=== PATIENT | female | born 1975 | race African-American/Black ===

== ENCOUNTER 2019-08-08 07:40 | Emergency (ER) | payer BC ==
--- OUTSIDE RECORDS SUMMARY | 2019-08-08 07:50 | XMS REPORT ---
:1975 [facility] Address [address] [place] [address] Dr. Blanc [address] [place] [id number] Care Team Providers Name Role Phone Unavailable Unavailable Unavailable Problems This patient has no known problems. Allergies, Adverse Reactions, Alerts This patient has no known allergies or adverse reactions. Medications This patient has no known medications.
[2019-08-08] MEDS ORDERED: MEPERIDINE HCL 25 MG/0.5 ML ONE (08:08)
[2019-08-08] MEDS ORDERED: dexAMETHasone 10 MG/ML VIAL ONE (08:08)
--- NOTE | 2019-08-08 09:12 | RAD REPORT ---
EXAM DESCRIPTION: CT - Pelvis Wo Cont - 08/08/2019 8:54 am CLINICAL HISTORY: fall, right pelvic and hip pain COMPARISON: No comparisons TECHNIQUE: All CT scans are performed using dose optimization technique as appropriate and may inclu de automated exposure control or mA/KV adjustment according to patient size. FINDINGS: Hardware is present in the proximal left femur. Degenerative cysts are seen along the late ral margin of the left hip femoral head. The right hip appears intact. There is no fracture, dislocation or AVN pattern observed. Both sacral ala are intact. No soft tissue mass or hematoma. IMPRESSION: No acute finding involving the right hip.
--- NOTE | 2019-08-08 09:17 | RAD REPORT ---
EXAM DESCRIPTION: CT - Spine Lumbar Wo Con - 08/08/2019 8:53 am CLINICAL HISTORY: Radiculopathy. fall, back pain COMPARISON: LUMBAR SPINE W O CONTRAST dated 08/17/2015 TECHNIQUE: Axial noncontrast CT imaging of the lumbar spine was performed with coronal and sagittal re-formatted images. All CT scans are performed using dose optimization technique as appropriate and may include automated exposure control or mA/KV adjustment according to patient size. FINDINGS: No acute lumbar spine fracture seen. No aggressive marrow pattern or malalignment. Paraspinal tissues are normal in thickness. No paraspinal abscess or hematoma seen. 4 cm right adnexal cyst noted. IMPRESSION: No acute lumbar spine abnormality discerned.
[2019-08-08] MEDS ORDERED: MORPHINE 4 MG/ML SYR ONE (09:41)
--- NOTE | 2019-08-08 09:42 | RAD REPORT ---
EXAM DESCRIPTION: RAD - Femur Right - 08/08/2019 9:30 am CLINICAL HISTORY: PAIN COMPARISON: No comparisons FINDINGS: No fracture, dislocation or AVN.
--- NOTE | 2019-08-08 10:41 | EDPHYS ---
Physician Documentation [facility] Name: Diana Vincent Age: 43 yrs Sex: Female : 1975 Arrival Date: 08/08/2019 Time: 07:45 Bed 16 Private MD: Ubaldo Rogers ED Physician Russ Tian HPI: 08/07 07:58 This 43 yrs old Black Female presents to ER via Unassigned with complaints of Leg Pain. rn 07:58 The patient presents with decreased range of motion, an injury, pain. The complaints rn affect the right hip. Onset: The symptoms/episode began/occurred just prior to arrival. Modifying factors: The symptoms are alleviated by remaining still, the symptoms are aggravated by movement, weight bearing. Severity of symptoms: At their worst the symptoms were moderate, in the emergency department the symptoms are unchanged. The patient has not experienced similar symptoms in the past. Reports fall this morning, fell off couch, landed on right hip, reports painful ROM and to touch, also right lower back pain. Reports has chronic back pain, just had injection Thursday, had a little pain and irritation but went to sleep last night pain free. Pain did not return until fell. Reports pain to right lower back and right hip, pain shoots down right leg. . Historical: - Allergies: 08:01 Latex, Natural Rubber; ss 08:01 PENICILLINS; ss - PMHx: 08:01 Seizures; ss - PSHx: 08:01 left hip surgery; ; ss - Immunization history:: Adult Immunizations up to date. - Social history:: Smoking status: Patient reports the use of cigarette tobacco products, 1 pack per week. - Family history:: not pertinent. - Hospitalizations: : No recent hospitalization is reported. ROS: 07:58 Constitutional: Negative for fever, chills, and weight loss, Eyes: Negative for injury, rn pain, redness, and discharge, Neck: Negative for injury, pain, and swelling, Cardiovascular: Negative for chest pain, palpitations, and edema, Respiratory: Negative for shortness of breath, cough, wheezing, and pleuritic chest pain, Abdomen/GI: Negative for abdominal pain, nausea, vomiting, diarrhea, and constipation, Back: + right lower back pain : Negative for injury, bleeding, discharge, and swelling, MS/Extremity: + right hip/leg pain Skin: Negative for injury, rash, and discoloration, Neuro: Negative for headache, weakness, numbness, tingling, and seizure. Exam: 07:58 Constitutional: This is a well developed, well nourished patient who is awake, alert, rn grimacing in pain when moved into bed Head/Face: Normocephalic, atraumatic. Eyes: Pupils equal round and reactive to light, extra-ocular motions intact. Lids and lashes normal. Conjunctiva and sclera are non-icteric and not injected. Cornea within normal limits. Periorbital areas with no swelling, redness, or edema. Cardiovascular: Regular rate and rhythm. No pulse deficits. Respiratory: No increased work of breathing, no retractions or nasal flaring. Abdomen/GI: soft, non-tender Back: No spinal tenderness. + right lower back tenderness, no skin changes. MS/ Extremity: Pulses equal, no cyanosis. + right hip tenderness with painful ROM. Neuro: Awake and alert, GCS 15, oriented to person, place, time, and situation. Motor strength 5/5 in all extremities. Sensory grossly intact. Vital Signs: 07:58 BP 144 / 108; Pulse 87; Resp 23; Temp 98.8(TE); Pulse Ox 99% on R/A; Weight 77.11 kg; ss Height 4 ft. 11 in. (149.86 cm); Pain 8/10; 09:30 BP 138 / 91; Pulse 82; Resp 18; Pulse Ox 99% on R/A; ph 10:36 BP 128 / 99; Pulse 79; Resp 18; Pulse Ox 99% on R/A; ph 11:15 Temp 97.9; ph 07:58 Body Mass Index 34.34 (77.11 kg, 149.86 cm) ss MDM: 07:47 Patient medically screened. rn 10:38 Differential diagnosis: dislocation, closed fracture, contusion. Data reviewed: vital rn signs, nurses notes, radiologic studies, CT scan, plain films, and as a result, I will discharge patient. Counseling: I had a detailed discussion with the patient and/or guardian regarding: the historical points, exam findings, and any diagnostic results supporting the discharge/admit diagnosis, radiology results, the need for outpatient follow up, to return to the emergency department if symptoms worsen or persist or if there are any questions or concerns that arise at home. Response to treatment: the patient's symptoms have mildly improved after treatment, and as a result, I will discharge patient. Special discussion: I discussed with the patient/guardian in detail that at this point there is no indication for admission to the hospital. It is understood, however, that if the symptoms persist or worsen the patient needs to return immediately for re-evaluation. ED course: Neg ct pelvis and lumbar spine, neg femur film. Will dc home with muscle relaxer and steroids for contusion/trauma/radiculopathy. Return precautions given and understood. . 10:43 ED course: PMP[place] checked, scores 370/160/220, no active prescriptions, will dc home rn with muscle relaxer and steorids.. 03 07:58 Order name: CT Lumbar Spine Wo Con; Complete Time: 09:44 rn 08/07 07:58 Order name: CT Pelvis wo Cont; Complete Time: 09:44 rn 08/07 07:58 Order name: XRAY Femur RIGHT; Complete Time: 10:05 rn 08/07 07:58 Order name: IV Start; Complete Time: 08:00 rn Administered Medications: 08:19 Drug: Demerol 25 mg Route: IVP; Site: left hand; ph 08:45 Follow up: Response: No adverse reaction; Pain is decreased ph 08:19 Drug: Decadron - Dexamethasone 10 mg Route: IVP; Site: left hand; ph 08:45 Follow up: Response: No adverse reaction ph 10:00 Drug: morphine 4 mg Route: IVP; Site: left hand; ph 10:15 Follow up: Response: No adverse reaction; Pain is decreased ph Disposition: 08/08/19 10:40 Discharged to Home. Impression: Radiculopathy, lumbosacral region, Contusion of lower back and pelvis, Contusion of right hip. - Condition is Stable. - Discharge Instructions: Contusion, Lumbosacral Radiculopathy. - Prescriptions for Cyclobenzaprine 10 mg Oral Tablet - take 1 tablet by ORAL route every 8 hours As needed; 20 tablet. Medrol (Eliud) 4 mg Oral Tablets, Dose Pack - take 1 tablet by ORAL route as directed - follow package instructions; 1 packet. - Medication Reconciliation Form, Thank You Letter, Antibiotic Education, Prescription Opioid Use, Work release form, Family Work Release form. - Follow up: Private Physician; When: As needed; Reason: Recheck today's complaints, Re-evaluation by your physician. - Problem is new. - Symptoms have improved. Signatures: Dispatcher [employer] EDMS Antonina Washington Roman, MD MD rn SmirKeli palacios RN RN ss Charleen Mixon RN RN ph Corrections: (The following items were deleted from the chart) 11:18 10:40 08/08/2019 10:40 Discharged to Home. Impression: Radiculopathy, lumbosacral ph region; Contusion of lower back and pelvis; Contusion of right hip. Condition is Stable. Forms are Medication Reconciliation Form, Thank You Letter, Antibiotic Education, Prescription Opioid Use. Follow up: Private Physician; When: As needed; Reason: Recheck today's complaints, Re-evaluation by your physician. Problem is new. Symptoms have improved. rn
--- NOTE | 2019-08-08 10:41 | ER ---
Nurse's Notes [facility] Name: Diana Vincent Age: 43 yrs Sex: Female : 1975 Arrival Date: 08/08/2019 Time: 07:45 Bed 16 Private MD: Ubaldo Rogers Diagnosis: Radiculopathy, lumbosacral region;Contusion of lower back and pelvis;Contusion of right hip Presentation: 08/07 07:58 Chief complaint: Patient states: pain to R hip that radiates down R leg that began this ss morning after falling from a standing position. Pt recently had injections to lower back (Thursday). Coronavirus screen: The patient has NOT traveled to a country currently being monitored by the CDC within the last 14 days. Proceed with normal triage procedures. Ebola Screen: Patient denies exposure to infectious person. Patient denies travel to an Ebola-affected area in the 21 days before illness onset. Initial Sepsis Screen: Does the patient meet any 2 criteria? No. Patient's initial sepsis screen is negative. Does the patient have a suspected source of infection? No. Patient's initial sepsis screen is negative. Risk Assessment: Do you want to hurt yourself or someone else? Patient reports no desire to harm self or others. 07:58 Method Of Arrival: Wheelchair 07:58 Acuity: ARGENIS 3 ss Historical: - Allergies: 08:01 Latex, Natural Rubber; ss 08:01 PENICILLINS; ss - PMHx: 08:01 Seizures; ss - PSHx: 08:01 left hip surgery; ; ss - Immunization history:: Adult Immunizations up to date. - Social history:: Smoking status: Patient reports the use of cigarette tobacco products, 1 pack per week. - Family history:: not pertinent. - Hospitalizations: : No recent hospitalization is reported. Screenin:33 Abuse screen: Denies threats or abuse. Denies injuries from another. Nutritional ph screening: No deficits noted. Tuberculosis screening: No symptoms or risk factors identified. Fall Risk None identified. Assessment: 08:30 General: Appears in no apparent distress. uncomfortable, well groomed, Behavior is ph calm, cooperative, appropriate for age. Pain: Complains of pain in right hip Pain radiates to right leg. Neuro: Level of Consciousness is awake, alert, obeys commands, Oriented to person, place, time, situation. Cardiovascular: Capillary refill < 3 seconds in bilateral fingers Patient's skin is warm and dry. Respiratory: Airway is patent Respiratory effort is even, unlabored, Respiratory pattern is regular, symmetrical. Derm: Skin is intact, is healthy with good turgor, Skin is pink, warm \T\ dry. Musculoskeletal: Circulation, motion, and sensation intact. Range of motion: intact in all extremities. 09:30 Reassessment: Patient appears in no apparent distress at this time. Patient and/or ph family updated on plan of care and expected duration. Pain level reassessed. Patient is alert, oriented x 3, equal unlabored respirations, skin warm/dry/pink. 10:36 Reassessment: Patient appears in no apparent distress at this time. Patient and/or ph family updated on plan of care and expected duration. Pain level reassessed. Patient is alert, oriented x 3, equal unlabored respirations, skin warm/dry/pink. Vital Signs: 07:58 BP 144 / 108; Pulse 87; Resp 23; Temp 98.8(TE); Pulse Ox 99% on R/A; Weight 77.11 kg; ss Height 4 ft. 11 in. (149.86 cm); Pain 8/10; 09:30 BP 138 / 91; Pulse 82; Resp 18; Pulse Ox 99% on R/A; ph 10:36 BP 128 / 99; Pulse 79; Resp 18; Pulse Ox 99% on R/A; ph 11:15 Temp 97.9; ph 07:58 Body Mass Index 34.34 (77.11 kg, 149.86 cm) ED Course: 07:45 Patient arrived in ED. mr 07:45 Ubaldo Rogers MD is Private Physician. mr 07:47 Russ Tian MD is Attending Physician. rn 07:49 Charleen Mixon RN is Primary Nurse. ph 08:00 Triage completed. ss 08:01 Arm band placed on right wrist. ss 08:15 Inserted saline lock: 20 gauge in left hand, using aseptic technique. dh3 08:54 CT Lumbar Spine Wo Con In Process Unspecified. EDMS 08:54 CT Pelvis wo Cont In Process Unspecified. EDMS 09:27 X-ray completed. Patient tolerated procedure well. Patient moved back from radiology. jb2 09:30 XRAY Femur RIGHT In Process Unspecified. EDMS 10:33 Patient has correct armband on for positive identification. Placed in gown. Bed in low ph position. Call light in reach. Side rails up X 1. Pulse ox on. NIBP on. Door closed. Noise minimized. Warm blanket given. Pillow given. 11:15 No provider procedures requiring assistance completed. IV discontinued, intact, ph bleeding controlled, No redness/swelling at site. Pressure dressing applied. Administered Medications: 08:19 Drug: Demerol 25 mg Route: IVP; Site: left hand; ph 08:45 Follow up: Response: No adverse reaction; Pain is decreased ph 08:19 Drug: Decadron - Dexamethasone 10 mg Route: IVP; Site: left hand; ph 08:45 Follow up: Response: No adverse reaction ph 10:00 Drug: morphine 4 mg Route: IVP; Site: left hand; ph 10:15 Follow up: Response: No adverse reaction; Pain is decreased ph Outcome: 10:40 Discharge ordered by . rn 11:18 Patient left the ED. ph 11:18 Discharged to home via wheelchair, with significant other. ph 11:18 Condition: improved 11:18 Discharge instructions given to patient, Instructed on discharge instructions, follow up and referral plans. medication usage, Demonstrated understanding of instructions, follow-up care, medications, Prescriptions given X 2. Signatures: Dispatcher [employer] EDMN Roselia Sesay Jesse jb2 Russ Tian MD MD rn Smirch, Shelby, RN RN Charleen Mixon RN RN Leola Rojas [facility]
[2019-08-08 11:31] VITALS: TEMP 98.8; O2SAT 99
[2019-08-08 11:34] VITALS: BP 128/99
== END 2019-08-08 11:18 | disposition home or self-care (01) ==
LOC: ER 07:40
DX: S70.01XA Contusion of right hip, initial encounter (principal); S30.0XXA Contusion of lower back and pelvis, initial encounter; M54.17 Radiculopathy, lumbosacral region; W08.XXXA Fall from other furniture, initial encounter; Y93.9 Activity, unspecified; Y92.018 Other place in single-family (private) house as the place of occurrence of the external cause; Z88.0 Allergy status to penicillin; Z91.040 Latex allergy status; F17.210 Nicotine dependence, cigarettes, uncomplicated
CPT/HCPCS: 72131; 72192; 73552; 96375; 96374; 99284; J1100; J2175

== ENCOUNTER 2020-02-12 22:15 | Emergency (ER) | payer BC, SELFPAY ==
--- OUTSIDE RECORDS SUMMARY | 2020-02-12 22:36 | XMS REPORT | Continuity of Care Document ---
:1975 Author Organization [facility] t Address [address] [place] [address] Care Team Providers Name Role Phone Unavailable Unavailable Unavailable Problems This patient has no known problems. Allergies, Adverse Reactions, Alerts This patient has no known allergies or adverse reactions. Medications This patient has no known medications. Procedures This patient has no known procedures. Results This patient has no known results.
[2020-02-12] MEDS ORDERED: CYCLOBENZAPRINE 10 MG TAB ONE (23:05)
[2020-02-12] MEDS ORDERED: HYDROCODONE/APAP 10/325 TAB ONE (23:05)
--- NOTE | 2020-02-13 00:53 | EDPHYS ---
Physician Documentation [facility] Name: Diana Vincent Age: 44 yrs Sex: Female : 1975 Arrival Date: 02/12/2020 Time: 22:17 Bed 17 Private MD: ED Physician Russ Tian HPI: 02/11 23:07 This 44 yrs old Black Female presents to ER via Ambulatory with complaints of Back Pain.kb 23:07 The patient presents with pain that is acute, that is chronic, and a burn. The symptoms kb are located in the low back area. Onset: The symptoms/episode began/occurred 3 day(s) ago. The pain does not radiate. Associated signs and symptoms: The patient has no apparent associated signs or symptoms. The problem was sustained from a chronic condition, during a fall. Modifying factors: The patient symptoms are alleviated by nothing, the patient symptoms are aggravated by any movement. Severity of symptoms: At their worst the symptoms were moderate, in the emergency department the symptoms are unchanged. The patient has experienced similar episodes in the past, chronically. The patient has not recently seen a physician. Pt reports she has chronic back pain secondary to bulging discs. States she slipped and fell in the shower on Thursday exacerbating the pain. She got new pads for her e-stem machine and when she used them they burned her back. . GOODS LAYER: 22:52 LMP 12/2019 Historical: - Allergies: 22:51 Latex, Natural Rubber; 22:51 PENICILLINS; - Home Meds: 22:51 dilantin only when she doesn't feel right [Active]; - PMHx: 22:51 Seizures; Asthma; - PSHx: 22:51 ; Hernia repair; - Immunization history:: Adult Immunizations up to date. - Social history:: Smoking status: Patient/guardian denies using. ROS: 23:06 Constitutional: Negative for fever, chills, and weight loss, Cardiovascular: Negative kb for chest pain, palpitations, and edema, Respiratory: Negative for shortness of breath, cough, wheezing, and pleuritic chest pain, Abdomen/GI: Negative for abdominal pain, nausea, vomiting, diarrhea, and constipation, : Negative for injury, bleeding, discharge, and swelling, MS/Extremity: Negative for injury and deformity, Neuro: Negative for headache, weakness, numbness, tingling, and seizure. 23:06 Back: Positive for pain at rest, pain with movement, of the low back area. 23:06 Skin: Positive for burn, of the low back area. Exam: 23:06 Constitutional: This is a well developed, well nourished patient who is awake, alert, kb and in no acute distress. Head/Face: Normocephalic, atraumatic. Chest/axilla: Normal chest wall appearance and motion. Nontender with no deformity. No lesions are appreciated. Cardiovascular: Regular rate and rhythm with a normal S1 and S2. No gallops, murmurs, or rubs. Normal PMI, no JVD. No pulse deficits. Respiratory: Lungs have equal breath sounds bilaterally, clear to auscultation and percussion. No rales, rhonchi or wheezes noted. No increased work of breathing, no retractions or nasal flaring. Abdomen/GI: Soft, non-tender, with normal bowel sounds. No distension or tympany. No guarding or rebound. No evidence of tenderness throughout. MS/ Extremity: Pulses equal, no cyanosis. Neurovascular intact. Full, normal range of motion. Neuro: Awake and alert, GCS 15, oriented to person, place, time, and situation. Cranial nerves II-XII grossly intact. Motor strength 5/5 in all extremities. Sensory grossly intact. Cerebellar exam normal. Normal gait. 23:06 Back: pain, that is moderate, of the low back area, ROM is normal, normal spinal alignment noted. 23:06 Skin: injury, burn(s), 4 areas of second degree israel to low back from e-stem pads. Vital Signs: 22:47 BP 146 / 93; Pulse 92; Resp 18; Temp 98.2; Pulse Ox 98% ; Weight 77.11 kg; Height 4 ft. wh 11 in. (149.86 cm); Pain 10/10; 02/12 01:00 BP 131 / 101; Pulse 89; Resp 18; Pulse Ox 99% on R/A; 02/11 22:47 Body Mass Index 34.34 (77.11 kg, 149.86 cm) MDM: 02/11 22:40 Patient medically screened. kb 23:05 Data reviewed: vital signs, nurses notes. Data interpreted: Pulse oximetry: on room air kb is 98 %. Interpretation: normal. 02/12 00:43 Counseling: I had a detailed discussion with the patient and/or guardian regarding: the kb historical points, exam findings, and any diagnostic results supporting the discharge/admit diagnosis, radiology results, the need for outpatient follow up, a family practitioner, to return to the emergency department if symptoms worsen or persist or if there are any questions or concerns that arise at home. 02/11 22:44 Order name: CT Lumbar Spine Wo Con kb Administered Medications: 02/11 22:56 Drug: Tropic 10 mg-325 mg 1 tabs Route: PO; ls4 23:30 Follow up: Response: No adverse reaction; Marked relief of symptoms rust 02/12 01:30 Follow up: Response: No adverse reaction; Pain is decreased; RASS: Alert and Calm (0) 02/11 22:56 Drug: Flexeril 10 mg Route: PO; ls4 23:30 Follow up: Response: No adverse reaction; Marked relief of symptoms rust 02/12 01:30 Follow up: Response: No adverse reaction 00:52 Drug: Benadryl 25 mg Route: PO; 01:30 Follow up: Response: No adverse reaction 00:52 Drug: Famotidine 20 mg Route: PO; 01:29 Follow up: Response: No adverse reaction 01:15 Drug: predniSONE 40 mg Route: PO; 01:29 Follow up: Response: No adverse reaction Disposition: 02:20 Co-signature as Attending Physician, Russ Tian MD. rn Disposition: 02/13/20 00:53 Discharged to Home. Impression: Burn of second degree of lower back, Low back pain. - Condition is Stable. - Discharge Instructions: Back Pain, Adult, [id number], Second-Degree Burn. - Prescriptions for Cyclobenzaprine 10 mg Oral Tablet - take 1 tablet by ORAL route every 8 hours As needed; 21 tablet. Pepcid 20 mg Oral Tablet - take 1 tablet by ORAL route every 12 hours for 5 days; 10 tablet. Medrol (Eliud) 4 mg Oral Tablets, Dose Pack - take 1 tablet by ORAL route as directed - follow package instructions; 1 packet. - Medication Reconciliation Form, Thank You Letter, Antibiotic Education, Prescription Opioid Use form. - Follow up: Emergency Department; When: As needed; Reason: Worsening of condition. Follow up: Private Physician; When: 2 - 3 days; Reason: Recheck today's complaints, Continuance of care, Re-evaluation by your physician. Signatures: Dispatcher [employer] Teressa Anton, CONSTRUCTION EXECUTIVE-C CONSTRUCTION EXECUTIVE-CkRuss Matias MD MD rn Habalo, Iris Guaman RN RN ls4 Corrections: (The following items were deleted from the chart) 02/11 23:26 23:07 Pt reports she has chronic back pain secondary to . gualberto burciaga 02/12 01:35 00:53 02/13/2020 00:53 Discharged to Home. Impression: Burn of second degree of lower wh back; Low back pain. Condition is Stable. Discharge Instructions: Back Pain, Adult, Idmx-[id number], Second-Degree Burn. Prescriptions for Tylenol-Codeine #3 300-30 mg Oral Tablet - take 2 tablets by ORAL route every 6 hours As needed; 16 tablet, Cyclobenzaprine 10 mg Oral Tablet - take 1 tablet by ORAL route every 8 hours As needed; 21 tablet. and Forms are Medication Reconciliation Form, Thank You Letter, Antibiotic Education, Prescription Opioid Use. Follow up: Emergency Department; When: As needed; Reason: Worsening of condition. Follow up: Private Physician; When: 2 - 3 days; Reason: Recheck today's complaints, Continuance of care, Re-evaluation by your physician. kb
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
[2020-02-13] MEDS ORDERED: DIPHENHYDRAMINE 25 MG TAB/CAP ONE (01:00)
[2020-02-13] MEDS ORDERED: FAMOTIDINE 20 MG TAB ONE (01:01)
[2020-02-13] MEDS ORDERED: predniSONE 20 MG TAB ONE (01:25)
[2020-02-13 02:07] VITALS: TEMP 98.2
[2020-02-13 02:08] VITALS: BP 131/101; O2SAT 99
--- NOTE | 2020-02-13 10:59 | RAD REPORT ---
EXAM DESCRIPTION: CTSpine Lumbar Wo Con02/13/2020 4:19 am CLINICAL HISTORY: LOWER BACK PAIN TECHNIQUE: Contiguous axial CT images obtained through the lumbar spine without IV contrast. Coronal and sagittal reformatted images also provided. This exam was performed according to our departmental dose-optimization program, which includes autom ated exposure control, adjustment of the mA and/or kV according to patient size and/or use of iterati ve reconstruction technique. COMPARISON: None available for comparison FINDINGS: Vertebra: Lumbar dextroscoliosis centered at its No acute or remote fracture deformity. No subluxation. Disc spaces: Degenerative changes predominantly at L4-L5 manifested by mild to moderate disc degenera tion with vacuum disc phenomenon on the right, small anterior and right lateral disc osteophytes, 5 m m broad-based bulge and mild to moderate facet arthropathy, right greater than left. Mild to moderate foraminal narrowing on the right at this level. Soft tissues: Unremarkable IMPRESSION: Degenerative changes predominantly at L4-L5. Electronically signed by: Jada Milton MD 02/13/2020 12:41 AM CDT Due to temporary technical issues with the PACS/Fluency reporting system, reports are being signed by the in house radiologist without review as a courtesy to ensure prompt reporting. The interpreting r adiologist is fully responsible for the content of the report.
== END 2020-02-13 01:35 | disposition home or self-care (01) ==
LOC: ER 22:15
DX: T21.24XA Burn of second degree of lower back, initial encounter (principal); X19.XXXA Contact with other heat and hot substances, initial encounter; Z88.0 Allergy status to penicillin; Z91.040 Latex allergy status; Z91.048 Other nonmedicinal substance allergy status
CPT/HCPCS: 72131; 99284; J7512

== ENCOUNTER 2020-03-16 09:08 | Emergency (ER) | payer SELFPAY ==
--- OUTSIDE RECORDS SUMMARY | 2020-03-16 09:10 | XMS REPORT | Continuity of Care Document ---
:1975 Author Organization [facility] t Address [address] [place] [address] Care Team Providers Name Role Phone Diego Attending Clinician Nazario FAITH Attending Clinician Josephine Garcia Attending Clinician Doctor Unassigned, Name Attending Clinician Unavailable Nazario FAITH Admitting Clinician Problems This patient has no known problems. Allergies, Adverse Reactions, Alerts This patient has no known allergies or adverse reactions. Medications This patient has no known medications. Procedures This patient has no known procedures. Encounters Start End Encounter Admission Attending Care Care Encounter Source Date/Time Date/Time Type Type Clinicians Facility Department ID 2020-02-21 2020-02-21 Transition Oscar Cortez [id number] 00:00:00 00:00:00 of Care Mahogany Stapleton [id number] [place] [id number] 2020-02-15 2020-02-19 Hospital Anika Lange [id number] 23:20:00 14:53:00 Encounter Dbfrancisco jvaier Fengy [id number] [facility] [id number] 2020-02-15 2020-02-15 Emergency Tim Russell [facility] [id number] 18:13:00 21:26:00 Josephine Lamb [id number] [place] [id number] [place] [id number] 2020-02-15 2020-02-15 Orders Doctor GABRIEL [id number] 00:00:00 00:00:00 Only Unassigned, TAN [id number] [place] [facility] [id number] Results This patient has no known results.
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
--- OUTSIDE RECORDS SUMMARY | 2020-03-16 09:10 | XMS REPORT | Summary of Care ---
:1975 Author Organization [facility] - Health Address [address] [place] [address] Care Team Providers Name Role Phone ChidieusebioNehemiah Primary Care Provider Encounter Details Date Type Department Care Team Description 02/15/2020 Orders Only [facility] Doctor Unassigned, [address] [facility] [place] [address] [address] [place] [address] Allergies Active Allergy Reactions Severity Noted Date [...] nodular goiter 08/26/2009 Overview: ICD10 Diagnosis Term [employer] documented as of this encounter (statuses as of 02/15/2020) Social History Tobacco Use Types Packs/Day Years Used Date Never Smoker Alcohol Use Drinks/Week oz/Week Comments No Sex Assigned at Date Recorded Not on file documented as of this encounter Last Filed Vital Signs Not on filedocumented in this encounter Plan of Treatment Health Maintenance Due Date Last Done Comments [...] Name Priority Date/Time Associated Diagnosis Comme nts CONSENT/REFUSAL FOR Routine 02/15/2020 6:05 PM CDT DIAGNOSIS AND TREATMENT documented in this encounter Results Not on filedocumented in this encounter Insurance Payer Benefit Plan Subscriber ID Effective Dates Phone Address Type / Group [employer] [place] [id number] 2018-Leslee [phone] [address] PPO/POS [facility] [id number] [place] [address] documented as of this encounter
--- OUTSIDE RECORDS SUMMARY | 2020-03-16 09:12 | XMS REPORT | Summary of Care ---
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 02/19/2020 8:09 AM CDT 300 mg Given 02/18/2020 8:18 PM CDT 300 mg HYDROcodone-acetaminophen (NORCO 5) 5-325 Given 2019 8:09 AM CDT 1 tablet mg tablet 1 tablet 1 tablet, Oral, Q6HPRN, Starting Thu02/15/20 at 2340, Until Discontinued, Routine, Pain (scale 4-6) Given 02/18/2020 4:25 PM CDT 1 tablet Given 02/18/2020 8:57 AM CDT 1 tablet levETIRAcetam (KEPPRA) in NACL (ISO-OS) Given 02/19/2020 8:09 A M CDT 1,000 mg 1,000 mg/100 mL RTU 1,000 mg, IV Infusion, Q12H, First dose (after last modification) on Thu02/17/20 at 2230, Until Discontinued, 100 mL Given 02/18/2020 8:18 PM CDT 1,000 mg Given 02/18/2020 8:49 AM CDT 1,000 mg LORazepam (ATIVAN) injection 2 mg Given 02/16/2020 5:15 PM CDT 2 mg 2 mg, Slow IV Push, PRN, Starting Marcia 02/16/20 at 0208, Until Discontinued, Routine, Seizures morpHINE injection 4 mg Given 02/18/2020 8:49 AM CDT 4 mg 4 mg, Slow IV Push, Q4HPRN, Starting Thu02/15/20 at 2340, Until Discontinued, Routine, Pain (scale 7-10) Given 02/17/2020 5:22 PM CDT 4 mg Given 02/16/2020 9:44 AM CDT 4 mg nystatin / bacitracin-polymyxin b oint 1 :1 POLY-MYCO (COMPOUNDED) Topical (Apply To Affected Areas), QDAIL YPRN, Starting Marcia 9/17/20 at 0740, Until Discontinued, Routine, Burn Care Medication Order MAR Action Action Date Dose Rate Site D5W 0.45% NaCl (1/2NS) 1 L + New Bag 02/18/2020 8:49 PM CDT 100 mL/hr KCL 20 mEq IV Infusion, at 100 mL/hr, CONTINUOUS, Starting Marcia 02/16/20 at 0230, Until 02/18/20 at 2125, Routine New Bag 02/17/2020 11:36 PM CDT 100 mL/hr New Bag 02/16/2020 8:02 PM CDT 100 mL/hr FENTanyl PF (SUBLIMAZE (PF)) injection 25 Given 02/15/2020 11:00 PM CDT 25 mcg mcg 25 mcg, Slow IV Push, ONCE, 1 dose, [facility] 02/16/20 at 0330, Routine fluticasone propion-salmeteroL (ADVAIR) Given 02/17/2020 8:34 A M CDT 1 Puff 250-50 mcg/dose inhalation disk 1 Puff 1 Puff, Inhalation, QA-0730, First dose on Marcia 02/16/20 at 0730, Until Discontinued, Routine, Use approved by (Faculty and pager): ADC PROVIDER gadoteridol (PROHANCE-15 mL) injection Given 02/18/2020 11:25 AM CDT 15 mL Left Arm 15.42 mL 15.42 mL (0.2 mL/kg 77.1 kg), Intravenous, ONCE, 1 dose, 02/18/20 at 1145, Routine levETIRAcetam (KEPPRA) 2,000 mg in NaCl Given 02/16/2020 6:41 P M CDT 2,000 mg 0.9% (NS) 100 mL IV infusion 2,000 mg, IV Infusion, ONCE, 1 dose, Marcia 02/16/20 at 1830, 100 mL levETIRAcetam (KEPPRA) 750 mg in NaCl 0.9% Given 02/17/2020 8:35 AM CDT 750 mg (NS) 100 mL IV infusion 750 mg, IV Infusion, Q12H, First dose (after last modification) on Marcia 02/16/20 at 2000, Until Discontinued, 100 mL Given 02/16/2020 9:09 PM CDT 750 mg levETIRAcetam (KEPPRA) in NACL (ISO-OS) 500 Given 01/30 1:15 AM CDT 500 mg mg/100 mL RTU 500 mg, IV Infusion, ONCE, 1 dose, [facility] 02/16/20 at 0115, 100 mL magnesium sulfate in water 4 gram/50 mL (8 %) New Bag 10:00 PM CDT 4 g IV Piggyback 4 g 4 g, IV Piggyback, ONCE, 1 dose, [facility] 02/16/20 at 2100, Routine montelukast (SINGULAIR) tablet 10 mg Given 02/18/2020 12:00 PM CDT 10 mg 10 mg, Oral, DAILY, First dose on Marcia 02/16/20 at 0900, Until Discontinued, Routine Given 02/17/2020 8:35 AM CDT 10 mg Given 02/16/2020 9:37 AM CDT 10 mg phenytoin Extended (DILANTIN KAPSEAL) Given 02/16/2020 2:39 PM CDT 100 mg capsule 100 mg 100 mg, Oral, TID, First dose on Marcia 02/16/20 at 0000, Until Discontinued, Routine Given 02/16/2020 9:37 AM CDT 100 mg Given 02/16/2020 1:15 AM CDT 100 mg documented in this encounter
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
--- NOTE | 2020-03-16 09:55 | RAD REPORT ---
EXAM DESCRIPTION: CTSpine Lumbar Wo Con03/16/2020 9:41 am CLINICAL HISTORY: Back injury status post fall COMPARISON: None TECHNIQUE: Computed axial tomography lumbar spine was obtained with coronal and sagittal reconstruct ion. All CT scans are performed using dose optimization technique as appropriate and may include automated exposure control or mA/KV adjustment according to patient size. FINDINGS: No fracture is seen. No dislocation Prominent disc bulge L4-5 No high-grade stenosis seen IMPRESSION: Negative for a lumbar fracture.
[2020-03-16] MEDS ORDERED: HYDROCODONE/APAP 7.5/325 MG TAB ONE (09:58)
--- NOTE | 2020-03-16 10:36 | RAD REPORT ---
EXAM DESCRIPTION: RAD - Ankle Right 3 View - 03/16/2020 10:03 am CLINICAL HISTORY: Right ankle pain status post fall FINDINGS: 2 millimeter curvilinear density lies adjacent to the medial malleolus. This may represent an acute sliver of avulsion fracture or be chronic. Soft tissue swelling No dislocation
--- NOTE | 2020-03-16 10:47 | RAD REPORT ---
EXAM DESCRIPTION: RADSacrum And Rdcdbf3403/16/2020 10:02 am CLINICAL HISTORY: Back pain status post fall FINDINGS: No fracture is seen
[2020-03-16] MEDS ORDERED: CYCLOBENZAPRINE 10 MG TAB ONE (11:00)
[2020-03-16] MEDS ORDERED: KETOROLAC 30 MG/ML INJ ONE (11:00)
--- NOTE | 2020-03-16 11:05 | ER ---
Nurse's Notes [facility] Name: Diana Vincent Age: 44 yrs Sex: Female : 1975 Arrival Date: 03/16/2020 Time: 09:10 Bed 13 Private MD: Diagnosis: Fracture of medial malleolus;Fall (on) (from) other stairs and steps;Low back pain Presentation: 03/16 09:24 Chief complaint: Patient states: Fell down 4 steps at home at 0700 this morning. C/o ss pain to lower back, L flank area and R ankle. Coronavirus screen: Client denies travel out of the [place] in the last 14 days. Ebola Screen: Patient denies exposure to infectious person. Patient denies travel to an Ebola-affected area in the 21 days before illness onset. Initial Sepsis Screen: Does the patient meet any 2 criteria? RR > 20 per min. HR > 90 bpm. Does the patient have a suspected source of infection? No. Patient's initial sepsis screen is negative. Risk Assessment: Do you want to hurt yourself or someone else? Patient reports no desire to harm self or others. Onset of symptoms was March 16, 2020. 09:24 Method Of Arrival: Ambulatory ss 09:24 Acuity: ARGENIS 3 ss MBA INTERN: 10:10 LMP N/A - iw Historical: - Allergies: 09:28 Latex, Natural Rubber; ss 09:28 PENICILLINS; ss - PMHx: 09:28 Asthma; Seizures; ss - PSHx: 09:28 ; Hernia repair; ss - Immunization history:: Adult Immunizations up to date. - Social history:: Smoking status: Patient denies any tobacco usage or history of. Screenin:39 Abuse screen: Denies threats or abuse. Denies injuries from another. Nutritional iw screening: No deficits noted. Tuberculosis screening: No symptoms or risk factors identified. Fall Risk Fall in past 12 months (25 points). Assessment: 10:10 General: Appears uncomfortable, Behavior is cooperative. Pain: Complains of pain in iw left low back and anterior aspect of right ankle and low back area. Neuro: Level of Consciousness is awake, alert, obeys commands, Oriented to person, place, time, situation, Moves all extremities. Full function. Cardiovascular: Patient's skin is warm and dry. Respiratory: Respiratory effort is even, unlabored, Respiratory pattern is regular, symmetrical. Derm: Skin is intact, is healthy with good turgor. Musculoskeletal: Range of motion: intact in all extremities. 10:50 Reassessment: pt states she is still having a lot of low back pain, ANNMARIE Gannon iw notified, pt medicated per jul. 11:40 Reassessment: Patient appears in no apparent distress at this time. splint in place, pt iw sates she is feeling better after morphine. Vital Signs: 09:24 BP 128 / 97; Pulse 94; Resp 23; Temp 97.2(TE); Pulse Ox 100% on R/A; Weight 78.47 kg; ss Height 4 ft. 11 in. (149.86 cm); Pain 9/10; 10:45 BP 126 / 87; Pulse 89; Resp 16; Pulse Ox 98% on R/A; Pain 9/10; iw 09:24 Body Mass Index 34.94 (78.47 kg, 149.86 cm) ss ED Course: 09:10 Patient arrived in ED. as 09:13 Teressa Mathews, CHUCHO is PHCP. kb 09:13 Mark Hernandez MD is Attending Physician. kb 09:27 Triage completed. ss 09:28 Arm band placed on right wrist. ss 09:41 Montserrat Gallardo, RN is Primary Nurse. iw 09:41 CT Lumbar Spine Wo Con In Process Unspecified. EDMS 10:00 Ankle Right 3 View XRAY In Process Unspecified. EDMS 10:01 Sacrum And Coccyx XRAY In Process Unspecified. EDMS 10:10 Patient has correct armband on for positive identification. iw 10:39 No provider procedures requiring assistance completed. Patient did not have IV access iw during this emergency room visit. 11:25 Orthoglass splint: Posterior short lleg splint applied on right leg. capillary refill dh3 <3 seconds, viewed by Teressa Mathews. Administered Medications: 10:10 Drug: [place] (7.5 mg-325 mg) 1 tabs Route: PO; iw 11:10 Follow up: Response: No adverse reaction iw 10:49 Drug: Flexeril 10 mg Route: PO; iw 10:50 Drug: TORadol 30 mg Route: IM; Site: left deltoid; iw 11:50 Follow up: Response: No adverse reaction iw 11:30 Drug: morphine 4 mg Route: IM; Site: right deltoid; iw 11:50 Follow up: Response: No adverse reaction iw 11:30 Drug: Zofran (Ondansetron) 4 mg Route: PO; iw 11:50 Follow up: Response: No adverse reaction iw Outcome: 11:04 Discharge ordered by . gualberto 11:55 Discharged to home with crutches, with family. iw 11:55 Condition: good 11:55 Discharge instructions given to patient, Instructed on discharge instructions, follow up and referral plans. crutch walking, Demonstrated understanding of instructions, follow-up care, medications, crutch walking, splint care. 11:56 Patient left the ED. iw Signatures: Dispatcher [employer] EDTeressa Tran, GENERAL CAR YARD SUPERVISOR-C BEAR-Sandra Cannon Irene RN Keli Wilson RN RN Leola Rojas [facility]
--- NOTE | 2020-03-16 11:06 | EDPHYS ---
Physician Documentation [facility] Name: Diana Vincent Age: 44 yrs Sex: Female : 1975 Arrival Date: 03/16/2020 Time: 09:10 Bed 13 Private MD: ED Physician Mark Hernandez HPI: 03/16 09:38 This 44 yrs old Black Female presents to ER via Ambulatory with complaints of Fall kb Injury, Ankle Swelling, Back Pain. 09:38 Details of fall: The patient fell from a height, down approximately 4 stairs. Onset: kb The symptoms/episode began/occurred this morning. Associated injuries: The patient sustained injury to the low back, contusion, pain, pain with movement, anterior aspect of right ankle, painful injury, swelling. Severity of symptoms: At their worst the symptoms were moderate, in the emergency department the symptoms are unchanged. The patient has not experienced similar symptoms in the past. The patient has not recently seen a physician. Pt reports she fell down 4 steps this morning. Denies hitting head/LOC. Reports low back pain and ankle pain. HOUSEKEEPING LEAD: 10:10 LMP N/A - iw Historical: - Allergies: 09:28 Latex, Natural Rubber; ss 09:28 PENICILLINS; ss - PMHx: 09:28 Asthma; Seizures; ss - PSHx: 09:28 ; Hernia repair; ss - Immunization history:: Adult Immunizations up to date. - Social history:: Smoking status: Patient denies any tobacco usage or history of. ROS: 09:36 Constitutional: Negative for fever, chills, and weight loss, Cardiovascular: Negative kb for chest pain, palpitations, and edema, Respiratory: Negative for shortness of breath, cough, wheezing, and pleuritic chest pain, Abdomen/GI: Negative for abdominal pain, nausea, vomiting, diarrhea, and constipation, Skin: Negative for injury, rash, and discoloration, Neuro: Negative for headache, weakness, numbness, tingling, and seizure. 09:36 Back: Positive for pain at rest, pain with movement, of the low back area. 09:36 MS/extremity: Positive for injury or acute deformity, pain, swelling, tenderness, of the anterior aspect of right ankle. Exam: 09:37 Constitutional: This is a well developed, well nourished patient who is awake, alert, kb and in no acute distress. Head/Face: Normocephalic, atraumatic. Chest/axilla: Normal chest wall appearance and motion. Nontender with no deformity. No lesions are appreciated. Cardiovascular: Regular rate and rhythm with a normal S1 and S2. No gallops, murmurs, or rubs. Normal PMI, no JVD. No pulse deficits. Respiratory: Lungs have equal breath sounds bilaterally, clear to auscultation and percussion. No rales, rhonchi or wheezes noted. No increased work of breathing, no retractions or nasal flaring. Abdomen/GI: Soft, non-tender, with normal bowel sounds. No distension or tympany. No guarding or rebound. No evidence of tenderness throughout. Neuro: Awake and alert, GCS 15, oriented to person, place, time, and situation. Cranial nerves II-XII grossly intact. Motor strength 5/5 in all extremities. Sensory grossly intact. Cerebellar exam normal. Normal gait. 09:37 Back: pain, that is moderate, of the low back area, ROM is painful, normal spinal alignment noted, vertebral tenderness, is appreciated at sacrum and coccyx. 09:37 Musculoskeletal/extremity: Extremities: grossly normal except: noted in the anterior aspect of right ankle: pain, swelling, tenderness, ROM: intact in all extremities, Circulation is intact in all extremities. Sensation intact. 09:37 Skin: injury, contusion(s), that are superficial, of the left low back. Vital Signs: 09:24 BP 128 / 97; Pulse 94; Resp 23; Temp 97.2(TE); Pulse Ox 100% on R/A; Weight 78.47 kg; ss Height 4 ft. 11 in. (149.86 cm); Pain 9/10; 10:45 BP 126 / 87; Pulse 89; Resp 16; Pulse Ox 98% on R/A; Pain 9/10; iw 09:24 Body Mass Index 34.94 (78.47 kg, 149.86 cm) ss MDM: 09:14 Patient medically screened. kb 09:35 Data reviewed: vital signs, nurses notes. Data interpreted: Pulse oximetry: on room air kb is 100 %. Interpretation: normal. 11:02 Counseling: I had a detailed discussion with the patient and/or guardian regarding: the kb historical points, exam findings, and any diagnostic results supporting the discharge/admit diagnosis, radiology results, the need for outpatient follow up, a orthopedic surgeon, to return to the emergency department if symptoms worsen or persist or if there are any questions or concerns that arise at home. 03/16 09:24 Order name: CT Lumbar Spine Wo Con; Complete Time: 09:57 kb 03/16 09:24 Order name: Ankle Right 3 View XRAY; Complete Time: 10:41 kb 03/16 09:24 Order name: Sacrum And Coccyx XRAY; Complete Time: 11:01 kb 03/16 11:02 Order name: Short Leg Splint; Complete Time: 11:27 kb 03/16 11:02 Order name: Crutches; Complete Time: 11:27 kb Administered Medications: 10:10 Drug: [place]ard (7.5 mg-325 mg) 1 tabs Route: PO; iw 11:10 Follow up: Response: No adverse reaction iw 10:49 Drug: Flexeril 10 mg Route: PO; iw 10:50 Drug: TORadol 30 mg Route: IM; Site: left deltoid; iw 11:50 Follow up: Response: No adverse reaction iw 11:30 Drug: morphine 4 mg Route: IM; Site: right deltoid; iw 11:50 Follow up: Response: No adverse reaction iw 11:30 Drug: Zofran (Ondansetron) 4 mg Route: PO; iw 11:50 Follow up: Response: No adverse reaction iw Disposition: 03/16/20 11:04 Discharged to Home. Impression: Fracture of medial malleolus, Fall (on) (from) other stairs and steps, Low back pain. - Condition is Stable. - Discharge Instructions: Back Injury Prevention, Lazn-nr-Szmz, Back Pain, Adult, Pnaw-xf-Sutt, Ankle Fracture, Ljqb-uo-Qept. - Prescriptions for Cyclobenzaprine 10 mg Oral Tablet - take 1 tablet by ORAL route every 8 hours As needed; 21 tablet. Diclofenac Sodium 75 mg Oral Tablet, Delayed Release (E.C.) - take 1 tablet by ORAL route 2 times per day As needed; 30 tablet. - Medication Reconciliation Form, Thank You Letter, Antibiotic Education, Prescription Opioid Use form. - Follow up: Emergency Department; When: As needed; Reason: Worsening of condition. Follow up: Private Physician; When: 2 - 3 days; Reason: Recheck today's complaints, Continuance of care, Re-evaluation by your physician. Addendum: 03/17/2020 13:16 Co-signature as Attending Physician, Mark Hernandez MD I agree with the assessment and k dr plan of care. Signatures: Dispatcher [employer] EDHI ReidTeressa, MULTIMEDIA COORDINATOR-C MULTIMEDIA COORDINATOR-Ckb Mark Hernandez MD MD [facility] Montserrat Gallardo RN RN iw Keli Menjivar RN RN ss Corrections: (The following items were deleted from the chart) 03/16 09:39 09:37 Back: pain, that is moderate, of the low back area, ROM is painful, normal spinal kb alignment noted, vertebral tenderness, is not appreciated, kb 11:56 11:04 03/16/2020 11:04 Discharged to Home. Impression: Fracture of medial malleolus; iw Fall (on) (from) other stairs and steps; Low back pain. Condition is Stable. Discharge Instructions: Back Injury Prevention, Oujc-wu-Rzpu, Back Pain, Adult, Dkku-vk-Ixta, Ankle Fracture, Wmil-kl-Qxgj. Prescriptions for Cyclobenzaprine 10 mg Oral Tablet - take 1 tablet by ORAL route every 8 hours As needed; 21 tablet, Diclofenac Sodium 75 mg Oral Tablet, Delayed Release (E.C.) - take 1 tablet by ORAL route 2 times per day As needed; 30 tablet. and Forms are Medication Reconciliation Form, Thank You Letter, Antibiotic Education, Prescription Opioid Use. Follow up: Emergency Department; When: As needed; Reason: Worsening of condition. Follow up: Private Physician; When: 2 - 3 days; Reason: Recheck today's complaints, Continuance of care, Re-evaluation by your physician. kb
[2020-03-16] MEDS ORDERED: ONDANSETRON 4 MG (ODT) TAB ONE (11:40)
[2020-03-16] MEDS ORDERED: MORPHINE 4 MG/ML SYR ONE (11:40)
[2020-03-16 12:38] VITALS: TEMP 97.2
[2020-03-16 12:40] VITALS: BP 126/87; O2SAT 98
== END 2020-03-16 11:56 | disposition home or self-care (01) ==
LOC: ER 09:08
PROC: 2W3QX1Z Immobilization of Right Lower Leg using Splint (ICD-10-PCS; principal; 2020-03-16)
DX: S82.51XA Displaced fracture of medial malleolus of right tibia, initial encounter for closed fracture (principal); W10.9XXA Fall (on) (from) unspecified stairs and steps, initial encounter; Y93.9 Activity, unspecified; Y92.009 Unspecified place in unspecified non-institutional (private) residence as the place of occurrence of the external cause; Z88.0 Allergy status to penicillin; Z91.040 Latex allergy status; Z91.048 Other nonmedicinal substance allergy status
CPT/HCPCS: 72131; 72220; 96372; 99283

== ENCOUNTER 2020-12-02 21:26 | Emergency (ER) | payer BC, SELFPAY ==
--- OUTSIDE RECORDS SUMMARY | 2020-12-02 21:44 | XMS REPORT | Continuity of Care Document ---
:1975 Author Organization [facility] t Address [address] [place] [address] Care Team Providers Name Role Phone Diego [...] 2020-02-21 2020-02-21 Transition Oscar Cortez [id number] 00:00:00 00:00:00 of Care Mahogany Stapleton [id number] [place] [id number] 2020-02-15 2020-02-19 Hospital Anika Lange [id number] 23:20:00 14:53:00 Encounter Db [place] [id number] [facility] [id number] 2020-02-15 2020-02-15 Emergency Tim Russell [facility] [id number] 18:13:00 21:26:00 Josephine Lamb [id number] [place] [id number] [place] [id number] 2020-02-15 2020-02-15 Orders Doctor GABRIEL [id number] 00:00:00 00:00:00 Only Unassigned, TAN [id number] [place] [facility] [id number] Results This patient has no known results.
[2020-12-02] MEDS ORDERED: ONDANSETRON 4 MG/2 ML VIAL ONE (22:29)
[2020-12-02] MEDS ORDERED: MORPHINE 4 MG/ML SYR ONE (22:29)
[2020-12-02 22:45] LABS: Absolute Lymphocytes (CBC) 1.8 K/uL (0.7-4.9); Basophils % 0.3 % (0-1.3); Hematocrit 42.7 % (36.0-45.0); Lymphocytes % 12.9 % (15.3-44.8); MPV 8.1 fL (7.6-11.3); RBC Red Blood Cell Count 4.65 M/uL (3.86-4.86)
[2020-12-02 22:50] LABS: Urine Blood Trace-lysed (Negative); Urine Glucose Negative (Negative); Urine Protein Negative (Negative); Urine Specific Gravity >=1.030 (1.005-1.030)
[2020-12-02 23:00] LABS: BUN Blood Urea Nitrogen 15 mg/dL (7-18); Bicarbonate 27 mmol/L (21-32); Glucose Level 117 mg/dL (74-106); Sodium Level 140 mmol/L (136-145)
[2020-12-02 23:22] LABS: Urine Bacteria >50 /HPF (<20); Urine RBC <5 /HPF (NONE SEEN)
--- NOTE | 2020-12-02 23:54 | ER ---
Nurse's Notes [facility] Name: Diana Vincent Age: 45 yrs Sex: Female : 1975 Arrival Date: 12/02/2020 Time: 21:31 Bed 6 Private MD: Diagnosis: Cellulitis of groin Presentation: 12/02 21:38 Chief complaint: Patient states: I was sick for about a week since last week, so my ca1 doctor prescribed Z-Pac. He told me if I get yeast infections to get OTC meds for yeast infections. I was itching down there so I applied some feminine anti-itch cream. Today, I woke up this morning with swelling down my vaginal area and throughout the day it's been bigger and bigger. IT also hurts to pee and when I pee it's just little drops. Coronavirus screen: Client denies travel out of the [place] in the last 14 days. At this time, the client does not indicate any symptoms associated with coronavirus-19. Ebola Screen: Patient negative for fever greater than or equal to 101.5 degrees Fahrenheit, and additional compatible Ebola Virus Disease symptoms Patient denies exposure to infectious person. Patient denies travel to an Ebola-affected area in the 21 days before illness onset. No symptoms or risks identified at this time. Initial Sepsis Screen: Does the patient meet any 2 criteria? No. Patient's initial sepsis screen is negative. Does the patient have a suspected source of infection? No. Patient's initial sepsis screen is negative. Risk Assessment: Do you want to hurt yourself or someone else? Patient reports no desire to harm self or others. Onset of symptoms was December 02, 2020. 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 - Social history:: Smoking status: Patient reports the use of cigarette tobacco products, denies chronic smoking, but will smoke occasionally. Screenin/05 00:45 Abuse screen: Denies threats or abuse. Denies injuries from another. Nutritional lp1 screening: No deficits noted. Tuberculosis screening: No symptoms or risk factors identified. Fall Risk None identified. Assessment: 12/02 22:15 General: Appears uncomfortable, Behavior is appropriate for age. Pain: Complains of lp1 pain in groin Pain currently is 10 out of 10 on a pain scale. Quality of pain is described as burning. Neuro: No deficits noted. Cardiovascular: No deficits noted. Respiratory: No deficits noted. GI: No signs and/or symptoms were reported involving the gastrointestinal system. : No signs and/or symptoms were reported regarding the genitourinary system. EENT: No signs and/or symptoms were reported regarding the EENT system. Derm: Rash noted that is red, raised, on gluteal cleft. 23:45 Reassessment: Patient reports pain relief at this time; no further needs. lp1 12/03 00:15 Reassessment: Patient requesting to have medication for pain on discharge to help with lp1 comfort; Provider notified. Vital Signs: 12/02 21:38 BP 126 / 73; Pulse 100; Resp 18 S; Temp 97.8(TE); Pulse Ox 98% on R/A; Weight 81.65 kg ca1 (R); Height 4 ft. 11 in. (149.86 cm) (R); Pain 7/10; 12/03 00:10 BP 115 / 72; lp1 12/02 21:38 Body Mass Index 36.36 (81.65 kg, 149.86 cm) ca1 ED Course: 12/02 21:31 Patient arrived in ED. ds1 21:42 Triage completed. ca1 21:42 Arm band placed on right wrist. ca1 21:49 Blayne Kelly NP is PHCP. pm1 21:49 Virgilio Lucio MD is Attending Physician. pm1 22:31 Heather Cervantes RN is Primary Nurse. lp1 22:31 Inserted saline lock: 20 gauge in right antecubital area, using aseptic technique. lp1 Blood collected. 22:45 Patient has correct armband on for positive identification. lp1 23:53 Raiza Mack MD is Referral Physician. pm1 07 00:46 No provider procedures requiring assistance completed. IV discontinued, No lp1 redness/swelling at site. Pressure dressing applied. Administered Medications: 12/02 22:31 Drug: morphine 4 mg Route: IVP; Site: right antecubital; lp1 23:56 Follow up: Response: Pain is decreased lp1 22:31 Drug: Zofran (Ondansetron) 4 mg Route: IVP; Site: right antecubital; lp1 23:56 Follow up: Response: No adverse reaction lp1 12/03 00:10 Drug: Clindamycin 900 mg Route: IVPB; Infused Over: 30 mins; Site: right antecubital; lp1 00:35 Follow up: IV Status: Completed infusion; IV Intake: 50ml lp1 00:10 Drug: DiFLUcan (fluconazole) 150 mg Route: PO; lp1 00:46 Follow up: Response: No adverse reaction lp1 00:35 Drug: [place] (HYDROcodone-acetaminophen) 10 mg-325 mg 1 tabs Route: PO; lp1 00:45 Follow up: Response: Medication administered at discharge. lp1 Intake: 00:35 IV: 50ml; Total: 50ml. lp1 Outcome: 12/02 23:53 Discharge ordered by MD. pm1 12/03 00:45 Discharged to home via wheelchair, with family. lp1 Condition: good Discharge instructions given to patient, Instructed on discharge instructions, follow up and referral plans. medication usage, Demonstrated understanding of instructions, follow-up care, medications, Prescriptions given X 2. 00:46 Patient left the ED. lp1 Addendum: 12/06/2020 16:28 Addendum: Culture Results: Positive urine culture. No further action required. Bacteria s v sensitive to prescribed antibiotic. Signatures: Ashley Olivares RN RN sv [place], Demi ds1 Heather Cervantes RN RN lp1 Blayne Kelly, PRICING ASSOCIATE PRICING ASSOCIATE pm1 Becky Freeman RN RN ca1 Corrections: (The following items were deleted from the chart) 12/03 00:57 00:57 Patient left the ED. lp1 lp1
--- NOTE | 2020-12-02 23:54 | EDPHYS ---
Physician Documentation [facility] Name: Diana Vincent Age: 45 yrs Sex: Female : 1975 Arrival Date: 12/02/2020 Time: 21:31 Bed 6 Private MD: ED Physician Virgilio Lucio HPI: 12/02 22:06 This 45 yrs old Black Female presents to ER via Wheelchair with complaints of Vaginal pm1 Pain, Thigh Swelling. 22:06 The patient presents with Rash and swelling to groin area. Onset: The symptoms/episode pm1 began/occurred yesterday. Modifying factors: The symptoms are alleviated by nothing, the symptoms are aggravated by urinating, touching area. Associated signs and symptoms: Pertinent positives: Frequency and burning with urination, Pertinent negatives: fever, abdominal pain, flank pain, pelvic pain. Severity of symptoms: in the emergency department the symptoms are actually worse. last yeast infection 13 years ago. The patient has been recently seen by a physician: the patient's primary care provider, with different complaint(s), and apparently was diagnosed with URI and prescribed abx therapy. Patient with URI symptoms 1 week ago and was dx with URI by PCP and prescribed z-malissa. Patient's URI resolved. She started getting a possible yeast infection to the perineal area with onset of itching to the area. Took some over the counter generic miconazole? last night and then woke up today with increased rash and swelling to the groin area. Patient has also had burning with urination and frequency. 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 - Social history:: Smoking status: Patient reports the use of cigarette tobacco products, denies chronic smoking, but will smoke occasionally. ROS: 22:06 Positive for urinary frequency, burning with urination, vaginal itching, Negative pm1 for pelvic pain, flank pain. 22:06 Constitutional: Negative for fever, chills, and weight loss, Cardiovascular: Negative for chest pain, palpitations, and edema, Respiratory: Negative for shortness of breath, cough, wheezing, and pleuritic chest pain, Abdomen/GI: Negative for abdominal pain, nausea, vomiting, diarrhea, and constipation, Back: Negative for injury and pain. 22:06 Skin: Positive for rash, swelling, of the groin. 22:06 All other systems are negative. Exam: 22:06 Constitutional: This is a well developed, well nourished patient who is awake, alert, pm1 and in no acute distress. Head/Face: Normocephalic, atraumatic. 22:06 MS/ Extremity: Pulses equal, no cyanosis. Neurovascular intact. Full, normal range of motion. 22:06 Eyes: Exam is negative for acute changes, Periorbital structures: appear normal, no acute changes, Extraocular movements: no acute changes, Conjunctiva: no acute changes, no injection, Sclera: no acute changes, icterus, is not appreciated. 22:06 ENT: Mouth: no acute changes, Lips: normal, Oral mucosa: normal, pink and intact, moist. 22:06 Cardiovascular: Rate: normal, Rhythm: regular, Pulses: no pulse deficits are appreciated. 22:06 Respiratory: Exam negative for acute changes, respiratory distress, shortness of breath. 22:06 Abdomen/GI: Inspection: abdomen appears normal, Palpation: abdomen is soft and non-tender, in all quadrants. 22:06 : Pelvic Exam: External exam: , discharge, is not appreciated, Heather NEFF present for examination with and Dr. Lucio. 22:06 : Pelvic Exam: External exam: as noted on skin examination. 22:06 Skin: Appearance: normal except for affected area, cellulitis, well demarcated, on the groin, versus, consistent with candidiasis , on the groin. 22:06 Neuro: Exam negative for acute changes, Orientation: is normal, Mentation: is normal, Motor: is normal, moves all fours, Sensation: is normal, no obvious gross deficits. Vital Signs: 21:38 BP 126 / 73; Pulse 100; Resp 18 S; Temp 97.8(TE); Pulse Ox 98% on R/A; Weight 81.65 kg ca1 (R); Height 4 ft. 11 in. (149.86 cm) (R); Pain 7/10; 12/03 00:10 BP 115 / 72; lp1 12/02 21:38 Body Mass Index 36.36 (81.65 kg, 149.86 cm) ca1 MDM: 12/02 21:49 Patient medically screened. pm1 23:36 Data reviewed: I have discussed the patient's presentation/case with the attending pm1 Emergency Department Physician; and as a result, I will impression is cellulitis. Order Clindamycin 900 mg IV and discharge home with clindamycin. Discuss follow up with Dr. Mack in 2 days and return precautions to the ER if symptoms worsen. 23:40 Counseling: I had a detailed discussion with the patient and/or guardian regarding: the pm1 historical points, exam findings, and any diagnostic results supporting the discharge/admit diagnosis, lab results, the need for outpatient follow up, for definitive care, an OB/Gyne specialist, to return to the emergency department if symptoms worsen or persist or if there are any questions or concerns that arise at home. 12/03 00:08 ED course: [place]MP[place] reviewed and patient with norco and tramadol 30 day prescriptions pm1 filled on 11/29/2020. 12/02 22:02 Order name: CBC with Diff; Complete Time: 23:28 pm1 12/02 22:02 Order name: BMP; Complete Time: 23:15 pm1 12/02 22:02 Order name: Sed Rate; Complete Time: 23:28 pm1 12/02 22:02 Order name: CRP; Complete Time: 23:15 pm1 12/02 22:12 Order name: Urine Microscopic Only pm1 12/02 22:13 Order name: Urine Microscopic Only; Complete Time: 23:28 EDRI 12/02 22:02 Order name: IV Saline Lock; Complete Time: 22:31 pm1 12/02 22:50 Order name: Urine Dipstick-Ancillary; Complete Time: 22:55 EDMS 12/02 23:23 Order name: Urine Culture EDRI 12/02 22:12 Order name: Urine Dipstick-Ancillary (obtain specimen); Complete Time: 23:17 pm1 Administered Medications: 12/02 22:31 Drug: morphine 4 mg Route: IVP; Site: right antecubital; lp1 23:56 Follow up: Response: Pain is decreased lp1 22:31 Drug: Zofran (Ondansetron) 4 mg Route: IVP; Site: right antecubital; lp1 23:56 Follow up: Response: No adverse reaction lp1 12/03 00:10 Drug: Clindamycin 900 mg Route: IVPB; Infused Over: 30 mins; Site: right antecubital; lp1 00:35 Follow up: IV Status: Completed infusion; IV Intake: 50ml lp1 00:10 Drug: DiFLUcan (fluconazole) 150 mg Route: PO; lp1 00:46 Follow up: Response: No adverse reaction lp1 00:35 Drug: [place] (HYDROcodone-acetaminophen) 10 mg-325 mg 1 tabs Route: PO; lp1 00:45 Follow up: Response: Medication administered at discharge. lp1 Disposition: 02:00 Co-signature as Attending Physician, Virgilio Lucio MD. [email or web address] Disposition Summary: 12/02/20 23:53 Discharge Ordered Location: Home pm1 Problem: new pm1 Symptoms: have improved pm1 Condition: Stable pm1 Diagnosis - Cellulitis of groin pm1 Followup: pm1 - With: Emergency Department - When: As needed - Reason: Worsening of condition Followup: pm1 - With: Raiza Mack MD - When: 2 - 3 days - Reason: Recheck today's complaints, Continuance of care, Re-evaluation by your physician Discharge Instructions: - Discharge Summary Sheet pm1 - Cellulitis, Adult pm1 Forms: - Medication Reconciliation Form pm1 - Thank You Letter pm1 - Antibiotic Education pm1 - Prescription Opioid Use pm1 Prescriptions: - Clindamycin HCl 300 mg Oral Capsule - take 1 capsule by ORAL route every 6 hours for 10 days; 40 capsule; Refills: 0, pm1 Product Selection Permitted - Bactrim DS 800-160 mg Oral Tablet - take 1 tablet by ORAL route every 12 hours for 10 days; 20 tablet; Refills: 0, pm1 Product Selection Permitted Signatures: Dispatcher [employer] Virgilio Amador MD MD pkl Heather Cervantes RN RN lp1 Blayne Kelly NP OPENSTACK DEVELOPER pm1 Becky Freeman RN RN ca1
[2020-12-03] MEDS ORDERED: CLINDAMYCIN 900MG/D5W 900 MG/50 ML IVPB IV ONE (00:23)
[2020-12-03] MEDS ORDERED: FLUCONAZOLE 100 MG TAB ONE (00:23)
[2020-12-03] MEDS ORDERED: HYDROCODONE/APAP 10/325 TAB ONE (00:56)
[2020-12-03 01:11] VITALS: TEMP 97.8; O2SAT 98
[2020-12-03 01:13] VITALS: BP 115/72
== END 2020-12-03 00:57 | disposition home or self-care (01) ==
LOC: ER 21:26
DX: L03.314 Cellulitis of groin (principal); F17.210 Nicotine dependence, cigarettes, uncomplicated; Z88.0 Allergy status to penicillin; Z91.040 Latex allergy status; Z91.048 Other nonmedicinal substance allergy status
CPT/HCPCS: 96365; 87088; 85025; 87086; 80048; 36415; 85652; 87077; 87186; 86140; 96375; 99284; J2405; 81003; 81015

== ENCOUNTER 2021-01-15 19:49 | Inpatient (IN) | payer BC ==
--- OUTSIDE RECORDS SUMMARY | 2021-01-15 19:50 | XMS REPORT | Continuity of Care Document ---
:1975 Author Organization [facility] t Address [address] [place] [address] Care Team Providers Name Role Phone Deigo APONTE Attending Clinician Amado FAITH Attending Clinician Charley FAITH Attending Clinician Luis CHO Attending Clinician Doctor Unassigned, Name Attending Clinician Unavailable Nazario FAITH Attending Clinician Josephine Garcia Attending Clinician Luis CHO Admitting Clinician Nazario FAITH Admitting Clinician Problems This patient has no known problems. Allergies, Adverse Reactions, Alerts This patient has no known allergies or adverse reactions. Medications This patient has no known medications. Procedures This patient has no known procedures. Encounters Start End Encounter Admission Attending Care Care Encounter Source Date/Time Date/Time Type Type Clinicians Facility Department ID 2020-12-11 2020-12-11 Transition Oscar Cortez [id number] 00:00:00 00:00:00 of Care Mahogany Stapleton [id number] [place] [id number] 2020-12-04 2020-12-08 [facility] Dinesh Fischer [facility] 1.2.840.1 [id number] 12:23:00 13:59:00 Encounter MaydagrzegorzamparoJose 350.1.13.10 [place] [id number] [place] [id number] 2020-12-04 2020-12-04 Orders Doctor GABRIEL [id number] 00:00:00 00:00:00 Only Unassigned, TAN [id number] [place] [address]686 [id number] 2020-02-21 2020-02-21 Transition CortezOscar [id number] 00:00:00 00:00:00 of Care Mahogany Arevaloy [id number]2.686 [id number] 2020-02-15 2020-02-19 [facility] Anika Lange [id number] 23:20:00 14:53:00 Encounter Db Tan [id number] [place] [id number] 2020-02-15 2020-02-15 Emergency Tim Russell [facility] 1.2.840.114 [id number] 18:13:00 21:26:00 Josephine Adonis [id number] [place] [id number] [place] [id number] 2020-02-15 2020-02-15 Orders Doctor GABRIEL [id number] 00:00:00 00:00:00 Only Unassigned, TAN [id number] [place] [address] [id number] Results This patient has no known results.
[2021-01-15 20:20] LABS: Absolute Lymphocytes (CBC) 2.9 K/uL (0.7-4.9); Basophils % 0.4 % (0-1.3); Hematocrit 39.4 % (36.0-45.0); Lymphocytes % 12.3 % (15.3-44.8); MPV 7.9 fL (7.6-11.3)
[2021-01-15] MEDS ORDERED: NA CHLORIDE 0.9% 1,000 ML ONE (20:23)
[2021-01-15] MEDS ORDERED: ONDANSETRON 4 MG/2 ML VIAL ONE (20:23)
[2021-01-15] MEDS ORDERED: MORPHINE 4 MG/ML SYR ONE (20:23)
[2021-01-15] MEDS ORDERED: HYDROMORPHONE HCL 1 MG/ML INJ ONE (20:29)
--- NOTE | 2021-01-15 20:38 | RAD REPORT ---
EXAM DESCRIPTION: CTAbdomen Pelvis W Contrast - 01/15/2021 8:18 pm CLINICAL HISTORY: Abdominal pain. ABD PAIN COMPARISON: Pelvis Wo Cont dated 08/08/2019 TECHNIQUE: Biphasic CT imaging of the abdomen and pelvis was performed with 100 ml non-ionic IV cont rast. All CT scans are performed using dose optimization technique as appropriate and may include automated exposure control or mA/KV adjustment according to patient size. FINDINGS: The lung bases are clear. Low-density lesion left hepatic lobe measuring 7 millimeters is likely benign. Hepatic steatosis. Oth er low-density liver lesions noted which are likely benign. The gallbladder is unremarkable. The adre nal glands and spleen are unremarkable. The pancreas unremarkable. No stones or hydronephrosis. No re troperitoneal lymphadenopathy. There are enhancing structures within the adnexa bilateraly, though pa rticularly on the right. These structures appear tubular in shape. No free fluid is seen. No bowel ob struction identified. The appendix is fluid-filled and prominent but no periappendiceal stranding. Ve ntral abdominal wall laxity No suspicious bony findings. Screws are present in the left greater trochanter. IMPRESSION: 1. Tubular adnexal structures could reflect hydrosalpinx. Early pelvic inflammatory dise ase (PID) is within the differential. Pelvic ultrasound could better evaluate. 2. Fluid-filled appendix, prominent in size but no periappendiceal inflammatory changes. Reportedly, the patient has low lower right-sided abdominal pain. Appendicitis considered unlikely etiology. Cesar mmend clinical correlation.
[2021-01-15 20:44] LABS: ALT/SGPT 19 U/L (12-78); AST/SGOT 9 U/L (15-37); Albumin 3.6 g/dL (3.4-5.0); Alkaline Phosphatase 76 U/L (45-117); BUN Blood Urea Nitrogen 6 mg/dL (7-18); Bicarbonate 20 mmol/L (21-32); Bilirubin Direct 0.2 mg/dL (0-0.2); Bilirubin Total 0.6 mg/dL (0.2-1.0); Glucose Level 86 mg/dL (74-106); Lipase 72 U/L (73-393); Potassium 3.5 mmol/L (3.5-5.1); Protein, Total 7.8 g/dL (6.4-8.2); Sodium Level 139 mmol/L (136-145)
[2021-01-15 20:45] LABS: Blood Morphology Comment NOT SEEN (NOT SEEN); Platelet Estimate ADEQ
[2021-01-15] MEDS ORDERED: ACETAMINOPHEN 500 MG TAB ONE (21:04)
[2021-01-15] MEDS ORDERED: LORazepam 2 MG/ML VIAL ONE ×2 (21:24→21:27)
[2021-01-15] MEDS ORDERED: LEVETIRACETAM 500 MG/5 ML VIAL IV ONE (21:29)
--- NOTE | 2021-01-16 01:22 | ER ---
Nurse's Notes [facility] Name: Diana Vincent Age: 45 yrs Sex: Female : 1975 Arrival Date: 01/15/2021 Time: 19:52 Bed 19 Private MD: Diagnosis: Female pelvic inflammatory disease, unspecified;Elevated white blood cell count;Epileptic seizures related to external causes Presentation: 01/15 21:37 Method Of Arrival: EMS: [facility] ld1 21:37 Acuity: ARGENIS 3 ld1 21:37 Chief complaint: EMS states: Pt reports LLQ ABD pain, N/V/fever X 2 days. ld1 21:37 Coronavirus screen: At this time, the client does not indicate any symptoms associated ld1 with coronavirus-19. Ebola Screen: No symptoms or risks identified at this time. Initial Sepsis Screen: Does the patient meet any 2 criteria? No. Patient's initial sepsis screen is negative. Does the patient have a suspected source of infection? No. Patient's initial sepsis screen is negative. 21:37 Method Of Arrival: EMS: [facility] ld1 01/17 17:54 Risk Assessment: Do you want to hurt yourself or someone else? Patient reports no bp desire to harm self or others. Onset of symptoms is unknown. Triage Assessment: 01/15 21:20 General: Appears in no apparent distress. comfortable, Behavior is calm, cooperative, ld1 appropriate for age. Pain: Denies pain. EENT: No signs and/or symptoms were reported regarding the EENT system. Neuro: Level of Consciousness is awake, alert, obeys commands, Oriented to person, place, time, situation, Appropriate for age Seizure activity reported prior to arrival. Seizure lasted approximately 15 minutes. 21:20 Cardiovascular: Denies chest pain, Capillary refill < 3 seconds Patient's skin is warm ld1 and dry. Rhythm is sinus rhythm. Respiratory: Airway is patent Respiratory effort is even, unlabored, Respiratory pattern is regular, symmetrical. GI: Abdomen is round non-distended. : No signs and/or symptoms were reported regarding the genitourinary system. Derm: No signs and/or symptoms reported regarding the dermatologic system. Musculoskeletal: No signs and/or symptoms reported regarding the musculoskeletal system. 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 - Social history:: Smoking status: Patient denies any tobacco usage or history of. Screenin:44 Abuse screen: Denies threats or abuse. Denies injuries from another. Nutritional ld1 screening: No deficits noted. Tuberculosis screening: No symptoms or risk factors identified. Fall Risk None identified. Assessment: 20:16 Reassessment: pt to CT scan via EMS stretcher accompanied by EMS personnel. bb 21:44 Reassessment: See triage assessment. ld1 23:53 Reassessment: Patient appears in no apparent distress at this time. No changes from ld1 previously documented assessment. Vital Signs: 20:53 BP 129 / 79; Pulse 89; Resp 20; Temp 97.8(O); Pulse Ox 99% on R/A; Weight 81.65 kg; ld1 Height 4 ft. 11 in. (149.86 cm); Pain 0/10; 22:00 BP 120 / 78; Pulse 83; Resp 14; Pulse Ox 98% on R/A; ld1 23:00 BP 112 / 64; Pulse 76; Resp 15; Pulse Ox 99% on R/A; ld1 23:57 BP 109 / 54; Pulse 79; Resp 12; Pulse Ox 100% on R/A; ld1 20:53 Body Mass Index 36.36 (81.65 kg, 149.86 cm) ld1 ED Course: 19:52 Patient arrived in ED. kb 19:53 Teressa Mathews FNP-C [facility] kb 19:53 Yahir Waite MD is Attending Physician. kb 20:18 CT Abd/Pelvis - IV Contrast Only In Process Unspecified. EDMS 21:20 Arm band placed on right wrist. ld1 21:36 Nadine Mazariegos, TAWANDA is Primary Nurse. ld1 21:40 Triage completed. ld1 21:44 Patient has correct armband on for positive identification. Placed in gown. Bed in low ld1 position. Call light in reach. Side rails up X2. quality assurance monitor final on. Pulse ox on. NIBP on. Door closed. Noise minimized. Warm blanket given. 21:44 No provider procedures requiring assistance completed. Maintain EMS IV. Dressing ld1 intact. Good blood return noted. Site clean \T\ dry. Gauge \T\ site: 20G LAC. 21:45 Basic Metabolic Panel Sent. ld1 22:36 US Transvaginal Study (Probe) In Process Unspecified. EDMS 01/16 01:21 Gianfranco Avila DO is Hospitalizing Provider. kb 01:52 Hospitalizing Provider role handed off by Gianfranco Avila DO la1 01:52 Chava Tian MD is Hospitalizing Provider. la1 01/17 07:08 Primary Nurse role handed off by Nadine Mazariegos, TAWANDA bp 07:08 Tonny Foster, TAWANDA is Primary Nurse. bp Administered Medications: 01/15 20:00 Drug: morphine 4 mg Route: IVP; Site: left antecubital; bb 01/16 01:34 Follow up: Response: No adverse reaction [facility] 01/15 20:00 Drug: NS 0.9% 1000 ml Route: IV; Rate: 1000 ml; Site: left antecubital; bb 20:01 Drug: Zofran (Ondansetron) 4 mg Route: IVP; Site: left antecubital; bb 01/16 01:33 Follow up: Response: No adverse reaction 2 01/15 20:10 Drug: Dilaudid (HYDROmorphone) 1 mg Route: IVP; Site: left antecubital; bb 01/16 01:33 Follow up: Response: No adverse reaction [facility] 01/15 20:35 CANCELLED (Other Intervention Used): Dilaudid (HYDROmorphone) 1 mg IVP once; RASS on bb ADMIN: Combtv4, Very Agttd3, Agttd2, Rstlss1, AlertClm0, Drwsy-1, Lt Sdtn-2, Mod Sdtn-3, Dp Sdtn-4, UnArsble-5 20:42 Drug: Tylenol 1000 mg Route: PO; bb 01/16 01:34 Follow up: Response: No adverse reaction 2 01/15 21:00 Drug: Ativan (LORazepam) 1 mg Route: IVP; Site: right antecubital; jb4 21:46 Follow up: Response: No adverse reaction ld1 21:09 Drug: Keppra (levETIRAcetam) 1000 mg Route: IV; Rate: per protocol; Site: right ld1 antecubital; 21:46 Follow up: Response: No adverse reaction; IV Status: Completed infusion ld1 21:09 Drug: Ativan (LORazepam) 1 mg Route: IVP; Site: right antecubital; ld1 21:46 Follow up: Response: No adverse reaction ld1 01/16 01:42 Not Given (Duplicate Order): Doxycycline 100 mg IV at calculated rate once kb 02:09 Drug: Rocephin (cefTRIAXone) 1 grams Route: IV; Rate: calculated rate; Site: right bs2 antecubital; 02:09 Drug: Doxycycline 200 mg Route: PO; bs2 Outcome: 01:22 Decision to Hospitalize by Provider. kb 01/17 19:53 Patient left the ED. ms4 Signatures: Dispatcher [employer] EDMS Teressa Mathews, BEAR-C SUPERVISOR MULTIFOCAL LENS-Michelle Sweeney RN RN bb Pradeep Caraballo FNP-Kameron SIFUENTES-Artie Flynn RN RN jb4 Tonny Foster RN RN bp Carolina Nielsen mw2 Nadine Mazariegos RN RN ld1 Magui Michele RN RN bs2 Tammy Banda RN RN ms4 Corrections: (The following items were deleted from the chart) 01/15 20:34 20:10 Dilaudid (HYDROmorphone) 1 mg IVP in left antecubital [facility] 21:44 20:53 BP 129 / 79; Pulse 89bpm; Resp 20bpm; Pulse Ox 99% RA; Temp 97.8F Oral; mw2 ld1 23:05 21:37 Chief complaint: EMS states: toned out for seizure activity. Upon arrival EMS ld1 reported two 15 second seizures. ld1 23:05 21:37 Coronavirus screen: At this time, the client does not indicate any symptoms ld1 associated with coronavirus-19. ld1 23:05 21:37 Ebola Screen: No symptoms or risks identified at this time. ld1 ld1 23:05 21:37 Initial Sepsis Screen: Does the patient meet any 2 criteria? No. Patient's ld1 initial sepsis screen is negative. Does the patient have a suspected source of infection? No. Patient's initial sepsis screen is negative. ld1 21:37 Risk Assessment: Do you want to hurt yourself or someone else? Patient reports no ld1 desire to harm self or others. ld1 :37 Onset of symptoms was January 15, 2021 [facility] ld
--- NOTE | 2021-01-16 01:22 | EDPHYS ---
Physician Documentation [facility] Name: Diana Vincent Age: 45 yrs Sex: Female : 1975 Arrival Date: 01/15/2021 Time: 19:52 Bed 19 Private MD: ED Physician Yahir Waite HPI: 01/15 23:01 This 45 yrs old Black Female presents to ER via EMS with complaints of abdominal pain. kb 23:01 The patient presents with abdominal pain right lower quadrant. Onset: The kb symptoms/episode began/occurred yesterday. The symptoms do not radiate. Associated signs and symptoms: Pertinent positives: nausea and vomiting, fever, Pertinent negatives: diarrhea. The symptoms are described as constant. Modifying factors: The symptoms are alleviated by nothing, the symptoms are aggravated by nothing. Severity of pain: At its worst the pain was moderate severe in the emergency department the pain is unchanged. The patient has not experienced similar symptoms in the past. The patient has not recently seen a physician. Pt reports RLQ pain that started yesterday with fever, nausea and vomiting. 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 - Social history:: Smoking status: Patient denies any tobacco usage or history of. ROS: 22:57 Abdomen/GI: Positive for abdominal pain, nausea and vomiting, Negative for diarrhea. kb 22:57 All other systems are negative. 23:02 Respiratory: Negative for shortness of breath, cough, wheezing, and pleuritic chest kb pain. 23:02 Constitutional: Positive for fever. Exam: 23:00 Constitutional: This is a well developed, well nourished patient who is awake, alert, kb and in no acute distress. Head/Face: Normocephalic, atraumatic. ENT: Moist Mucous membranes Cardiovascular: Regular rate and rhythm with a normal S1 and S2. No gallops, murmurs, or rubs. No pulse deficits. Respiratory: Respirations even and unlabored. No increased work of breathing, no retractions or nasal flaring. Skin: Warm, dry with normal turgor. Normal color. MS/ Extremity: Pulses equal, no cyanosis. Neurovascular intact. Full, normal range of motion. Neuro: Awake and alert, GCS 15, oriented to person, place, time, and situation. Moves all extremities. Normal gait. Psych: Awake, alert, with orientation to person, place and time. Behavior, mood, and affect are within normal limits. 23:00 Abdomen/GI: Inspection: abdomen appears normal, Bowel sounds: normal, in all quadrants, Palpation: soft, in all quadrants, moderate abdominal tenderness, in the right lower quadrant. Vital Signs: 20:53 BP 129 / 79; Pulse 89; Resp 20; Temp 97.8(O); Pulse Ox 99% on R/A; Weight 81.65 kg; ld1 Height 4 ft. 11 in. (149.86 cm); Pain 0/10; 22:00 BP 120 / 78; Pulse 83; Resp 14; Pulse Ox 98% on R/A; ld1 23:00 BP 112 / 64; Pulse 76; Resp 15; Pulse Ox 99% on R/A; ld1 23:57 BP 109 / 54; Pulse 79; Resp 12; Pulse Ox 100% on R/A; ld1 20:53 Body Mass Index 36.36 (81.65 kg, 149.86 cm) ld1 MDM: 19:53 Patient medically screened. kb 23:00 Data reviewed: vital signs, nurses notes. Data interpreted: Pulse oximetry: on room air kb is 99 %. Interpretation: normal. 01/16 01:20 Counseling: I had a detailed discussion with the patient and/or guardian regarding: the kb historical points, exam findings, and any diagnostic results supporting the discharge/admit diagnosis, lab results, radiology results, the need for further work-up and treatment in the hospital. Physician consultation: Norman Cronin MD was contacted at 01:20, regarding consult, patient's condition, and will see patient in inpatient room. 01:20 Physician consultation: Pradeep RANKIN was contacted at 01:20, regarding admission, kb to the medical/surgical unit. patient's condition, and will see patient in ED. 01:21 ED course: Pt had 2 seizures while waiting on EMS stretcher for room. Pt has history of kb seizures and takes keppra and dilantin. 01/15 19:53 Order name: Basic Metabolic Panel 01/15 19:53 Order name: CBC with Diff; Complete Time: 20:51 kb 01/15 19:53 Order name: Hepatic Function; Complete Time: 20:51 kb 01/15 19:53 Order name: Lipase; Complete Time: 20:51 kb 01/15 19:53 Order name: Basic Metabolic Panel; Complete Time: 20:51 EDMS 01/15 20:44 Order name: Manual Differential; Complete Time: 20:51 EDMS 01/15 20:50 Order name: Sed Rate; Complete Time: 23:47 [facility] 01/15 21:01 Order name: Dilantin; Complete Time: 23:33 [facility] 01/16 00:18 Order name: CORONAVIRUS (COVID-19) : Document "Date of Symptom Onset" if Symptomatic. 01/16 03:40 Order name: SARS-COV-2 RT PCR; Complete Time: 07:18 EDMS 01/16 05:43 Order name: CBC with Automated Diff; Complete Time: 07:18 EDOH 01/16 06:04 Order name: Comprehensive Metabolic Panel; Complete Time: 07:18 EDMS 01/16 06:04 Order name: T4 Free; Complete Time: 07:18 EDMS 01/16 06:04 Order name: Thyroid Stimulating Hormone; Complete Time: 07:18 EDMS 01/15 19:53 Order name: CT Abd/Pelvis - IV Contrast Only; Complete Time: 20:51 01/15 20:50 Order name: US Transvaginal Study (Probe); Complete Time: 15:01 [facility] 01/16 07:08 Order name: Blood Culture; Complete Time: 07:38 EDMS 01/16 07:32 Order name: CREATININE WHOLE BLOOD; Complete Time: 15:01 EDMS 01/16 15:42 Order name: Urine Dipstick-Ancillary; Complete Time: 16:09 EDMS 01/16 15:50 Order name: Urine Microscopic Only tw2 01/16 15:50 Order name: Urine Culture tw2 01/16 16:48 Order name: Urine Microscopic Only; Complete Time: 16:50 EDMS 01/16 18:25 Order name: Urine --Ancillary (enter results) bd 01/16 20:14 Order name: Urine --Ancillary; Complete Time: 20:20 EDMS 01/17 04:12 Order name: CBC with Automated Diff; Complete Time: 07:38 EDMS 01/17 04:37 Order name: Comprehensive Metabolic Panel; Complete Time: 07:38 EDMS 01/17 04:37 Order name: Phenytoin (Dilantin) Level; Complete Time: 07:38 EDMS 01/15 19:53 Order name: IV Saline Lock; Complete Time: 19:57 kb 01/15 19:53 Order name: Labs collected and sent; Complete Time: 19:57 kb 01/16 00:18 Order name: Pelvic Exam Setup; Complete Time: 01:33 kb Administered Medications: 01/15 20:00 Drug: morphine 4 mg Route: IVP; Site: left antecubital; 01/16 01:34 Follow up: Response: No adverse reaction [facility] 01/15 20:00 Drug: NS 0.9% 1000 ml Route: IV; Rate: 1000 ml; Site: left antecubital; 20:01 Drug: Zofran (Ondansetron) 4 mg Route: IVP; Site: left antecubital; 01/16 01:33 Follow up: Response: No adverse reaction [facility] 01/15 20:10 Drug: Dilaudid (HYDROmorphone) 1 mg Route: IVP; Site: left antecubital; 01/16 01:33 Follow up: Response: No adverse reaction [facility] 01/15 20:35 CANCELLED (Other Intervention Used): Dilaudid (HYDROmorphone) 1 mg IVP once; RASS on ADMIN: Combtv4, Very Agttd3, Agttd2, Rstlss1, AlertClm0, Drwsy-1, Lt Sdtn-2, Mod Sdtn-3, Dp Sdtn-4, UnArsble-5 20:42 Drug: Tylenol 1000 mg Route: PO; 01/16 01:34 Follow up: Response: No adverse reaction [facility] 01/15 21:00 Drug: Ativan (LORazepam) 1 mg Route: IVP; Site: right antecubital; jb4 21:46 Follow up: Response: No adverse reaction ld1 21:09 Drug: Keppra (levETIRAcetam) 1000 mg Route: IV; Rate: per protocol; Site: right ld1 antecubital; 21:46 Follow up: Response: No adverse reaction; IV Status: Completed infusion ld1 21:09 Drug: Ativan (LORazepam) 1 mg Route: IVP; Site: right antecubital; ld1 21:46 Follow up: Response: No adverse reaction ld1 01/16 01:42 Not Given (Duplicate Order): Doxycycline 100 mg IV at calculated rate once kb 02:09 Drug: Rocephin (cefTRIAXone) 1 grams Route: IV; Rate: calculated rate; Site: right bs2 antecubital; 02:09 Drug: Doxycycline 200 mg Route: PO; bs2 Disposition: 01/18 07:29 Co-signature as Attending Physician, Yahir Waite MD I agree with the assessment and jules plan of care. Disposition Summary: 01/16/21 01:22 Hospitalization Ordered Hospitalization Status: Observation kb Condition: Stable kb Problem: new kb Symptoms: are unchanged kb Bed/Room Type: Standard kb Provider: Chava Tian(01/16/21 01:52) la1 Location: Telemetry/MedSurg (Inpatient)(01/17/21 17:17) ut Room Assignment: [facility](01/17/21 17:17) mt Diagnosis - Female pelvic inflammatory disease, unspecified kb - Elevated white blood cell count kb - Epileptic seizures related to external causes kb Forms: - Medication Reconciliation Form kb - SBAR form kb Signatures: Dispatcher [employer] Teressa Anton, CONCRETE BUILDING ASSEMBLER-C CONCRETE BUILDING ASSEMBLER-Reina Cadena RN RN mw Anderson, Corey, MD MD cha Mickail, Joel, PA PA jmm Ballard, Brenda RN RN Pradeep Nunez CONCRETE BUILDING ASSEMBLER-C CONCRETE BUILDING ASSEMBLER-Cla1 Artie Newman RN Nayeli Moreno ut Nadine Mazariegos RN RN ld1 Magui Michele RN RN bs2 Corrections: (The following items were deleted from the chart) 01/15 20:35 20:05 Dilaudid (HYDROmorphone) 1 mg IVP once; RASS on ADMIN: Combtv4, Very Agttd3, bb Agttd2, Rstlss1, AlertClm0, Drwsy-1, Lt Sdtn-2, Mod Sdtn-3, Dp Sdtn-4, UnArsble-5 ordered. bb 20:35 20:16 Dilaudid (HYDROmorphone) 1 mg IVP once; RASS on ADMIN: Combtv4, Very Agttd3, bb Agttd2, Rstlss1, AlertClm0, Drwsy-1, Lt Sdtn-2, Mod Sdtn-3, Dp Sdtn-4, UnArsble-5 given. bb 20:35 20:34 Dilaudid (HYDROmorphone) 1 mg IVP once; RASS on ADMIN: Combtv4, Very Agttd3, bb Agttd2, Rstlss1, AlertClm0, Drwsy-1, Lt Sdtn-2, Mod Sdtn-3, Dp Sdtn-4, UnArsble-5 ordered. bb 21:42 20:52 Transvaginal Study (Probe)+[id number].[id number] ordered. EDMS EDMS 23:04 22:57 Constitutional: Negative for fever, chills, and weight loss, kb kb 23:04 22:57 Abdomen/GI: Positive for abdominal pain, Negative for nausea, vomiting, and kb diarrhea, kb 01/16 01:52 01:22 Prezas, Gianfranco kb la1 05:19 01:22 Telemetry/MedSurg (observation) kb mw 05:19 01:22 kb mw 01/17 17:17 08 05:[address] [facility] ER HOLD mw mt 01/17 17:17 01/16 05:19 ERHOLD- mw mt
[2021-01-16] MEDS ORDERED: DOXYCYCLINE 100 MG CAP PO ONE ×3 (01:34→08:06)
[2021-01-16] MEDS ORDERED: CEFTRIAXONE/SWI 1gm 0 GM/0 ML SYR ONE (02:07)
--- NOTE | 2021-01-16 02:12 | P.HP ---
Certification for Inpatient Patient admitted to: Observation With expected LOS: <2 Midnights Patient will require the following post-hospital care: None Practitioner: I am a practitioner with admitting privileges, knowledge of patient current condition, hospital course, and medical plan of care. Services: Services provided to patient in accordance with Admission requirements found in Title 42 Section 412.3 of the Code of Federal Regulations <[email or web address] - Last Filed: 01/16/21 02:06> Patient History Date of Service: 01/16/21 Primary Care Provider: Dr. Antonio, Dr. perez Reason for admission: Abdominal pain, leukocytosis, seizures History of Present Illness: 45-year-old -[place] female with history of seizure disorder presents emergency department for abdominal pain, fevers. Patient reports increasing abdominal pain and fevers over the course of the last 24 to 48 hours, pain is in the right lower quadrant. Patient was evaluated in the emergency room and labs were significant for white blood cell count 23.5 BUN 6 CO2 20 chloride [address] abdomen pelvis with contrast demonstrated tubular adnexal structures possibly reflecting hydrosalpinx early PID is within the differential, fluid-filled appendix prominent in size but no periappendiceal inflammatory changes. Transvaginal ultrasound was obtained which demonstrated trace fluid within the endometrial stripe tubular structure within the right adnexa and smaller tubular structure within the left adnexa perhaps corre sponding to a hydrosalpinx, neither ovary visualized. Case was discussed with gynecology by ED provider who recommends IV antibiotics, IV fluids. On exam patient with significant amount of tenderness in the right lower quadrant, will also discuss case with general surgery, patient remain n.p.o. at this time on IV fluids. - Past Medical/Surgical History -: Seizure disorders -: Left hip fracture -: Hernia repair -: Psychosocial/ Personal History: Lives at home with children - Family History Mother -: Diabetes - Social History Place of Residence: Home <Pradeep Caraballo - Last Filed: 01/16/21 02:06> Date of Service: 01/16/21 <Chava Tian - Last Filed: 01/16/21 12:28> Allergies Latex, Natural Rubber Allergy (Unverified 08/17/15 13:13) Unknown Penicillins Allergy (Unverified 08/17/15 13:13) Unknown Review of Systems 10-point ROS is otherwise unremarkable General: Fever, Chills, Weakness, Malaise Gastrointestinal: Nausea, Abdominal Pain <Pradeep Caraballo - Last Filed: 01/16/21 02:06> Physical Examination - Physical Exam General: Alert, In no apparent distress, Oriented x3 HEENT: Atraumatic, PERRLA, Other (Mucous membranes dry), EOMI, Sclerae nonicteric Neck: Supple, 2+ carotid pulse no bruit, No LAD, Without JVD or thyroid abnormality Respiratory: Clear to auscultation bilaterally, Normal air movement Cardiovascular: Regular rate/rhythm, Normal S1 S2 Gastrointestinal: Normal bowel sounds, No rebound, No guarding, Tenderness (Moderate right lower quadrant tenderness) Musculoskeletal: No tenderness Integumentary: No rashes Neurological: Normal speech, Normal strength at 5/5 x4 extr, Normal tone, Normal affect - Studies Laboratory Data (last 24 hrs) 01/15/21 20:00: WBC 23.50 H*, Hgb 13.3, Hct 39.4, Plt Count 263 01/15/21 20:00: Sodium 139, Potassium 3.5, BUN 6 L, Creatinine 0.62, Glucose 86, Total Bilirubin 0.6, AST 9 L, ALT 19, Alkaline Phosphatase 76, Lipase 72 L <Pradeep Caraballo - Last Filed: 01/16/21 02:06> - Studies Laboratory Data (last 24 hrs) 01/16/21 05:07: Sodium 140, Potassium 3.9, BUN 8, Creatinine 0.58, Glucose 93, Total Bilirubin 0.3, AST 9 L, ALT 15, Alkaline Phosphatase 68 01/16/21 05:07: WBC 20.10 H* D, Hgb 11.9 L, Hct 35.9 L, Plt Count 248 01/15/21 20:00: WBC 23.50 H*, Hgb 13.3, Hct 39.4, Plt Count 263 01/15/21 20:00: Sodium 139, Potassium 3.5, BUN 6 L, Creatinine 0.62, Glucose 86, Total Bilirubin 0.6, AST 9 L, ALT 19, Alkaline Phosphatase 76, Lipase 72 L Microbiology Data (last 24 hrs): 01/16/21 05:07 Blood - Blood Anaerobic Blood Culture - Final 01/16/21 05:07 Blood - Blood Anaerobic Blood Culture - Final <Chava Tian - Last Filed: 01/16/21 12:28> Assessment and Plan - Plan Assessment: Abdominal tenderness, leukocytosis secondary to PID versus acute appendicitis Seizures with history of seizure disorder Plan: Abdominal tenderness, leukocytosis secondary to PID versus acute appendicitis: Case was discussed with DAMAGE ADJUSTER by ED provider, will continue with IV antibiotics. Patient with significant right lower quadrant abdominal tenderness on exam, pain seems more lateral at this time. We will also discussed case with general surgery, will cover with Rocephin/Flagyl/doxycycline at this time. N.p.o., IV fluids, as needed pain medications/antiemetics. Appreciate further input from consultants. Seizures with history of seizure disorder: Dilantin level low, will continue Dilantin, Keppra. Seizure precautions. Patient's neurologist consulted for additional assistance in management. Patient had 2 seizures in the emergency department which resolved after receiving Ativan, patient was loaded with Keppra in the emergency department as well. DVT PPX: SCDs Code status: Full Discharge Plan: Home Plan to discharge in: 24 Hours - Advance Directives Does patient have a Living Will: No Does patient have a Durable POA for Healthcare: No - Code Status/Comfort Care Code Status Assessed: Yes (Full code) Critical Care: No Time Spent Managing Pts Care (In Minutes): 55 <Pradeep Caraballo - Last Filed: 01/16/21 02:06> - Plan Patient seen and examined this morning on rounds. Reported some improvement of pain with medication No further seizure-like activity Continues with moderate right lower quadrant tenderness General surgery and gynecology consulted PID versus appendicitis Continue antibiotics N.p.o. except meds <Chava Tian - Last Filed: 01/16/21 12:28>
[2021-01-16] MEDS ORDERED: NA CHLORIDE 0.9% 2,000 ML ONE (02:22)
[2021-01-16] MEDS: NA CHLORIDE 0.9% 1,000 ML IV SCH ×3 (02:35→22:35)
[2021-01-16] MEDS ORDERED: ONDANSETRON 4 MG/2 ML VIAL IV PRN (02:35)
[2021-01-16 05:37] LABS: Absolute Lymphocytes (CBC) 2.4 K/uL (0.7-4.9); Basophils % 0.4 % (0-1.3); Hematocrit 35.9 % (36.0-45.0); MPV 7.9 fL (7.6-11.3); RBC Red Blood Cell Count 3.84 M/uL (3.86-4.86)
[2021-01-16 06:03] LABS: ALT/SGPT 15 U/L (12-78); AST/SGOT 9 U/L (15-37); Albumin 2.9 g/dL (3.4-5.0); Alkaline Phosphatase 68 U/L (45-117); BUN Blood Urea Nitrogen 8 mg/dL (7-18); Bicarbonate 21 mmol/L (21-32); Bilirubin Total 0.3 mg/dL (0.2-1.0); Glucose Level 93 mg/dL (74-106); Potassium 3.9 mmol/L (3.5-5.1); Protein, Total 6.6 g/dL (6.4-8.2); Sodium Level 140 mmol/L (136-145)
[2021-01-16] MEDS: CEFTRIAXONE/SWI 1gm 1 GM/10 ML SYR IV SCH (07:52)
[2021-01-16] MEDS ORDERED: METRONIDAZOLE 500mg IVPB 500 MG/100 ML BAG IV ONE ×2 (08:06→19:53)
[2021-01-16] MEDS ORDERED: CEFTRIAXONE/SWI 1gm 1 GM/10 ML SYR ONE (08:06)
[2021-01-16] MEDS ORDERED: levETIRAcetam 500 MG TAB ONE ×2 (08:06→19:52)
[2021-01-16] MEDS: METRONIDAZOLE 500mg IVPB 500 MG/100 ML BAG IV SCH ×2 (08:10→17:00)
[2021-01-16] MEDS: levETIRAcetam 500 MG TAB PO SCH ×2 (08:10→20:03)
[2021-01-16] MEDS: MORPHINE 2 MG/ML SYR IV PRN ×3 (08:23→20:01)
[2021-01-16] MEDS ORDERED: MORPHINE 2 MG/ML SYR ONE ×3 (08:46→19:52)
[2021-01-16] MEDS ORDERED: CEFTRIAXONE 1 GM/NS 50 ML 1 GM/50 ML BAG IV SCH (09:00)
[2021-01-16] MEDS: DOXYCYCLINE 100 MG in NA CHLORIDE 0.9% 100 ML IVPB SCH ×2 (09:00→21:00)
--- NOTE | 2021-01-16 10:58 | RAD REPORT ---
EXAM DESCRIPTION: US - Transvaginal Study Probe - 01/15/2021 11:32 pm CLINICAL HISTORY: 45 years, Female, ABD PAIN COMPARISON: None . TECHNIQUE: Utilizing a curved array transducer, real-time ultrasound evaluation of the female pelvis was performed. Color Doppler imaging was used to assess vascular flow. A transvaginal probe was used to further delineate adnexal structures. FINDINGS: The uterus measures 12.2 x 4.6 x 7.3 cm. The endometrial stripe measure 6 mm. There is f luid within the fundus of the stripe measuring 3.1 mm, no focal masses were identified within the vicki meagan. Neither ovary was visualized transvaginally. There is a tubular structure within the right adnexa per haps corresponding to a fallopian tube measuring 3.2 x 6.7 x 3.3 cm. Smaller tubular structure is not ed within the left adnexa No evidence for free fluid posterior cul-de-sac. IMPRESSION: VERY MINIMAL TRACE OF FLUID WITHIN THE ENDOMETRIAL STRIPE. TUBULAR STRUCTURE WITHIN THE RIGHT ADNEXA AND SMALLER TUBULAR STRUCTURE WITHIN THE LEFT ADNEXA PERHAP S CORRESPONDING TO A HYDROSALPINX. NEITHER OVARY WAS VISUALIZED. Electronically signed by: Sunny Sheriff MD 01/15/2021 11:06 PM CDT Due to temporary technical issues with the PACS/Fluency reporting system, reports are being signed by the in house radiologist without review as a courtesy to ensure prompt reporting. The interpreting r adiologist is fully responsible for the content of the report.
[2021-01-16] MEDS ORDERED: NA CHLORIDE 0.9% 1,000 ML ONE (11:40)
[2021-01-16] MEDS: ACETAMINOPHEN 500 MG TAB PO PRN (14:51)
[2021-01-16] MEDS ORDERED: ACETAMINOPHEN 500 MG TAB ONE (15:10)
[2021-01-16 15:41] LABS: Urine Blood Trace-intact (Negative); Urine Glucose Negative (Negative); Urine Protein Negative (Negative); Urine pH 5.5 (5.0-7.0)
[2021-01-16 16:47] LABS: Urine RBC <5 /HPF (NONE SEEN)
[2021-01-16 16:48] LABS: Urine Bacteria <20 /HPF (<20)
--- NOTE | 2021-01-16 18:29 | P.CNS ---
Date of Consult: 01/16/21 PC: I was asked to see this 45-year-old female in regards to her abdominal pain HPC: Patient apparently has had a 3 to 4-day history of abdominal pain. Describes it as being in the lower portion of her abdomen. Says is on the right side. However she cannot lie flat as it feels like it goes all the way across her whole abdomen. Has not had any vaginal discharge. Pain intensified over the last 24 hours, that she came to the ER for evaluation and treatment. PSHx: 3 previous C-sections, previous hip fracture, previous hernia repair PMHx: Seizure disorders Social Hx: Allergic to latex and penicillin Sys R: No cough, wheeze or shortness of breath. No chest pain or palpitations. Denies any previous vaginal discharge. O/E: Awake alert vital signs are stable, only discomfort when she tries to move around HEENT: Within normal limits Chest: Chest movement equal bilaterally Abd: Abdomen shows tenderness in the subumbilical area. Also some discomfort in the right lower quadrant, as well as suprapubic area. Ermine: Intact Data: 20,000 white count, CT scan suggest possible hydrosalpinx as well as the ultrasound. Appendiceal pathology was reported as low probability. Impression: PID Plan: I do not believe this patient appendicitis. The findings including white count were consistent with PID. She has been placed on antibiotics we will reassess her again in the a.m...
[2021-01-16] MEDS ORDERED: PHENYTOIN ER 100 MG CAP PO ONE (19:51)
[2021-01-16] MEDS: PHENYTOIN ER 100 MG CAP PO SCH (20:02)
[2021-01-16] MEDS ORDERED: DOXYCYCLINE HYCLATE 100MG INJ ONE (21:13)
[2021-01-16] MEDS ORDERED: NA CHLORIDE 0.9% 100 ML ONE (21:45)
[2021-01-17] MEDS: METRONIDAZOLE 500mg IVPB 500 MG/100 ML BAG IV SCH ×3 (01:00→17:00)
[2021-01-17] MEDS: ACETAMINOPHEN 500 MG TAB PO PRN (01:51)
[2021-01-17] MEDS: MORPHINE 2 MG/ML SYR IV PRN ×3 (01:51→14:00)
[2021-01-17] MEDS ORDERED: ACETAMINOPHEN 500 MG TAB ONE (02:07)
[2021-01-17] MEDS ORDERED: MORPHINE 2 MG/ML SYR ONE ×4 (02:08→14:46)
[2021-01-17 04:09] LABS: Absolute Lymphocytes (CBC) 1.5 K/uL (0.7-4.9); Basophils % 0.4 % (0-1.3); Hematocrit 35.7 % (36.0-45.0); Lymphocytes % 10.7 % (15.3-44.8); RBC Red Blood Cell Count 3.85 M/uL (3.86-4.86)
[2021-01-17 04:31] LABS: ALT/SGPT 18 U/L (12-78); AST/SGOT 15 U/L (15-37); Alkaline Phosphatase 78 U/L (45-117); BUN Blood Urea Nitrogen 7 mg/dL (7-18); Bicarbonate 23 mmol/L (21-32); Bilirubin Total 0.3 mg/dL (0.2-1.0); Glucose Level 112 mg/dL (74-106); Phenytoin (Dilantin) Level 3.2 ug/mL (10.0-20.0); Potassium 4.1 mmol/L (3.5-5.1); Protein, Total 6.7 g/dL (6.4-8.2); Sodium Level 140 mmol/L (136-145)
[2021-01-17] MEDS: NA CHLORIDE 0.9% 1,000 ML IV SCH ×3 (08:35→20:21)
[2021-01-17] MEDS: levETIRAcetam 500 MG TAB PO SCH ×2 (09:00→20:21)
[2021-01-17] MEDS: DOXYCYCLINE 100 MG in NA CHLORIDE 0.9% 100 ML IVPB SCH ×2 (09:00→22:33)
[2021-01-17] MEDS: CEFTRIAXONE/SWI 1gm 1 GM/10 ML SYR IV SCH (09:00)
[2021-01-17] MEDS ORDERED: levETIRAcetam 500 MG TAB ONE (09:16)
[2021-01-17] MEDS ORDERED: CEFTRIAXONE/SWI 1gm 1 GM/10 ML SYR ONE (09:17)
[2021-01-17] MEDS ORDERED: NA CHLORIDE 0.9% 1,000 ML ONE ×2 (09:17→17:51)
[2021-01-17] MEDS ORDERED: METRONIDAZOLE 500mg IVPB 500 MG/100 ML BAG IV ONE ×2 (09:17→17:51)
--- NOTE | 2021-01-17 10:40 | PN ---
Ms. Vincent has been kept n.p.o. She says she is slightly hungry. She still has pain in her right side. She has ambulated around her cubicle, she says to try to keep the circulation going. She is seen by Dr. Narayanan, who does not think she has appendicitis. Apparently, Dr. Tian thinks the same thing. Her white count is improving from 20,000 yesterday to 14,000 today. Why she is still here in the emergency room instead of in a room in the hospital patient and ER personnel does not seem to know why either. I think that if surgical intervention becomes necessary that Dr. Mack is an experienced laparoscopist should be consulted and other than giving her IV antibiotics and stay the course, but I do not think she needs to be kept in the emergency room for much longer. She needs to either be moved into the hospital itself or taken to Surgery if that is deemed necessary. LUCRETIA/GALLO Voice ID: [id number] Report ID: [id number]
--- NOTE | 2021-01-17 16:11 | P.PN ---
Subjective Date of Service: 01/17/21 Primary Care Provider: Dr. Antonio, Dr. perez Chief Complaint: Abdominal pain, leukocytosis, seizures Subjective: Other (Patient reports some mild improvement in her pain. It occurs intermittently but severe when it does. Pain most severe in the right lower quadrant/right groin. No appetite. Leukocytosis improved) Review of Systems 10-point ROS is otherwise unremarkable Physical Examination - Vital Signs Temperature: 97.9 F Blood Pressure: 117/68 Pulse: 65 Respirations: 20 Pulse Ox (%): 98 - Studies Microbiology Data (last 24 hrs): 01/16/21 05:07 Blood - Blood Anaerobic Blood Culture - Final 01/16/21 05:07 Blood - Blood Anaerobic Blood Culture - Final Assessment & Plan Physician Review Additional Text: Physical Exam General: Alert and oriented, visibly uncomfortable HEENT: Normal conjunctiva, sclera anicteric Respiratory: Clear to auscultation bilaterally, Normal air movement Cardiovascular: Regular rate/rhythm, Normal S1 S2 Gastrointestinal: Soft, moderate tenderness to palpation in suprapubic/RUQ Musculoskeletal: No joint tenderness Integumentary: No rashes Problem list Abdominal tenderness, leukocytosis secondary to PID versus acute appendicitis Seizures with history of seizure disorder -Imaging reviewed, discussed with general surgery and 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 Cronin, recommends consulting Dr. Mack, patient continues with pain, some improvement in her leukocytosis. May need surgical procedure -Change morphine to Dilaudid -Continue home seizure medication -Blood cultures with no growth Dispo: anticipate dc home in ~2-3 days Time Spent Managing Pts Care (In Minutes): 40
[2021-01-17] MEDS: HYDROMORPHONE HCL 1 MG/ML INJ IV PRN ×2 (17:00→20:23)
[2021-01-17] MEDS ORDERED: HYDROMORPHONE HCL 1 MG/ML INJ ONE (17:51)
[2021-01-17 18:19] VITALS: BMI 36.3
[2021-01-17] MEDS: PHENYTOIN ER 100 MG CAP PO SCH (20:21)
[2021-01-18] MEDS: HYDROMORPHONE HCL 1 MG/ML INJ IV PRN ×5 (00:40→21:03)
[2021-01-18] MEDS: METRONIDAZOLE 500mg IVPB 500 MG/100 ML BAG IV SCH ×3 (00:40→16:57)
[2021-01-18 05:51] LABS: Absolute Lymphocytes (CBC) 1.9 K/uL (0.7-4.9); Basophils % 0.7 % (0-1.3); Hematocrit 35.7 % (36.0-45.0); Lymphocytes % 17.4 % (15.3-44.8); MPV 7.7 fL (7.6-11.3); RBC Red Blood Cell Count 3.86 M/uL (3.86-4.86)
[2021-01-18 06:16] LABS: Potassium 3.6 mmol/L (3.5-5.1); Sodium Level 140 mmol/L (136-145)
[2021-01-18 06:27] LABS: BUN Blood Urea Nitrogen 5 mg/dL (7-18); Bicarbonate 22 mmol/L (21-32); Glucose Level 82 mg/dL (74-106); Magnesium 1.9 mg/dL (1.8-2.4); Phenytoin (Dilantin) Level 5.7 ug/mL (10.0-20.0)
[2021-01-18] MEDS: NA CHLORIDE 0.9% 1,000 ML IV SCH ×2 (06:30→17:36)
[2021-01-18] MEDS: levETIRAcetam 500 MG TAB PO SCH ×2 (08:47→21:04)
[2021-01-18] MEDS: CEFTRIAXONE/SWI 1gm 1 GM/10 ML SYR IV SCH (08:48)
[2021-01-18] MEDS ORDERED: HYDROCODONE/APAP 5/325 MG TAB PO ONE (08:56)
[2021-01-18] MEDS ORDERED: FLUCONAZOLE 100 MG TAB PO ONE (08:58)
[2021-01-18] MEDS ORDERED: POTASSIUM CL SA 10 MEQ TAB PO ONE (09:00)
[2021-01-18] MEDS: DOXYCYCLINE 100 MG in NA CHLORIDE 0.9% 100 ML IVPB SCH ×2 (09:28→21:04)
--- NOTE | 2021-01-18 15:17 | P.PN ---
Subjective Date of Service: 01/18/21 Primary Care Provider: Dr. Antonio, Dr. perez Chief Complaint: Abdominal pain, leukocytosis, seizures Subjective: Improving (pain improved by about 10-20%. No nausea/vomiting, no appetite, pain worsened with movement. Has occasional/random sharp suprapubic pains worse on right. Leukocytosis resolved) Review of Systems 10-point ROS is otherwise unremarkable Physical Examination - Vital Signs Temperature: 97.2 F Blood Pressure: 107/61 Pulse: 72 Respirations: 18 Pulse Ox (%): 97 Assessment & Plan Physician Review Additional Text: Physical Exam General: Alert and oriented, mild distress HEENT: Normal conjunctiva, sclera anicteric Respiratory: Clear to auscultation bilaterally, Normal air movement Cardiovascular: Regular rate/rhythm, Normal S1 S2 Gastrointestinal: Soft, moderate-severe tenderness to palpation in suprapubic region and RUQ Musculoskeletal: No joint tenderness Integumentary: No rashes Problem list Abdominal tenderness, leukocytosis secondary to PID/hydrosalpinx Breakthrough seizure with history of seizure disorder -Imaging reviewed, discussed with general surgery and 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 Cronin, recommended consulting Dr. Mack, patient continues with pain, some improvement in her leukocytosis. May need surgical procedure -Dr. Mack consulted, to see patient -Pain slightly better managed with the change to Dilaudid -Continue home seizure medication -Blood cultures with no growth Dispo: anticipate dc home in ~2-3 days Time Spent Managing Pts Care (In Minutes): 35
[2021-01-18] MEDS: PHENYTOIN ER 100 MG CAP PO SCH (21:03)
[2021-01-19] MEDS: NA CHLORIDE 0.9% 1,000 ML IV SCH ×4 (00:35→20:35)
[2021-01-19] MEDS: METRONIDAZOLE 500mg IVPB 500 MG/100 ML BAG IV SCH ×3 (01:11→18:04)
[2021-01-19] MEDS: HYDROMORPHONE HCL 1 MG/ML INJ IV PRN ×4 (02:43→21:17)
[2021-01-19 05:34] LABS: Absolute Lymphocytes (CBC) 1.9 K/uL (0.7-4.9); Basophils % 0.7 % (0-1.3); Hematocrit 34.1 % (36.0-45.0); Lymphocytes % 18.3 % (15.3-44.8); MPV 7.4 fL (7.6-11.3)
[2021-01-19 05:42] LABS: BUN Blood Urea Nitrogen 3 mg/dL (7-18); Bicarbonate 22 mmol/L (21-32); Glucose Level 92 mg/dL (74-106); Magnesium 1.9 mg/dL (1.8-2.4); Potassium 4.1 mmol/L (3.5-5.1); Sodium Level 140 mmol/L (136-145)
--- NOTE | 2021-01-19 06:16 | P.PN ---
Subjective Date of Service: 01/19/21 Primary Care Provider: Dr. Antonio, Dr. perez Chief Complaint: Abdominal pain, leukocytosis, seizures Subjective: No new changes (Reports she feels slightly better, pain still remains very severe when it occurs, but seems to be occurring with less frequency No nausea/vomiting. [place] like when she drank "a decent amount of water" she had lower abdomene / suprapubic pain + flatus) Review of Systems 10-point ROS is otherwise unremarkable Physical Examination - Vital Signs Temperature: 97.7 F Blood Pressure: 132/72 Pulse: 63 Respirations: 20 Pulse Ox (%): 97 Assessment & Plan Physician Review Additional Text: Physical Exam General: Alert and oriented, appears uncomfortable HEENT: Normal conjunctiva, sclera anicteric Respiratory: Clear to auscultation bilaterally, Normal air movement Cardiovascular: Regular rate/rhythm, Normal S1 S2 Gastrointestinal: Soft, moderate-severe tenderness to palpation in suprapubic region and RUQ Musculoskeletal: No joint tenderness Integumentary: No rashes Problem list Abdominal tenderness, leukocytosis secondary to PID/hydrosalpinx Breakthrough seizure with history of seizure disorder -Imaging reviewed, discussed with general surgery and [employer]ATION PILOT -Suspect this is more PID/gynecologic, very low suspicion for true appendicitis -N.p.o., okay with ice chips/sips of water with medications, IVF -Continue empiric antibiotics -Leukocytosis resolved, pain minimally improved -Discussed with Dr. Cronin, recommended consulting Dr. Mack, patient continues with pain, some improvement in her leukocytosis. May need surgical procedure -Dr. Mack consulted, recommended continue current treatment -Given patient's ongoing pain, will attempt to obtain repeat transvaginal ultrasound -Patient unable to tolerate ultrasound, will obtain CT -Continue Dilaudid -Continue home seizure medication -Blood cultures with no growth Dispo: anticipate dc home in ~2 days Time Spent Managing Pts Care (In Minutes): 35
[2021-01-19] MEDS ORDERED: HYDROMORPHONE HCL 1 MG/ML INJ IV PRN (09:21)
[2021-01-19] MEDS: levETIRAcetam 500 MG TAB PO SCH ×2 (10:52→21:13)
[2021-01-19] MEDS: DOXYCYCLINE 100 MG in NA CHLORIDE 0.9% 100 ML IVPB SCH ×2 (10:52→21:13)
[2021-01-19] MEDS: CEFTRIAXONE/SWI 1gm 1 GM/10 ML SYR IV SCH (10:52)
--- NOTE | 2021-01-19 16:47 | RAD REPORT ---
EXAM DESCRIPTION: US - Pelvis Complete - 01/19/2021 4:09 pm CLINICAL HISTORY: Pelvic pain COMPARISON: January 15, 2021 ultrasound FINDINGS: The uterus measures 12 x 6 x 6 centimeters. Endometrial stripe is normal thickness. A fibr oid is not visualized. Fluid-filled tubular structure right adnexa likely a dilated fallopian tube. Right ovary not clearly seen secondary to the findings Left ovary normal in size and echotexture. Limited evaluation of the left at adnexa secondary to over lying bowel gas. 1.7 centimeter left ovarian follicle. No significant free fluid IMPRESSION: Right hydrosalpinx. On the January 15, 2021 exam there also appear to be left hydrosalpinx. A tubo-ovarian abscess is not visualized These findings may be secondary to pelvic inflammatory disease and should be correlated clinically
[2021-01-19] MEDS: KETOROLAC 30 MG/ML INJ IV SCH (18:00)
[2021-01-19] MEDS: HYDROCODONE/APAP 7.5/325 MG TAB PO PRN (18:11)
[2021-01-19] MEDS: PHENYTOIN ER 100 MG CAP PO SCH (21:13)
[2021-01-20] MEDS: METRONIDAZOLE 500mg IVPB 500 MG/100 ML BAG IV SCH ×2 (00:59→10:55)
[2021-01-20] MEDS: KETOROLAC 30 MG/ML INJ IV SCH ×2 (01:01→10:00)
[2021-01-20] MEDS: NA CHLORIDE 0.9% 1,000 ML IV SCH ×4 (01:04→16:35)
[2021-01-20 05:49] LABS: Absolute Lymphocytes (CBC) 2.1 K/uL (0.7-4.9); Basophils % 0.6 % (0-1.3); Hematocrit 35.3 % (36.0-45.0); Lymphocytes % 20.8 % (15.3-44.8); MPV 7.5 fL (7.6-11.3)
[2021-01-20 05:58] LABS: BUN Blood Urea Nitrogen 3 mg/dL (7-18); Bicarbonate 25 mmol/L (21-32); Glucose Level 87 mg/dL (74-106); Magnesium 1.8 mg/dL (1.8-2.4); Potassium 3.8 mmol/L (3.5-5.1); Sodium Level 143 mmol/L (136-145)
[2021-01-20] MEDS: HYDROCODONE/APAP 7.5/325 MG TAB PO PRN (06:17)
[2021-01-20] MEDS ORDERED: MAGNESIUM SULFATE 1 gm IVPB 1 GM/100 ML BAG IV ONE (09:00)
[2021-01-20] MEDS ORDERED: POTASSIUM CL SA 10 MEQ TAB PO ONE (09:00)
[2021-01-20] MEDS: HYDROMORPHONE HCL 1 MG/ML INJ IV PRN ×2 (10:55→21:41)
[2021-01-20] MEDS: DOXYCYCLINE 100 MG in NA CHLORIDE 0.9% 100 ML IVPB SCH (10:55)
[2021-01-20] MEDS: levETIRAcetam 500 MG TAB PO SCH ×2 (10:57→21:41)
[2021-01-20] MEDS: CEFTRIAXONE/SWI 1gm 1 GM/10 ML SYR IV SCH (10:57)
[2021-01-20 12:42] VITALS: O2SAT 98
--- NOTE | 2021-01-20 14:53 | P.PN ---
Subjective Date of Service: 01/20/21 Primary Care Provider: Dr. Antonio, Dr. perez Chief Complaint: Abdominal pain, leukocytosis, seizures Subjective: Improving (Repeat ultrasound yesterday showed no change, no abscess. Pain improving with Toradol and [place]. Tolerating diet, will minimal appetite, positive flatus. Reports some increase in vaginal discharge) Review of Systems 10-point ROS is otherwise unremarkable Physical Examination - Vital Signs Temperature: 97.3 F Blood Pressure: 110/66 Pulse: 66 Respirations: 16 Pulse Ox (%): 98 Assessment & Plan Physician Review Additional Text: Physical Exam General: Alert and oriented, NAD HEENT: Normal conjunctiva, sclera anicteric Respiratory: Clear to auscultation bilaterally, Normal air movement Cardiovascular: Regular rate/rhythm, Normal S1 S2 Gastrointestinal: Soft, moderate tenderness to palpation in suprapubic region and RUQ Musculoskeletal: No joint tenderness Integumentary: No rashes Problem list Abdominal tenderness, leukocytosis secondary to PID/hydrosalpinx Breakthrough seizure with history of seizure disorder -Suspect this is more PID/gynecologic, very low suspicion for true appendicitis -Continue empiric antibiotics -Leukocytosis resolved, pain improved with Toradol and [place] -Discussed with Dr. Cronin, recommended consulting Dr. Mack for possible surgical procedure. However patient has slowly been improving, no current surgical indication -Dr. Mack consulted, recommended continue current treatment -Received Toradol, continue p.o. ibuprofen, [place]. Dilaudid for backup/breakthrough pain -Tolerating p.o., but taking minimal intake, continue IVF, ADAT , [facility] -Continue home seizure medication -Blood cultures with no growth -Received 1 dose of Diflucan on 01/18, repeat dose q72hr Dispo: anticipate dc home in ~1-2 days Time Spent Managing Pts Care (In Minutes): 40
[2021-01-20] MEDS: IBUPROFEN 600 MG TAB PO SCH ×2 (17:57→23:14)
[2021-01-20] MEDS: PHENYTOIN ER 100 MG CAP PO SCH (21:39)
[2021-01-20] MEDS: metroNIDAZOLE 500 MG TABLET PO SCH (21:41)
[2021-01-21] MEDS: NA CHLORIDE 0.9% 1,000 ML IV SCH (03:08)
[2021-01-21] MEDS: HYDROMORPHONE HCL 1 MG/ML INJ IV PRN (03:09)
[2021-01-21 06:09] LABS: Absolute Lymphocytes (CBC) 2.9 K/uL (0.7-4.9); Basophils % 0.9 % (0-1.3); Hematocrit 34.7 % (36.0-45.0); MPV 7.8 fL (7.6-11.3); RBC Red Blood Cell Count 3.74 M/uL (3.86-4.86)
[2021-01-21 06:26] LABS: BUN Blood Urea Nitrogen 4 mg/dL (7-18); Bicarbonate 25 mmol/L (21-32); Glucose Level 88 mg/dL (74-106); Magnesium 1.9 mg/dL (1.8-2.4); Potassium 4.1 mmol/L (3.5-5.1); Sodium Level 143 mmol/L (136-145)
[2021-01-21] MEDS: IBUPROFEN 600 MG TAB PO SCH ×2 (07:00→12:03)
[2021-01-21] MEDS ORDERED: levoFLOXacin 750 MG TAB PO SCH (09:00)
[2021-01-21] MEDS: levETIRAcetam 500 MG TAB PO SCH (10:37)
[2021-01-21] MEDS: metroNIDAZOLE 500 MG TABLET PO SCH (10:37)
--- NOTE | 2021-01-21 12:01 | CON ---
The patient states that she is not hungry. The pain is still there. This is intense. [place] [id number] . She has been afebrile this entire time. C linically, she does not seem to be improving. On paper, she looks much better. I have suggested Dr. Mack be consulted. If Dr. Mack cannot see the patient, it is possible suggestion that she b e transferred out to a facility that has a highly skilled laparoscopic surgeon. They can intervene i f it is deemed necessary and at some point reasonably soon, I think it will be necessary as the patie nt cannot be kept n.p.o. forever. I have also told her to ambulate around the room to try to make singh re she does not get a thrombotic situation. Toradol IV sometimes works better than narcotics. I nadia l try 30 mg IV q.12 hours and see if it gets any better as far as her pain relief since we probably a re dealing with an inflammatory situation here. Her ESR was 44, which would be expected in this situ ation. Other than the Toradol administration, I have no further suggestions. If she requires surger y, I think you are going to need an experienced laparoscopist, and Dr. Mack is the only one I thi nk on staff that would fit that description. LUCRETIA/GALLO Voice ID: [id number] Report ID: [id number]
[2021-01-21 13:24] VITALS: BP 127/89; TEMP 97.2
--- NOTE | 2021-01-21 13:25 | P.DS ---
Admission Date: 01/16/21 Discharge Date: 01/21/21 Primary Care Provider: Dr. Antonio, Dr. perez Disposition: ROUTINE DISCHARGE Discharge Condition: GOOD Reason for Admission: Abdominal pain, leukocytosis, seizures Consultations: WAIST FITTER Dr. Cronin and Dr. Mack General surgery Dr. Narayanan Procedures: CT abdomen/pelvis (01/15): FINDINGS: The lung bases are clear. Low-density lesion left hepatic lobe measuring 7 millimeters is likely benign. Hepatic steatosis. Other low-density liver lesions noted which are likely benign. The gallbladder is unremarkable. The adrenal glands and spleen are unremarkable. The pancreas unremarkable. No stones or hydronephrosis. No retroperitoneal lymphadenopathy. There are enhancing structures within the adnexa bilateraly, though particularly on the right. These structures appear tubular in shape. No free fluid is seen. No bowel obstruction identified. The appendix is fluid-filled and prominent but no periappendiceal stranding. Ventral abdominal wall laxity No suspicious bony findings. Screws are present in the left greater trochanter. IMPRESSION: 1. Tubular adnexal structures could reflect hydrosalpinx. Early pelvic inflammatory disease (PID) is within the differential. Pelvic ultrasound could better evaluate. 2. Fluid-filled appendix, prominent in size but no periappendiceal inflammatory changes. Reportedly, the patient has low lower right-sided abdominal pain. Appendicitis considered unlikely etiology. Recommend clinical correlation. Transvaginal ultrasound (01/15): FINDINGS: The uterus measures 12.2 x 4.6 x 7.3 cm. The endometrial stripe measure 6 mm. There is fluid within the fundus of the stripe measuring 3.1 mm, no focal masses were identified within the uterus. Neither ovary was visualized transvaginally. There is a tubular structure within the right adnexa perhaps corresponding to a fallopian tube measuring 3.2 x 6.7 x 3.3 cm. Smaller tubular structure is noted within the left adnexa No evidence for free fluid posterior cul-de-sac. IMPRESSION: VERY MINIMAL TRACE OF FLUID WITHIN THE ENDOMETRIAL STRIPE. TUBULAR STRUCTURE WITHIN THE RIGHT ADNEXA AND SMALLER TUBULAR STRUCTURE WITHIN THE LEFT ADNEXA PERHAPS CORRESPONDING TO A HYDROSALPINX. NEITHER OVARY WAS VISUALIZED. Pelvis ultrasound (01/19): FINDINGS: The uterus measures 12 x 6 x 6 centimeters. Endometrial stripe is normal thickness. A fibroid is not visualized. Fluid-filled tubular structure right adnexa likely a dilated fallopian tube. Right ovary not clearly seen secondary to the findings Left ovary normal in size and echotexture. Limited evaluation of the left at adnexa secondary to overlying bowel gas. 1.7 centimeter left ovarian follicle. No significant free fluid IMPRESSION: Right hydrosalpinx. On the January 15, 2021 exam there also appear to be left hydrosalpinx. A tubo-ovarian abscess is not visualized These findings may be secondary to pelvic inflammatory disease and should be correlated clinically Problem list Abdominal tenderness, leukocytosis secondary to PID/hydrosalpinx Breakthrough seizure with history of seizure disorder Brief History of Present Illness: 45-year-old -[place] female with history of seizure disorder presents emergency department for abdominal pain, fevers. Patient reports increasing abdominal pain and fevers over the course of the last 24 to 48 hours, pain is in the right lower quadrant. Patient was evaluated in the emergency room and labs were significant for white blood cell count 23.5 BUN 6 CO2 20 chloride [address] abdomen pelvis with contrast demonstrated tubular adnexal structures possibly reflecting hydrosalpinx early PID is within the differential, fluid-filled appendix prominent in size but no periappendiceal inflammatory changes. Transvaginal ultrasound was obtained which demonstrated trace fluid within the endometrial stripe tubular structure within the right adnexa and smaller tubular structure within the left adnexa perhaps corresponding to a hydrosalpinx, neither ovary visualized. Case was discussed with gynecology by ED provider who recommends IV antibiotics, IV fluids. On exam patient with significant amount of tenderness in the right lower quadrant, will also discuss case with general surgery, patient remain n.p.o. at this time on IV fluids. Hospital Course: General surgery and WAIST FITTER were consulted. After review of imaging and examining the patient, it was felt the patient most likely did not have appendicitis and this was all due to PID. Patient was empirically treated with IV antibiotics and IV fluids. She had gradual improvement of her pain, resol ution of her leukocytosis, and remained afebrile. During her hospitalization she noted some vaginal discharge, she received 2 doses of Diflucan [address] Mack was consulted by recommendation of Dr. Cronni to evaluate for potential need for surgery. Patient had improvement and it was recommended continue medical management and no surgery. Patient was ambulating, tolerating p.o. diet, and pain was managed by PO medication. Patient is discharged to complete a total of 2 weeks of antibiotics. Per WAIST FITTER recommendation, discharged with Levaquin and Flagyl. Vital Signs/Physical Exam: Temp Pulse Resp BP Pulse Ox 97.2 F 71 18 127/89 97 01/21/21 12:00 01/21/21 12:00 01/21/21 12:00 01/21/21 12:00 01/21/21 12:00 General: Alert, In no apparent distress, Oriented x3 HEENT: Sclerae nonicteric Respiratory: Clear to auscultation bilaterally, Normal air movement Cardiovascular: No edema, Regular rate/rhythm Gastrointestinal: Soft and benign, Non-distended, Tenderness (RLQ, suprapubic) Musculoskeletal: No erythema, No tenderness Integumentary: No rashes, No significant lesion Neurological: Normal speech, Normal affect Laboratory Data at Discharge: WBC 8.40 K/uL (4.3-10.9) D 01/21/21 05:25 Hgb 11.9 g/dL (12.0-15.0) L 01/21/21 05:25 Hct 34.7 % (36.0-45.0) L 01/21/21 05:25 Plt Count 335 K/uL (152-406) 01/21/21 05:25 Sodium 143 mmol/L (136-145) 01/21/21 05:25 Potassium 4.1 mmol/L (3.5-5.1) 01/21/21 05:25 BUN 4 mg/dL (7-18) L 01/21/21 05:25 Creatinine 0.44 mg/dL (0.55-1.3) L 01/21/21 05:25 Glucose 88 mg/dL (74-106) 01/21/21 05:25 Magnesium 1.9 mg/dL (1.8-2.4) 01/21/21 05:25 Total Bilirubin 0.3 mg/dL (0.2-1.0) 01/17/21 03:41 AST 15 U/L (15-37) 01/17/21 03:41 ALT 18 U/L (12-78) 01/17/21 03:41 Alkaline Phosphatase 78 U/L (45-117) 01/17/21 03:41 Lipase 72 U/L (73-393) L 01/15/21 20:00 Home Medications: Hydrocodone 5/APAP 325 [[place] 5/325] 1 tab PO Q8H PRN 4 Days #12 tab 01/21/21 Ibuprofen [Motrin] 600 mg PO Q8H 7 Days #21 tab 01/21/21 PHENYTOIN ER Cap [Dilantin ER Cap*] 300 mg PO BEDTIME cap 01/21/21 levETIRAcetam [Keppra*] 500 mg PO BID tab 01/21/21 levoFLOXacin [Levaquin*] 750 mg PO DAILY 10 Days #10 tab 01/21/21 metroNIDAZOLE [Flagyl*] 500 mg PO Q8H 10 Days #30 tablet 01/21/21 New Medications: metroNIDAZOLE [Flagyl*] 500 mg PO Q8H 10 Days #30 tablet levoFLOXacin [Levaquin*] 750 mg PO DAILY 10 Days #10 tab Ibuprofen [Motrin] 600 mg PO Q8H 7 Days #21 tab Hydrocodone 5/APAP 325 [[place] 5/325] 1 tab PO Q8H PRN 4 Days #12 tab PRN Reason: Pain Diet: Regular Activity: Ad dania Followup: Gene Cronin MD [ACTIVE - CAN ADMIT] - Unknown,U [Primary Care Provider] - Time spent managing pt's care (in minutes): 40
[2021-01-22] MEDS ORDERED: FLUCONAZOLE 100 MG TAB PO ONE (09:00)
== END 2021-01-21 15:00 | disposition home or self-care (01) | DRG 759 ==
LOC: ER 19:49 → ERHOLD 01-16 01:52 → OBSVTOIN 01-16 12:25 → 2ND 01-17 19:43
PROVIDERS: ADMIT Hospitalist; ATTEND Hospitalist
DX: N73.9 Female pelvic inflammatory disease, unspecified (principal); N70.11 Chronic salpingitis; G40.909 Epilepsy, unspecified, not intractable, without status epilepticus; Z88.0 Allergy status to penicillin; Z91.040 Latex allergy status; Z20.822 Contact with and (suspected) exposure to COVID-19
CPT/HCPCS: 36415; 74177; 76830; 76856; 80048; 80053; 80076; 80185; 81003; 81015; 81025; 82565; 83690; 83735; 84145; 84439; 84443; 85025; 85652; 87040; 87086; 87088; 99284; G0378; J0696; J1170; J1953; J2270; J2405; J3475; J7030; Q9967; U0003

== ENCOUNTER 2023-01-06 15:44 | Emergency (ER) | payer BC ==
--- OUTSIDE RECORDS SUMMARY | 2023-01-06 15:51 | XMS REPORT | Continuity of Care Document ---
:1975 Author Organization [facility] t Address [address] [place] [address] Care Team Providers Name Role Phone Ubaldo Rogers Jr. Primary Care Physician Melba Fallon MD Attending Clinician Mahogany Cortez LVN Attending Clinician ROHINI ROWAN Attending Clinician Unavailable Mckenzie Fischer MD Attending Clinician Rohini Rowan MD Attending Clinician Jose Whitehead MD Attending Clinician Kleber Macedo DO Attending Clinician Doctor Unassigned, [place] Attending Clinician Unavailable Db Lange MD Attending Clinician Tim Garcia Attending Clinician ROHINI ROWAN Admitting Clinician Unavailable Rohini Rowan MD Admitting Clinician Kleber Macedo DO Admitting Clinician Db Lange MD Admitting Clinician Payers Payer Name Policy Type Policy Number Effective Date Expiration Date S ource Problems Condition Condition Condition Status Onset Resolution Last Treating Co mments Source Name Details Category Date Date Treatment Clinician Date PID (acute PID (acute Disease Active U nivers pelvic pelvic 1-05 ity of inflammat[place] inflammato [place] ry ry Medical disease) disease) Branch Right Right Disease Active Univers lower lower 1-02 ity of quadrant quadrant 00:00: [place] abdominal abdominal 00 Medi gala pain pain Branch Seizure Seizure Disease Active Univers 7-08 ity of 00:00: Medical Branch Morbid Morbid Disease Active Univers obesity obesity 7-07 it[place] of with body with body [place] mass index mass index 00 Me dical of of Branch 40.0-49.9 40.0-49.9 Morbid Morbid Disease Active Univers obesity obesity 7-07 ity of with body with body 00:[place] mass index mass index 00 Me dical of of Branch 40.0-49.9 40.0-49.9 Pelvic Pelvic Disease Active Univers cellulitis cellulitis 7-06 it y of in female in [place] 00:[place] 00 [place] Low back Low back Disease Active Unive rs pain pain 9-18 ity of 00:00: Medical Branch Obesity Obesity Disease Active Univers (BMI (BMI 9-17 ity of 30-39.9) 30-39.9) 00:00: Medical Branch Burn Burn Disease Active Univers 9-16 ity of 00:00: Medical Branch 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 ICD10 Diagnosis Term Relay Man Utility Allergies, Adverse Reactions, Alerts Allergy Allergy Status Severity Reaction(s) Onset Inactive Treating Comm ents Source Name Type Date Date Clinician AVOCADO DRUG Active High Anaphylaxis Univ ers INGREDI - ity of 00:00: Medical Branch FLAVORIN DRUG Active High Anaphylaxis Uni vers G AGENT INGREDI 06-02 ity of 00:00: [place] [facility] Avocado Propensi Active Anaphylaxis Un terry ty to 06-02 ity of adverse 00:00: [place] reaction 00 Medical s Branch Latex Drug Active Dermatis, Univers Intolera Contact 2-19 ity of nce 00:00: Medical Branch Penicill Propensi Active Shortness of Univers ins ty to Breath 2-19 ity of adverse 00:00: [place] reaction 00 Medical s Branch LATEX DRUG Active High CONTACT DERM Univ ers INGREDI 2-19 ity of 00:00: [place] [facility] PENICILL Drug Active Hives Univers INS Class 2-19 ity of 00:00: [place] 00 Medical Branch Social History Social Habit Start Date Stop Date Quantity Comments Source Exposure to Not sure [facility] SARS-CoV-2 [facility] [place] [facility] (event) [place] Alcohol intake 2021-06-02 2021-06-02 Current drinker Unive rsity of 00:00:00 00:00:00 of alcohol [facility] [place] [facility] (finding) [place] Tobacco use and 2020-12-04 2020-12-04 Never used Universit y of exposure 00:00:00 00:00:00 [facility] Sex Ass[birth year] Universit y of 00:00:00 00:00:00 [facility] Smoking Status Start Date Stop Date Source Former smoker 2020-12-04 00:00:00 2020-12-04 00:00:00 Universi ty of [facility] Never smoker [facility] Medications Ordered Filled Start Stop Current Ordering Indication Dosage Frequency Signature Comments Components Source Medication Medication Date Date Medication? Clinician (SIG) Name Name doxycycline Yes [id number] 100mg Take 1 Univers hyclate 100 1-06 capsule by it y of mg capsule 00:00: mouth [place] 00 every 12 Medical (twelve) Branch hours. doxycycline Yes [id number] 100mg Take 1 Univers hyclate 100 1-06 capsule by it y of mg capsule 00:00: mouth [place] 00 every 12 Medical (twelve) Branch hours. doxycycline Yes [id number] 100mg Take 1 Univers hyclate 100 1-06 capsule by it y of mg capsule 00:00: mouth [place] 00 every 12 Medical (twelve) Branch hours. diclofenac 2021- No 150mg 150 mg, Un terry (VOLTAREN) 06-05-05 Oral, ity of EC tablet 23:15: 22:26 ONCE, 1 [place] 150 mg 00 :00 dose, On Medical Thu06/05/21 Branch at 1715, Routine
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 member approving Restricted medication : KLEBER MACEDO proMETHazin Yes 25mg 25 mg, IV U nivers e 1-05 Piggyback, ity of (PHENERGAN) 18:32: Q4HPRN, [place] 25 mg in 14 Starting Medical NaCl 0.9% on Thu Branch (NS) 50 mL 06/05/21 at IV 1232, piggyback Until Discontinu ed, Routine, Nausea and Vomiting (N/V) ondansetron Yes 4mg 4 mg, Slow Univers (ZOFRAN 105 IV Push, ity of (PF)) 00:36: Q6HPRN, [place] injection 4 42 Starting Medi gala mg on Thu Branch 06/04/21 at 1836, Until Discontinu ed, Routine, Nausea and Vomiting (N/V) morpHINE No 4mg 4 mg, Slow Un terry injection 4 105 01-05 IV Push, ity of mg 00:36: 18:58 Q4HPRN, [place] 14 :49 Starting Medical on Thu Branch 06/04/21 at 1836, Until Thu06/05/21 at 1258, Routine, Pain (scale 7-10), 2nd line ibuprofen Yes [id number] 800mg Take 1 Univers 800 mg 1-05 tablet by ity of tablet 00:00: mouth [place] 00 every 8 Medical (eight) Branch hours as needed (Pain). metroNIDAZO 0 Yes [id number] 500mg Take 1 Univers LE 500 mg 1-05 tablet by ity o f tablet 00:00: mouth 2 [place] 00 (two) Medical times Branch daily. ibuprofen 2021-0 Yes [id number] 800mg Take 1 Univers 800 mg 1-05 tablet by ity of tablet 00:00: mouth [place] 00 every 8 Medical (eight) Branch hours as needed (Pain). metroNIDAZO 2021-0 Yes [id number] 500mg Take 1 Univers LE 500 mg 1-05 tablet by ity o f tablet 00:00: mouth 2 [place] 00 (two) Medical times Branch daily. ibuprofen 2022-0 Yes [id number] 800mg Take 1 Univers 800 mg 1-05 tablet by ity of tablet 00:00: mouth [place] 00 every 8 Medical (eight) Branch hours as needed (Pain). metroNIDAZO Yes [id number] 500mg Take 1 Univers LE 500 mg 1-05 tablet by ity o f tablet 00:00: mouth 2 [place] 00 (two) Medical times Branch daily. fluconazole 2021- No [id number] 150mg Take 1 Univers 150 mg 1-05 01-06 tablet by ity of tablet 00:00: 05:59 mouth once [place] 00 :00 now for 1 Medical dose. Branch fluticasone Yes 1{puff} 1 Puff, Univers propion-robina 1-04 Inhalation it y of meteroL 23:30: , DAILY, [place] (ADVAIR) 00 First dose Medic al 250-50 on [facility] mcg/dose 06/04/21 at inhalation 1730, disk 1 Puff Until Discontinu ed, Routine
Use approved by (Faculty and pager): ADC PROVIDER albuterol Yes 2{puff} 2 Puff, Un terry (VENTOLIN) 1-04 Inhalation ity of inhaler 2 23:30: , DAILY, [place] Puff 00 First dose Medical on [facility] 06/04/21 at 1730, Until Discontinu ed, Routine HYDROcodone Yes 1{tbl} 1 tablet, Univers -acetaminop 1-04 Oral, ity of hen (NORCO) 18:10: Q6HPRN, [place] 10-325 mg 31 Starting Medica l tablet 1 on [facility] tablet 06/04/21 at 1210, Until Discontinu ed, Routine, Pain (scale 7-10) doxycycline Yes 100mg 100 mg, Un terry hyclate 1-04 Oral, Q12H ity of (Vibramycin 18:00: ABX, [facility] ) capsule 00 dose on Medical 100 mg [facility] 06/04/21 Branch at 1200, Until Discontinu ed, REINALDO
Re ason for Anti-Infec tive: Documented Infection< br>Documen wally Infection Site: Pelvic
Duration of Therapy: Other (see Comments) phenytoin 2022-0 Yes 100mg 100 mg, Univ ers Extended 104 Oral, ity of (DILANTIN 15:45: DAILY, [place] KAPSEAL) 00 First dose Medic al capsule 100 on Thu mg 06/04/21 at 0945, Until Discontinu ed, Routine polyethylen 2021-0 Yes 17g 17 g, [facility] rs e glycol 1-04 Oral, ity of 3350 powder 15:45: DAILY, [place] 17 g 00 First dose Medical on Thu06/04/21 at 0945, Until Discontinu ed, Routine magnesium 2021-0 Yes 30mL 30 mL, Univer s hydroxide 04 Oral, ity of (MILK OF 15:45: DAILY, [place] MAGNESIA) 00 First dose Medi gala 400 mg/5 mL (after suspension last 30 mL modificati on) on Thu06/04/21 at 0945, Until Discontinu ed, Routine bisacodyL 0 Yes 10mg 10 mg, Univer s (DULCOLAX) 04 Rectal, ity of suppository 15:45: DAILY, [place] 10 mg 00 First dose Medical (after Branch last modificati on) on Thu06/04/21 at 0945, Until Discontinu ed, Routine acetaminoph 2021-0 Yes 650mg 650 mg, Un terry en 04 Oral, Q6H ity of (TYLENOL) 15:45: ABX, First [place] tablet 650 00 dose Medical mg (after Branch last modificati on) on Thu06/04/21 at 0945, Until Discontinu ed, Routine D5W-LR IV 2021-0 Yes 1000mL at 150 Univ ers infusion 1-04 mL/hr, IV ity of 1,000 mL 15:45: Infusion, [place] 00 CONTINUOUS Medical , Starting Branch on Thu06/04/21 at 0945, Until Discontinu ed, Routine metroNIDAZO 2021-0 Yes 500mg 500 mg, Un terry LE (FLAGYL) 1-04 Oral, BID, it y of tablet 500 02:00: First dose [place] mg 00 on [facility] Medical 06/03/21 at Branch 2000, Until Discontinu ed, Routine
Reason for Anti-Infec tive: Documented Infection< br>Documen wally Infection Site: Other
O ther site: BV
Dura tion of Therapy: 14 days docusate Yes 100mg 100 mg, Unive rs (COLACE) 04 Oral, ity of capsule 100 01:00: DAILY, [place] mg 00 First dose Medical on Thu Branch 06/03/21 at 1900, Until Discontinu ed, Routine D5W-LR IV No 1000mL at 125 Uni vers infusion 06-04 mL/hr, IV ity o f 1,000 mL 01:00: 15:33 Infusion, [place] 00 :24 CONTINUOUS Medical , Starting Branch on Thu06/03/21 at 1900, Until Thu06/04/21 at 0933, Routine magnesium No 30mL 30 mL, Unive rs hydroxide 06-04 Oral, ity of (MILK OF 00:59: 15:33 QDAILYPRN, [place] MAGNESIA) 11 :24 Starting Medica l 400 mg/5 mL on Thu Branch suspension 06/03/21 at 30 mL 1859, Until Thu06/04/21 at 0933, Routine, Constipati on ibuprofen Yes 600mg 600 mg, Univ ers (IBU) 03 Oral, Q6H ity of tablet 600 22:30: ABX, First [place] mg 00 dose on Medical Thu06/03/21 Branch at 1630, Until Discontinu ed, Routine FENTanyl PF 50ug 50 mcg, Un terry (SUBLIMAZE 06-03 Slow IV ity o f (PF)) 22:16: 15:33 Push, [place] injection 17 :23 Q2HPRN, Medical 50 mcg Starting Branch on Thu06/03/21 at 1616, Until Thu06/04/21 at 0933, Routine, Pain (scale 7-10), breakthrou gh, not controlled on [place] HYDROcodone No 1{tbl} 1 tablet, Univers -acetaminop 06-03 Oral, ity of hen (NORCO 22:16: 18:11 Q6HPRN, [place] 5) 5-325 mg 10 :06 Starting Medi gala tablet 1 on Mon Branch tablet 06/03/21 at 1616, Until Thu06/04/21 at 1211, Routine, Pain (scale 7-10) HYDROcodone 2021- No 1{tbl} 1 tablet, Univers -acetaminop 06-03 Oral, ity of hen (NORCO 14:12: 22:17 Q6HPRN, [place] 5) 5-325 mg 44 :25 Starting Medi gala tablet 1 on Thu Branch tablet 06/03/21 at 0812, Until Thu06/03/21 at 1617, Routine, Pain (scale 4-6) cefOXitin 2021- No 2g 2 g, IV Univ ers in 06-02 Piggyback, ity of dextrose, 23:45: 16:12 Q6H ABX, [place] iso-osm 00 :21 First dose Medica l (MEFOXIN) 2 (after Branch gram/50 mL last DUPLEX BAG reorder) 2 g on Thu06/02/21 at 1745, Until Discontinu ed, Administer over 30 Minutes, 50 mL
Reas on for Anti-Infec tive: Documented Infection< br>Docu mented Infection Site: Pelvic
Duration of Therapy: Other (see Comments) D5W-LR IV 2021- No 1000mL at 50 [facility] ers infusion 06-02 mL/hr, IV ity o f 1,000 mL 20:15: 00:59 Infusion, [place] 00 :22 CONTINUOUS Medical , Starting Branch on Thu06/02/21 at 1415, Until Thu06/03/21 at 1859, Routine ketorolac 2021- No 30mg 30 mg, Unive rs (TORADOL) 06-02 Slow IV ity of injection 19:30: 13:31 Push, Q6H [place] 30 mg 00 :00 ABX, 4 Medical doses, Branch First dose on Thu06/02/21 at 1330, Last dose on Thu06/03/21 at 0730, Routine
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 member approving Restricted medication : ROHINI ROWAN FENTanyl PF 2021- No 50ug 50 mcg, Un terry (SUBLIMAZE 06-02 Slow IV ity o f (PF)) 19:00: 22:17 Push, [place] injection 15 :25 Q2HPRN, Medical 50 mcg Starting Branch on [place] 06/02/21 at 1300, Until 06/03/21 at 1617, Routine, Pain (scale 7-10) acetaminoph 2021- No 650mg 650 mg, U nivers en 06-02 Oral, ity of (TYLENOL) 18:34: 15:33 Q6HPRN, [place] tablet 650 58 :24 Starting Medic al mg on [facility] 06/02/21 at 1234, Until Tu06/04/21 at 0933, Routine, Pain (scale 1-3), Pain (scale 4-6), Temp > 38.5 C proMETHazin Yes 25mg 25 mg, IV U nivers e 06-02 Piggyback, ity of (PHENERGAN) 18:34: Q4HPRN, [place] 25 mg in 35 Starting Medical NaCl 0.9% on [facility] (NS) 50 mL 06/02/21 at IV 1234, piggyback Until Discontinu ed, Routine, Nausea and Vomiting (N/V) doxycycline 2021- No 100mg 100 mg, IV Univers (VIBRAMYCIN 06-02 Piggyback, i ty of ) 100 mg in 18:00: 15:33 Q12H ABX, [place] NaCl 0.9% 00 :23 First dose Medi gala (NS) 100 mL on [facility] MINI-BAG 06/02/21 at 1200, Until Discontinu ed, Administer over 60 Minutes, 100 mL
Reas on for Anti-Infec tive: Documented Infection< br>Documen wally Infection Site: Respirator y
Durat ion of Therapy: Other (see Comments) FENTanyl PF 2021- No 25ug 25 mcg, Un terry (SUBLIMAZE 06-02 Slow IV ity o f (PF)) 18:00: 17:20 Push, [place] injection 00 :00 ONCE, 1 Medical 25 mcg dose, On Branch [place] 06/02/21 at 1200, STAT cefOXitin 2021- No 2g 2 g, IV Univ ers in 06-02 Piggyback, ity of dextrose, 18:00: 17:51 ONCE, 1 [place] iso-osm 00 :00 dose, On Medical (MEFOXIN) 2 06/02/21 Br anch gram/50 mL at 1200, DUPLEX BAG Administer 2 g over 30 Minutes, 50 mL
Reas on for Anti-Infec tive: Documented Infection< br>Documen wally Infection Site: Pelvic
Duration of Therapy: Other (see Comments) PROVENTIL 2021- No prn Univers HFA INHALE 06-02 ity of 16:29: 00:00 [place] 11 :00 [facility] Branch DULoxetine 2021- No 30mg Take 30 mg Univers 30 mg 06-02 by mouth ity of capsule 16:28: 00:00 daily. [place] 49 :[address] [facility] DILANTIN 2021- No three Univers EXTENDED 06-02 times ity of 100 MG ORAL 16:28: 00:00 daily [place] CAP 43 :00 [facility] Branch iopamidol 2021- No [id number] 100mL 100 mL, Univers (ISOVUE 06-02 Intravenou ity o f 370-500 mL) 16:00: 16:01 s, ONCE, 1 [place] injection 00 :00 dose, On Medica l 100 mL [place] 06/02/21 Branch at 1015, Routine ondansetron 2021- No 4mg 4 mg, Slow Univers (ZOFRAN 06-02 IV Push, ity of (PF)) 15:15: 14:08 ONCE, 1 [place] injection 4 00 :00 dose, On Medi gala mg [place] 06/02/21 Branch at 0915, REINALDO FENTanyl PF 2021- No 100ug 100 mcg, Univers (SUBLIMAZE 06-02 Slow IV ity o f (PF)) 15:15: 14:08 Push, [place] injection 00 :00 ONCE, 1 Medical 100 mcg dose, On Branch 06/02/21 at 0915, STAT PROVENTIL Yes prn Univers HFA INHALE 7-10 ity of 19:00: [place] [address] [facility] DILANTIN Yes three Univers EXTENDED 7-10 times ity of 100 MG ORAL 19:00: daily [place] CAP [address] [facility] DULoxetine Yes 30mg Take 30 mg U nivers 30 mg 7-10 by mouth ity of capsule 19:00: daily. [address] Branch PROVENTIL Yes prn Univers HFA INHALE 7-10 ity of 19:00: [address] Branch DILANTIN Yes three Univers EXTENDED 7-10 times ity of 100 MG ORAL 19:00: daily [address] Branch DULoxetine Yes 30mg Take 30 mg U nivers 30 mg 7-10 by mouth ity of capsule 19:00: daily. [address] Branch traMADoL 50 2020- No 50mg Take 50 mg Univers mg tablet 7-10 07-10 by mouth ity o f 17:19: 00:00 every 8 [place] 18 :00 (eight) Medical hours as Branch needed. fluticasone Yes [id number] 2{puff} Inhale 2 Univers propion-robina 7-10 Puffs 2 ity o f meteroL 00:00: (two) [place] (ADVAIR 00 times Medical HFA) 45-21 daily. Branch mcg/actuati on inhaler nystatin Yes [id number] Apply to U nivers 100,000 7-10 area(s) 2 ity of unit/gram 00:00: (two) [place] cream 00 times Medical daily. Branch fluticasone Yes [id number] 2{puff} Inhale 2 Univers propion-robina 7-10 Puffs 2 ity o f meteroL 00:00: (two) [place] (ADVAIR 00 times Medical HFA) 45-21 daily. Branch mcg/actuati on inhaler nystatin Yes [id number] Apply to U nivers 100,000 7-10 area(s) 2 ity of unit/gram 00:00: (two) [place] cream 00 times Medical daily. Branch fluticasone 2021- No [id number] 2{puff} Inhale 2 Univers propion-robina 7-10 01-02 Puffs 2 ity of meteroL 00:00: 00:00 (two) [place] (ADVAIR 00 :00 times Medical HFA) 45-21 daily. Branch mcg/actuati on inhaler nystatin 2021- No [id number] Apply to Univers 100,000 7-10 01-02 area(s) 2 ity of unit/gram 00:00: 00:00 (two) [place] cream 00 :00 times Medical daily. Branch levETIRAcet 2020- No [id number] 1000mg Take 1 Univers am (KEPPRA) 7-10 08-10 tablet by it y of 1,000 mg 00:00: 04:59 mouth 2 [place] tablet 00 :00 (two) Medical times [place] daily for 30 days. levETIRAcet 2020- No [id number] 1000mg Take 1 Univers am (KEPPRA) 7-10 08-10 tablet by it y of 1,000 mg 00:00: 04:59 mouth 2 [place] tablet 00 :00 (two) Medical times [place] daily for 30 days. levETIRAcet 2020- No [id number] 1000mg Take 1 Univers am (KEPPRA) 7-10 07-10 tablet by it y of 1,000 mg 00:00: 00:00 mouth 2 [place] tablet 00 :00 (two) Medical [facility] daily for 30 days. fluticasone 2020- No [id number] 2{puff} Inhale 2 Univers propion-robina 7 07-10 Puffs 2 ity of meteroL 00:00: 00:00 (two) [place] (ADVAIR 00 :00 times Medical HFA) 45-21 daily. Branch mcg/actuati on inhaler nystatin 2020- No [id number] Apply to Univers 100,000 7-10 07-10 area(s) 2 ity of unit/gram 00:00: 00:00 (two) [place] cream 00 :00 times Medical daily. Branch nystatin Yes Topical, Unive rs (MYCOSTATIN 12-07 BID, First it y of ) cream 19:45: dose on [place] Thu12/07/20 Medical at 1445, Branch Until Discontinu ed, Routine polyethylen Yes 17g 17 g, Unive rs e glycol 12-07 Oral, ity of 3350 powder 14:00: DAILY, [place] 17 g 00 First dose Medical on Thu [place] 12/07/20 at 0900, Until Discontinu ed, Routine levETIRAcet 2021-0 Yes 1000mg 1,000 mg, Univers am (KEPPRA) 12-07 IV ity of in NACL 13:00: Infusion, [place] (ISO-OS) 00 Q12H, Medical 1,000 First dose Branch mg/100 mL (after RTU last reorder) on Thu12/07/20 at 0800, Until Discontinu ed, 100 mL fosphenytoi 2020-0 2021- No 10mg{ph 885 mg PE Univers n (CEREBYX) 12-07-09 enytoin (10 mg it y of 885 mg PE 07:00: 07:30 'equiva PE/kg Erji as in NaCl 00 :00 lent}/k ?88.5 kg), Med ical 0.9% (NS) g IV Branch piggyback Piggyback, ONCE, 1 dose, Thu12/07/20 at 0200, 100 mL phenytoin 2020-0 Yes 100mg 100 mg, IV U nivers (DILANTIN) 12-07 Piggyback, ity of injection 03:00: Q8H, First [place] 100 mg 00 dose on Medical [place] 12/06/20 Branch at 2200, Until Discontinu ed, Routine docusate 2020-0 Yes 200mg 200 mg, Unive rs (COLACE) 12-07 Oral, BID, ity o f capsule 200 01:00: First dose [place] mg 00 (after Medical last Branch modificati on) on Thu12/06/20 at 2000, Until Discontinu ed, Routine LORazepam 2020-0 2020- No 1mg 1 mg, Slow U nivers (ATIVAN) 12-0608 IV Push, ity of injection 1 22:15: 21:11 ONCE, 1 [place] mg 00 :00 dose, [facility] Medical 12/06/20 at Branch 1715, Routine levETIRAcet 2020-0 2020- No 1000mg 1,000 mg, Univers am (KEPPRA) 12-06-08 IV ity of in NACL 22:15: 22:22 Infusion, [place] (ISO-OS) 00 :00 ONCE, 1 Medical 1,000 dose, [place] Branch mg/100 mL 12/06/20 at RTU 1715, 100 mL LORazepam 2020-0 2020- No 1mg 1 mg, Slow U nivers (ATIVAN) 12-06 IV Push, ity of injection 1 22:15: 21:07 ONCE, 1 [place] mg 00 :00 dose, [facility] 12/06/20 at Branch 1715, Routine HYDROcodone Yes 1{tbl} 1 tablet, Univers -acetaminop 12-06 Oral, ity of hen (NORCO 21:40: Q6HPRN, [place] 5) 5-325 mg 02 Starting Medi gala tablet 1 [place] 12/06/20 Branc h tablet at 1640, Until Discontinu ed, Routine, Pain (scale 4-6) diphenhydrA Yes 25mg 25 mg, Univ ers MINE 12-06 Oral, ity of (BENADRYL) 21:34: Q6HPRN, [place] tablet 25 58 Starting Medica l mg [facility] 12/06/20 Branch at 1634, Until Discontinu ed, Routine, Itching, Mild Rash hydrOXYzine 2020- No 10mg 10 mg, Uni vers (ATARAX) 12-06 Oral, Q6H, ity of tablet 10 17:00: 21:35 First dose [place] mg 00 :35 on [facility] 12/06/20 at Branch 1200, Until Discontinu ed, Routine morpHINE 2020- No 4mg 4 mg, Slow Un terry injection 4 12-05 IV Push, ity of mg 23:45: 22:42 ONCE, 1 [place] 00 :00 dose, [facility] 12/05/20 at Branch 1845, Routine HYDROcodone 2020- No 1{tbl} 1 tablet, Univers -acetaminop 12-05 Oral, ity of hen (NORCO) 22:40: 21:40 Q6HPRN, [place] 10-325 mg 12 :49 Starting Medica l tablet 1 [facility] 12/05/20 Branc h tablet at 1740, Until [facility] 12/06/20 at 1640, Routine, Pain (scale 7-10) docusate 2020-2020- No 200mg 200 mg, Univ ers (COLACE) 12-05 Oral, ity of capsule 200 22:15: 15:27 DAILY, [place] mg 00 :50 First dose Medical on Thu [place] 12/05/20 at 1715, Until Discontinu ed, Routine fluconazole 2020- No at 100 Uni vers (DIFLUCAN) 12-05 07-09 mL/hr, IV ity of Piggyback 17:30: 18:45 Piggyback, [place] 00 :00 Q24H ABX, Medical 3 doses, Branch First dose on Thu12/05/20 at 1230, Last dose on Thu12/07/20 at 1230, REINALDO hydrocortis 2020- No Topical Un terry one 12-05 (Apply To ity of 1%-nystatin 16:28: 19:22 Affected [place] -zinc oxide 10 :59 Areas), Medic al ointment PRN, [place] (COMPOUNDED Starting ) Thu12/05/20 at 1128, Until Thu12/07/20 at 1422, Routine, Dermatitis /Rash DULoxetine Yes 30mg 30 mg, Unive rs (CYMBALTA) 12-05 Oral, ity of capsule 30 14:00: DAILY, [place] mg 00 First dose Medical on Thu [place] 12/05/20 at 0900, Until Discontinu ed, Routine enoxaparin Yes 30mg 30 mg, Unive rs (LOVENOX) 12-05 Subcutaneo ity of injection 14:00: us, DAILY, [place] 30 mg 00 First dose Medical on Thu [place] 12/05/20 at 0900, Until Discontinu ed, Routine fluticasone Yes 1{puff} 1 Puff, Univers propion-robina 12-05 Inhalation it y of meteroL 13:00: , Q12H, [place] (ADVAIR) 00 First dose Medic al 250-50 on Thu mcg/dose 12/05/20 at inhalation 0800, disk 1 Puff Until Discontinu ed, Routine
Use approved by (Faculty and pager): ADC PROVIDER gabapentin Yes 300mg 300 mg, Uni vers (NEURONTIN) 12-05 Oral, TID, it y of capsule 300 13:00: First dose [place] mg 00 on Thu Medical 12/05/20 at Branch 0800, Until Discontinu ed, Routine ipratropium Yes 3mL 3 mL, Unive rs -albuteroL 12-05 Inhalation ity of (DUONEB) 08:38: , Q6HPRN, [place] 0.5 mg-3 37 Starting Medical mg(2.5 mg Thu12/05/20 Bran ch base)/3 mL at 0338, nebulizer Until solution 3 Discontinu mL ed, Routine, Wheezing, Shortness of Breath phenytoin No 100mg 100 mg, Uni vers Extended 12-05 Oral, TID, ity of (DILANTIN 04:00: 01:17 First dose [place] KAPSEAL) 00 :13 on [facility] Medical capsule 100 12/04/20 at [facility] mg 2300, Until Discontinu ed, Routine terbinafine 2020- No Topical, U nivers HCL 12-05 BID, First ity of (LAMISIL) 1 01:45: 21:49 dose on [place] % cream 00 :32 [facility] 12/04/20 Medica l at 2045, Branch Until Discontinu ed, Routine FENTanyl PF 2020- No 150ug 150 mcg, Univers (SUBLIMAZE 12-04 Slow IV ity o f (PF)) 23:00: 22:13 Push, [place] injection 00 :00 ONCE, 1 Medical 150 mcg dose, [facility] 12/04/20 at 1800, Routine fluconazole 2020- No 150mg 150 mg, U nivers (DIFLUCAN) 12-04 Oral, ity of tablet 150 22:45: 23:20 ONCE, 1 [place] mg 00 :00 dose, [facility] 12/[facility]/20 at Branch 1745, REINALDO
Re ason for Anti-Infec tive: Empiric Therapy for Suspected Infection< br>Empiric Therapy Site: Skin / Soft tissue
Duration of therapy: 72 hours morpHINE No 4mg 4 mg, Slow Un terry injection 4 12-04 IV Push, ity of mg 22:20: 22:19 Q6HPRN, [place] 56 :56 Starting Medical [facility] 12/04/20 Branch at 1720, Until Thu12/05/20 at 1719, Routine, Pain (scale 7-10) HYDROcodone 2020- No 1{tbl} 1 tablet, Univers -acetaminop 12-04 Oral, ity of hen (NORCO 22:20: 18:22 Q6HPRN, [place] 5) 5-325 mg 52 :30 Starting Medi gala tablet 1 Thu12/04/20 Branc h tablet at 1720, Until [place] 12/06/20 at 1322, Routine, Pain (scale 4-6) acetaminoph Yes 650mg 650 mg, Un terry en 12-04 Oral, ity of (TYLENOL) 22:20: Q6HPRN, [place] tablet 650 50 Starting Medic al mg Thu12/04/20 Branch at 1720, Until Discontinu ed, Routine, Pain (scale 1-3) nystatin 2020- No Topical, Univ ers (NYSTOP) 12-04 BID, First ity of powder 21:45: 21:49 dose on [place] 00 :32 Thu12/04/20 Medical at 1645, Branch Until Discontinu ed, Routine metroNIDAZO 2020- No 500mg 500 mg, IV Univers LE in NaCl 12-04 Infusion, ity of (iso-os) 20:45: 21:43 Q8H ABX, [place] (FLAGYL 00 :02 First dose Medica l I.V.) RTU on [place] IV infusion 12/04/20 at 500 mg 1545, Until Discontinu ed, 100 mL
Reas on for Anti-Infec tive: Empiric Therapy for Suspected Infection< br>Empiric Therapy Site: Skin / Soft tissue
Duration of therapy: 72 hours levoFLOXaci 2020- No 750mg 750 mg, IV Univers n in D5W 12-04 Piggyback, ity of (LEVAQUIN) 20:45: 23:05 ONCE, 1 Reji as 750 mg/150 00 :00 dose, Thu Medi gala mL 12/04/20 at [place] Piggyback 1545, 150 750 mg mL
Reas on for Anti-Infec tive: Empiric Therapy for Suspected Infection< br>Empiric Therapy Site: Skin / Soft tissue
Duration of therapy: 72 hours NaCl 0.9% 2020- No 1000mL at 999 Uni vers (NS) bolus 12-04 mL/hr, ity of infusion 20:30: 21:00 1,000 mL, Reji as 1,000 mL 00 :00 IV Medical Infusion, Branch ONCE, 1 dose, 12/04/20 at 1530, STAT ondansetron 2020- No 4mg 4 mg, Slow Univers (ZOFRAN 12-04 IV Push, ity of (PF)) 20:30: 19:56 ONCE, 1 [place] injection 4 00 :00 dose, Tue Med ical mg 12/04/20 at Branch 1530, REINALDO FENTanyl PF 2020- No 100ug 100 mcg, Univers (SUBLIMAZE 12-04 Slow IV ity o f (PF)) 20:30: 19:56 Push, [place] injection 00 :00 ONCE, 1 Medical 100 mcg dose, Tue Branch 12/04/20 at 1530, Routine iopamidol 2020- No [id number] 120mL 120 mL, Univers (ISOVUE 12-04 Intravenou ity o f 370-500 mL) 20:10: 20:10 s, ONCE, 1 [place] injection 00 :00 dose, Tue Medic al 120 mL 12/04/20 at Branch 1530, Routine PROVENTIL 0 Yes prn Univers HFA INHALE 9-20 ity of 19:56: [address] DILANTIN 0 Yes three Univers EXTENDED 9-20 times ity of 100 MG ORAL 19:56: daily [address] PROVENTIL 2019-0 Yes prn Univers HFA INHALE 9-20 ity of 19:56: [address] DILANTIN 2019-0 Yes three Univers EXTENDED 9-20 times ity of 100 MG ORAL 19:56: daily [address] PROVENTIL 2019-0 Yes prn Univers HFA INHALE 9-20 ity of 19:56: [address] DILANTIN 2019-0 Yes three Univers EXTENDED 9-20 times ity of 100 MG ORAL 19:56: daily [address] docusate 0 Yes 100mg 100 mg, Unive rs (COLACE) 9-20 Oral, ity of capsule 100 14:00: DAILY, [place] mg 00 First dose Medical on [place] 02/19/20 at 0900, Until Discontinu ed, Routine D5W 0.45% 2020-0 Yes IV Univers NaCl 9-20 Infusion, ity of (1/2NS) 1 L 02:30: at 42 [place] + KCL 20 00 mL/hr, Medical mEq CONTINUOUS Branch , Starting 02/18/20 at 2130, Until Discontinu ed, Routine gabapentin 2020-0 Yes [id number] 300mg Take 1 Univers 300 mg 9-20 capsule by ity of capsule 00:00: mouth 3 [place] 00 (three) Medical times Branch daily. levETIRAcet 2020-0 Yes [id number] 1000mg Take 1 Univers am (KEPPRA) 9-20 tablet by ity of 1,000 mg 00:00: mouth 2 [place] tablet 00 (two) Medical times Branch daily. gabapentin 2020-0 Yes [id number] 300mg Take 1 Univers 300 mg 9-20 capsule by ity of capsule 00:00: mouth 3 [place] 00 (three) Medical times Branch daily. levETIRAcet 2020-0 Yes [id number] 1000mg Take 1 Univers am (KEPPRA) 9-20 tablet by ity of 1,000 mg 00:00: mouth 2 [place] tablet 00 (two) Medical times Branch daily. gabapentin 2020-0 Yes [id number] 300mg Take 1 Univers 300 mg 9-20 capsule by ity of capsule 00:00: mouth 3 [place] 00 (three) Medical times Branch daily. gabapentin 2020-0 Yes [id number] 300mg Take 1 Univers 300 mg 9-20 capsule by ity of capsule 00:00: mouth 3 [place] 00 (three) Medical times Branch daily. gabapentin 2020-0 Yes [id number] 300mg Take 1 Univers 300 mg 9-20 capsule by ity of capsule 00:00: mouth 3 [place] 00 (three) Medical times Branch daily. levETIRAcet 2020-0 Yes [id number] 1000mg Take 1 Univers am (KEPPRA) 9-20 tablet by ity of 1,000 mg 00:00: mouth 2 [place] tablet 00 (two) Medical times Branch daily. gabapentin 2020-0 2021- No [id number] 300mg Take 1 Univers 300 mg 9-20 - capsule by ity of capsule 00:00: 00:00 mouth 3 [place] 00 :00 (three) Medical times Branch daily. levETIRAcet 2019-2020- No [id number] 1000mg Take 1 Univers am (KEPPRA) 02-18 07-10 tablet by it y of 1,000 mg 00:00: 00:00 mouth 2 [place] tablet 00 :00 (two) Medical times Branch daily. HYDROcodone 2019-0 2020- No [id number] 1{tbl} Take 1 U nivers -acetaminop 02-18 tablet by it y of hen 5-325 00:00: 04:59 mouth [place] mg tablet 00 :00 every 6 Medical (six) Branch hours as needed for Pain (scale 4-6) for up to 7 days. Indication s: acute pain HYDROcodone 2019-0 2019- No [id number] 1{tbl} Take 1 U nivers -acetaminop 02-18 tablet by it y of hen 5-325 00:00: 04:59 mouth [place] mg tablet 00 :00 every 6 Medical (six) Branch hours as needed for Pain (scale 4-6) for up to 7 days. Indication s: acute pain gabapentin 2019-0 Yes 300mg 300 mg, Uni vers (NEURONTIN) 02-17 Oral, TID, it y of capsule 300 17:00: First dose [place] mg 00 on Sat Medical 02/18/20 at Branch 1200, Until Discontinu ed, Routine gadoteridol 2019-2019- No .2mL/kg 15.42 mL Univers (PROHANCE-1 02-17 (0.2 mL/kg i ty of 5 mL) 16:45: 16:25 ?77.1 kg), [place] injection 00 :00 Intravenou Medi gala 15.42 mL s, ONCE, 1 Branc h dose, 02/18/20 at 1145, Routine levETIRAcet 2019- Yes 1000mg 1,000 mg, Univers am (KEPPRA) 02-17 IV ity of in NACL 03:30: Infusion, [place] (ISO-OS) 00 Q12H, Medical 1,000 First dose Branch mg/100 mL (after RTU last modificati on) on 02/17/20 at 2230, Until Discontinu ed, 100 mL magnesium 2019- 2020- No 4g 4 g, IV Univ ers sulfate in 02-16 Piggyback, it y of water 4 01:46: 03:00 ONCE, 1 [place] gram/50 mL 00 :00 dose, [facility] Medi gala (8 %) IV 02/16/20 at [facility] Piggyback 4 2100, g Routine levETIRAcet 2019-2019- No 750mg 750 mg, IV Univers am (KEPPRA) 02-16 Infusion, it y of 750 mg in 01:00: 03:10 Q12H, [place] NaCl 0.9% 00 :01 First dose Medi gala (NS) 100 mL (after Branch IV infusion last modificati on) on [facility] 02/16/20 at 2000, Until Discontinu ed, 100 mL levETIRAcet 2019-0 2019- No 2000mg 2,000 mg, Univers am (KEPPRA) 02-15 IV ity of 2,000 mg in 23:17: 23:56 Infusion, [place] NaCl 0.9% 00 :00 ONCE, 1 Medical (NS) 100 mL dose, [facility] IV infusion 02/16/20 at 1830, 100 mL montelukast 0 2019- No 10mg 10 mg, Uni vers (SINGULAIR) 02-15 Oral, ity of tablet 10 14:00: 00:30 DAILY, [place] mg 00 :55 First dose Medical on [facility] Branch 02/16/20 at 0900, Until Discontinu ed, Routine nystatin / 0 Yes Topical Univ ers bacitracin- 02-15 (Apply To ity of polymyxin b 12:40: [place]ffected [place] oint 1:1 20 Areas), Medical POLY-MYCO QDAILYPRN, [facility] (COMPOUNDED Starting ) [facility] 02/16/20 at 0740, Until Discontinu ed, Routine, [facility] fluticasone 2019-0 2020- No 1{puff} 1 Puff, [facility] propion-robina 02-15 Inhalation i ty of meteroL 12:30: 00:30 , [place] (ADVAIR) 00 :55 QAM-0730, Medica l 250-50 First dose Branch mcg/dose on [facility] inhalation 02/16/20 at disk 1 Puff 0730, Until Discontinu ed, Routine
Use approved by (Faculty and pager): ADC PROVIDER FENTanyl PF 2019-0 2019- No 25ug 25 mcg, Un terry (SUBLIMAZE 02-15 Slow IV ity o f (PF)) 08:30: 04:00 Push, [place] injection 00 :00 ONCE, 1 Medical 25 mcg dose, [place] Branch 02/16/20 at 0330, Routine D5W 0.45% 2019-0 2020- No IV Univers NaCl 02-15 Infusion, ity of (1/2NS) 1 L 07:30: 02:25 at 100 Reji as + KCL 20 00 :51 mL/hr, Medical mEq CONTINUOUS Branch , Starting [place] 02/16/20 at 0230, Until 02/18/20 at 2125, Routine diphenhydrA 2019-0 Yes 50mg 50 mg, Univ ers MINE 02-15 Oral, PRN, ity of (BENADRYL) 07:16: Starting Reji as capsule 50 56 [place] Medical mg 02/16/20 at Branch 0216, Until Discontinu ed, Routine, 30 mins before Ancef LORazepam 2019-0 Yes 2mg 2 mg, Slow Un terry (ATIVAN) 02-15 IV Push, ity of injection 2 07:08: PRN, [place] mg 53 Starting Medical [place] Branch 02/16/20 at 0208, Until Discontinu ed, Routine, Seizures levETIRAcet 2019-0 2020- No 500mg 500 mg, IV Univers am (KEPPRA) 02-15 Infusion, it y of in NACL 06:07: 06:30 ONCE, 1 [place] (ISO-OS) 00 :00 dose, [place] Medica l 500 mg/100 02/16/20 at [facility] mL RTU 0115, 100 mL acetaminoph 2019-0 Yes 650mg 650 mg, Un terry en 02-15 Oral, Q6H, ity of (TYLENOL) 05:00: First dose [place] tablet 650 00 on [place] Medical mg 02/16/20 at Branch 0000, Until Discontinu ed, Routine phenytoin 2019-0 2020- No 100mg 100 mg, Uni vers Extended 02-15 Oral, TID, ity of (DILANTIN 05:00: 01:47 First dose [place] KAPSEAL) 00 :06 on [place] Medical capsule 100 02/16/20 at Br anch mg 0000, Until Discontinu ed, Routine morpHINE 2020-0 Yes 4mg 4 mg, Slow Uni vers injection 4 02-15 IV Push, ity of mg 04:40: Q4HPRN, [place] 47 Starting Medical [facility] Branch 02/15/20 at 2340, Until Discontinu ed, Routine, Pain (scale 7-10) HYDROcodone 2020-0 Yes 1{tbl} 1 tablet, Univers -acetaminop 02-15 Oral, ity of hen (NORCO 04:40: Q6HPRN, [place] 5) 5-325 mg 28 Starting [facility] gala tablet 1 Thu [place] tablet 02/15/20 at 2340, Until Discontinu ed, Routine, Pain (scale 4-6) morpHINE 2020-0 2020- No 4mg 4 mg, Slow Un terry injection 4 02-15 IV Push, ity of mg 03:15: 02:08 ONCE, 1 [place] 00 :00 dose, [facility] 02/15/20 at Branch 2215, STAT morpHINE 2020-0 2020- No 4mg 4 mg, Slow Un terry injection 4 02-15 IV Push, ity of mg 02:30: 01:18 ONCE, 1 [place] 00 :00 dose, [facility] 02/15/20 at Branch 2130, STAT NaCl 0.9% 2020-0 2020- No 1000mL at 999 Uni vers (NS) bolus 02-15 mL/hr, ity of infusion 01:00: 01:20 1,000 mL, Reji as 1,000 mL 00 :00 IV Medical Infusion, [place] ONCE, 1 dose, [facility] 02/15/20 at 2000, STAT vancomycin 2020-0 2020- No 1000mg 1,000 mg, Univers (VANCOCIN) 02-15 IV ity of 1,000 mg in 00:45: 00:38 Piggyback, [place] NaCl 0.9% 00 :00 ONCE, 1 Medical (NS) 250 mL dose, [facility] VIAL-MATE 02/15/20 at IV 1945, 250 piggyback mL
Reas on for Anti-Infec tive: Empiric Therapy for Suspected Infection< br>Empiric Therapy Site: Skin / Soft tissue
Duration of therapy: 72 hours tetanus-dip 2020-0 2020- No .5mL 0.5 mL, Un terry htheria 02-15 Intramuscu ity o f toxoids 00:45: 23:34 lar, ONCE, Reji as (TENIVAC) 00 :00 1 dose, Medical 5-2 [facility] unit/0.5 mL 02/15/20 at injection 1945, 0.5 mL Routine ondansetron 2020- No 4mg 4 mg, Slow Univers (ZOFRAN 02-15 IV Push, ity of (PF)) 00:30: 23:29 ONCE, 1 [place] injection 4 00 :00 dose, Wed Med ical mg 02/15/20 at Branch 1930, REINALDO FENTanyl PF 2020- No 100ug 100 mcg, Univers (SUBLIMAZE 02-15 Slow IV ity o f (PF)) 00:30: 23:28 Push, [place] injection 00 :00 ONCE, 1 Medical 100 mcg dose, [facility] Branch 02/15/20 at 1930, STAT Levothyroxi Yes 100ug Take 100 U nivers ne 6-17 mcg by ity of (TIROSINT) 00:00: mouth [place] 100 mcg Cap 00 daily. [facility] [place] [facility] Levothyroxi Yes 100ug Take 100 U nivers ne 6-17 mcg by ity of (TIROSINT) 00:00: mouth [place] 100 mcg Cap 00 daily. [facility] [place] [facility] Levothyroxi 2020- No 100ug Take 100 Univers ne 6-17 09-16 mcg by ity of (TIROSINT) 00:00: 00:00 mouth [place] 100 mcg Cap 00 :00 daily. [facility] [place] [facility] DILANTIN Yes three Univers EXTENDED 3-19 times ity of 100 MG ORAL 18:44: daily [place] CAP [address] [facility] DILANTIN Yes three Univers EXTENDED 3-19 times ity of 100 MG ORAL 18:44: daily [place] CAP [address] [place] [address] PROVENTIL Yes prn Univers HFA INHALE 3-19 ity of 18:44: [address] PROVENTIL Yes prn Univers HFA INHALE 3-19 ity of 18:44: [address] METOPROLOL Yes [id number] 1 by mouth Univers TARTRATE 50 3-19 two times ity of MG ORAL TAB 00:00: a day [place] 00 Medical Branch METOPROLOL 2009-0 Yes [id number] 1 by mouth Univers TARTRATE 50 -19 two times ity of MG ORAL TAB 00:00: a day [place] [facility] [place] METOPROLOL 2009-0 2020- No [id number] 1 by mouth Univers TARTRATE 50 3-19 02-14 two times it y of MG ORAL TAB 00:00: 00:00 a day Leonard glover 00 :00 Medical Branch Immunizations Ordered Filled Immunization Date Status Comments [facility] e Immunization Name Name SARS-COV-2 COVID-19 2020-10-20 Completed Unive rsity of PFIZER VACCINE 00:00:00 [facility] SARS-COV-2 COVID-19 2020-10-20 Completed Unive rsity of PFIZER VACCINE 00:00:00 [facility] SARS-COV-2 COVID-19 2020-10-20 Completed Unive rsity of PFIZER VACCINE 00:00:00 [facility] SARS-COV-2 COVID-19 2020-10-20 Completed Unive rsity of PFIZER VACCINE 00:00:00 [facility] SARS-COV-2 COVID-19 2020-10-20 Completed Unive rsity of PFIZER VACCINE 00:00:00 [facility] SARS-COV-2 COVID-19 2020-10-20 Completed Unive rsity of PFIZER VACCINE 00:00:00 [facility] SARS-COV-2 COVID-19 2020-09-22 Completed Unive rsity of PFIZER VACCINE 00:00:00 [facility] SARS-COV-2 COVID-19 2020-09-22 Completed Unive rsity of PFIZER VACCINE 00:00:00 [facility] SARS-COV-2 COVID-19 2020-09-22 Completed Unive rsity of PFIZER VACCINE 00:00:00 [facility] SARS-COV-2 COVID-19 2020-09-22 Completed Unive rsity of PFIZER VACCINE 00:00:00 [facility] SARS-COV-2 COVID-19 2020-09-22 Completed Unive rsity of PFIZER VACCINE 00:00:00 [facility] SARS-COV-2 COVID-19 2020-09-22 Completed Unive rsity of PFIZER VACCINE 00:00:00 [facility] Td 2020-02-15 Completed University of 00:00:00 [place] [facility] Td 2020-02-15 Completed University of 00:00:00 [place] [facility] Td 2020-02-15 Completed University of 00:00:00 [place] [facility] Td 2020-02-15 Completed University of 00:00:00 [place] [facility] Td 2020-02-15 Completed University of 00:00:00 [place] [facility] Td 2020-02-15 Completed University of 00:00:00 [place] [facility] Td 2020-02-15 Completed University of 00:00:00 [place] [facility] Td 2020-02-15 Completed University of 00:00:00 [place] [facility] Td 2020-02-15 Completed University of 00:00:00 [facility] Vital Signs Vital Name Observation Time Observation Value Comments Source Systolic blood 2021-06-05 22:08:00 116 mm[Hg] Univer sity of pressure [facility] Diastolic blood 2021-06-05 22:08:00 68 mm[Hg] Unive rsity of pressure [facility] Heart rate 2021-06-05 22:08:00 71 /min [facility] Body temperature 2021-06-05 22:08:00 36.56 [facility] rate 2021-06-05 22:08:00 16 /min [facility] Oxygen saturation in 2021-06-05 22:08:00 96 /min [facility] Arterial blood by [facility] Pulse oximetry [place] Body height 2021-06-02 22:30:00 149.9 cm [facility] Body weight 2021-06-02 22:30:00 74.844 kg [facility] BMI 2021-06-02 22:30:00 33.33 kg/m2 [facility] Systolic blood 2020-12-08 16:05:00 108 mm[Hg] Univer sity of pressure [facility] Diastolic blood 2020-12-08 16:05:00 64 mm[Hg] Unive rsity of pressure [facility] Heart rate 2020-12-08 16:05:00 70 /min [facility] Body temperature 2020-12-08 16:05:00 36.17 [facility] Respiratory rate 2020-12-08 16:05:00 18 /min Univ ersity of [place] [facility] Oxygen saturation in 2020-12-08 16:05:00 94 /min University of Arterial blood by [place] [employer] gala Pulse oximetry Branch Body weight 2020-12-07 09:35:00 83.462 kg Universi ty of [place] [facility] BMI 2020-12-07 09:35:00 37.16 kg/m2 [facility] [place] [facility] Systolic blood 2020-12-08 16:05:00 108 mm[Hg] Univer sity of pressure [place] [facility] Diastolic blood 2020-12-08 16:05:00 64 mm[Hg] Unive rsity of pressure [place] [facility] Heart rate 2020-12-08 16:05:00 70 /min [facility] [place] [facility] Body temperature 2020-12-08 16:05:00 36.17 Judith Univ ersity [facility] [place] [facility] Respiratory rate 2020-12-08 16:05:00 18 /min Univ ersity of [place] [facility] Oxygen saturation in 2020-12-08 16:05:00 94 /min University of Arterial blood by [facility] Pulse oximetry Branch Body weight 2020-12-07 09:35:00 83.462 kg [facility]i [facility] [place] [facility] BMI 2020-12-07 09:35:00 37.16 kg/m2 [facility] [place] [facility] Systolic blood 2020-02-19 16:38:00 140 mm[Hg] Univer sity of pressure [place] [facility] Diastolic blood 2020-02-19 16:38:00 71 mm[Hg] Unive rsity of pressure [place] [facility] Heart rate 2020-02-19 16:38:00 85 /min [facility]i [facility] [place] [facility] Body temperature 2020-02-19 16:38:00 36.67 Judith Univ ersity [facility] [place] [facility] Respiratory rate 2020-02-19 16:38:00 18 /min Univ ersity of [place] [facility] Oxygen saturation in 2020-02-19 16:38:00 100 /min University of Arterial blood by [facility] Pulse oximetry Branch Body height 2020-02-16 08:30:00 149.9 cm Universi [facility] [place] [facility] Body weight 2020-02-16 08:30:00 77.1 kg [facility] [place] [facility] BMI 2020-02-16 08:30:00 34.33 kg/m2 [facility] [place] [facility] Systolic blood 2020-02-19 16:38:00 140 mm[Hg] Univer sity of pressure [place] [facility] Diastolic blood 2020-02-19 16:38:00 71 mm[Hg] Unive rsity of pressure [place] [facility] Heart rate 2020-02-19 16:38:00 85 /min [facility]i ty [facility] [place] [facility] Body temperature 2020-02-19 16:38:00 36.67 Judith Univ ersity [facility] [place] [facility] Respiratory rate 2020-02-19 16:38:00 18 /min Univ ersity of [place] [facility] Oxygen saturation in 2020-02-19 16:38:00 100 /min University of Arterial blood by [facility] gala Pulse oximetry Branch Body height 2020-02-16 08:30:00 149.9 cm [facility]i [facility] [place] [facility] Body weight 2020-02-16 08:30:00 77.1 kg [facility] [place] [facility] BMI 2020-02-16 08:30:00 34.33 kg/m2 [facility] [place] [facility] Systolic blood 2020-02-16 02:00:00 124 mm[Hg] Univer sity of pressure [place] [facility] Diastolic blood 2020-02-16 02:00:00 86 mm[Hg] Unive rsity of pressure [place] [facility] Heart rate 2020-02-16 02:00:00 78 /min [facility]i [facility] [place] [facility] Respiratory rate 2020-02-16 02:00:00 16 /min Univ ersity of [place] [facility] Oxygen saturation in 2020-02-16 02:00:00 99 /min University of Arterial blood by [facility] Pulse oximetry Branch Body temperature 2020-02-15 23:42:44 36.78 Judith Univ ers[facility] [place] [facility] Body height 2020-02-15 23:17:00 149.9 cm [facility] [place] [facility] Body weight 2020-02-15 23:17:00 77.111 kg [facility] [place] [facility] BMI 2020-02-15 23:17:00 34.34 kg/m2 [facility] [place] [facility] Systolic blood 2020-02-16 02:00:00 124 mm[Hg] Univer sity of pressure [place] [facility] Diastolic blood 2020-02-16 02:00:00 86 mm[Hg] Unive rsity of pressure [place] [facility] Heart rate 2020-02-16 02:00:00 78 /min [facility] Respiratory rate 2020-02-16 02:00:00 16 /min [facility] Oxygen saturation in 2020-02-16 02:00:00 99 /min [facility] Arterial blood by [facility] Pulse oximetry [place] Body temperature 2020-02-15 23:42:44 36.78 Judith [facility] Body height 2020-02-15 23:17:00 149.9 cm [facility] Body weight 2020-02-15 23:17:00 77.111 kg [facility] BMI 2020-02-15 23:17:00 34.34 kg/m2 [facility] Procedures Procedure Date / Time Performing Source Performed Clinician COVID-19 (ID NOW RAPID 2021-06-04 Rohini Rowan [facility] TESTING) 23:29:[address] [facility] US PELVIS COMPLETE WITH 2021-06-03 Mckenzie Fischer [facility] TRANSVAGINAL 16:43:[address] [facility] CBC WITH DIFF 2021-06-03 Naveed [facility] [place] 11:27:00 [facility] ADC CLC OR LCC ONLY - WET 2021-06-02 Rohini Rowan [facility] PREP 19:17:00 [facility] BLOOD CULTURE SCREEN 2021-06-02 Mckenzie Fischer [facility] 17:16:00 [facility] BLOOD CULTURE SCREEN 2021-06-02 Mckenzie Fischer [facility] 17:01:00 [facility] BLOOD CULTURE WORKUP 2021-06-02 Mckenzie Fischer [facility] 17:01:00 [facility] GRAM POSITIVE BLOOD PATHOGENS 2021-06-02 [facility] 17:01:[address] [facility] [address] ABDOMEN PELVIS W CONTRAST 2021-06-02 Mckenzie Fischer [facility] 16:10:20 [facility] URINE CULTURE 2021-06-02 Mckenzie Fischer [facility] xas 14:56:[address] [facility] COMP. METABOLIC PANEL ([id number]) 2021-06-02 [facility] 14:07:[facility] CBC WITH DIFF 2021-06-02 Mckenzie Fischer [facility] xas 14:07:00 [facility] PROTHROMBIN TIME / INR 2021-06-02 [facility] Branch ACTIVATED PARTIAL THRMPLAS 2021-06-02 [facility] 14:07[facility] Branch URINALYSIS 2021-06-02 Amado [facility] [place] 14:07:00 Medical Branch COVID-19 (ID NOW RAPID [facility] 14:07:00 [facility] LACTIC ACID WHOLE BLOOD 2021-06-02 Amado [facility] 14:06:00 [facility] POCT TEST 2021-06-02 [facility] 14:05:00 Medical Branch NOTICE OF PRIVACY PRACTICES 2021-06-02 Doctor Unassigned, [facility] 13:45:03 [facility] [place] CONSENT/REFUSAL FOR DIAGNOSIS 2021-06-02 Doctor Unassigned, [facility] AND TREATMENT 13:43:14 [facility] [place] CBC WITH DIFF 2020-12-08 Kleber Macedo [facility] xa 09:54:00 Medical [place] ACUTE CARE ARTERIAL BLOOD GAS 2020-12-07 [facility] 09:40:00 Medical Branch COMP. METABOLIC PANEL ([id number]) 2020-12-07 [facility] 07:01:00 Medical Branch CBC WITH DIFF 2020-12-07 Mercedez [place] [facility] xas 07:01:[address] HEAD WO CONTRAST 2020-12-07 Judith noemi Randle o [facility] 02:33:06 Medical Branch PHOSPHORUS 2020-12-07 Judith [facility] xas 01:43:00 Medical Branch MAGNESIUM 2020-12-07 Judith, [facility] xas 01:43:00 Medical Branch COMP. METABOLIC PANEL ([id number]) 2020-12-07 [facility] 01:43:00 Medical Branch PHENYTOIN 2020-12-07 Judith [facility] [place]as 01:43:00 Medical Branch PHENYTOIN FREE 2020-12-07 Judith [facility] [place]as 01:43:00 Medical Branch KEPPRA (LEVETIRACETAM) 2020-12-07 [facility] 01:43:00 Medical Branch AC PANEL 20 + LACTIC ACID 2020-12-07 [facility] 01:38:00 Medical Branch XR CHEST 1 VW 2020-12-07 Kleber Macedo [facility] xa 00:20:16 Medical Branch POCT GLUCOSE (AUTOMATED) 2020-12-06 Jose Whiethead [facility] 21:04:00 Medical Branch CBC WITH DIFF 2020-12-06 Mercedez [place] [facility] xa 11:16:00 Medical Branch BASIC METABOLIC PANEL (NA, K, 2020-12-05 [facility] CL, CO2, GLUCOSE, BUN, 09:34:00 Medical ran CREATININE, CA) CBC WITH DIFF 2020-12-05 Charley [facility] xa 09:34:00 [facility] Branch COVID-19 (ID NOW RAPID 2020-12-04 Mckenzie Fischer [facility] TESTING) 21:10:00 [facility] Branch LAB ONLY COVID INTERPRETATION 2020-12-04 Mck[facility] 21:10:[address] [facility] [address] ABDOMEN PELVIS W CONTRAST 2020-12-04 Mckenzie Fischer [place] [facility] 20:15:[address] [facility] POCT TEST 2020-12-04 Mckenzie Fischer [facility] 19:51:00 [facility] BLOOD CULTURE SCREEN 2020-12-04 Amado [facility] 19:49:00 [facility] HEPATIC FUNCTION PANEL 2020-12-04 Mckenzie Fischer [facility] ([id number]) (ALB,T.PRO,BILI 19:49:00 [facility] T,BU/BC,ALT,AST,ALK PHOS) BASIC METABOLIC PANEL (NA, K, 2020-12-04 Mck[facility] CL, CO2, GLUCOSE, BUN, 19:49:00 Medical B ran CREATININE, CA) CBC WITH DIFF 2020-12-04 Amado [facility] 19:49:00 Medical Branch GLYCOSYLATED HEMOGLOBIN (A1C) 2020-12-04 [facility] 19:49:00 Medical Branch URINALYSIS 2020-12-04 Amado [facility] xa 19:49:00 [facility] LACTIC ACID WHOLE BLOOD 2020-12-04 Amado [facility] 19:49:00 [facility] BLOOD CULTURE SCREEN 2020-12-04 Amado [facility] 19:35:00 [facility] CONSENT/REFUSAL FOR DIAGNOSIS 2020-12-04 Doctor Unassigned, [facility] AND TREATMENT 17:10:47 [facility] MR LUMBAR SPINE WO CONTRAST 2020-02-18 Komal Okay [facility] 16:38:16 Medical Branch MR BRAIN W WO CONTRAST 2020-02-[address] [facility] 16:38:16 Medical [place] KEPPRA (LEVETIRACETAM) 2020-02-[address] [facility] 03:13:00 [facility] TROPONIN I 2020-02-18 [facility] xas 03:04:00 Medical Branch COMP. METABOLIC PANEL ([id number]) 2020-02-18 [facility] 03:04:00 Medical Branch CBC WITH DIFF 2020-02-18 [facility] xa 03:04:[address] [facility] CT HEAD WO CONTRAST 2020-02-17 [facility] 02:30:10 [facility] ELECTROENCEPHALOGRAM 2020-02-17 [facility] 00:00:00 [facility] PHENYTOIN FREE 2020-02-16 Moon [facility] [place] 23:28:00 [facility] CREATINE KINASE 2020-02-16 [facility] o f [place] 10:40:00 [facility] MAGNESIUM 2020-02-16 [facility] o [place] 10:40:00 [facility] BASIC METABOLIC PANEL (NA, K, 2020-02-16 [facility] CL, CO2, GLUCOSE, BUN, 10:40:00 [facility] ranch CREATININE, CA) CBC WITH DIFF 2020-02-16 [facility] 10:40:00 [facility] COVID-19 (ID NOW RAPID 2020-02-16 Tim Russell [facility] TESTING) 00:00:00 Medical Branch CREATINE KINASE 2020-02-15 Tim Russell [facility] xa 23:30:00 Medical Branch COMP. METABOLIC PANEL ([id number]) 2020-02-15 [facility] 23:30:00 Medical Branch CBC WITH DIFF 2020-02-15 Tim Russell [facility] xa 23:30:00 Medical Branch LACTIC ACID WHOLE BLOOD 2020-02-15 Tim Russell [facility] 23:30:00 Medical Branch NOTICE OF PRIVACY PRACTICES 2020-02-15 Doctor Unassigned, [facility] 23:06:05 [facility] CONSENT/REFUSAL FOR DIAGNOSIS 2020-02-15 Doctor Unassigned, [facility] AND TREATMENT 23:05:40 [facility] Encounters Start End Encounter Admission Attending Care Care Encounter Source Date/Time Date/Time Type Type Clinicians Facility Department ID 2021-07-21 2021-07-21 [facility] 1.2.840.114 [id number] Univers 00:00:00 00:00:00 Melba JACOME 350.1.13.10 [place] [id number] [facility] 134 [facility] 2021-06-06 2021-06-06 Transition OSCAR Cortez 1.2.840.114 [id number] Univers 00:00:00 00:00:00 of Care Mahoganyjessica CASTILLO 350.1.13.10 [place] [id number] [place] [address] Branch 2021-06-02 2021-06-05 Inpatient X ROHINI ROWAN [facility] YOUSIF [id number] Univers 07:53:00 18:21:00 ity of [facility] 2021-06-02 2021-06-05 [facility] Mckenzie Fischer [facility] 1.2.840.1 14 [id number] Univers 07:53:00 18:21:00 Encounter Rohini Rowan 350.1.13.10 ity of [place] 4.2.7.2.686 [facility] [id number] [facility] 081 Branch 2020-12-11 2020-12-11 Transition Oscar Cortez 1.2.840.114 [id number] 00:00:00 00:00:00 of Care Mahogany Castillo 350.1.13.10 [place] 4.2.7.2.686 [id number] 2020-12-11 2020-12-11 Transition Oscar Cortez 1.2.840.114 [id number] Univers 00:00:00 00:00:00 of Care Mahogany Castillo 350.1.13.10 ity of [place] 4.2.7.2.686 [facility] [id number] [facility] 403 Branch 2020-12-04 2020-12-08 [facility] Mckenzie Fischer [facility] 1.2.840.1 14 [id number] 12:23:00 13:59:00 Encounter Jose Whitehead 350.1.13.10 [place] 4.2.7.2.686 [place] [id number] 2020-12-04 2020-12-08 [facility] 1.2.840.1 14 [id number] Univers 12:23:00 13:59:00 Encounter Jose Whitehead 350.1.13.10 ity of [place] 4.2.7.2.686 [facility] [id number] [facility] 081 Branch 2020-12-04 2020-12-04 Emergency X [facility] ERT [id number] Univers 12:11:00 12:11:00 ity of [facility] 2020-12-04 2020-12-04 Orders Doctor RIOS 1.2.840.114 [id number] 00:00:00 00:00:00 Only UnassignedTAN 350.1.13.10 [place] [facility] 4.2.7.2.686 [id number] 009 2020-12-04 2020-12-04 Orders Doctor RIOS 1.2.840.114 [id number] Univers 00:00:00 00:00:00 Only UnassignedTAN 350.1.13.10 ity of [place] [facility] 4.2.7.2.686 Reji as [id number] [facility] 009 Branch 2020-02-21 2020-02-21 Transition Oscar Cortez 1.2.840.114 [id number] 00:00:00 00:00:00 of Care Mahogany Arevaloy 350.1.13.10 [place] 4.2.7.2.686 [id number] [facility] 2020-02-21 2020-02-21 Transition Oscar Cortez 1.2.840.114 [id number] Univers 00:00:00 00:00:00 of Care Mahoganyjessica Arevaloy 350.1.13.10 [place] of [place] [id number] [facility] 403 Branch 2020-02-15 2020-02-19 [facility] Anika Lange 1.2.840.114 [id number] 23:20:00 14:53:00 Encounter Db [place] 350.1.13.10 Hospital 4.2.7.2.686 [id number] [facility] 2020-02-15 2020-02-19 [facility] Anika Lange 1.2.840.114 [id number] Univers 23:20:00 14:53:00 Encounter Db [place] 350.1.13.10 ity of [facility] 4.2.7.2.686 Reji as [id number] [place] [id number] Branch 2020-02-15 2020-02-15 Emergency Drew, K [facility] 1.2.840.114 [id number] 18:13:00 21:26:00 Josephine Jacome 350.1.13.10 [place] 4.2.7.2.686 [place] [id number] [employer] 2020-02-15 2020-02-15 Emergency Drew, K [facility] 1.2.840.114 [id number] Univers 18:13:00 21:26:00 Josephine Jacome 350.1.13.10 i ty of [place] [phone] [place] [address] Branch 2020-02-15 2020-02-15 Emergency X [facility] ERT [id number] Univers 18:07:00 18:07:00 ity [facility] 2020-02-15 2020-02-15 Orders Doctor GABRIEL Garza.2.840.114 [id number] 00:00:00 00:00:00 Only Unassigned, TAN 350.1.13.10 [place] [facility] 4.2.7.2.686 [id number] 009 2020-02-15 2020-02-15 Orders Doctor GABRIEL Garza.2.840.114 [id number] [facility] 00:00:00 00:00:00 Only Unassigned, TAN 350.1.13.10 ity of [place] [facility] 4.2.7.2.686 Reji as [id number] [address] Results Test Description Test Time Test Comments Results Result Comments Source GRAM POSITIVE BLOOD PATHOGENS DNA PROBE-AEROBIC 2021-06-05 2 0:35:34 Test Item Value Reference Range Interpretation Comme nts Gram Positive Blood Pathogens DNA No organisms included in the Bloo d DNA Probe-Aerobic (test code = 77078-4) Probe test panel were detected. Further identification workup to be performed by culture testing methods. BRE (test code = BRE) See blood culture result for additional information. Testing included eleven identification and three resistancemarker targets. [facility] WITH [id number] 12:24:57 Test Item Value Reference Range Interpretation Comments WBC (test code = See_Comment [Automated 6710-2) message] The sy stem which generated this result transmitted reference range : 4.30 - 11.10 10*3/?L. The reference range was not used to interpret this result as normal/abnormal . RBC (test code = See_Comment [Automated 044-8) message] The sy stem which generated this result transmitted reference range : 3.93 - 5.25 10*6/?L. The reference range was not used to interpret this result as normal/abnormal . HGB (test code = 12.5 g/dL 11.6-15.0 718-7) HCT (test code = 38.8 % 35.7-45.2 4544-3) MCV (test code = 95.6 fL 80.6-95.5 H 787-2) MCH (test code = 30.8 pg 25.9-32.8 785-6) MCHC (test code = 32.2 g/dL 31.6-35.1 786-4) RDW-SD (test code = 46.5 fL 39.0-49.9 67834-8) RDW-CV (test code = 13.1 % 12.0-15.5 788-0) PLT (test code = See_Comment [Automated 777-3) message] The sy stem which generated this result transmitted reference range : 166 - 358 10*3/ ?L. The reference r maximiliano was not used to interpret this result as normal/abnormal . MPV (test code = 9.9 fL 9.5-12.9 74951-6) NRBC/100 WBC (test See_Comment [Automat ed code = 8978995566) message] The system which generated this result transmitted reference range : 0.0 - 10.0 /100 WBCs. The refer ence range was not u sed to interpret th is result as normal/abnormal . NRBC x10^3 (test code <0.01 See_Comment [Auto mated = 7587397738) message] The s ystem which generated this result transmitted reference range : 10*3/?L. The reference range was not used to interpret this result as normal/abnormal . GRAN MAT (NEUT) % 59.8 % (test code = 770-8) IMM GRAN % (test code 0.70 % = 5012984296) LYMPH % (test code = 22.3 % 736-9) MONO % (test code = 10.7 % 5905-5) EOS % (test code = 6.0 % 713-8) BASO % (test code = 0.5 % 706-2) GRAN MAT x10^3(ANC) 6.18 10*3/uL 1.88-7.09 (test code = 7262898951) IMM GRAN x10^3 (test 0.07 10*3/uL 0.00-0.06 H code = 3063028887) LYMPH x10^3 (test code 2.31 10*3/uL 1.32-3.29 = 731-0) MONO x10^3 (test code 1.11 10*3/uL 0.33-0.92 H = 742-7) EOS x10^3 (test code = 0.62 10*3/uL 0.03-0.39 H 711-2) BASO x10^3 (test code 0.05 10*3/uL 0.01-0.07 = 704-7) Lab Interpretation Abnormal (test code = 11348-0) [facility]. METABOLIC PANEL ([id number])2021-06-02 14:33:18 Test Item Value Reference Range Interpretation Comments NA (test code = 137 mmol/L 135-145 9059738329) K (test code = 3.7 mmol/L 3.5-5.0 9857176582) CL (test code = 105 mmol/L 98-108 5553114616) CO2 TOTAL (test code 24 mmol/L 23-31 = 2530218713) AGAP (test code = 2-16 2083877600) BUN (test code = 9 mg/dL 7-23 1490128477) GLUCOSE (test code = 104 mg/dL 70-110 5494846541) CREATININE (test code 0.63 mg/dL 0.50-1.04 = 0034692103) TOTAL BILI (test code 0.6 mg/dL 0.1-1.1 = 8248308568) CALCIUM (test code = 9.0 mg/dL 8.6-10.6 7712936592) T PROTEIN (test code 7.3 g/dL 6.3-8.2 = 2362814539) ALBUMIN (test code = 4.0 g/dL 3.5-5.0 4493389390) ALK PHOS (test code = 81 U/L 34-122 7397663388) ALTv (test code = 14 U/L 5-35 1742-6) AST(SGOT) (test code 21 U/L 13-40 = 6754024963) eGFR (test code = mL/min/1.73m2 6944085239) BRE (test code = BRE) Association of Glomerular Filtration Rate (GFR) and Staging of Kidney Disease* + + +- +| GFR (mL/min/1.73 m2) ?| With Kidney Damage ?| ?Without Kidney Damage+ ------+ ----+ ------+| ?>90 ?| ?Stage one ?| ? Normal ?+ -+ + -+| ?60-89 ?| ?Stage two ?| ? Decreased GFR ? + + +- +| ?30-59 ?| ?Stage three ?| ? Stage three ? + + +- +| ?15-29 ?| ?Stage four ? | ? Stage four ?+ -+ + -+| ?<15 (or dialysis) ? ?| ?Stage five ? | ? Stage five ?+ -+ + -+ *Each stage assumes the associated GFR level has been in effect for at least three months. ?Stages 1 to 5, with or without kidney disease, indicate chronic kidney disease. Notes: Determination of stages one and two (with eGFR >59mL/min/1.73 m2) requires estimation of kidney damage for at least three months as defined by structural or functional abnormalities of the kidney, manifested by either:Pathological abnormalities or Markers of kidney damage (including abnormalities in the composition of the blood or urine or abnormalities in imaging tests). [facility] [id number] 14:30:17 Test Item Value Reference Range Interpretation Comments APTT Patient (test See_Comment [Automat ed code = 3173-2) message] The system which generated this result transmitted reference range : 23 - 38 Seconds . The reference range was not used to interpr et this result as normal/abnormal . BRE (test code = BRE) The [facility] patient population mean normal value for aPTT is 30 seconds. Lab Interpretation Normal (test code = 06057-8) [facility] / [id number] 14:28:17 Test Item Value Reference Range Interpretation Comments PROTIME PATIENT (test See_Comment [Auto mated message] code = 5964-2) The system wh ich generated this result transmitted ref erence range: 12.0 - 1 4.7 Seconds. The re ference range was not u sed to interpret this result as normal/abnor mal. INR (test code = 6301-6) Nor mal INR <1.1; Warfarin Therap eutic range 2.0 to 3. 0 or 2.5 to 3.5, dep ending upon the indica tions. Lab Interpretation (test Normal code = 91162-3) [facility] WITH [id number] 14:20:21 Test Item Value Reference Range Interpretation Comments WBC (test code = See_Comment H [Automated 6690-2) message] The sy stem which generated this result transmitted reference range : 4.30 - 11.10 10*3/?L. The reference range was not used to interpret this result as normal/abnormal . RBC (test code = See_Comment [Automated 789-8) message] The sy stem which generated this result transmitted reference range : 3.93 - 5.25 10*6/?L. The reference range was not used to interpret this result as normal/abnormal . HGB (test code = 14.6 g/dL 11.6-15.0 718-7) HCT (test code = 44.3 % 35.7-45.2 4544-3) MCV (test code = 94.1 fL 80.6-95.5 787-2) MCH (test code = 31.0 pg 25.9-32.8 785-6) MCHC (test code = 33.0 g/dL 31.6-35.1 786-4) RDW-SD (test code = 44.9 fL 39.0-49.9 14339-2) RDW-CV (test code = 13.0 % 12.0-15.5 788-0) PLT (test code = See_Comment [Automated 777-3) message] The sy stem which generated this result transmitted reference range : 166 - 358 10*3/ ?L. The reference r maximiliano was not used to interpret this result as normal/abnormal . MPV (test code = 9.5 fL 9.5-12.9 90437-5) NRBC/100 WBC (test See_Comment [Automat ed code = 3306371276) message] The system which generated this result transmitted reference range : 0.0 - 10.0 /100 WBCs. The refer ence range was not u sed to interpret th is result as normal/abnormal . NRBC x10^3 (test code <0.01 See_Comment [Auto mated = 0201352297) message] The s ystem which generated this result transmitted reference range : 10*3/?L. The reference range was not used to interpret this result as normal/abnormal . GRAN MAT (NEUT) % 69.4 % (test code = 770-8) IMM GRAN % (test code 0.70 % = 0218177093) LYMPH % (test code = 16.9 % 736-9) MONO % (test code = 8.6 % 5905-5) EOS % (test code = 3.9 % 713-8) BASO % (test code = 0.5 % 706-2) GRAN MAT x10^3(ANC) 9.74 10*3/uL 1.88-7.09 H (test code = 8956951405) IMM GRAN x10^3 (test 0.10 10*3/uL 0.00-0.06 H code = 9844129213) LYMPH x10^3 (test code 2.37 10*3/uL 1.32-3.29 = 731-0) MONO x10^3 (test code 1.20 10*3/uL 0.33-0.92 H = 742-7) EOS x10^3 (test code = 0.54 10*3/uL 0.03-0.39 H 711-2) BASO x10^3 (test code 0.07 10*3/uL 0.01-0.07 = 704-7) Lab Interpretation Abnormal (test code = 27404-9) [id number] 14:05:00 Test Item Value Reference Range Interpretation Comments POCT PREG (test code = 1605) negative On board controls acceptable with present C Line (test code = 3574) POCT PREG LOT # (test code = 3575) [id number] POCT PREG TEST DATE (test 07/29/2022 code = 3576) Lab Interpretation (test code = Normal 43937-4) [facility] [id number] 11:14:56 Test Item Value Reference Range Interpretation Comments WBC (test code = See_Comment [Automated 7090-2) message] The sy stem which generated this result transmitted reference range : 4.30 - 11.10 10*3/?L. The reference range was not used to interpret this result as normal/abnormal . RBC (test code = See_Comment [Automated 749-8) message] The sy stem which generated this result transmitted reference range : 3.93 - 5.25 10*6/?L. The reference range was not used to interpret this result as normal/abnormal . HGB (test code = 12.8 g/dL 11.6-15.0 718-7) HCT (test code = 41.0 % 35.7-45.2 4544-3) MCV (test code = 96.2 fL 80.6-95.5 H 787-2) MCH (test code = 30.0 pg 25.9-32.8 785-6) MCHC (test code = 31.2 g/dL 31.6-35.1 L 786-4) RDW-SD (test code = 47.7 fL 39.0-49.9 92168-0) RDW-CV (test code = 13.5 % 12.0-15.5 788-0) PLT (test code = See_Comment [Automated 777-3) message] The sy stem which generated this result transmitted reference range : 166 - 358 10*3/ ?L. The reference r maximiliano was not used to interpret this result as normal/abnormal . MPV (test code = 9.8 fL 9.5-12.9 95437-0) NRBC/100 WBC (test See_Comment [Automat ed code = 3628358283) message] The system which generated this result transmitted reference range : 0.0 - 10.0 /100 WBCs. The refer ence range was not u sed to interpret th is result as normal/abnormal . NRBC x10^3 (test code <0.01 See_Comment [Auto mated = 1029467052) message] The s ystem which generated this result transmitted reference range : 10*3/?L. The reference range was not used to interpret this result as normal/abnormal . GRAN MAT (NEUT) % 49.8 % (test code = 770-8) IMM GRAN % (test code 1.50 % = 3786300485) LYMPH % (test code = 31.9 % 736-9) MONO % (test code = 7.4 % 5905-5) EOS % (test code = 9.0 % 713-8) BASO % (test code = 0.4 % 706-2) GRAN MAT x10^3(ANC) 5.52 10*3/uL 1.88-7.09 (test code = 1976852412) IMM GRAN x10^3 (test 0.17 10*3/uL 0.00-0.06 H code = 9829888051) LYMPH x10^3 (test code 3.54 10*3/uL 1.32-3.29 H = 731-0) MONO x10^3 (test code 0.82 10*3/uL 0.33-0.92 = 742-7) EOS x10^3 (test code = 1.00 10*3/uL 0.03-0.39 H 711-2) BASO x10^3 (test code 0.04 10*3/uL 0.01-0.07 = 704-7) Lab Interpretation Abnormal (test code = 75667-9) [facility] Arterial Blood Gas.2020-12-07 09:48:11 Test Item Value Reference Range Interpretation Comments PH (test code = 2) 7.35-7.45 PCO2 (test code = See_Comment H [Automate d message] 3632535268) The system Flare Code generated this result transmitted ref erence range: 35 - 45 mmHg. The reference r maximiliano was not used to interpret this result as normal/abnor mal. PO2 (test code = See_Comment H [Automated message] 2752259109) The system Flare Code generated this result transmitted ref erence range: 80 - 100 mmHg. The reference r maximiliano was not used to interpret this result as normal/abnor mal. HCO3 (test code = See_Comment H [Automate d message] 6682321769) The system Flare Code generated this result transmitted ref erence range: 22 - 26 mEq/L. The reference r maximiliano was not used to interpret this result as normal/abnor mal. BE (test code = See_Comment [Automated message] 7991284289) The system Flare Code generated this result transmitted ref erence range: -3.0 - 3 .0 mEq/L. The refe rence range was not u sed to interpret this result as normal/abnor mal. Lab Interpretation (test Abnormal code = 24755-0) [facility]. METABOLIC PANEL ([id number])2020-12-07 08:13:32 Test Item Value Reference Range Interpretation Comments NA (test code = 136 mmol/L 135-145 7288720306) K (test code = 4.5 mmol/L 3.5-5.0 3293526625) CL (test code = 106 mmol/L 98-108 0862111577) CO2 TOTAL (test code 27 mmol/L 23-31 = 0687893849) AGAP (test code = 2-16 8694422028) BUN (test code = 8 mg/dL 7-23 1910250975) GLUCOSE (test code = 81 mg/dL 70-110 4245377272) CREATININE (test code 0.57 mg/dL 0.50-1.04 = 9855162573) TOTAL BILI (test code 0.4 mg/dL 0.1-1.1 = 1736543554) CALCIUM (test code = 9.4 mg/dL 8.6-10.6 0852553329) T PROTEIN (test code 6.4 g/dL 6.3-8.2 = 7274459297) ALBUMIN (test code = 3.7 g/dL 3.5-5.0 6216781180) ALK PHOS (test code = 66 U/L 34-122 0889237627) ALTv (test code = 19 U/L 5-35 1742-6) AST(SGOT) (test code 26 U/L 13-40 = 4475656854) eGFR (test code = mL/min/1.73m2 8059150178) BRE (test code = BRE) Association of Glomerular Filtration Rate (GFR) and Staging of Kidney Disease* + + +- +| GFR (mL/min/1.73 m2) ?| With Kidney Damage ?| ?Without Kidney Damage+ ------+ ----+ ------+| ?>90 ?| ?Stage one ?| ? Normal ?+ -+ + -+| ?60-89 ?| ?Stage two ?| ? Decreased GFR ? + + +- +| ?30-59 ?| ?Stage three ?| ? Stage three ? + + +- +| ?15-29 ?| ?Stage four ? | ? Stage four ?+ -+ + -+| ?<15 (or dialysis) ? ?| ?Stage five ? | ? Stage five ?+ -+ + -+ *Each stage assumes the associated GFR level has been in effect for at least three months. ?Stages 1 to 5, with or without kidney disease, indicate chronic kidney disease. Notes: Determination of stages one and two (with eGFR >59mL/min/1.73 m2) requires estimation of kidney damage for at least three months as defined by structural or functional abnormalities of the kidney, manifested by either:Pathological abnormalities or Markers of kidney damage (including abnormalities in the composition of the blood or urine or abnormalities in imaging tests). [facility] WITH [id number] 07:35:30 Test Item Value Reference Range Interpretation Comments WBC (test code = See_Comment [Automated 2390-2) message] The sy stem which generated this result transmitted reference range : 4.30 - 11.10 10*3/?L. The reference range was not used to interpret this result as normal/abnormal . RBC (test code = See_Comment [Automated 339-8) message] The sy stem which generated this result transmitted reference range : 3.93 - 5.25 10*6/?L. The reference range was not used to interpret this result as normal/abnormal . HGB (test code = 12.7 g/dL 11.6-15.0 718-7) HCT (test code = 39.9 % 35.7-45.2 4544-3) MCV (test code = 95.9 fL 80.6-95.5 H 787-2) MCH (test code = 30.5 pg 25.9-32.8 785-6) MCHC (test code = 31.8 g/dL 31.6-35.1 786-4) RDW-SD (test code = 48.6 fL 39.0-49.9 84573-5) RDW-CV (test code = 13.6 % 12.0-15.5 788-0) PLT (test code = See_Comment [Automated 777-3) message] The sy stem which generated this result transmitted reference range : 166 - 358 10*3/ ?L. The reference r maximiliano was not used to interpret this result as normal/abnormal . MPV (test code = 9.6 fL 9.5-12.9 46958-6) NRBC/100 WBC (test See_Comment [Automat ed code = 1891020021) message] The system which generated this result transmitted reference range : 0.0 - 10.0 /100 WBCs. The refer ence range was not u sed to interpret th is result as normal/abnormal . NRBC x10^3 (test code <0.01 See_Comment [Auto mated = 6453391140) message] The s ystem which generated this result transmitted reference range : 10*3/?L. The reference range was not used to interpret this result as normal/abnormal . GRAN MAT (NEUT) % 55.9 % (test code = 770-8) IMM GRAN % (test code 1.50 % = 8280727358) LYMPH % (test code = 27.1 % 736-9) MONO % (test code = 7.0 % 5905-5) EOS % (test code = 8.1 % 713-8) BASO % (test code = 0.4 % 706-2) GRAN MAT x10^3(ANC) 6.09 10*3/uL 1.88-7.09 (test code = 8524616295) IMM GRAN x10^3 (test 0.16 10*3/uL 0.00-0.06 H code = 7592017905) LYMPH x10^3 (test code 2.95 10*3/uL 1.32-3.29 = 731-0) MONO x10^3 (test code 0.76 10*3/uL 0.33-0.92 = 742-7) EOS x10^3 (test code = 0.88 10*3/uL 0.03-0.39 H 711-2) BASO x10^3 (test code 0.04 10*3/uL 0.01-0.07 = 704-7) Lab Interpretation Abnormal (test code = 78192-0) [id number]41 Test Item Value Reference Range Interpretation Comments PHENY FREE (test code 0.5 ug/mL 1.0-2.0 L = [id number]) BRE (test code = BRE) Toxic Range: ? Greater than 2.5 ug/mL Test developed and characteristics determined by [facility] [facility] Laboratory Services. Lab Interpretation Abnormal (test code = 30563-5) [facility] (LEVETIRACETAM)2020-12-07 05:49:38 Test Item Value Reference Range Interpretation Comments KEPPRA (test code = 17 ug/mL 12-46 2507680067) BRE (test code = BRE) Therapeutic range: 12-46 ?g/mL ? ?Toxic: Not well established.Test developed and characteristics determined by [facility] Laboratory Services. Lab Interpretation Normal (test code = 65720-4) [facility]PH[facility]IN2021-[facility]-09 04:18:37 Test Item Value Reference Range Interpretation Comments PHENYTOIN (test code = 5.3 ug/mL 10.0-20.0 L 6189491837) BRE (test code = BRE) Toxic Range: ? 0-3 Months ? Greater than 14 ug/mL ? ? 3 Months - 150 Years ? ? Greater than 20 ug/mL Lab Interpretation (test Abnormal code = 41386-8) [facility]MAGN[facility]IUM2021-[facility]-09 03:13:49 Test Item Value Reference Range Interpretation Comments MAGNESIUM (test code = 8957369279) 1.9 mg/dL 1.7-2.4 Lab Interpretation (test code = Normal 96085-0) [facility] CenterCOMP. METABOLIC PANEL (48264)2020-12-07 03:13:34 Test Item Value Reference Range Interpretation Comments NA (test code = 134 mmol/L 135-145 L 8871798031) K (test code = 4.8 mmol/L 3.5-5.0 2133444856) CL (test code = 105 mmol/L 98-108 4546258348) CO2 TOTAL (test code = 26 mmol/L 23-31 7483793774) AGAP (test code = 2-16 5079862588) BUN (test code = 9 mg/dL 7-23 2808717209) GLUCOSE (test code = 87 mg/dL 70-110 7304392411) CREATININE (test code = 0.66 mg/dL 0.50-1.04 3409590806) TOTAL BILI (test code = 0.3 mg/dL 0.1-1.6 6988637967) CALCIUM (test code = 9.7 mg/dL 8.6-10.6 4825515906) T PROTEIN (test code = 6.6 g/dL 6.3-8.2 2088980346) ALBUMIN (test code = 3.9 g/dL 3.5-5.0 2083330914) ALK PHOS (test code = 73 U/L 34-122 3797924128) ALTv (test code = 19 U/L 5-35 1742-6) AST(SGOT) (test code = 27 U/L 13-40 9025731029) eGFR (test code = mL/min/1.73m2 3450010109) BRE (test code = BRE) Association of Glomerular Filtration Rate (GFR) and Staging of Kidney Disease* + --+ --+ ------+| GFR (mL/min/1.73 m2) ?| With Kidney Damage ?| ?Without Kidney Damage+ --------+ --------+ +| ?>90 ?| ?Stage one ?| ? Normal ?+ ---+ ---+ -------+| ?60-89 ?| ?Stage two ?| ? Decreased GFR ? + --+ --+ ------+| ?30-59 ?| ?Stage three ?| ? Stage three ? + --+ --+ ------+| ?15-29 ?| ?Stage four ? | ? Stage four ?+ ---+ ---+ -------+| ?<15 (or dialysis) ? ?| ?Stage five ? | ? Stage five ?+ ---+ ---+ -------+ *Each stage assumes the associated GFR level has been in effect for at least three months. ?Stages 1 to 5, with or without kidney disease, indicate chronic kidney disease. Notes: Determination of stages one and two (with eGFR >59mL/min/1.73 m2) requires estimation of kidney damage for at least three months as defined by structural or functional abnormalities of the kidney, manifested by either:Pathological abnormalities or Markers of kidney damage (including abnormalities in the composition of the blood or urine or abnormalities in imaging tests). Lab Interpretation Abnormal (test code = 35515-2) [facility]PHOSPHORUS2021-[facility]-09 03:13:34 Test Item Value Reference Range Interpretation Comments PHOSPHORUS (test code = 6432274983) 4.8 mg/dL 2.5-5.0 Lab Interpretation (test code = Normal 81765-0) [facility] CenterCT HEAD WO [id number] 02:42:36 Impression: 1. ?No CT evidence for acute intracranial abnormality.2. ?Stable nonspecific intraparenchymal calcification within the lefttemporal lobe. RL: 2831 Study: CT head without contrast. Ordering Physician: MJ WONG Date: 12/06/2020 8:15 PM History:Seizure, nontraumatic (Age >= 41y) Technique: Contiguous axial images were obtained from the skull base to thevertex at 5 mm intervals without contrast. CT scan was performed accordingto ALARA (As Low as Reasonably Achievable). Comparison: Comparison is made to a prior study dated 02/16/2020 Findings: Evaluation of the intracranial contents demonstrates no definiteCT evidence foracute ischemic insult, hemorrhage, hydrocephalus or masseffect. Nonspecific intraparenchymal calcification within the left temporallobe is again identified which is stable from the prior study. The sulciand ventricles are within normal limits of size for the patient's age. The paranasal sinuses and mastoid air cells are well developed and wellaerated. ?The calvarium and skull base are intact. [facility], Radiant Results Inft User - 12/06/2020 9:43 PM CDT Study: CT head without contrast.Ordering Physician: DANNY SAVAGEIDate: 12/06/2020 8:15 PMHistor y:Seizure, nontraumatic (Age >= 40y) Technique: Contiguous axial images were obtained from the skull base to thevertex at 5 mm intervals without contrast. CT scan was performed accordingto ALARA (AsLow as Reasonably Achievable).Comparison: Comparison is made to a prior study dated 02/16/2020Findings: Evaluation of the intracranial contents demonstrates no definiteCT evidence for acute ischemic insult, hemorrhage, hydrocephalus or masseffect. Nonspecific intraparenchymal calcification within the left temporallobe is again identified which is stable from the prior study. The sulciand ventricles are within normal limits of size for the patient's age.The paranasal sinuses and mastoid air cells are well developed and wellaerated. The calvarium and skull base are intact.IMPRESSIONImpression:1. No CTevidence for acute intracranial abnormality.2. Stable nonspecific intraparenchymal calcification within the lefttemporal lobe.RL: 2831 [facility] CenterAC PANEL 20 + LACTIC [id number] 01:42:21 Test Item Value Reference Range Interpretation Comments PH (test code = 2) 7.35-7.45 L PCO2 (test code = See_Comment H [Automate d 9014406806) message] The sy stem which generated this result transmitted reference range : 35 - 45 mmHg. The reference range was not used to interpret this result as normal/abnormal . PO2 (test code = See_Comment H [Automated 8319429316) message] The sy stem which generated this result transmitted reference range : 80 - 100 mmHg. The reference range was not used to interpret this result as normal/abnormal . HCO3 (test code = See_Comment [Automate d 7472378965) message] The sy stem which generated this result transmitted reference range : 22 - 26 mEq/L. The reference range was not used to interpret this result as normal/abnormal . BE (test code = See_Comment [Automated 9026663712) message] The sy stem which generated this result transmitted reference range : -3.0 - 3.0 mEq/ L. The reference r maximiliano was not used to interpret this result as normal/abnormal . THB (test code = 13.8 g/dL 12.0-16.0 2565789277) %O2HB (test code = 97.8 % 94.0-99.0 8383323442) %COHB ART (test code = 0.3 % 0.0-1.5 6013027156) %METHB ART (test code = 0.5 % 0.4-1.5 0063195670) VOL%O2 ART (test code = 19.2 % 15.0-23.0 6079114954) NA (test code = 136 mmol/L 135-145 1561121089) K+ (test code = 4.4 mmol/L 3.5-5.0 8767416527) AC CA IONZ (test code = 4.90 mg/dL 4.50-5.30 5793119114) GLUCOSE (test code = 90 mg/dL 70-110 5313217729) LACTIC ACID (test code 0.70 mmol/L 0.50-2.20 = 2291837416) Lab Interpretation Abnormal (test code = 65484-7) [facility] CenterXR CHEST 1 [id number] 00:34:08Impression: 1. ?No acute cardiopulmonary process is identified. RL: 2831 Study: Single view chest. Ordering Physician: SOSA MACEDO Date: 12/06/2020 7:00 PM History:Shortness of breath. COMPARISON: None. Findings: Single frontal view chestdemonstrates a normal heart size. Thelungs are clear without infiltrate, pleural effusion or pneumothorax. ?Noacute osseous abnormality is identified. [facility], Radiant Results Inft User - 12/06/2020 7:35 PM CDT Study: Single view chest.Ordering Physician: KLEBER MACEDODate: 12/06/2020 7:00 PMHistory:Shortness of breath.COMPARISON: None.Findings: Single frontal view chest demonstrates a normal heart size. Thelungs are clear without infiltrate, pleural effusion or pneumothorax. Noacute osseous abnormality is identified.IMPRESSIONImpression:1. No acute cardiopulmonary process is identified.RL: 2831 [facility]2020-12-06 21:08:59 Test Item Value Reference Range Interpretation Comments POCT GLU (test code = 117 mg/dL 70-110 H Notifi ed Provider [id number]) Lab Interpretation (test Abnormal code = 30742-9) [facility] WITH [id number] 15:07:49 Test Item Value Reference Range Interpretation Comments WBC (test code = See_Comment [Automated 6690-2) message] The sy stem which generated this result transmitted reference range : 4.30 - 11.10 10*3/?L. The reference range was not used to interpret this result as normal/abnormal . RBC (test code = See_Comment [Automated 789-8) message] The sy stem which generated this result transmitted reference range : 3.93 - 5.25 10*6/?L. The reference range was not used to interpret this result as normal/abnormal . HGB (test code = 13.0 g/dL 11.6-15.0 718-7) HCT (test code = 40.6 % 35.7-45.2 4544-3) MCV (test code = 95.1 fL 80.6-95.5 787-2) MCH (test code = 30.4 pg 25.9-32.8 785-6) MCHC (test code = 32.0 g/dL 31.6-35.1 786-4) RDW-SD (test code = 47.5 fL 39.0-49.9 63718-6) RDW-CV (test code = 13.6 % 12.0-15.5 788-0) PLT (test code = See_Comment [Automated 777-3) message] The sy stem which generated this result transmitted reference range : 166 - 358 10*3/ ?L. The reference r maximiliano was not used to interpret this result as normal/abnormal . MPV (test code = 9.6 fL 9.5-12.9 77462-7) NRBC/100 WBC (test See_Comment [Automat ed code = 5009933531) message] The system which generated this result transmitted reference range : 0.0 - 10.0 /100 WBCs. The refer ence range was not u sed to interpret th is result as normal/abnormal . NRBC x10^3 (test code <0.01 See_Comment [Auto mated = 3682017381) message] The s ystem which generated this result transmitted reference range : 10*3/?L. The reference range was not used to interpret this result as normal/abnormal . GRAN MAT (NEUT) % 47.8 % (test code = 770-8) IMM GRAN % (test code 2.10 % = 6364691820) LYMPH % (test code = 32.4 % 736-9) MONO % (test code = 7.6 % 5905-5) EOS % (test code = 9.7 % 713-8) BASO % (test code = 0.4 % 706-2) GRAN MAT x10^3(ANC) 4.89 10*3/uL 1.88-7.09 (test code = 0960015573) IMM GRAN x10^3 (test 0.22 10*3/uL 0.00-0.06 H code = 7247022299) LYMPH x10^3 (test code 3.32 10*3/uL 1.32-3.29 H = 731-0) MONO x10^3 (test code 0.78 10*3/uL 0.33-0.92 = 742-7) EOS x10^3 (test code = 0.99 10*3/uL 0.03-0.39 H 711-2) BASO x10^3 (test code 0.04 10*3/uL 0.01-0.07 = 704-7) BANDS (test code = Increased A 2204779149) LG GRAN LYMPHS (test Rare Rare code = 0449781460) REACT LYMPHS (test Rare code = 3354277662) Lab Interpretation Abnormal (test code = 53539-1) [facility] ONLY COVID [id number] 15:26:05COVID DMT InterpretationInterpretation/Recommendations:Molecular NAAT Tests for Active Infection with the SARS-CoV-2 Virus:The patient has currently tested negative for the SARS-CoV-2 virus that causesCOVID-19 illness. This most likely indicates that the patient does not have an active infection withthe SARS-CoV-2 virus. However, infection is not completely ruled out as the false negative rate for molecular NAAT testing using a nasopharyngeal sample can be up to 30%, mostly dependent on the timingof sample collection in relation to illness onset and any deficiencies in sampling techniques. If the patient has symptoms concerning for COVID-19 illness, a repeat NAAT test (PCR, Rapid ID Now, etc.) should be performed, at which time the SARS-CoV-2 virus - if present - may have reached a detectable viral load (usually peaking by the end of the first week of symptoms). Tests for IgM and/or IgG Antibodies to the SARS-CoV-2 Virus:If the patient develops COVID-19 illness in the future, testing for IgMand IgG antibodies approximately 3 weeks after illness onset will likely indicate if the patient hasproduced antibodies to the SARS-CoV-2 virus. However, some patients may take longer to develop detectable antibodies, while some patients who were infected with SARS-CoV-2 may never develop antibodies.While antibodies to SARS-CoV-2 may provide some degree of immunity, at this time the strength and duration of the antibody response is unknown. Interpretation Result Comments:These interpretation comments are based upon all COVID-19 testing the patient has had at [facility], including molecular NAAT testing (more commonly known as PCRtesting and Rapid ID Now testing) and antibody testing. It does not take into account any testing that a patient has had outside of the [facility] medical record. [facility] LABORATORY SERVICESCOVID SuowrvgXZIE-WxP-6 Rapid ID NOW (no units) ? ? Date ? Value ? 12/04/2020 ?Not Detected ? ? ? 02/15/2020 ? Not Detected ? [facility]AT[facility] SERVICESUn[facility] Metabolic Panel (NA, K, CL, CO2, GLUCOSE, BUN, CREATININE, CA) 2020-12-05 10:16:08 Test Item Value Reference Range Interpretation Comments NA (test code = 135 mmol/L 135-145 6615236091) K (test code = 3.8 mmol/L 3.5-5.0 6066620610) CL (test code = 106 mmol/L 98-108 0783536366) CO2 TOTAL (test code = 23 mmol/L 23-31 1245793168) AGAP (test code = 2-16 1342355071) BUN (test code = 7 mg/dL 7-23 5306892758) GLUCOSE (test code = 131 mg/dL 70-110 H 2726989759) CREATININE (test code = 0.66 mg/dL 0.50-1.04 2482381887) CALCIUM (test code = 8.5 mg/dL 8.6-10.6 L 5775923701) eGFR (test code = mL/min/1.73m2 3242902191) BRE (test code = BER) Association of Glomerular Filtration Rate (GFR) and Staging of Kidney Disease* + --+ --+ ------+| GFR (mL/min/1.73 m2) ?| With Kidney Damage ?| ?Without Kidney Damage+ --------+ --------+ +| ?>90 ?| ?Stage one ?| ? Normal ?+ ---+ ---+ -------+| ?60-89 ?| ?Stage two ?| ? Decreased GFR ? + --+ --+ ------+| ?30-59 ?| ?Stage three ?| ? Stage three ? + --+ --+ ------+| ?15-29 ?| ?Stage four ? | ? Stage four ?+ ---+ ---+ -------+| ?<15 (or dialysis) ? ?| ?Stage five ? | ? Stage five ?+ ---+ ---+ -------+ *Each stage assumes the associated GFR level has been in effect for at least three months. ?Stages 1 to 5, with or without kidney disease, indicate chronic kidney disease. Notes: Determination of stages one and two (with eGFR >59mL/min/1.73 m2) requires estimation of kidney damage for at least three months as defined by structural or functional abnormalities of the kidney, manifested by either:Pathological abnormalities or Markers of kidney damage (including abnormalities in the composition of the blood or urine or abnormalities in imaging tests). Lab Interpretation Abnormal (test code = 73912-7) [facility] with [id number] 09:47:43 Test Item Value Reference Range Interpretation Comments WBC (test code = See_Comment H [Automated 4974-2) message] The sy stem which generated this result transmitted reference range : 4.30 - 11.10 10*3/?L. The reference range was not used to interpret this result as normal/abnormal . RBC (test code = See_Comment [Automated 719-8) message] The sy stem which generated this result transmitted reference range : 3.93 - 5.25 10*6/?L. The reference range was not used to interpret this result as normal/abnormal . HGB (test code = 13.1 g/dL 11.6-15.0 718-7) HCT (test code = 40.3 % 35.7-45.2 4544-3) MCV (test code = 94.8 fL 80.6-95.5 787-2) MCH (test code = 30.8 pg 25.9-32.8 785-6) MCHC (test code = 32.5 g/dL 31.6-35.1 786-4) RDW-SD (test code = 47.2 fL 39.0-49.9 96219-4) RDW-CV (test code = 13.6 % 12.0-15.5 788-0) PLT (test code = See_Comment [Automated 777-3) message] The sy stem which generated this result transmitted reference range : 166 - 358 10*3/ ?L. The reference r maximiliano was not used to interpret this result as normal/abnormal . MPV (test code = 9.4 fL 9.5-12.9 L 35145-1) NRBC/100 WBC (test See_Comment [Automat ed code = 4734997143) message] The system which generated this result transmitted reference range : 0.0 - 10.0 /100 WBCs. The refer ence range was not u sed to interpret th is result as normal/abnormal . NRBC x10^3 (test code <0.01 See_Comment [Auto mated = 8050297038) message] The s ystem which generated this result transmitted reference range : 10*3/?L. The reference range was not used to interpret this result as normal/abnormal . GRAN MAT (NEUT) % 57.5 % (test code = 770-8) IMM GRAN % (test code 2.00 % = 1294777705) LYMPH % (test code = 25.9 % 736-9) MONO % (test code = 7.2 % 5905-5) EOS % (test code = 7.2 % 713-8) BASO % (test code = 0.2 % 706-2) GRAN MAT x10^3(ANC) 7.29 10*3/uL 1.88-7.09 H (test code = 7382237297) IMM GRAN x10^3 (test 0.25 10*3/uL 0.00-0.06 H code = 5207715031) LYMPH x10^3 (test code 3.29 10*3/uL 1.32-3.29 = 731-0) MONO x10^3 (test code 0.91 10*3/uL 0.33-0.92 = 742-7) EOS x10^3 (test code = 0.92 10*3/uL 0.03-0.39 H 711-2) BASO x10^3 (test code 0.03 10*3/uL 0.01-0.07 = 704-7) Lab Interpretation Abnormal (test code = 93624-8) [facility] CenterGLYCOSYLATED HEMOGLOBIN (A1C)2020-12-05 00:18:48 Test Item Value Reference Range Interpretation Comments HGB A1C (test code = 5.5 % 4.0-5.7 4548-4) BRE (test code = BRE) Reference RangesNormal: <5.7%Prediabetes: 5.7 - 6.4%Diabetes: > 6.5% Lab Interpretation (test Normal code = 83341-9) [facility] CenterCOVID-19 (ID NOW RAPID TESTING)2020-12-04 21:49:20 Test Item Value Reference Range Interpretation Comments SARS-CoV-2 Rapid ID NOW Not Detected Not Detected (test code = 27771-3) BRE (test code = BRE) ID NOW COVID-19 Assay is an isothermal nucleic acid amplification test intended for the qualitative detection of nucleic acid from SARS-CoV-2 viral RNA in nasopharyngeal ([employer]ER) specimens. It is used under Emergency Use Authorization (EUA) by FDA. The limit of detection (LOD) of the assay is 125 Genome Equivalents/mL. A positive result is indicative of the presence of SARS-CoV-2 RNA. ?Clinical correlation with patient history and other diagnostic [...] for repeat patient testing if clinically indicated. Lab Interpretation Normal (test code = 23051-4) [facility] CenterCT ABDOMEN PELVIS W [id number] 20:53:50 Mild subcutaneous edema in the the mons pubis. No evidence of soft tissueemphysema or a drainable fluid collection. Correlate with exam. Several mildly enlarged bilateral iliac chain, pelvic sidewall,andinguinal lymph nodes, likely reactive. Sigmoid diverticulosis. Significant subchondral cystic changes in the left femoral head may berelated to arthropathic changes or an osteochondral lesion. RL 5045 End of report Ordering physician:TOM CLINICAL HISTORY: Abdominal abscess/infection suspected concern forfournier's gangrene in pelvic area TECHNIQUE: Contrast enhanced CT images were obtained through the abdomenand pelvis with IV contrast. ?Coronal and sagittal reformats were alsoobtained. ALARA (As Low As Reasonably Achievable) ?principles was usedduring this examination. COMPARISON: ?None FINDINGS: The lung bases are clear bilaterally. ? Small cyst in the anterior left hepatic lobe. Additional ill-defined tinyhypodensity in the inferior right hepatic lobe is small to characterize.Spleen, pancreas, gallbladder, adrenal glands,and kidneys areunremarkable. The small bowel and colon are without bowel wall thickening or dilatation.Sigmoid diverticulosis. Unremarkable appendix. No free fluid or air is demonstrated in the abdomenor pelvis. The urinary bladder is unremarkable. The uterus is unremarkable. Tampon inplace. There ismild subcutaneous edema in the the mons pubis. No evidenceof soft tissue emphysema. No drainable fluid collection. There are severalmildly enlarged bilateral iliac chain, pelvic sidewall, and inguinal lymphnodes. The aortoiliac vessels are normal caliber. No acute osseous abnormality. Mild dextrocurvature of the lumbar spine.Postsurgical changes of the proximal left femur. Significant subchondralcystic changes in the left femoral head may be related to arthropathicchanges or an osteochondral lesion.[facility], Radiant Results Inft User - 12/04/2020 3:54 PM CDT Ordering physician:MCKENZIE FISCHER CLINICAL HISTORY: Abdominal abscess/infection suspected concern forfournier's gangrene in pelvic area TECHNIQUE: Contrast enhanced CT images were obtained through the abdomenand pelvis with IV contrast. Coronal and sagittal reformats were alsoobtained.ALARA (As Low As Reasonably Achievable) principles was usedduring this examination.COMPARISON: NoneFINDINGS:The lung bases are clear bilaterally. Small cyst in the anterior left hepatic lobe. Additional ill- defined tinyhypodensity in the inferior right hepatic lobe is small to characterize.Spleen, pancreas, gallbladder, adrenal glands, and kidneys areunremarkable.The small bowel and colon are withoutbowel wall thickening or dilatation.Sigmoid diverticulosis. Unremarkable appendix.No free fluid or air is demonstrated in the abdomen or pelvis. The urinary bladder is unremarkable. The uterus is unremarkable. Tampon inplace. There is mild subcutaneous edema in the the mons pubis. No evidenceof soft tissue emphysema. No drainable fluid collection. There are severalmildly enlarged bilateral iliac chain, pelvic sidewall, and inguinal lymphnodes.The aortoiliac vessels are normal caliber.No acute osseous abnormality. Mild dextrocurvature of the lumbar spine.Postsurgical changes of the proximal left femur. Significant subchondralcystic changes in the left femoral head may be related to arthropathicchanges or an osteochondral lesion.IMPRESSIONMild subcutaneous edema in the the mons pubis. No evidence of soft tissueemphysema or a drainable fluid collection. Correlate with exam.Several mildly enlarged bilateral iliac chain, pelvic sidewall, andinguinal lymph nodes, likely reactive.Sigmoid diverticulosis.Significant subchondral cystic changes in the left femoral head may berelated to arthropathic changes or an osteochondral lesion.RL 5045End of report Electronically signed by Bridger Lawson MD at 13:53 PMCitizens Medical CenterUrinalysis2021-07-06 20:39:43 Test Item Value Reference Range Interpretation Comments APPEARANCE (test code = Clear Clear 4866241589) COLOR (test code = Yellow Yellow 3519791989) PH (test code = 4.8-8.0 5706908268) SP GRAVITY (test code = 1.003-1.030 7417138951) GLU U QUAL (test code = Normal Normal 4942122443) BLOOD (test code = Negative Negative 4679610778) KETONES (test code = Negative Negative 3150993134) PROTEIN (test code = Negative Negative 2887-8) UROBILIN (test code = 4.0 mg/dL Normal A 3166344793) BILIRUBIN (test code = Negative Negative 2481593290) NITRITE (test code = Negative Negative 3064987542) LEUK KANDICE (test code = Negative Negative 9038388704) RBC/HPF (test code = See_Comment [Autom ated message] 0457050249) The system Imm[employer] generated this result transmit wally reference range : 0 - 3 HPF. The refe rence range was not u sed to interpret th is result as normal/abnormal . WBC/HPF (test code = See_Comment [Autom ated message] 0597967724) The system [employer] generated this result transmit wally reference range : 0 - 5 HPF. The refe rence range was not u sed to interpret th is result as normal/abnormal . BACTERIA (test code = Negative Negative 2568470389) MUCOUS (test code = Slight Negative LPF A 1623168761) SQ EPITH (test code = HPF 8886521918) Lab Interpretation (test Abnormal code = 17806-3) [facility] CenterHepatic Function Panel (ALB, T.PRO, BILI T, BU/BC, ALT, AST, ALK PHOS)2020-12-04 20:26:41 Test Item Value Reference Range Interpretation Comments TOTAL BILI (test code = 6304234918) 0.4 mg/dL 0.1-1.1 BILI UNCON (test code = 2334006095) 0.2 mg/dL 0.1-1.1 BILI CONJ (test code = 6027890405) 0.0 mg/dL 0.0-0.3 T PROTEIN (test code = 5229377687) 7.5 g/dL 6.3-8.2 ALBUMIN (test code = 4284151122) 4.3 g/dL 3.5-5.0 ALK PHOS (test code = 7222241912) 94 U/L 34-122 ALTv (test code = 1742-6) 20 U/L 5-35 AST(SGOT) (test code = 7126425171) 21 U/L 13-40 Lab Interpretation (test code = Normal 05131-4) [facility] CenterBasic Metabolic Panel (NA, K, CL, CO2, GLUCOSE, BUN, CREATININE, [place])2020-12-04 20:26:21 Test Item Value Reference Range Interpretation Comments NA (test code = 136 mmol/L 135-145 6930757960) K (test code = 3.8 mmol/L 3.5-5.0 4126933261) CL (test code = 104 mmol/L 98-108 1664968182) CO2 TOTAL (test code 23 mmol/L 23-31 = 0222587458) AGAP (test code = 2-16 0288256773) BUN (test code = 9 mg/dL 7-23 1672876598) GLUCOSE (test code = 91 mg/dL 70-110 9841246247) CREATININE (test code 0.71 mg/dL 0.50-1.04 = 9232566383) CALCIUM (test code = 9.3 mg/dL 8.6-10.6 4940183599) eGFR (test code = mL/min/1.73m2 7743354202) BRE (test code = BRE) Association of Glomerular Filtration Rate (GFR) and Staging of Kidney Disease* + + +- +| GFR (mL/min/1.73 m2) ?| With Kidney Damage ?| ?Without Kidney Damage+ ------+ ----+ ------+| ?>90 ?| ?Stage one ?| ? Normal ?+ -+ + -+| ?60-89 ?| ?Stage two ?| ? Decreased GFR ? + + +- +| ?30-59 ?| ?Stage three ?| ? Stage three ? + + +- +| ?15-29 ?| ?Stage four ? | ? Stage four ?+ -+ + -+| ?<15 (or dialysis) ? ?| ?Stage five ? | ? Stage five ?+ -+ + -+ *Each stage assumes the associated GFR level has been in effect for at least three months. ?Stages 1 to 5, with or without kidney disease, indicate chronic kidney disease. Notes: Determination of stages one and two (with eGFR >59mL/min/1.73 m2) requires estimation of kidney damage for at least three months as defined by structural or functional abnormalities of the kidney, manifested by either:Pathological abnormalities or Markers of kidney damage (including abnormalities in the composition of the blood or urine or abnormalities in imaging tests). [facility] with [id number] 20:22:41 Test Item Value Reference Range Interpretation Comments WBC (test code = See_Comment H [Automated 6690-2) message] The sy stem which generated this result transmitted reference range : 4.30 - 11.10 10*3/?L. The reference range was not used to interpret this result as normal/abnormal . RBC (test code = See_Comment [Automated 789-8) message] The sy stem which generated this result transmitted reference range : 3.93 - 5.25 10*6/?L. The reference range was not used to interpret this result as normal/abnormal . HGB (test code = 14.9 g/dL 11.6-15.0 718-7) HCT (test code = 46.2 % 35.7-45.2 H 4544-3) MCV (test code = 93.5 fL 80.6-95.5 787-2) MCH (test code = 30.2 pg 25.9-32.8 785-6) MCHC (test code = 32.3 g/dL 31.6-35.1 786-4) RDW-SD (test code = 45.5 fL 39.0-49.9 42801-7) RDW-CV (test code = 13.4 % 12.0-15.5 788-0) PLT (test code = See_Comment [Automated 777-3) message] The sy stem which generated this result transmitted reference range : 166 - 358 10*3/ ?L. The reference r maximiliano was not used to interpret this result as normal/abnormal . MPV (test code = 9.5 fL 9.5-12.9 09189-3) NRBC/100 WBC (test See_Comment [Automat ed code = 9238366369) message] The system which generated this result transmitted reference range : 0.0 - 10.0 /100 WBCs. The refer ence range was not u sed to interpret th is result as normal/abnormal . NRBC x10^3 (test code <0.01 See_Comment [Auto mated = 6573349767) message] The s ystem which generated this result transmitted reference range : 10*3/?L. The reference range was not used to interpret this result as normal/abnormal . GRAN MAT (NEUT) % 70.7 % (test code = 770-8) IMM GRAN % (test code 1.30 % = 4811572965) LYMPH % (test code = 15.6 % 736-9) MONO % (test code = 5.9 % 5905-5) EOS % (test code = 6.3 % 713-8) BASO % (test code = 0.2 % 706-2) GRAN MAT x10^3(ANC) 9.53 10*3/uL 1.88-7.09 H (test code = 6954304046) IMM GRAN x10^3 (test 0.17 10*3/uL 0.00-0.06 H code = 6241814602) LYMPH x10^3 (test code 2.10 10*3/uL 1.32-3.29 = 731-0) MONO x10^3 (test code 0.79 10*3/uL 0.33-0.92 = 742-7) EOS x10^3 (test code = 0.85 10*3/uL 0.03-0.39 H 711-2) BASO x10^3 (test code 0.03 10*3/uL 0.01-0.07 = 704-7) Lab Interpretation Abnormal (test code = 14593-4) [facility] Whole [id number] 20:01:06 Test Item Value Reference Range Interpretation Comments LACTIC ACID (test code = 1.42 mmol/L 0.50-2.20 0505332309) Lab Interpretation (test code = Normal 96111-5) [facility] CenterPOCT [id number] 19:51:00 Test Item Value Reference Range Interpretation Comments POCT PREG (test code = 1605) negative On board controls acceptable with yes C Line (test code = 3574) POCT PREG LOT # (test code = 3575) [id number] POCT PREG TEST DATE (test 05/31/2022 code = 3576) Lab Interpretation (test code = Normal 73153-0) [facility] CenterMR [facility]IN W WO [id number] 18:45:40 No acute intracranial abnormality Gradient blooming in the left temporal lobe corresponding to the coarsecalcification noted on the accompanying CT. No surrounding edema.MR BRAIN W WO CONTRAST HISTORY: Female 44 years Seizure, new, abn neuro exam, nontraumatic COMPARISON: CT head dated 02/16/2020 TECHNIQUE: Multiplanar multi weighted imaging of the brain was obtainedbefore and following the administration of 15 mL IV ProHance FINDINGS: The ventricles and cerebral sulci are normal in caliber and configuration.No hydrocephalus, midline shift or pathological extra axial fluidcollection is present. Thebasal cisterns are unremarkable. No restricted diffusion is present to suggest acute-subacute ischemia. No focus of abnormal parenchymal signal intensity is present. No focus ofabnormal parenchymal enhancement is present. A focus of gradient bloomingin the left lateral temporal lobe corresponds to a coarse calcificationnoted on the prior CT. No additional focus of abnormal parenchymal gradientblooming is present. No abnormal fluid signal is present in the mastoid air cells. Mild tomoderate pansinus inflammatory changes. The T2 flow voids for the majorintracranial vessels are unremarkable. [facility], Radiant Results Inft User - 02/18/2020 1:46 PM CDTMR BRAIN W WO CONTRASTHISTORY: Female 44 years Seizure, new, abn neuro exam, nontraumatic COMPARISON: CT head dated 02/16/2020TECHNIQUE: Multiplanar multi weighted imaging of the brain was obtainedbefore and following the administration of 15 mL IV ProHanceFINDINGS:The ventricles and cerebral sulci are normal in caliber and configuration.No hydrocephalus, midline shift or pathological extra axial fluidcollection is present. The basal cisterns are unremarkable.No restricted diffusion is present to suggest acute-subacute ischemia.No focus of abnormal parenchymal signal intensity is present. No focus ofabnormal parenchymal enhancement is present. A focus of gradient bloomingin the left lateral temporal lobe corresponds to a coarse calcificationnoted on the prior CT. No additional focus of abnormal parenchymal gradientblooming is present.No abnormal fluidsignal is present in the mastoid air cells. Mild tomoderate pansinus inflammatory changes. The T2 flow voids for the majorintracranial vessels are unremarkable.IMPRESSIONNo acute intracranial abnormalityGradient blooming in the left temporal lobe corresponding to the coarsecalcification noted on the accompanying CT. No surrounding edema. [facility] LUMBAR SPINE WO [id number] 18:26:15 Mild spondylosis at L4-L5 results in moderate right neural foraminalnarrowing Otherwise, no significant degenerative changes, spinal canal stenosis orneural foraminal narrowing is present at any levelNo acute osseous abnormality Diffuse inflammatory changes in the superficial soft tissues of thevisualized backMR LUMBAR SPINE WO CONTRAST HISTORY: Female 44 years Back pain, > 6wks conservative tx,persistent sx COMPARISON: Lumbar radiograph dated 07/18/2018 TECHNIQUE: Multiplanar multi weighted imaging of the lumbar spine wasobtained without IV contrast FINDINGS: Mild extra curvature. The vertebral bodies are normal in height and innormal alignment. The conus terminates at the level of T12-L1. The caudaequina nerve roots are unremarkable. The background marrow signal is unremarkable. Disc desiccation at L4-L5 isassociated with mild intervertebral disc space height loss. The remainingintervertebral discs remain well-hydrated. L1-L2: No significant spinal canal stenosis or neural foraminal narrowing L2-L3: No significant spinal canal stenosis or neural foraminal narrowing L3-L4: No significantspinal canal stenosis or neural foraminal narrowing L4-L5: A posterior disc bulge results in mild spinal canal stenosis, mildleft and moderate right neural foraminal narrowing L5-S1: No significant spinal canal stenosis or neural foraminal narrowing Diffuse edema is noted in the superficial subcutaneous soft tissues [facility], Radiant Results Inft User - 02/18/2020 1:27 PM CDTMR LUMBAR SPINE WO CONTRASTHISTORY: Female 44 years Back pain, > 6wks conservative tx, persistent sx COMPARISON: Lumbar radiograph dated 07/18/2018TECHNIQUE: Multiplanar multi weighted imaging of the lumbar spine wasobtained without IV contrastFINDINGS:Mild extra curvature. The vertebral bodies are normal in height and innormal alignment. The conus terminates at the level of T12-L1. The caudaequina nerve roots are unremarkable.The background marrow signal is unremarkable. Disc desiccation at L4-L5 isassociated with mild intervertebral disc space height loss. The remainingintervertebral discs remain well-hydrated.L1-L2: No significant spinal canal stenosis or neural foraminal narrowingL2-L3: No significant spinal canal stenosis or neural foraminal narrowingL3-L4: No significant spinal canal stenosis or neural foraminal narrow ingL4-L5: A posterior disc bulge results in mild spinal canal stenosis, mildleft and moderate right neural foraminal narrowingL5-S1: No significant spinal canal stenosis or neural foraminal narrowingDiffuse edema is noted in the superficial subcutaneous soft tissuesIMPRESSIONMild spondylosis at L4-L5 results in moderate right neural foraminalnarrowingOtherwise, no significant degenerative changes, spinal canal stenosis orneural foraminal narrowing is present at any levelNo acute osseous abnormalityDiffuse inflammatory changes in the superficial soft tissues of thevisualized backUnMemorial Hermann Pearland HospitalKEPPRA (LEVETIRACETAM)2020-02-18 04:48:00 Test Item Value Reference Range Interpretation Comments KEPPRA (test code = 11 ug/mL 12-46 L 3210926435) BRE (test code = BRE) Therapeutic range: 12-46 ?g/mL ? ?Toxic: Not well established.Test developed and characteristics determined by [facility] Laboratory Services. Lab Interpretation Abnormal (test code = 39895-0) [facility]. METABOLIC PANEL (59626)2020-02-18 04:46:00 Test Item Value Reference Range Interpretation Comments NA (test code = 143 mmol/L 135-145 9245684311) K (test code = 3.9 mmol/L 3.5-5 3828718183) CL (test code = 109 mmol/L 98-108 H 8994847008) CO2 TOTAL (test code = 24 mmol/L 23-31 4270709649) AGAP (test code = 2-16 4278875307) BUN (test code = 5 mg/dL 7-23 L 8844240103) GLUCOSE (test code = 98 mg/dL 70-110 7612126155) CREATININE (test code = 0.66 mg/dL 0.5-1.04 3137588818) TOTAL BILI (test code = 0.2 mg/dL 0.1-1.2 5216342173) CALCIUM (test code = 8.0 mg/dL 8.6-10.6 L 9505643922) T PROTEIN (test code = 5.7 g/dL 6.3-8.2 L 5720450162) ALBUMIN (test code = 3.2 g/dL 3.5-5 L 6882087716) ALK PHOS (test code = 58 U/L 34-122 6751808544) ALTv (test code = 14 U/L 5-35 1742-6) AST(SGOT) (test code = 37 U/L 13-40 4074855916) eGFR Calculation mL/min/1.73m2 (Non-) (test code = 0177078512) eGFR Calculation mL/min/1.73m2 () (test code = 9301221211) BRE (test code = BRE) Association of Glomerular Filtration Rate (GFR) and Staging of Kidney Disease* + --+ --+ ------+| GFR (mL/min/1.73 m2) ?| With Kidney Damage ?| ?Without Kidney Damage+ --------+ --------+ +| ?>90 ?| ?Stage one ?| ? Normal ?+ ---+ ---+ -------+| ?60-89 ?| ?Stage two ?| ? Decreased GFR ? + --+ --+ ------+| ?30-59 ?| ?Stage three ?| ? Stage three ? + --+ --+ ------+| ?15-29 ?| ?Stage four ? | ? Stage four ?+ ---+ ---+ -------+| ?<15 (or dialysis) ? ?| ?Stage five ? | ? Stage five ?+ ---+ ---+ -------+ *Each stage assumes the associated GFR level has been in effect for at least three months. ?Stages 1 to 5, with or without kidney disease, indicate chronic kidney disease. Notes: Determination of stages one and two (with eGFR >59mL/min/1.73 m2) requires estimation of kidney damage for at least three months as defined by structural or functional abnormalities of the kidney, manifested by either:Pathological abnormalities or Markers of kidney damage (including abnormalities in the composition of the blood or urine or abnormalities in imaging tests). Lab Interpretation Abnormal (test code = 94934-1) [facility] CenterHALEY [id number] 04:02:00 Test Item Value Reference Range Interpretation Comments TROPONIN I (test 0.003 ng/mL See_Comment [Automated code = 8196006704) message] The system which generated this result transmitted reference range : <=0.034. The reference range was not used to interpret this result as normal/abnormal . BRE (test code = Equal or Less than BRE) 0.034 ng/ml---Normal ?Note: Cardiac troponin begins to rise 3-4 hours after the onset of ischemia. Repeat in 4-6 hours if the sample was drawn within 3-4 hours of the onset of the symptom and found normal. Between 0.035 and 0.120 ng/mL--- Borderline. Questionable myocardial injury or necrosis ? ?Note: Serial measurement may be necessary to confirm or exclude the diagnosis of myocardial injury or necrosis; Clinical correlation (symptoms, EKGs, imaging studies, and others) required; Repeat in 4-6 hours if clinically indicated. ? Equal or Higher than 0.121 ng/mL---Abnormal. Myocardial Injury or Necrosis Likely ? Biotin has been reported to cause a negative bias, interpret results relative to patient's use of biotin. ? Lab Interpretation Normal (test code = 44409-6) [facility] WITH [id number] 03:22:00 Test Item Value Reference Range Interpretation Comments WBC (test code = See_Comment [Automated 4599-2) message] The sy stem which generated this result transmitted reference range : 4.30 - 11.10 10*3/?L. The reference range was not used to interpret this result as normal/abnormal . RBC (test code = See_Comment [Automated 253-8) message] The sy stem which generated this result transmitted reference range : 3.93 - 5.25 10*6/?L. The reference range was not used to interpret this result as normal/abnormal . HGB (test code = 13.6 g/dL 11.6-15 718-7) HCT (test code = 41.7 % 35.7-45.2 4544-3) MCV (test code = 97.4 fL 80.6-95.5 H 787-2) MCH (test code = 31.8 pg 25.9-32.8 785-6) MCHC (test code = 32.6 g/dL 31.6-35.1 786-4) RDW-SD (test code = 47.2 fL 39-49.9 73127-9) RDW-CV (test code = 13.2 % 12-15.5 788-0) PLT (test code = See_Comment [Automated 777-3) message] The sy stem which generated this result transmitted reference range : 166 - 358 10*3/ ?L. The reference r maximiliano was not used to interpret this result as normal/abnormal . MPV (test code = 9.8 fL 9.5-12.9 15743-0) NRBC/100 WBC (test See_Comment [Automat ed code = 0172258107) message] The system which generated this result transmitted reference range : 0.0 - 10.0 /100 WBCs. The refer ence range was not u sed to interpret th is result as normal/abnormal . NRBC x10^3 (test code <0.01 See_Comment [Auto mated = 1722838430) message] The s ystem which generated this result transmitted reference range : 10*3/?L. The reference range was not used to interpret this result as normal/abnormal . GRAN MAT (NEUT) % 52.0 % (test code = 770-8) IMM GRAN % (test code 0.50 % = 1438100842) LYMPH % (test code = 32.3 % 736-9) MONO % (test code = 8.4 % 5905-5) EOS % (test code = 6.5 % 713-8) BASO % (test code = 0.3 % 706-2) GRAN MAT x10^3(ANC) 4.91 10*3/uL 1.88-7.09 (test code = 8161443758) IMM GRAN x10^3 (test 0.05 10*3/uL 0-0.06 code = 8457536922) LYMPH x10^3 (test code 3.06 10*3/uL 1.32-3.29 = 731-0) MONO x10^3 (test code 0.80 10*3/uL 0.33-0.92 = 742-7) EOS x10^3 (test code = 0.62 10*3/uL 0.03-0.39 H 711-2) BASO x10^3 (test code 0.03 10*3/uL 0.01-0.07 = 704-7) Lab Interpretation Abnormal (test code = 52875-0) [facility] [id number] 04:07:57 No acute intracranial hemorrhage or mass effect. CT HEAD WO CONTRAST HISTORY: seizure COMPARISON: None available. ? TECHNIQUE: Routine unenhanced brain CT. ? FINDINGS: No acute intracranial hemorrhage, extracerebral fluid collection, ormidline shift. No acute transcortical infarction. Ventricles are normal. Cerebral volume is age appropriate. 8 mm left temporal calcification possibly in a sulcus with no adjacentedema is non specific. Diagnostic considerations include cavernoma, sequelaof chronic infection, and calcified embolus.Cerebellar tonsillar ectopia. No depressed calvarial fracture. Visualized orbits are unremarkable. Mild paranasal sinus mucosal thickening. [facility], Radiant Results Inft User- 02/16/2020 11:09 PM CDTCT HEAD WO CONTRASTHISTORY: seizure COMPARISON: None available. TECHNIQUE: Routine unenhanced brain CT. FINDINGS:No acute intracranial hemorrhage, extracerebral fluid collection, ormidline shift. No acute transcortical infarction. Ventricles are normal. Cerebral volume is age appropriate. 8 mm left temporal calcification possibly in a sulcus with no adjacentedema is non specific. Diagnostic considerations include cavernoma, sequelaof chronic infection, and calcified embolus.Cerebellar tonsillar ectopia. No depressed calvarial fracture. Visualized orbits are unremarkable. Mild paranasal sinus mucosal thickening.IMPRESSIONNo acute intracranial hemorrhage or mass effect.[facility] CenterPHENYTOIN [id number] 02:54:00 Test Item Value Reference Range Interpretation Comments PHENY FREE (test code <0.5 1-2 L = 1941685261) BRE (test code = BRE) Toxic Range: ? Greater than 2.5 ug/mL Test developed and characteristics determined by [facility] Laboratory Services. Lab Interpretation Abnormal (test code = 44013-6) [facility] CenterCREATINE [id number] 01:38:00 Test Item Value Reference Range Interpretation Comments CK (test code = 9757798961) 259 U/L 33-194 H Lab Interpretation (test code = Abnormal 08100-0) [facility] CenterMAGNESIUM2020-09-18 00:55:00 Test Item Value Reference Range Interpretation Comments MAGNESIUM (test code = 5477961811) 1.7 mg/dL 1.7-2.4 Lab Interpretation (test code = Normal 48837-6) [facility] CenterElectroencephalogram (EEG) - Duration of test: 20-60 [id number] 00:00:00Date and Time of Procedure: 02/17/2020, 9:14:15- 9:36:48 REPORT TECHNICAL SUMMARY: The EEG was recorded digitally. Electrodes were applied using the International 10/20 System of electrode placement. Eye movements and rhythm strip ECG were monitored on separate channels of the ongoing EEG recording. The occipital dominant rhythm consists of moderate amplitude 9-10 Hz activity. More anteriorly, similaras well as faster frequencies are present, including low amplitude 18-22 Hz activities in the anterior leads. Drowsiness and sleep does not reveal any abnormalities. Photic stimulation does not elicit any abnormalities. IMPRESSION: This EEG is normal in wakefulness and drowsiness and sleep. An EMU (epilepsy monitoring unit) referral or long-term (24-96 hours) EEG might be beneficial in this case if clinically indicated, as they have significantly greater sensitivity than a 20-60 minute EEG, which has low sensitivity for detecting epileptiform abnormalities especially when sleep is not seen. The absence of epileptiform abnormalities in a 20-60 minute EEG does not necessarily rule out a diagnosis ofepilepsy or the potential for epileptic seizures to occur. Bogdan Beltran MD I personally reviewed and discussed EEG on 02/17/[address] Purcell's note. ?I actively participated in the decision-making process. ?Please see the resident's note for additional details. Lian Canada MDDate of interpretation: 02/17/2020 [facility]BASI METABOLIC PANEL (NA, K, CL, CO2, GLUCOSE, BUN, CREATININE, CA)2020-02-16 11:27:00 Test Item Value Reference Range Interpretation Comments NA (test code = 136 mmol/L 135-145 9186441051) K (test code = 3.9 mmol/L 3.5-5 7891534206) CL (test code = 107 mmol/L 98-108 0869938988) CO2 TOTAL (test code = 21 mmol/L 23-31 L 3130965040) AGAP (test code = 2-16 8510568704) BUN (test code = 9 mg/dL 7-23 0286671773) GLUCOSE (test code = 115 mg/dL 70-110 H 1816923747) CREATININE (test code = 0.74 mg/dL 0.5-1.04 0941800764) CALCIUM (test code = 8.0 mg/dL 8.6-10.6 L 8027115161) eGFR Calculation mL/min/1.73m2 (Non-) (test code = 1566748861) eGFR Calculation mL/min/1.73m2 () (test code = 9468504624) BRE (test code = BRE) Association of Glomerular Filtration Rate (GFR) and Staging of Kidney Disease* + --+ --+ ------+| GFR (mL/min/1.73 m2) ?| With Kidney Damage ?| ?Without Kidney Damage+ --------+ --------+ +| ?>90 ?| ?Stage one ?| ? Normal ?+ ---+ ---+ -------+| ?60-89 ?| ?Stage two ?| ? Decreased GFR ? + --+ --+ ------+| ?30-59 ?| ?Stage three ?| ? Stage three ? + --+ --+ ------+| ?15-29 ?| ?Stage four ? | ? Stage four ?+ ---+ ---+ -------+| ?<15 (or dialysis) ? ?| ?Stage five ? | ? Stage five ?+ ---+ ---+ -------+ *Each stage assumes the associated GFR level has been in effect for at least three months. ?Stages 1 to 5, with or without kidney disease, indicate chronic kidney disease. Notes: Determination of stages one and two (with eGFR >59mL/min/1.73 m2) requires estimation of kidney damage for at least three months as defined by structural or functional abnormalities of the kidney, manifested by either:Pathological abnormalities or Markers of kidney damage (including abnormalities in the composition of the blood or urine or abnormalities in imaging tests). Lab Interpretation Abnormal (test code = 39778-3) [facility] WITH [id number] 10:57:00 Test Item Value Reference Range Interpretation Comments WBC (test code = See_Comment H [Automated 6690-2) message] The system which generated this result transmit wlaly reference range : 4.30 - 11.10 10*3/?L. The reference range was not used to interpret this result as normal/abnormal . RBC (test code = See_Comment [Automated 789-8) message] The system which generated this result transmit wally reference range : 3.93 - 5.25 10*6/?L. The reference range was not used to interpret this result as normal/abnormal . HGB (test code = 15.2 g/dL 11.6-15 H 718-7) HCT (test code = 46.7 % 35.7-45.2 H 4544-3) MCV (test code = 96.3 fL 80.6-95.5 H 787-2) MCH (test code = 31.3 pg 25.9-32.8 785-6) MCHC (test code = 32.5 g/dL 31.6-35.1 786-4) RDW-SD (test code = 46.5 fL 39-49.9 29845-8) RDW-CV (test code = 13.1 % 12-15.5 788-0) PLT (test code = See_Comment [Automated 777-3) message] The system which generated this result transmit wally reference range : 166 - 358 10*3/ ?L. The reference range was not u sed to interpret th is result as normal/abnormal . MPV (test code = 9.4 fL 9.5-12.9 L 26215-4) NRBC/100 WBC (test See_Comment [Automat ed code = 2413487332) message] The system which generated this result transmit wally reference range : 0.0 - 10.0 /100 WBCs. The reference range was not used to interpret this result as normal/abnormal . NRBC x10^3 (test code <0.01 See_Comment [Auto mated = 5487152580) message] The system which generated this result transmit wally reference range : 10*3/?L. The reference range was not used to interpret this result as normal/abnormal . GRAN MAT (NEUT) % 76.8 % (test code = 770-8) IMM GRAN % (test code 0.60 % = 7313383741) LYMPH % (test code = 9.7 % 736-9) MONO % (test code = 7.7 % 5905-5) EOS % (test code = 5.1 % 713-8) BASO % (test code = 0.1 % 706-2) GRAN MAT x10^3(ANC) 11.03 10*3/uL 1.88-7.09 H (test code = 1095693556) IMM GRAN x10^3 (test 0.09 10*3/uL 0-0.06 H code = 9037704675) LYMPH x10^3 (test code 1.39 10*3/uL 1.32-3.29 = 731-0) MONO x10^3 (test code 1.10 10*3/uL 0.33-0.92 H = 742-7) EOS x10^3 (test code = 0.73 10*3/uL 0.03-0.39 H 711-2) BASO x10^3 (test code <0.03 0.01-0.07 = 704-7) Lab Interpretation Abnormal (test code = 40323-7) [facility] CenterCOVID[facility] ([facility] NOW RAPID TESTING)2020-02-16 00:28:00 Test Item Value Reference Range Interpretation Comments SARS-CoV-2 Rapid ID NOW Not Detected Not Detected (test code = 58330-0) BRE (test code = BRE) ID NOW COVID-19 Assay is an isothermal nucleic acid amplification test intended for the qualitative detection of nucleic acid from SARS-CoV-2 viral RNA in nasopharyngeal (PRESCHOOL DISABILITY TEACHER) specimens. It is used under Emergency Use Authorization (EUA) by FDA. The limit of detection (LOD) of the assay is 125 Genome Equivalents/mL. A positive result is indicative of the presence of SARS-CoV-2 RNA. ?Clinical correlation with patient history and other diagnostic [...] for repeat patient testing if clinically indicated. Lab Interpretation Normal (test code = 00705-0) [facility] (03805)2020-02-15 23:51:00 Test Item Value Reference Range Interpretation Comments NA (test code = 136 mmol/L 135-145 6922534835) K (test code = 4.0 mmol/L 3.5-5 8618760178) CL (test code = 104 mmol/L 98-108 8105735434) CO2 TOTAL (test code = 20 mmol/L 23-31 L 4686124734) AGAP (test code = 2-16 5656892488) BUN (test code = 9 mg/dL 7-23 1199702983) GLUCOSE (test code = 90 mg/dL 70-110 3435050536) CREATININE (test code = 0.57 mg/dL 0.5-1.04 4766000924) TOTAL BILI (test code = 0.7 mg/dL 0.1-1.0 7769666290) CALCIUM (test code = 8.5 mg/dL 8.6-10.6 L 8279710688) T PROTEIN (test code = 6.8 g/dL 6.3-8.2 7850364736) ALBUMIN (test code = 4.0 g/dL 3.5-5 5835070567) ALK PHOS (test code = 63 U/L 34-122 7268241155) ALTv (test code = 15 U/L 5-35 1742-6) AST(SGOT) (test code = 30 U/L 13-40 8839692452) eGFR Calculation mL/min/1.73m2 (Non-) (test code = 8194202124) eGFR Calculation mL/min/1.73m2 () (test code = 7469838305) BRE (test code = BRE) Association of Glomerular Filtration Rate (GFR) and Staging of Kidney Disease* + --+ --+ ------+| GFR (mL/min/1.73 m2) ?| With Kidney Damage ?| ?Without Kidney Damage+ --------+ --------+ +| ?>90 ?| ?Stage one ?| ? Normal ?+ ---+ ---+ -------+| ?60-89 ?| ?Stage two ?| ? Decreased GFR ? + --+ --+ ------+| ?30-59 ?| ?Stage three ?| ? Stage three ? + --+ --+ ------+| ?15-29 ?| ?Stage four ? | ? Stage four ?+ ---+ ---+ -------+| ?<15 (or dialysis) ? ?| ?Stage five ? | ? Stage five ?+ ---+ ---+ -------+ *Each stage assumes the associated GFR level has been in effect for at least three months. ?Stages 1 to 5, with or without kidney disease, indicate chronic kidney disease. Notes: Determination of stages one and two (with eGFR >59mL/min/1.73 m2) requires estimation of kidney damage for at least three months as defined by structural or functional abnormalities of the kidney, manifested by either:Pathological abnormalities or Markers of kidney damage (including abnormalities in the composition of the blood or urine or abnormalities in imaging tests). Lab Interpretation Abnormal (test code = 46004-8) [facility] [id number] 23:51:00 Test Item Value Reference Range Interpretation Comments CK (test code = 7596081909) 222 U/L 33-194 H Lab Interpretation (test code = Abnormal 38672-8) [facility] WITH [id number] 23:38:00 Test Item Value Reference Range Interpretation Comments WBC (test code = See_Comment H [Automated 8999-2) message] The sy stem which generated this result transmitted reference range : 4.30 - 11.10 10*3/?L. The reference range was not used to interpret this result as normal/abnormal . RBC (test code = See_Comment [Automated 100-8) message] The sy stem which generated this result transmitted reference range : 3.93 - 5.25 10*6/?L. The reference range was not used to interpret this result as normal/abnormal . HGB (test code = 15.5 g/dL 11.6-15 H 718-7) HCT (test code = 47.2 % 35.7-45.2 H 4544-3) MCV (test code = 95.0 fL 80.6-95.5 787-2) MCH (test code = 31.2 pg 25.9-32.8 785-6) MCHC (test code = 32.8 g/dL 31.6-35.1 786-4) RDW-SD (test code = 45.1 fL 39-49.9 25410-5) RDW-CV (test code = 13.0 % 12-15.5 788-0) PLT (test code = See_Comment [Automated 777-3) message] The sy stem which generated this result transmitted reference range : 166 - 358 10*3/ ?L. The reference r maximiliano was not used to interpret this result as normal/abnormal . MPV (test code = 9.6 fL 9.5-12.9 36792-3) NRBC/100 WBC (test See_Comment [Automat ed code = 8945851976) message] The system which generated this result transmitted reference range : 0.0 - 10.0 /100 WBCs. The refer ence range was not u sed to interpret th is result as normal/abnormal . NRBC x10^3 (test code <0.01 See_Comment [Auto mated = 5925007648) message] The s ystem which generated this result transmitted reference range : 10*3/?L. The reference range was not used to interpret this result as normal/abnormal . GRAN MAT (NEUT) % 65.2 % (test code = 770-8) IMM GRAN % (test code 0.80 % = 5171105389) LYMPH % (test code = 18.4 % 736-9) MONO % (test code = 8.7 % 5905-5) EOS % (test code = 6.6 % 713-8) BASO % (test code = 0.3 % 706-2) GRAN MAT x10^3(ANC) 9.11 10*3/uL 1.88-7.09 H (test code = 6449366508) IMM GRAN x10^3 (test 0.11 10*3/uL 0-0.06 H code = 8237900699) LYMPH x10^3 (test code 2.58 10*3/uL 1.32-3.29 = 731-0) MONO x10^3 (test code 1.22 10*3/uL 0.33-0.92 H = 742-7) EOS x10^3 (test code = 0.93 10*3/uL 0.03-0.39 H 711-2) BASO x10^3 (test code 0.04 10*3/uL 0.01-0.07 = 704-7) Lab Interpretation Abnormal (test code = 40068-6) [facility] [id number] 23:35:00 Test Item Value Reference Range Interpretation Comments LACTIC ACID (test code = 1.97 mmol/L 6780627987) [facility]"
[2023-01-06] MEDS ORDERED: HYDROMORPHONE HCL 1 MG/ML INJ ONE (16:53)
[2023-01-06] MEDS ORDERED: DIAZEPAM 5 MG TABLET ONE (16:54)
--- NOTE | 2023-01-06 17:23 | RAD REPORT ---
EXAM DESCRIPTION: CT - Pelvis Wo Cont - 01/06/2023 4:50 pm CLINICAL HISTORY: fall COMPARISON: Pelvis Wo Cont dated 08/08/2019 TECHNIQUE: Thin cut axial CT imaging of the pelvis was performed without IV contrast. Multiplanar re formats were generated and reviewed. All CT scans are performed using dose optimization technique as appropriate and may include automated exposure control or mA/KV adjustment according to patient size. FINDINGS: No acute fractures or other suspicious osseous lesions. Deformities along the left femoral intertrochanteric region and left superior pubic ramus suggestive of healed fractures again noted. Left femoral neck screws in place, and unchanged alignment. . The visualized pelvic structures are unremarkable, apart from small cysts/ follicles involving both o varies. Subchondral cystic changes along the lateral aspect of the left femoral head are stable in ap pearance. IMPRESSION: No acute osseus abnormality. Stable findings as above.
--- NOTE | 2023-01-06 18:01 | ER ---
Nurse's Notes [facility] Name: Diana Vincent Age: 47 yrs Sex: Female : 1975 Arrival Date: 01/06/2023 Time: 15:44 Bed DX4 Private MD: Diagnosis: Fall on same level from slipping, tripping and stumbling with subsequent striking against object;Pain in left hip;Muscle spasm Presentation: 01/06 16:24 Chief complaint: Patient states: Fall, tripped over her dog, landing on her left side. nj1 CO left hip and low back pain. Has rods/screes on left hip from prior surgery. Coronavirus screen: Vaccine status: Patient reports receiving the 2nd dose of the covid vaccine. Ebola Screen: Patient denies travel to an Ebola-affected area in the 21 days before illness onset. Initial Sepsis Screen: Does the patient meet any 2 criteria? No. Patient's initial sepsis screen is negative. Does the patient have a suspected source of infection? No. Patient's initial sepsis screen is negative. Risk Assessment: Do you want to hurt yourself or someone else? Patient reports no desire to harm self or others. Onset of symptoms was January 06, 2023 at 15:00. 16:24 Method Of Arrival: Ambulatory [facility] 16:24 Acuity: ARGENIS 3 nj1 Triage Assessment: 19:01 General: Appears in no apparent distress. comfortable, Behavior is calm, cooperative. cm10 Historical: - Allergies: 16:27 PENICILLINS; nj1 16:27 Latex, Natural Rubber; nj1 - PMHx: 16:27 Asthma; Seizures; nj1 - PSHx: 16:27 section; section; section; Umbilical hernia repair; Left hip;nj1 - Immunization history:: Client reports receiving the 2nd dose of the Covid vaccine. - Social history:: Smoking status: Patient denies any tobacco usage or history of. Screenin:00 [facility] ED Fall Risk Assessment (Adult) History of falling in the last 3 months, cm10 including since admission No falls in past 3 months (0 pts) Confusion or Disorientation No (0 pts) Intoxicated or Sedated No (0 pts) Impaired Gait Yes (1 pt) Mobility Assist Device Used Yes (1 pt) Altered Elimination No (0 pt) Score/Fall Risk Level 0 - 2 = Low Risk Oriented to surroundings, Maintained a safe environment. Abuse screen: Denies threats or abuse. Denies injuries from another. Nutritional screening: No deficits noted. Tuberculosis screening: No symptoms or risk factors identified. Assessment: 19:00 Pain: Complains of pain in pelvis and left hip and left iliac crest. Neuro: No deficits cm10 noted. Cardiovascular: No deficits noted. Respiratory: No deficits noted. GI: No deficits noted. Vital Signs: 16:24 BP 119 / 83; Pulse 62; Resp 18; Temp 98.4(TE); Pulse Ox 100% ; Weight 70.31 kg; Height nj 4 ft. 10 in. ; Pain 8/10; 16:24 Body Mass Index 32.40 (70.31 kg, 147.32 cm) [facility] 16:24 Pain Scale: Adult [facility] ED Course: 15:50 Patient arrived in ED. im 16:27 Triage completed. nj1 16:27 Arm band placed on right wrist. [facility] 16:30 Karin [facility]NP[facility]C [facility] sn[facility] 16:30 Russ Tian MD is Attending Physician. snw 16:51 CT Pelvis wo Cont In Process Unspecified. EDMS 19:01 Patient has correct armband on for positive identification. Provided Education on: N/A. cm10 19:01 No provider procedures requiring assistance completed. Patient did not have IV access cm10 during this emergency room visit. Administered Medications: 16:45 Drug: HYDROmorphone IM 1 mg Route: IM; Site: left vastus lateralis; nj1 18:17 Follow up: Response: No adverse reaction; Pain is decreased cm10 16:45 Drug: Diazepam PO 10 mg Route: PO; nj1 18:17 Follow up: Response: No adverse reaction; Pain is decreased cm10 Medication: 19:01 VIS not applicable for this client. cm10 Outcome: 18:00 Discharge ordered by . snw 19:01 Discharged to home via wheelchair, with family. cm10 19:01 Condition: good 19:01 Discharge instructions given to patient, Instructed on discharge instructions, follow up and referral plans. Demonstrated understanding of instructions, follow-up care, medications. 19:02 Patient left the ED. cm10 Signatures: Dispatcher [employer] EDTN Karin Brown FNP-C MAIL HANDLERS SUPERVISOR-Csnw Aileen Rick RN RN nj1 Virginia Sloan Clarissa RN RN cm10 Corrections: (The following items were deleted from the chart) 16:28 16:24 Pulse 62bpm; Resp 18bpm; Pulse Ox 100%; Temp 98.4F Temporal; 70.31 kg; Height 4 nj1 ft. 10 in.; BMI: 32.3; Pain 8/10, Adult; nj1
--- NOTE | 2023-01-06 18:01 | EDPHYS ---
Physician Documentation [facility] Name: Diana Vincent Age: 47 yrs Sex: Female : 1975 Arrival Date: 01/06/2023 Time: 15:44 Bed DX4 Private MD: ED Physician Russ Tian HPI: 01/06 16:38 This 47 yrs old Black Female presents to ER via Ambulatory with complaints of Hip Pain, snw Hip Injury. 16:38 The patient or guardian reports decreased range of motion, an injury, pain. tripped snw over dog and landed on left hip. The complaints affect the left hip and left iliac crest. Onset: The symptoms/episode began/occurred suddenly, just prior to arrival. The patient has not experienced similar symptoms in the past. The patient has not recently seen a physician. Historical: - Allergies: 16:27 PENICILLINS; nj1 16:27 Latex, Natural Rubber; nj1 - PMHx: 16:27 Asthma; Seizures; nj1 - PSHx: 16:27 section; section; section; Umbilical hernia repair; Left hip;nj1 - Immunization history:: Client reports receiving the 2nd dose of the Covid vaccine. - Social history:: Smoking status: Patient denies any tobacco usage or history of. ROS: 16:37 Constitutional: Negative for fever, chills, and weight loss, Eyes: Negative for injury, snw pain, redness, and discharge, ENT: Negative for injury, pain, and discharge, Neck: Negative for injury, pain, and swelling, Cardiovascular: Negative for chest pain, palpitations, and edema, Respiratory: Negative for shortness of breath, cough, wheezing, and pleuritic chest pain, Abdomen/GI: Negative for abdominal pain, nausea, vomiting, diarrhea, and constipation, Back: Negative for injury and pain, : Negative for injury, bleeding, discharge, and swelling, Skin: Negative for injury, rash, and discoloration, Neuro: Negative for headache, weakness, numbness, tingling, and seizure, Psych: Negative for depression, anxiety, suicide ideation, homicidal ideation, and hallucinations. 16:37 MS/extremity: Positive for injury or acute deformity, contusion, decreased range of motion, pain, of the left hip and left iliac crest. Exam: 16:37 Head/Face: Normocephalic, atraumatic. Eyes: Pupils equal round and reactive to light, snw extra-ocular motions intact. Lids and lashes normal. Conjunctiva and sclera are non-icteric and not injected. Cornea within normal limits. Periorbital areas with no swelling, redness, or edema. ENT: Nares patent. No nasal discharge, no septal abnormalities noted. Tympanic membranes are normal and external auditory canals are clear. Oropharynx with no redness, swelling, or masses, exudates, or evidence of obstruction, uvula midline. Mucous membranes moist. Neck: Trachea midline, no thyromegaly or masses palpated, and no cervical lymphadenopathy. Supple, full range of motion without nuchal rigidity, or vertebral point tenderness. No Meningismus. Chest/axilla: Normal chest wall appearance and motion. Nontender with no deformity. No lesions are appreciated. Cardiovascular: Regular rate and rhythm with a normal S1 and S2. No gallops, murmurs, or rubs. Normal PMI, no JVD. No pulse deficits. Respiratory: Lungs have equal breath sounds bilaterally, clear to auscultation and percussion. No rales, rhonchi or wheezes noted. No increased work of breathing, no retractions or nasal flaring. Abdomen/GI: Soft, non-tender, with normal bowel sounds. No distension or tympany. No guarding or rebound. No evidence of tenderness throughout. Back: No spinal tenderness. No costovertebral tenderness. Full range of motion. Skin: Warm, dry with normal turgor. Normal color with no rashes, no lesions, and no evidence of cellulitis. Neuro: Awake and alert, GCS 15, oriented to person, place, time, and situation. Cranial nerves II-XII grossly intact. Motor strength 5/5 in all extremities. Sensory grossly intact. Cerebellar exam normal. Normal gait. Psych: Awake, alert, with orientation to person, place and time. Behavior, mood, and affect are within normal limits. 16:37 Constitutional: The patient appears alert, awake, uncomfortable. 16:37 Musculoskeletal/extremity: Extremities: grossly normal except: noted in the left iliac crest and left hip: decreased ROM, tenderness, ROM: limited active range of motion due to pain, limited passive range of motion due to pain, Circulation is intact in all extremities. Sensation intact. Weight bearing: is unable to bear weight. Vital Signs: 16:24 BP 119 / 83; Pulse 62; Resp 18; Temp 98.4(TE); Pulse Ox 100% ; Weight 70.31 kg; Height nj1 4 ft. 10 in. ; Pain 8/10; 16:24 Body Mass Index 32.40 (70.31 kg, 147.32 cm) nj1 16:24 Pain Scale: Adult nj1 MDM: 16:36 Patient medically screened. snw 16:40 Differential diagnosis: hip fracture, bursitis, arthritis, strain. Data reviewed: vital snw signs, nurses notes. I considered the following discharge prescriptions or medication management in the emergency department Medications were administered in the Emergency Department. See MAR. Counseling: I had a detailed discussion with the patient and/or guardian regarding: the historical points, exam findings, and any diagnostic results supporting the discharge/admit diagnosis, the presence of at least one elevated blood pressure reading (>120/80) during this emergency department visit, radiology results, the need for outpatient follow up, to return to the emergency department if symptoms worsen or persist or if there are any questions or concerns that arise at home. Special discussion: I have referred the patient to see his PCP for further evaluation of high blood pressure. Based on the history and exam findings, there is no indication for further emergent testing or inpatient evaluation. I discussed with the patient/guardian the need to see the orthopedic surgeon for further evaluation of the symptoms. I discussed with the patient/guardian the need to see the primary care provider for further evaluation of the symptoms. 01/06 16:33 Order name: CT Pelvis wo Cont; Complete Time: 17:58 snw Administered Medications: 16:45 Drug: HYDROmorphone IM 1 mg Route: IM; Site: left vastus lateralis; nj1 18:17 Follow up: Response: No adverse reaction; Pain is decreased cm10 16:45 Drug: Diazepam PO 10 mg Route: PO; nj1 18:17 Follow up: Response: No adverse reaction; Pain is decreased cm10 Disposition Summary: 01/06/23 18:00 Discharge Ordered Location: Home snw Condition: Stable snw Diagnosis - Fall on same level from slipping, tripping and stumbling with subsequent striking snw against object - Pain in left hip snw - Muscle spasm snw Followup: snw - With: Emergency Department - When: As needed - Reason: Worsening of condition Followup: snw - With: Private Physician - When: 2 - 3 days - Reason: Recheck today's complaints, Re-evaluation by your physician Discharge Instructions: - Discharge Summary Sheet snw - Joint Pain snw - Fall Prevention in the Home, Adult snw - Musculoskeletal Pain snw - Hip Pain snw - How to Use Cold Therapy snw - Heat Therapy snw Forms: - Medication Reconciliation Form snw - Thank You Letter snw - Antibiotic Education snw - Prescription Opioid Use snw - Patient Portal Instructions snw Prescriptions: - Diclofenac Sodium 75 mg Oral Tablet Sustained Release - take 1 tablet by ORAL route 2 times per day; 30 tablet; Refills: 0, Product snw Selection Permitted - orphenadrine citrate 100 mg Oral Tablet Sustained Release - take 1 tablet by ORAL route 2 times per day As needed; 20 tablet; Refills: 0, snw Product Selection Permitted Signatures: Dispatcher [employer] Karin Gupta FNP-C LINE LEAD-Csnw Aileen Rick RN RN nj1 Janae Tenorio RN cm10
[2023-01-06 19:37] VITALS: BP 119/83; TEMP 98.4; O2SAT 100
== END 2023-01-06 19:02 | disposition home or self-care (01) ==
LOC: ER 15:44
DX: M62.838 Other muscle spasm (principal); W01.198A Fall on same level from slipping, tripping and stumbling with subsequent striking against other object, initial encounter; Z88.0 Allergy status to penicillin; Z91.040 Latex allergy status; Z91.048 Other nonmedicinal substance allergy status
CPT/HCPCS: 72192; J1170

== ENCOUNTER 2024-06-26 15:46 | Emergency (ER) | payer BC ==
--- OUTSIDE RECORDS SUMMARY | 2024-06-26 15:51 | XMS REPORT | Continuity of Care Document ---
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 Until Discontinu ed, Routine, Pain (scale 4-6) [facility] morpHINE injection 4 mg 02-15 03:15: 00 02-15 02:08 :00 No 4mg 4 mg, Slow IV Push, ONCE, 1 dose, Thu02/15/20 at 2215, STAT [facility] morpHINE injection 4 mg 02-15 02:30: 00 02-15 01:18 :00 No 4mg 4 mg, Slow IV Push, ONCE, 1 dose, Thu02/15/20 at 2130, STAT [facility] NaCl 0.9% (NS) bolus infusion 1,000 mL 02-15 01:00: 00 02-15 01:20 :00 No 1000mL at 999 mL/hr, 1,000 mL, IV Infusion, ONCE, 1 dose, Thu02/15/20 at 2000, STAT [facility] vancomycin (VANCOCIN) 1,000 mg in NaCl 0.9% (NS) 250 mL VIAL-MATE IV piggyback 02-15 00:45: 00 02-15 00:38 :00 No 1000mg 1,000 mg, IV Piggyback, ONCE, 1 dose, Thu02/15/20 at 1945, 250 mL
Reas on for Anti-Infec tive: Empiric Therapy for Suspected Infection< br>Empiric Therapy Site: Skin / Soft tissue
Duration of therapy: 72 hours [facility] tetanus-dip htheria toxoids (TENIVAC) 5-2 Lf unit/0.5 mL injection 0.5 mL 02-15 00:45: 00 02-14 23:34 :00 No .5mL 0.5 mL, Intramuscu lar, ONCE, 1 dose, Thu02/15/20 at 1945, Routine [facility] ondansetron (ZOFRAN (PF)) injection 4 mg 02-15 00:30: 00 02-14 23:29 :00 No 4mg 4 mg, Slow IV Push, ONCE, 1 dose, Thu02/15/20 at 1930, REINALDO [facility] FENTanyl PF (SUBLIMAZE (PF)) injection 100 mcg 02-15 00:30: 00 02-14 23:28 :00 No 100ug 100 mcg, Slow IV Push, ONCE, 1 dose, Thu02/15/20 at 1930, STAT [facility] Levothyroxi ne (TIROSINT) 100 mcg Cap 11-15 00:00: 00 02-14 00:00 :00 No 100ug Take 100 mcg by mouth daily. [facility] DILANTIN EXTENDED 100 MG ORAL CAP 08-17 18:44: 55 Yes three times daily [facility] PROVENTIL HFA INHALE 08-17 18:44: 54 Yes prn [facility] METOPROLOL TARTRATE 50 MG ORAL TAB 08-17 00:00: 00 02-14 00:00 :00 No [id number] 1 by mouth two times a day [facility] Vital Signs Vital Name Observation Time Observation Value Comments S ource Systolic blood pressure 2021-06-05 22:08:00 116 mm[Hg] [facility] Diastolic blood pressure 2021-06-05 22:08:00 68 mm[Hg] [facility] Heart rate 2021-06-05 22:08:00 71 /[facility] Body temperature 2021-06-05 22:08:00 36.56 [facility] Respiratory rate 2021-06-05 22:08:00 16 /min [facility] Oxygen saturation in Arterial blood by Pulse oximetry 2021-06-05 22:08:00 96 /min [facility] Body height 2021-06-02 22:30:00 149.9 cm [facility] Body weight 2021-06-02 22:30:00 74.844 kg [facility] BMI 2021-06-02 22:30:00 33.33 kg/m2 [facility] Systolic blood pressure 2020-12-08 16:05:00 108 mm[Hg] [facility] Diastolic blood pressure 2020-12-08 16:05:00 64 mm[Hg] [facility] Heart rate 2020-12-08 16:05:00 70 /min [facility] Body temperature 2020-12-08 16:05:00 36.17 [facility] Respiratory rate 2020-12-08 16:05:00 18 /min [facility] Oxygen saturation in Arterial blood by Pulse oximetry 2020-12-08 16:05:00 94 /min [facility] Body weight 2020-12-07 09:35:00 83.462 kg [facility] BMI 2020-12-07 09:35:00 37.16 kg/m2 [facility] Systolic blood pressure 2020-12-08 16:05:00 108 mm[Hg] [facility] Diastolic blood pressure 2020-12-08 16:05:00 64 mm[Hg] [facility] Heart rate 2020-12-08 16:05:00 70 /min [facility] Body temperature 2020-12-08 16:05:00 36.17 [facility] Respiratory rate 2020-12-08 16:05:00 18 /min [facility] Oxygen saturation in Arterial blood by Pulse oximetry 2020-12-08 16:05:00 94 /min [facility] Body weight 2020-12-07 09:35:00 83.462 kg [facility] BMI 2020-12-07 09:35:00 37.16 kg/m2 [facility] Systolic blood pressure 2020-02-19 16:38:00 140 mm[Hg] [facility] Diastolic blood pressure 2020-02-19 16:38:00 71 mm[Hg] [facility] Heart rate 2020-02-19 16:38:00 85 /min [facility] Body temperature 2020-02-19 16:38:00 36.67 [facility] Respiratory rate 2020-02-19 16:38:00 18 /min [facility] Oxygen saturation in Arterial blood by Pulse oximetry 2020-02-19 16:38:00 100 /min [facility] Body height 2020-02-16 08:30:00 149.9 cm [facility] Body weight 2020-02-16 08:30:00 77.1 kg [facility] BMI 2020-02-16 08:30:00 34.33 kg/m2 [facility] Systolic blood pressure 2020-02-19 16:38:00 140 mm[Hg] [facility] Diastolic blood pressure 2020-02-19 16:38:00 71 mm[Hg] [facility] Heart rate 2020-02-19 16:38:00 85 /min [facility] Body temperature 2020-02-19 16:38:00 36.67 [facility] Respiratory rate 2020-02-19 16:38:00 18 /min [facility] Oxygen saturation in Arterial blood by Pulse oximetry 2020-02-19 16:38:00 100 /min [facility] Body height 2020-02-16 08:30:00 149.9 cm [facility] Body weight 2020-02-16 08:30:00 77.1 kg [facility] BMI 2020-02-16 08:30:00 34.33 kg/m2 [facility] Systolic blood pressure 2020-02-16 02:00:00 124 mm[Hg] [facility] Diastolic blood pressure 2020-02-16 02:00:00 86 mm[Hg] [facility] Heart rate 2020-02-16 02:00:00 78 /min [facility] Respiratory rate 2020-02-16 02:00:00 16 /min [facility] Oxygen saturation in Arterial blood by Pulse oximetry 2020-02-16 02:00:00 99 /min [facility] Body temperature 2020-02-15 23:42:44 36.78 [facility] Body height 2020-02-15 23:17:00 149.9 cm [facility] Body weight 2020-02-15 23:17:00 77.111 kg [facility] BMI 2020-02-15 23:17:00 34.34 kg/m2 [facility] Systolic blood pressure 2020-02-16 02:00:00 124 mm[Hg] [facility] Diastolic blood pressure 2020-02-16 02:00:00 86 mm[Hg] [facility] Heart rate 2020-02-16 02:00:00 78 /min [facility] Respiratory rate 2020-02-16 02:00:00 16 /min [facility] Oxygen saturation in Arterial blood by Pulse oximetry 2020-02-16 02:00:00 99 /min [facility] Body temperature 2020-02-15 23:42:44 36.78 [facility] Body height 2020-02-15 23:17:00 149.9 cm [facility] Body weight 2020-02-15 23:17:00 77.111 kg [facility] BMI 2020-02-15 23:17:00 34.34 kg/m2 [facility] Procedures Procedure Date / Time Performed Performing Clinician Source COVID-19 (ID NOW RAPID TESTING) 2021-06-04 23:29:00 Rohini Rowan [facility] US PELVIS COMPLETE WITH TRANSVAGINAL 2021-06-03 16:43:05 Mckenzie Fischer [facility] CBC WITH DIFF 2021-06-03 11:27:00 Rohini Rowan [facility] ADC CLC OR LCC ONLY - WET PREP 2021-06-02 19:17:00 Rohini Rowan [facility] BLOOD CULTURE SCREEN 2021-06-02 [facility]02 [facility] 2021-06-02 17:01[facility]OGEN S DNA PROBE-AEROBIC 2021-06-02 17:01[facility]EL[facility] W CONTRAST 2021-06-02 16:10:20 [facility] 2021-06-02 14:56[facility]00 [facility] COMP. METABOLIC PANEL (22297) 2021-06-02 14:07:00 Mckenzie Fischer [facility] CBC WITH DIFF 2021-06-02 14:07[facility]00 [facility]R 2021-06-02 14:07[facility]00 [facility] PART[facility] THRMPLAS MEENA 2021-06-02 14:07:00 [facility] 2021-06-02 14:07:00 Mckenzie Fischer [facility] COVID-19 (ID NOW RAPID TESTING) 2021-06-02 14:07:00 [facility] LACT[facility] WHOLE BLOOD 2021-06-02 14:06:00 [facility] 2021-06-02 14:05:00 Mckenzie Fischer [facility] NOTICE OF PRIVACY PRACTICES 2021-06-02 13:45:03 Doctor Unassigned, [facility] CONSENT/REFUSAL FOR DIAGNOSI S AND TREATMENT 2021-06-02 13:43:14 Doctor Unassigned, [facility] CBC WITH DIFF 2020-12-08 09:54:00 Kleber Macedo [facility] ACUTE CARE ARTERIAL BLOOD GAS 2020-12-07 09:40:00 Judith [facility] COMP. METABOLIC PANEL ([id number]) 2020-12-07 07:01:00 Mercedez Richmond [facility] CBC WITH DIFF 2020-12-07 07:01:00 Mercedez Rihcmond [facility] CT HEAD WO CONTRAST 2020-12-07 02:33:06 Judith [facility] PHOSPHORUS 2020-12-07 01:43:00 Judith [facility] MAGNESIUM 2020-12-07 01:43:00 Judith [facility] COMP. METABOLIC PANEL ([id number]) 2020-12-07 01:43:00 Judith [facility] PHENYTOIN 2020-12-07 01:43:00 Judith [facility] PHENYTOIN FREE 2020-12-07 01:43:00 Judith [facility] KEPPRA (LEVETIRACETAM) 2020-12-07 01:43:00 Judith [facility] AC PANEL 20 + LACTIC ACID 2020-12-07 01:38:00 Judith [facility] XR CHEST 1 VW 2020-12-07 00:20:16 Kleber Macedo [facility] POCT GLUCOSE (AUTOMATED) 2020-12-06 21:04:00 Jose Whitehead [facility] CBC WITH DIFF 2020-12-06 11:16:00 Mercedez Richmond [facility] BASIC METABOLIC PANEL (NA, K , CL, CO2, GLUCOSE, BUN, CREATININE, CA) 2020-12-05 09:34:00 Jose Whitehead [facility] CBC WITH DIFF 2020-12-05 09:34:00 Jose Whitehead [facility] COVID-19 (ID NOW RAPID TESTING) 2020-12-04 21:10:00 Mckenzie Fischer [facility] LAB ONLY COVID INTERPRETATION 2020-12-04 21:10:00 Mckenzie Fischer [facility] CT ABDOMEN PELVIS W CONTRAST 2020-12-04 20:15:23 Mckenzie Fischer [facility] POCT TEST 2020-12-04 19:51:00 [facility] 2020-12-04 19:49:00 [facility] HEPATIC FUNCTION PANEL ([id number]) (ALB,T.PRO,BILI T,BU/BC,ALT,AST,ALK PHOS) 2020-12-04 19:49:00 [facility] BASIC METABOLIC PANEL (NA, K , CL, CO2, GLUCOSE, BUN, CREATININE, CA) 2020-12-04 19:49:00 [facility] WITH DIFF 2020-12-04 19:49:00 Amado [facility] GLYCOSYLATED HEMOGLOBIN (A1C) 2020-12-04 19:49:00 Jose Whitehead [facility] URINALYSIS 2020-12-04 19:49:00 Amado [facility] LACTIC ACID WHOLE BLOOD 2020-12-04 19:49:00 [facility] 2020-12-04 19:35:00 [facility]/REFUSAL FOR DIAGNOSI S AND TREATMENT 2020-12-04 17:10:47 Doctor Unassigned, [facility] MR LUMBAR SPINE WO CONTRAST 2020-02-18 16:38:16 Steve Sauceda [facility] MR BRAIN W WO CONTRAST 2020-02-18 16:38:16 Frank [facility] KEPPRA (LEVETIRACETAM) 2020-02-18 03:13:00 Frank [facility] TROPONIN I 2020-02-18 03:04:00 Frank [facility] COMP. METABOLIC PANEL ([id number]) 2020-02-18 03:04:00 Frank Bill [facility] CBC WITH DIFF 2020-02-18 03:04:00 Frank [facility] CT HEAD WO CONTRAST 2020-02-17 02:30:10 Noam Hanson [facility] ELECTROENCEPHALOGRAM 2020-02-17 00:00:00 Noam Hanson [facility] PHENYTOIN FREE 2020-02-16 23:28:00 Moon Renner [facility] CREATINE KINASE 2020-02-16 10:40:00 Noam Hanson [facility] MAGNESIUM 2020-02-16 10:40:00 Noam Hanson [facility] BASIC METABOLIC PANEL (NA, K , CL, CO2, GLUCOSE, BUN, CREATININE, CA) 2020-02-16 10:40:00 Naya Santos [facility] CBC WITH DIFF 2020-02-16 10:40:00 Saundra Gaston [facility] COVID-19 (ID NOW RAPID TESTING) 2020-02-16 00:00:00 Tim Russell [facility] CREATINE KINASE 2020-02-15 23:30:00 Tim Russell [facility] COMP. METABOLIC PANEL (16947) 2020-02-15 23:30:00 Tim Russell [facility] CBC WITH DIFF 2020-02-15 23:30:00 Tim Russell [facility] LACTIC ACID WHOLE BLOOD 2020-02-15 23:30:00 Tim Russell [facility] NOTICE OF PRIVACY PRACTICES 2020-02-15 23:06:05 Doctor Unassigned, [facility] CONSENT/REFUSAL FOR DIAGNOSI S AND TREATMENT 2020-02-15 23:05:40 Doctor Unassigned, [facility] Encounters Start Date/Time End Date/Time Encounter Type Admission Type Attending [facility] Care Department Encounter ID Source 2021-07-21 00:00:00 2021-07-21 00:00:00 [facility] 1.2.840.114 350.1.13.10 4.2.7.2.686 [id number] [facility] 2021-06-06 00:00:00 2021-06-06 00:00:00 Transition of Care Mahogany Cortez [id number] 350.1.13.10 4.2.7.2.686 [id number] [facility] 2021-06-02 07:53:00 2021-06-05 18:21:00 Inpatient X ANUM ROHINI [facility] YOUSIF [id number] [facility] 2021-06-02 07:53:00 2021-06-05 18:21:00 Hospital Encounter Mckenzie Fischer Vien Cam [facility] 1.2.840.114 350.1.13.10 4.2.7.2.686 [id number] [facility] 2020-12-11 00:00:00 2020-12-11 00:00:00 Transition of Care Mahogany Cortez [id number] 350.1.13.10 4.2.7.2.686 [id number] 2020-12-11 00:00:00 2020-12-11 00:00:00 Transition of Care Mahogany Cortez [id number] 350.1.13.10 4.2.7.2.686 [id number] [facility] 2020-12-04 12:23:00 2020-12-08 13:59:00 Hospital Encounter Mckenzie Fischer Yaman Morris, [facility] 1.2.840.114 350.1.13.10 4.2.7.2.686 [id number] 2020-12-04 12:23:00 2020-12-08 13:59:00 Hospital Encounter Mckenzie Fischer Yaman Morris, [facility] 1.2.840.114 350.1.13.10 4.2.7.2.686 [id number] [facility] 2020-12-04 12:11:00 2020-12-04 12:11:00 Emergency X [facility] ERT [id number] [facility] 2020-12-04 00:00:00 2020-12-04 00:00:00 Orders Only Doctor Unassigned, [facility] 1.2.840.114 350.1.13.10 4.2.7.2.686 [id number] 2020-12-04 00:00:00 2020-12-04 00:00:00 Orders Only Doctor Unassigned, [facility] 1.2.840.114 350.1.13.10 4.2.7.2.686 [id number] [facility] 2020-02-21 00:00:00 2020-02-21 00:00:00 Transition of Care Mahogany Cortezgordo Leviza 1.2.840.114 350.1.13.10 4.2.7.2.686 [id number] 2020-02-21 00:00:00 2020-02-21 00:00:00 Transition of Care Michaelle Cortezette Oscar Arevalogordo Jeronimo 1.2.840.114 350.1.13.10 4.2.7.2.686 [id number] [facility] 2020-02-15 23:20:00 2020-02-19 14:53:00 Hospital Encounter Db Lange [facility] 1.2.840.114 350.1.13.10 4.2.7.2.686 [id number] 2020-02-15 23:20:00 2020-02-19 14:53:00 Hospital Encounter Db Lange [facility] 1.2.840.114 350.1.13.10 4.2.7.2.686 [id number] [facility] 2020-02-15 18:13:00 2020-02-15 21:26:00 [facility] 1.2.840.114 350.1.13.10 4.2.7.2.686 [id number] 2020-02-15 18:13:00 2020-02-15 21:26:00 Emergency Tim Russell [facility] 1.2.840.114 350.1.13.10 4.2.7.2.686 [id number] [facility] 2020-02-15 18:07:00 2020-02-15 18:07:00 Emergency X [facility] ERT [id number] [facility] 2020-02-15 00:00:00 2020-02-15 00:00:00 Orders Only Doctor Unassigned, [facility] 1.2.840.114 350.1.13.10 4.2.7.2.686 [id number] 2020-02-15 00:00:00 2020-02-15 00:00:00 Orders Only Doctor Unassigned, [facility] 1.2.840.114 350.1.13.10 4.2.7.2.686 [id number] [facility] Results Test Description Test Time Test Comments Results Result Co mments Source [facility] WITH [id number] 12:24:57* Test Item Value Reference Range Interpretation Comme nts WBC (test code = 6690-2) See_Comment [Automated messa ge] The system which generated this result transmitted reference range: 4.30 - 11.10 10*3/?L. The reference range was not used to interpret this result as normal/abnormal. RBC (test code = 789-8) See_Comment [Automated messa ge] The system which generated this result transmitted reference range: 3.93 - 5.25 10*6/?L. The reference range was not used to interpret this result as normal/abnormal. HGB (test code = 718-7) 12.5 g/dL 11.6-15.0 HCT (test code = 4544-3) 38.8 % 35.7-45.2 MCV (test code = 787-2) 95.6 fL 80.6-95.5 H MCH (test code = 785-6) 30.8 pg 25.9-32.8 MCHC (test code = 786-4) 32.2 g/dL 31.6-35.1 RDW-SD (test code = 60941-3) 46.5 fL 39.0-49.9 RDW-CV (test code = 788-0) 13.1 % 12.0-15.5 PLT (test code = 777-3) See_Comment [Automated [employer] ge] The system which generated this result transmitted reference range: 166 - 358 10*3/?L. The reference range was not used to interpret this result as normal/abnormal. MPV (test code = 28929-8) 9.9 fL 9.5-12.9 NRBC/100 WBC (test code = 8815162593) See_Comment [Automated [employer] ssage] The system which generated this result transmitted reference range: 0.0 - 10.0 /100 WBCs. The reference range was not used to interpret this result as normal/abnormal. NRBC x10^3 (test code = 8019086854) <0.01 See_Comment [Automated [employer] ge] The system which generated this result transmitted reference range: 10*3/?L. The reference range was not used to interpret this result as normal/abnormal. GRAN MAT (NEUT) % (test code = 770-8) 59.8 % IMM GRAN % (test code = 0437233893) 0.70 % LYMPH % (test code = 736-9) 22.3 % MONO % (test code = 5905-5) 10.7 % EOS % (test code = 713-8) 6.0 % BASO % (test code = 706-2) 0.5 % GRAN MAT x10^3(ANC) (test code = 9381395050) 6.18 10*3/uL 1.88-7.09 IMM GRAN x10^3 (test code = 0907378361) 0.07 10*3/uL 0.00-0.06 H LYMPH x10^3 (test code = 731-0) 2.31 10*3/uL 1.32-3.29 MONO x10^3 (test code = 742-7) 1.11 10*3/uL 0.33-0.92 H EOS x10^3 (test code = 711-2) 0.62 10*3/uL 0.03-0.39 H BASO x10^3 (test code = 704-7) 0.05 10*3/uL 0.01-0.07 Lab Interpretation (test code = 82633-3) [facility] ([id number])2021-[facility]-02 14:33:18* Test Item Value Reference Range Interpretation Comme nts NA (test code = 3654530793) 137 mmol/L 135-145 K (test code = 4539969944) 3.7 mmol/L 3.5-5.0 CL (test code = 3598655653) 105 mmol/L 98-108 CO2 TOTAL (test code = 1388189876) 24 mmol/L 23-31 AGAP (test code = 7190352170) 2-16 BUN (test code = 5366684147) 9 mg/dL 7-23 GLUCOSE (test code = 3307301441) 104 mg/dL 70-110 CREATININE (test code = 7184541939) 0.63 mg/dL 0.50-1.04 TOTAL BILI (test code = 5424871921) 0.6 mg/dL 0.1-1.1 CALCIUM (test code = 3879755318) 9.0 mg/dL 8.6-10.6 T PROTEIN (test code = 9531624544) 7.3 g/dL 6.3-8.2 ALBUMIN (test code = 2750298016) 4.0 g/dL 3.5-5.0 ALK PHOS (test code = 8364757869) 81 U/L 34-122 ALTv (test code = 1742-6) 14 U/L 5-35 AST(SGOT) (test code = 4201826128) 21 U/L 13-40 eGFR (test code = 3196970635) mL/min/1.73m2 BRE (test code = BRE) Association of [...] or urine or abnormalities in imaging tests). [facility] THRMPLAS [id number] 14:30:17* Test Item Value Reference Range Interpretation Comme [facility] APTT Patient (test code = 3173-2) See_Comment [Automated message] The system which generated this result transmitted reference range: 23 - 38 Seconds. The reference range was not used to interpret this result as normal/abnormal. BRE (test code = BRE) The [facility] patient population mean normal value for aPTT is 30 seconds. Lab Interpretation (test code = 28500-4) Normal [facility] CenterPROTHROMBIN TIME / [id number] 14:28:17* Test Item Value Reference Range Interpretation Comme [facility] PROTIME PATIENT (test code = 5964-2) See_Comment [Automated messa ge] The system which generated this result transmitted reference range: 12.0 - 14.7 Seconds. The reference range was not used to interpret this result as normal/abnormal. INR (test code = 6301-6) Normal INR <1.1; Warfarin Therapeutic range 2.0 to 3.0 or 2.5 to 3.5, depending upon the indications. Lab Interpretation (test code = 25672-6) Normal [facility] WITH [id number] 14:20:21* Test Item Value Reference Range Interpretation Comme nts WBC (test code = 6690-2) See_Comment H [Automated messa ge] The system which generated this result transmitted reference range: 4.30 - 11.10 10*3/?L. The reference range was not used to interpret this result as normal/abnormal. RBC (test code = 789-8) See_Comment [Automated messa ge] The system which generated this result transmitted reference range: 3.93 - 5.25 10*6/?L. The reference range was not used to interpret this result as normal/abnormal. HGB (test code = 718-7) 14.6 g/dL 11.6-15.0 HCT (test code = 4544-3) 44.3 % 35.7-45.2 MCV (test code = 787-2) 94.1 fL 80.6-95.5 MCH (test code = 785-6) 31.0 pg 25.9-32.8 MCHC (test code = 786-4) 33.0 g/dL 31.6-35.1 RDW-SD (test code = 51210-6) 44.9 fL 39.0-49.9 RDW-CV (test code = 788-0) 13.0 % 12.0-15.5 PLT (test code = 777-3) See_Comment [Automated messa ge] The system which generated this result transmitted reference range: 166 - 358 10*3/?L. The reference range was not used to interpret this result as normal/abnormal. MPV (test code = 21167-2) 9.5 fL 9.5-12.9 NRBC/100 WBC (test code = 9272691297) See_Comment [Automated me ssage] The system which generated this result transmitted reference range: 0.0 - 10.0 /100 WBCs. The reference range was not used to interpret this result as normal/abnormal. NRBC x10^3 (test code = 3857578735) <0.01 See_Comment [Automated messa ge] The system which generated this result transmitted reference range: 10*3/?L. The reference range was not used to interpret this result as normal/abnormal. GRAN MAT (NEUT) % (test code = 770-8) 69.4 % IMM GRAN % (test code = 1487241834) 0.70 % LYMPH % (test code = 736-9) 16.9 % MONO % (test code = 5905-5) 8.6 % EOS % (test code = 713-8) 3.9 % BASO % (test code = 706-2) 0.5 % GRAN MAT x10^3(ANC) (test code = 0507349471) 9.74 10*3/uL 1.88-7.09 H IMM GRAN x10^3 (test code = 4952115343) 0.10 10*3/uL 0.00-0.06 H LYMPH x10^3 (test code = 731-0) 2.37 10*3/uL 1.32-3.29 MONO x10^3 (test code = 742-7) 1.20 10*3/uL 0.33-0.92 H EOS x10^3 (test code = 711-2) 0.54 10*3/uL 0.03-0.39 H BASO x10^3 (test code = 704-7) 0.07 10*3/uL 0.01-0.07 Lab Interpretation (test code = 08074-2) Abnormal [facility] CenterPO[facility] [id number] 14:05:00* Test Item Value Reference Range Interpretation Comme nts POCT PREG (test code = 1605) negative On board controls acceptable with C Line (test code = 3574) present POCT PREG LOT # (test code = 3575) [id number] POCT PREG TEST DATE ( test code = 3576) 07/29/2022 Lab Interpretation (test cod e = 06393-9) Normal [facility] WITH [id number] 11:14:56* Test Item Value Reference Range Interpretation Comme nts WBC (test code = 6690-2) See_Comment [Automated messa ge] The system which generated this result transmitted reference range: 4.30 - 11.10 10*3/?L. The reference range was not used to interpret this result as normal/abnormal. RBC (test code = 789-8) See_Comment [Automated messa ge] The system which generated this result transmitted reference range: 3.93 - 5.25 10*6/?L. The reference range was not used to interpret this result as normal/abnormal. HGB (test code = 718-7) 12.8 g/dL 11.6-15.0 HCT (test code = 4544-3) 41.0 % 35.7-45.2 MCV (test code = 787-2) 96.2 fL 80.6-95.5 H MCH (test code = 785-6) 30.0 pg 25.9-32.8 MCHC (test code = 786-4) 31.2 g/dL 31.6-35.1 L RDW-SD (test code = 80838-9) 47.7 fL 39.0-49.9 RDW-CV (test code = 788-0) 13.5 % 12.0-15.5 PLT (test code = 777-3) See_Comment [Automated messa ge] The system which generated this result transmitted reference range: 166 - 358 10*3/?L. The reference range was not used to interpret this result as normal/abnormal. MPV (test code = 66082-1) 9.8 fL 9.5-12.9 NRBC/100 WBC (test code = 5553486858) See_Comment [Automated Runivermag ssage] The system which generated this result transmitted reference range: 0.0 - 10.0 /100 WBCs. The reference range was not used to interpret this result as normal/abnormal. NRBC x10^3 (test code = 3819255951) <0.01 See_Comment [Automated messa ge] The system which generated this result transmitted reference range: 10*3/?L. The reference range was not used to interpret this result as normal/abnormal. GRAN MAT (NEUT) % (test code = 770-8) 49.8 % IMM GRAN % (test code = 5863351224) 1.50 % LYMPH % (test code = 736-9) 31.9 % MONO % (test code = 5905-5) 7.4 % EOS % (test code = 713-8) 9.0 % BASO % (test code = 706-2) 0.4 % GRAN MAT x10^3(ANC) (test code = 3384218819) 5.52 10*3/uL 1.88-7.09 IMM GRAN x10^3 (test code = 2129335386) 0.17 10*3/uL 0.00-0.06 H LYMPH x10^3 (test code = 731-0) 3.54 10*3/uL 1.32-3.29 H MONO x10^3 (test code = 742-7) 0.82 10*3/uL 0.33-0.92 EOS x10^3 (test code = 711-2) 1.00 10*3/uL 0.03-0.39 H BASO x10^3 (test code = 704-7) 0.04 10*3/uL 0.01-0.07 Lab Interpretation (test code = 23016-5) Abnormal [facility] Arterial Blood Gas.2020-12-07 09:48:11* Test Item Value Reference Range Interpretation Comme nts PH (test code = 2) 7.35-7.45 PCO2 (test code = 8968753086) See_Comment H [Automated messa ge] The system which generated this result transmitted reference range: 35 - 45 mmHg. The reference range was not used to interpret this result as normal/abnormal. PO2 (test code = 4869397340) See_Comment H [Automated messa ge] The system which generated this result transmitted reference range: 80 - 100 mmHg. The reference range was not used to interpret this result as normal/abnormal. HCO3 (test code = 8756265045) See_Comment H [Automated messa ge] The system which generated this result transmitted reference range: 22 - 26 mEq/L. The reference range was not used to interpret this result as normal/abnormal. BE (test code = 2434769440) See_Comment [Automated messa ge] The system which generated this result transmitted reference range: -3.0 - 3.0 mEq/L. The reference range was not used to interpret this result as normal/abnormal. Lab Interpretation (test code = 80185-4) Abnormal [facility]. METABOLIC PANEL (84594)2020-12-07 08:13:32* Test Item Value Reference Range Interpretation Comme nts NA (test code = 6433517228) 136 mmol/L 135-145 K (test code = 1052504565) 4.5 mmol/L 3.5-5.0 CL (test code = 5452064227) 106 mmol/L 98-108 CO2 TOTAL (test code = 4759482690) 27 mmol/L 23-31 AGAP (test code = 6543935665) 2-16 BUN (test code = 3360935017) 8 mg/dL 7-23 GLUCOSE (test code = 7888246810) 81 mg/dL 70-110 CREATININE (test code = 1509304062) 0.57 mg/dL 0.50-1.04 TOTAL BILI (test code = 3342192413) 0.4 mg/dL 0.1-1.1 CALCIUM (test code = 5592023698) 9.4 mg/dL 8.6-10.6 T PROTEIN (test code = 0892517004) 6.4 g/dL 6.3-8.2 ALBUMIN (test code = 4439379778) 3.7 g/dL 3.5-5.0 ALK PHOS (test code = 3215378136) 66 U/L 34-122 ALTv (test code = 1742-6) 19 U/L 5-35 AST(SGOT) (test code = 0329453410) 26 U/L 13-40 eGFR (test code = 2382620304) mL/min/1.73m2 BRE (test code = BRE) Association of [...] or urine or abnormalities in imaging tests). [facility] WITH [id number] 07:35:30* Test Item Value Reference Range Interpretation Comme nts WBC (test code = 6690-2) See_Comment [Automated Simplify] The system which generated this result transmitted reference range: 4.30 - 11.10 10*3/?L. The reference range was not used to interpret this result as normal/abnormal. RBC (test code = 789-8) See_Comment [Localmint] The system which generated this result transmitted reference range: 3.93 - 5.25 10*6/?L. The reference range was not used to interpret this result as normal/abnormal. HGB (test code = 718-7) 12.7 g/dL 11.6-15.0 HCT (test code = 4544-3) 39.9 % 35.7-45.2 MCV (test code = 787-2) 95.9 fL 80.6-95.5 H MCH (test code = 785-6) 30.5 pg 25.9-32.8 MCHC (test code = 786-4) 31.8 g/dL 31.6-35.1 RDW-SD (test code = 22203-0) 48.6 fL 39.0-49.9 RDW-CV (test code = 788-0) 13.6 % 12.0-15.5 PLT (test code = 777-3) See_Comment [Automated messa ge] The system which generated this result transmitted reference range: 166 - 358 10*3/?L. The reference range was not used to interpret this result as normal/abnormal. MPV (test code = 14979-9) 9.6 fL 9.5-12.9 NRBC/100 WBC (test code = 6215857109) See_Comment [Automated Runivermag ssage] The system which generated this result transmitted reference range: 0.0 - 10.0 /100 WBCs. The reference range was not used to interpret this result as normal/abnormal. NRBC x10^3 (test code = 8287340315) <0.01 See_Comment [Automated messa ge] The system which generated this result transmitted reference range: 10*3/?L. The reference range was not used to interpret this result as normal/abnormal. GRAN MAT (NEUT) % (test code = 770-8) 55.9 % IMM GRAN % (test code = 3507308480) 1.50 % LYMPH % (test code = 736-9) 27.1 % MONO % (test code = 5905-5) 7.0 % EOS % (test code = 713-8) 8.1 % BASO % (test code = 706-2) 0.4 % GRAN MAT x10^3(ANC) (test code = 5794622641) 6.09 10*3/uL 1.88-7.09 IMM GRAN x10^3 (test code = 8526879864) 0.16 10*3/uL 0.00-0.06 H LYMPH x10^3 (test code = 731-0) 2.95 10*3/uL 1.32-3.29 MONO x10^3 (test code = 742-7) 0.76 10*3/uL 0.33-0.92 EOS x10^3 (test code = 711-2) 0.88 10*3/uL 0.03-0.39 H BASO x10^3 (test code = 704-7) 0.04 10*3/uL 0.01-0.07 Lab Interpretation (test code = 65238-2) [facility]normal [facility] CenterPHEN[facility]IN [id number] 06:33:41* Test Item Value Reference Range Interpretation Comme nts PHENY FREE (test code = 3068615785) 0.5 ug/mL 1.0-2.0 L BRE (test code = BRE) Toxic Range: ? Greater than 2.5 ug/mL Test developed and characteristics determined by [facility] Laboratory Services. Lab Interpretation (test code = 36809-5) Abnormal [facility] CenterKEPPRA (LEVETIRACETAM)2020-12-07 05:49:38* Test Item Value Reference Range Interpretation Comme nts KEPPRA (test code = 7079251545) 17 ug/mL 12-46 BRE (test code = BRE) Therapeutic range: 12-46 ?g/mL ? ?Toxic: Not well established.Test developed and characteristics determined by [facility] Laboratory Services. Lab Interpretation (test code = 75333-8) Normal [facility] CenterPHENYTOIN2021-07-09 04:18:37* Test Item Value Reference Range Interpretation Comme nts PHENYTOIN (test code = 4855076348) 5.3 ug/mL 10.0-20.0 L BRE (test code = BRE) Toxic Range: ? 0-3 Months ? Greater than 14 ug/mL ? ? 3 Months - 150 Years ? ? Greater than 20 ug/mL Lab Interpretation (test code = 23708-3) Abnormal [facility] CenterMAGNESIUM2021-07-09 03:13:49* Test Item Value Reference Range Interpretation Comme nts MAGNESIUM (test code = 0899800349) 1.9 mg/dL 1.7-2.4 Lab Interpretation (test cod e = 70923-5) Normal [facility] Center[facility] MET[facility]OLIC PANEL (42286)2020-12-07 03:13:34* Test Item Value Reference Range Interpretation Comme nts NA (test code = 7341904463) 134 mmol/L 135-145 L K (test code = 8539902076) 4.8 mmol/L 3.5-5.0 CL (test code = 3109947695) 105 mmol/L 98-108 CO2 TOTAL (test code = 3337779514) 26 mmol/L 23-31 AGAP (test code = 2428761093) 2-16 BUN (test code = 5844416247) 9 mg/dL 7-23 GLUCOSE (test code = 8889166088) 87 mg/dL 70-110 CREATININE (test code = 5997389951) 0.66 mg/dL 0.50-1.04 TOTAL BILI (test code = 9049902866) 0.3 mg/dL 0.1-1.1 CALCIUM (test code = 4147982671) 9.7 mg/dL 8.6-10.6 T PROTEIN (test code = 0699124766) 6.6 g/dL 6.3-8.2 ALBUMIN (test code = 7720388871) 3.9 g/dL 3.5-5.0 ALK PHOS (test code = 0621056846) 73 U/L 34-122 ALTv (test code = 1742-6) 19 U/L 5-35 AST(SGOT) (test code = 1963268231) 27 U/L 13-40 eGFR (test code = 0625032495) mL/min/1.73m2 BRE (test code = BRE) Association of [...] or abnormalities in imaging tests). Lab Interpretation (test code = 28911-9) Abnormal [facility] CenterPHOSPHORUS2021-07-09 03:13:34* Test Item Value Reference Range Interpretation Comme nts PHOSPHORUS (test code = 0655420376) 4.8 mg/dL 2.5-5.0 Lab Interpretation (test cod e = 11329-6) Normal [facility] CenterCT HEAD WO [id number] 02:42:36 Impression: 1. ?No CT evidence for acute intracranial abnormality.2. ?Stable nonspecific intraparenchymal calcification within the lefttemporal lobe. RL: 2831 Study: CT head without contrast. Ordering Physician: MJ CALLES Date: 12/06/2020 8:15 PM History:Seizure, nontraumatic (Age >= 41y) Technique: Contiguous axial images wereobtained from the skull base to thevertex at 5 mm intervals without contrast. CT scan was performedaccordingto ALARA (As Low as Reasonably Achievable). Comparison: Comparison is made to a prior study dated 02/16/2020 Findings: Evaluation of the intracranial contents demonstrates no definiteCT evidence for acute ischemic insult, hemorrhage, hydrocephalus or masseffect. Nonspecific intraparenchymalcalcification within the left temporallobe is again identified which is stable from the prior study. The sulciand ventricles are within normal limits of size for the patient's age. The paranasal sinuses and mastoid air cells are well developed and wellaerated. ?The calvarium and skull base are intact. [facility], Radiant Results Inft User - 12/06/2020 9:43 PM CDT Study: CT head without contrast.Ordering Physician: DANNY SAVAGEIDate: 18:15 PMHistory:Seizure, nontraumatic (Age >= 41y) Technique: Contiguous axial images were obtained from the skull base to thevertex at 5 mm intervals without contrast. CT scan was performed accordingto ALARA (As Low as Reasonably Achievable).Comparison: Comparison is made to a prior study dated Findings: Evaluation of the intracranial contents demonstrates no definiteCT evidence for acute ischemic insult, hemorrhage, hydrocephalus or masseffect. Nonspecific intraparenchymal calcification within the left temporallobe is again identified which is stable from the prior study. The sulc iand ventricles are within normal limits of size for the patient's age.The paranasal sinuses and mastoid air cells are well developed and wellaerated. The calvarium and skull base are intact.IMPRESSIONImpression:1. No CT evidence for acute intracranial abnormality.2. Stable nonspecific intraparenchymal calcification within the lefttemporal lobe.RL: 2831Electronically signed by Veronica Wu 12/06/2020 9:42 PMUnHendrick [facility] Center BrownwoodAC PANEL 20 + LACTIC [id number] 01:42:21* Test Item Value Reference Range Interpretation Comme nts PH (test code = 2) 7.35-7.45 L PCO2 (test code = 9056441025) See_Comment H [Automated messa ge] The system which generated this result transmitted reference range: 35 - 45 mmHg. The reference range was not used to interpret this result as normal/abnormal. PO2 (test code = 0924758444) See_Comment H [Automated messa ge] The system which generated this result transmitted reference range: 80 - 100 mmHg. The reference range was not used to interpret this result as normal/abnormal. HCO3 (test code = 2081482579) See_Comment [Automated messa ge] The system which generated this result transmitted reference range: 22 - 26 mEq/L. The reference range was not used to interpret this result as normal/abnormal. BE (test code = 6328538410) See_Comment [Automated messa ge] The system which generated this result transmitted reference range: -3.0 - 3.0 mEq/L. The reference range was not used to interpret this result as normal/abnormal. THB (test code = 0350586566) 13.8 g/dL 12.0-16.0 %O2HB (test code = 6431892658) 97.8 % 94.0-99.0 %COHB ART (test code = 9156874788) 0.3 % 0.0-1.5 %METHB ART (test code = 6214212365) 0.5 % 0.4-1.5 VOL%O2 ART (test code = 5815867651) 19.2 % 15.0-23.0 NA (test code = 7541077346) 136 mmol/L 135-145 K+ (test code = 4166133773) 4.4 mmol/L 3.5-5.0 AC CA IONZ (test code = 6308540161) 4.90 mg/dL 4.50-5.30 GLUCOSE (test code = 9172818365) 90 mg/dL 70-110 LACTIC ACID (test code = 7839389370) 0.70 mmol/L 0.50-2.20 Lab Interpretation (test code = 58719-4) Abnormal [facility] CenterXR CHEST 1 [id number] 00:34:08Impression: 1. ?No acute cardiopulmonary process is identified. RL: 2831 Study: Single view chest. Ordering Physician: SOSA MACEDO Date: 12/06/2020 7:00 PM History:Shortness of breath. COMPARISON: None. Findings: Single frontal view chest demonstrates a normal heart size. Thelungs are clear without infiltrate, pleural effusion or pneu mothorax. ?Noacute osseous abnormality is identified. [facility], Radiant Results In[facility] User - 12/06/2020 7:35 PM CDT Study: Single view chest.Ordering Physician: KLEBER MACEDODate: 12/06/2020 7:00 PMHistory:Shortness of breath.COMPARISON: None.Findings: Single frontal view chest demonstrates a normal heart size. Thelungs are clear without infiltra te, pleural effusion or pneumothorax. Noacute osseous abnormality is identified.IMPRESSIONImpression:1. No acute cardiopulmonary process is identified.RL: 2831 UnH[facility] BrownwoodPOCT GLUCOSE (AUTOMATED)2020-12-06 21:08:59 * Test Item Value Reference Range Interpretation Comme nts POCT GLU (test code = 7890243076) 117 mg/dL 70-110 H Notified Provide r Lab Interpretation (test code = 28976-6) Abnormal [facility] WITH [id number] 15:07:49* Test Item Value Reference Range Interpretation Comme nts WBC (test code = 6690-2) See_Comment [Automated messa ge] The system which generated this result transmitted reference range: 4.30 - 11.10 10*3/?L. The reference range was not used to interpret this result as normal/abnormal. RBC (test code = 789-8) See_Comment [Automated messa ge] The system which generated this result transmitted reference range: 3.93 - 5.25 10*6/?L. The reference range was not used to interpret this result as normal/abnormal. HGB (test code = 718-7) 13.0 g/dL 11.6-15.0 HCT (test code = 4544-3) 40.6 % 35.7-45.2 MCV (test code = 787-2) 95.1 fL 80.6-95.5 MCH (test code = 785-6) 30.4 pg 25.9-32.8 MCHC (test code = 786-4) 32.0 g/dL 31.6-35.1 RDW-SD (test code = 06237-8) 47.5 fL 39.0-49.9 RDW-CV (test code = 788-0) 13.6 % 12.0-15.5 PLT (test code = 777-3) See_Comment [Automated messa ge] The system which generated this result transmitted reference range: 166 - 358 10*3/?L. The reference range was not used to interpret this result as normal/abnormal. MPV (test code = 67482-4) 9.6 fL 9.5-12.9 NRBC/100 WBC (test code = 5101456793) See_Comment [Automated Runivermag ssage] The system which generated this result transmitted reference range: 0.0 - 10.0 /100 WBCs. The reference range was not used to interpret this result as normal/abnormal. NRBC x10^3 (test code = 5240680293) <0.01 See_Comment [Automated messa ge] The system which generated this result transmitted reference range: 10*3/?L. The reference range was not used to interpret this result as normal/abnormal. GRAN MAT (NEUT) % (test code = 770-8) 47.8 % IMM GRAN % (test code = 8813622019) 2.10 % LYMPH % (test code = 736-9) 32.4 % MONO % (test code = 5905-5) 7.6 % EOS % (test code = 713-8) 9.7 % BASO % (test code = 706-2) 0.4 % GRAN MAT x10^3(ANC) (test code = 3608694033) 4.89 10*3/uL 1.88-7.09 IMM GRAN x10^3 (test code = 2655038809) 0.22 10*3/uL 0.00-0.06 H LYMPH x10^3 (test code = 731-0) 3.32 10*3/uL 1.32-3.29 H MONO x10^3 (test code = 742-7) 0.78 10*3/uL 0.33-0.92 EOS x10^3 (test code = 711-2) 0.99 10*3/uL 0.03-0.39 H BASO x10^3 (test code = 704-7) 0.04 10*3/uL 0.01-0.07 BANDS (test code = 0876866269) Increased A LG GRAN LYMPHS (test code = 3506711761) Rare Rare REACT LYMPHS (test code = 5060473549) Rare Lab Interpretation (test code = 93796-7) [facility]normal [facility] CenterLAB [facility] COVID [id number] 15:26:05COVID DMT InterpretationInterpretation/Recommendations:Molecular NAAT Tests for Active Infection with the SARS-CoV-2 Virus:The patient has currently tested negative for the SARS-CoV-2 virus that causes COVID-19 illness. This most likely indicates that the patient does not have an active infection with the SARS-CoV-2 virus. However, infection is not completely ruled out as the false negative rate for molecular NAAT testing using a nasopharyngeal sample can be up to 30%, mostly dependent on the timing of sample collection in relation to illness onset and any deficiencies in sampling techniques.If the patient has symptoms concerning for COVID-19 [...] COVID-19 illness in the future, testing for IgM and IgG antibodies approximately 3 weeks after illness onset will likely indicate if the patient has produced antibodies to the SARS-CoV-2 virus. However, some patients may take longer to develop detectable antibodies, while some patients who were infected with SARS-CoV-2 may never develop antibodies. While antibodies to SARS-CoV-2 may provide some degree of immunity, at this time the strength and duration of the antibody response is unknown. Interpretation Result Comments:These interpretation comments are based upon all COVID-19 testing the patient has had at [facility], including molecular NAAT testing (more commonly known as PCR testing and Rapid ID Now testing) and antibody testing. It does not take into account any testing that a patient has had outside of the [facility] medical record. [facility] LABORATORY SERVICESCOVID YlggqfaCGVN-LfQ-9 Rapid ID NOW (no units) ? ? Date ? Value ? 12/04/2020 ? Not Detected ? ? ? 02/15/2020 ? Not Detected ? [facility] (NA, K, CL, CO2, GLUCOSE, BUN, CREATININE, CA) 2020-12-05 10:16:08* Test Item Value Reference Range Interpretation Comme nts NA (test code = 2132974847) 135 mmol/L 135-145 K (test code = 0140936322) 3.8 mmol/L 3.5-5.0 CL (test code = 6655843398) 106 mmol/L 98-108 CO2 TOTAL (test code = 6568285256) 23 mmol/L 23-31 AGAP (test code = 7041772250) 2-16 BUN (test code = 5328820032) 7 mg/dL 7-23 GLUCOSE (test code = 9507387466) 131 mg/dL 70-110 H CREATININE (test code = 7151793328) 0.66 mg/dL 0.50-1.04 CALCIUM (test code = 7056735458) 8.5 mg/dL 8.6-10.6 L eGFR (test code = 9911004849) mL/min/1.73m2 BRE (test code = BRE) Association of [...] or abnormalities in imaging tests). Lab Interpretation (test code = 14604-8) Abnormal [facility] with Khmgvkakdlbt5694-07-68 09:47:43* Test Item Value Reference Range Interpretation Comme nts WBC (test code = 6690-2) See_Comment H [Automated messa ge] The system which generated this result transmitted reference range: 4.30 - 11.10 10*3/?L. The reference range was not used to interpret this result as normal/abnormal. RBC (test code = 789-8) See_Comment [Automated messa ge] The system which generated this result transmitted reference range: 3.93 - 5.25 10*6/?L. The reference range was not used to interpret this result as normal/abnormal. HGB (test code = 718-7) 13.1 g/dL 11.6-15.0 HCT (test code = 4544-3) 40.3 % 35.7-45.2 MCV (test code = 787-2) 94.8 fL 80.6-95.5 MCH (test code = 785-6) 30.8 pg 25.9-32.8 MCHC (test code = 786-4) 32.5 g/dL 31.6-35.1 RDW-SD (test code = 68428-8) 47.2 fL 39.0-49.9 RDW-CV (test code = 788-0) 13.6 % 12.0-15.5 PLT (test code = 777-3) See_Comment [Automated Pump Audioa ge] The system which generated this result transmitted reference range: 166 - 358 10*3/?L. The reference range was not used to interpret this result as normal/abnormal. MPV (test code = 17586-5) 9.4 fL 9.5-12.9 L NRBC/100 WBC (test code = 4042572360) See_Comment [Automated Runivermag ssage] The system which generated this result transmitted reference range: 0.0 - 10.0 /100 WBCs. The reference range was not used to interpret this result as normal/abnormal. NRBC x10^3 (test code = 3343128192) <0.01 See_Comment [Automated Pump Audioa ge] The system which generated this result transmitted reference range: 10*3/?L. The reference range was not used to interpret this result as normal/abnormal. GRAN MAT (NEUT) % (test code = 770-8) 57.5 % IMM GRAN % (test code = 0105350663) 2.00 % LYMPH % (test code = 736-9) 25.9 % MONO % (test code = 5905-5) 7.2 % EOS % (test code = 713-8) 7.2 % BASO % (test code = 706-2) 0.2 % GRAN MAT x10^3(ANC) (test code = 1859931469) 7.29 10*3/uL 1.88-7.09 H IMM GRAN x10^3 (test code = 6325432201) 0.25 10*3/uL 0.00-0.06 H LYMPH x10^3 (test code = 731-0) 3.29 10*3/uL 1.32-3.29 MONO x10^3 (test code = 742-7) 0.91 10*3/uL 0.33-0.92 EOS x10^3 (test code = 711-2) 0.92 10*3/uL 0.03-0.39 H BASO x10^3 (test code = 704-7) 0.03 10*3/uL 0.01-0.07 Lab Interpretation (test code = 06071-8) [facility]A1C)2020-12-05 00:18:48* Test Item Value Reference Range Interpretation Comme nts HGB A1C (test code = 4548-4) 5.5 % 4.0-5.7 BRE (test code = BRE) Reference RangesNormal: <5.7%Prediabetes: 5.7 - 6.4%Diabetes: > 6.5% Lab Interpretation (test code = 92911-0) Normal [facility] CenterCOVID[facility] (ID NOW RAPID TESTING)2020-12-04 21:49:20* Test Item Value Reference Range Interpretation Comme nts SARS-CoV-2 Rapid ID NOW (test code = 26693-3) Not Detected Not Detected BRE (test code = BER) ID NOW COVID-19 As say is an isothermal nucleic acid amplification test intended for the qualitative detection of nucleic acid from SARS-CoV-2 viral RNA in nasopharyngeal (ENGLISH DRAWER) specimens. It is used under Emergency Use [...] patient testing if clinically indicated. Lab Interpretation (test code = 76734-9) Normal [facility] CenterCT ABDOMEN PELVIS W [id number] 20:53:50Mild subcutaneous edema in the the mons pubis. No evidence of soft tissueemphysema or a drainable fluid collection. Correlate with exam. Several mildly enlarged bilateral iliac chain, pelvic sidewall, andinguinal lymph nodes, likely reactive. Sigmoid diverticulosis. Significant subchondral cystic changes in the left femoral head may berelated to arthropathic changes or an osteochondral lesion. [id number] End of report Ordering physician:MCKENZIE FISCHER CLINICAL HISTORY: Abdominal abscess/infection [...] characterize.Spleen, pancreas, gallbladder, adrenal glands, and kidneys areunremarkable. The small bowel and colon are without bowel wall thickening or dilatation.Sigmoid diverticulosis. Unremarkable appendix. No free fluid or air is demonstrated inthe abdomen or pelvis. The urinary bladder is unremarkable. The uterus is unremarkable. Tampon inplace. There is mild subcutaneous edema in the the mons pubis. No evidenceof soft tissue emphysema. Nodrainable fluid collection. There are severalmildly enlarged bilateral iliac chain, pelvic sidewall, and inguinal lymphnodes. The aortoiliac vessels are normal caliber. No acute osseous abnormality. Mild dextrocurvature of the lumbar spine.Postsurgical changes of the proximal left femur. Significant subchondralcystic changes in the left femoral head may be related to arthropathicchanges or an osteochondral lesion. [facility], Radiant Results Inft User - 12/04/2020 3:54 PM CDT Ordering physician:MCKENZIE FISCHER CLINICAL HISTORY: Abdominal abscess/infection suspected concern forfournier's gangrene in pelvic area TECHNIQUE: Contrast enhancedCT images were obtained through the abdomenand pelvis with IV contrast. Coronal and sagittal reformats were alsoobtained. ALARA (As Low As Reasonably Achievable) principles was usedduring this examination.COMPARISON: NoneFINDINGS:The lung bases are clear bilaterally. Small cyst in the anterior lefthepatic lobe. Additional ill-defined tinyhypodensity in the inferior right hepatic lobe is small to characterize.Spleen, pancreas, gallbladder, adrenal glands, and kidneys areunremarkable.The small bowel and colon are without bowel wall thickening or dilatation.Sigmoid diverticulosis. Unremarkable appendix.No free fluid or air is demonstrated in the abdomen or pelvis. The urinary bladder is unremarkable. The uterus is unremarkable. Tampon inplace. There is mild subcutaneous edema in the the mons pubis. No evidenceof soft tissue emphysema. No drainable fluid collection. There are severalmildlyenlarged bilateral iliac chain, pelvic sidewall, and inguinal lymphnodes.The aortoiliac vessels arenormal caliber.No acute osseous abnormality. Mild dextrocurvature of the lumbar spine.Postsurgical changes of the proximal left femur. Significant subchondralcystic changes in the left femoral head may be related to arthropathicchanges or an osteochondral lesion.IMPRESSIONMild subcutaneous edema inthe the mons pubis. No evidence of soft tissueemphysema or a drainable fluid collection. Correlate with exam.Several mildly enlarged bilateral iliac chain, pelvic sidewall, andinguinal lymph nodes, likely reactive.Sigmoid diverticulosis.Significant subchondral cystic changes in the left femoral head may berelated to arthropathic changes or an osteochondral lesion.RL [id number] of report [facility] BrownwoodUrinalysis2021-07-06 20:39:43* Test Item Value Reference Range Interpretation Comme nts APPEARANCE (test code = 9231460402) Clear Clear COLOR (test code = 9887371413) Yellow Yellow PH (test code = 9724648163) 4.8-8.0 SP GRAVITY (test code = 9424096762) 1.003-1.030 GLU U QUAL (test code = 5175174874) Normal Normal BLOOD (test code = 5437679425) Negative Negative KETONES (test code = 3785831421) Negative Negative PROTEIN (test code = 2887-8) Negative Negative UROBILIN (test code = 3270739825) 4.0 mg/dL Normal A BILIRUBIN (test code = 8319145964) Negative Negative NITRITE (test code = 4182066488) Negative Negative LEUK KANDICE (test code = 3630934042) Negative Negative RBC/HPF (test code = 3803018689) See_Comment [Automated Pump Audioa ge] The system which generated this result transmitted reference range: 0 - 3 HPF. The reference range was not used to interpret this result as normal/abnormal. WBC/HPF (test code = 0687095055) See_Comment [Automated Pump Audioa ge] The system which generated this result transmitted reference range: 0 - 5 HPF. The reference range was not used to interpret this result as normal/abnormal. BACTERIA (test code = 6851949986) Negative Negative MUCOUS (test code = 0804747586) Slight Negative LPF A SQ EPITH (test code = 3935878331) HPF Lab Interpretation (test code = 12081-7) Abnormal [facility] CenterHep[facility] Function Panel (ALB, T.PRO, BILI T, BU/BC, ALT, AST, ALK PHOS)2020-12-04 20:26:41* Test Item Value Reference Range Interpretation Comme nts TOTAL BILI (test code = 3086065945) 0.4 mg/dL 0.1-1.1 BILI UNCON (test code = 4938656098) 0.2 mg/dL 0.1-1.1 BILI CONJ (test code = 4545177427) 0.0 mg/dL 0.0-0.3 T PROTEIN (test code = 3345166878) 7.5 g/dL 6.3-8.2 ALBUMIN (test code = 2717204007) 4.3 g/dL 3.5-5.0 ALK PHOS (test code = 4893412091) 94 U/L 34-122 ALTv (test code = 1742-6) 20 U/L 5-35 AST(SGOT) (test code = 5135361512) 21 U/L 13-40 Lab Interpretation (test cod e = 44044-6) Normal [facility] Metabolic Panel (NA, K, CL, CO2, GLUCOSE, BUN, CREATININE, CA)2020-12-04 20:26:21* Test Item Value Reference Range Interpretation Comme nts NA (test code = 8353016011) 136 mmol/L 135-145 K (test code = 4812987917) 3.8 mmol/L 3.5-5.0 CL (test code = 9606444835) 104 mmol/L 98-108 CO2 TOTAL (test code = 8647327727) 23 mmol/L 23-31 AGAP (test code = 7937746515) 2-16 BUN (test code = 1887396891) 9 mg/dL 7-23 GLUCOSE (test code = 3627507344) 91 mg/dL 70-110 CREATININE (test code = 6977888723) 0.71 mg/dL 0.50-1.04 CALCIUM (test code = 1597875511) 9.3 mg/dL 8.6-10.6 eGFR (test code = 6768330606) mL/min/1.73m2 BRE (test code = BRE) Association of [...] or urine or abnormalities in imaging tests). [facility] with Dlegeladuuks3690-47-83 20:22:41* Test Item Value Reference Range Interpretation Comme nts WBC (test code = 6690-2) See_Comment H [Automated Pump Audioa LearnSprout] The system which generated this result transmitted reference range: 4.30 - 11.10 10*3/?L. The reference range was not used to interpret this result as normal/abnormal. RBC (test code = 789-8) See_Comment [Automated Pump Audioa ge] The system which generated this result transmitted reference range: 3.93 - 5.25 10*6/?L. The reference range was not used to interpret this result as normal/abnormal. HGB (test code = 718-7) 14.9 g/dL 11.6-15.0 HCT (test code = 4544-3) 46.2 % 35.7-45.2 H MCV (test code = 787-2) 93.5 fL 80.6-95.5 MCH (test code = 785-6) 30.2 pg 25.9-32.8 MCHC (test code = 786-4) 32.3 g/dL 31.6-35.1 RDW-SD (test code = 93813-9) 45.5 fL 39.0-49.9 RDW-CV (test code = 788-0) 13.4 % 12.0-15.5 PLT (test code = 777-3) See_Comment [Automated Pump Audioa ge] The system which generated this result transmitted reference range: 166 - 358 10*3/?L. The reference range was not used to interpret this result as normal/abnormal. MPV (test code = 60032-4) 9.5 fL 9.5-12.9 NRBC/100 WBC (test code = 0215508566) See_Comment [Automated me ssage] The system which generated this result transmitted reference range: 0.0 - 10.0 /100 WBCs. The reference range was not used to interpret this result as normal/abnormal. NRBC x10^3 (test code = 3008968619) <0.01 See_Comment [Automated messa ge] The system which generated this result transmitted reference range: 10*3/?L. The reference range was not used to interpret this result as normal/abnormal. GRAN MAT (NEUT) % (test code = 770-8) 70.7 % IMM GRAN % (test code = 0671251382) 1.30 % LYMPH % (test code = 736-9) 15.6 % MONO % (test code = 5905-5) 5.9 % EOS % (test code = 713-8) 6.3 % BASO % (test code = 706-2) 0.2 % GRAN MAT x10^3(ANC) (test code = 5731497565) 9.53 10*3/uL 1.88-7.09 H IMM GRAN x10^3 (test code = 6794683918) 0.17 10*3/uL 0.00-0.06 H LYMPH x10^3 (test code = 731-0) 2.10 10*3/uL 1.32-3.29 MONO x10^3 (test code = 742-7) 0.79 10*3/uL 0.33-0.92 EOS x10^3 (test code = 711-2) 0.85 10*3/uL 0.03-0.39 H BASO x10^3 (test code = 704-7) 0.03 10*3/uL 0.01-0.07 Lab Interpretation (test code = 99280-5) Abnormal [facility] CenterLacaic Acid Whole Gsnlj1729-53-21 20:01:06* Test Item Value Reference Range Interpretation Comme [facility] LACTIC ACID (test code = 8883366238) 1.42 mmol/L 0.50-2.20 Lab Interpretation (test cod e = 90987-4) Normal [facility] CenterPOCT Zvbb1104-21-48 19:51:00* Test Item Value Reference Range Interpretation Comme nts POCT PREG (test code = 1605) negative On board controls acceptable with C Line (test code = 3574) yes POCT PREG LOT # (test code = 3575) [id number] POCT PREG TEST DATE ( test code = 3576) 05/31/2022 Lab Interpretation (test cod e = 16021-2) Normal [facility] BRAIN W WO [id number] 18:45:40No acute intracranial abnormality Gradient blooming in the [...] fluidcollection is present. The basal cisterns are unremarkable. No restricted diffusion is present to suggest acute-subacute i schemia. No focus of abnormal parenchymal signal intensity is present. No focus ofabnormal parenchymal enhancement is present. A focus of gradient bloomingin the left lateral temporal lobe corresponds to a coarse calcificationnoted on the prior CT. No additional focus of abnormal parenchymal gradientblooming is present. No abnormal fluid signal is present in the mastoid air cells. Mild tomoderatepansinus inflammatory changes. The T2 flow voids for [...] additional focus of abnormal parenchymal gradientblooming is presen t.No abnormal fluid signal is present in the mastoid air cells. Mild tomoderate pansinus inflammatory changes. The T2 flow voids for the majorintracranial vessels are unremarkable.IMPRESSIONNo acute intracranial abnormalityGradient blooming in the left temporal lobe corresponding to the coarsecalcification noted on the accompanying CT. No surrounding edema.[facility] LUMBAR SPINE WO [id number] 18:26:15Mild spondylosis at L4-L5 results in moderate right neural foraminalnarrowing Otherwise, no significant degenerative changes, spinal canal stenosis orneural foraminal narrowing is present at any level No acute osseous abnormality Diffuse inflammatory changes in the superficial soft tissues of thevisualized backMR LUMBAR SPINE WO CONTRAST HISTORY: Female 44 years Back pain, > 6wks conservative tx, persistent sx COMPARISON: Lumbar radiograph dated 07/18/2018 TECHNIQUE: [...] stenosis or neural foraminal narrowing L3-L4: No si gnificant spinal canal stenosis or neural foraminal narrowing L4-L5: A posterior disc bulge resultsin mild spinal canal stenosis, mildleft and moderate right neural foraminal narrowing L5-S1: No significant spinal canal stenosis or neural foraminal narrowing Diffuse edema is noted in the superficial subcutaneous soft tissues [facility], Radiant Results Inft User - 02/18/2020 1:27 PM CDTMR LUMBAR SPINE WO CONTRASTHISTORY: Female 44 years Back pain, > 6wks conservative tx, persistent sx COMPARISON:Lumbar radiograph dated 07/18/2018TECHNIQUE: Multiplanar multi weighted imaging of the lumbar spine wasobtained without IV contrastFINDINGS:Mild extra curvature. The vertebral bodies are normal in height and innormal alignment. The conus terminates at the level of T12-L1. The caudaequina nerve rootsare unremarkable.The background marrow signal is unremarkable. Disc desiccation at L4-L5 isassociated with mild intervertebral disc space height loss. The remainingintervertebral discs remain well-hyd rated.L1-L2: No significant spinal canal stenosis or neural foraminal narrowingL2-L3: No significant spinal canal stenosis or neural foraminal narrowingL3-L4: No significant spinal canal stenosis or neural foraminal narrowingL4-L5: A posterior disc bulge results in mild spinal canal stenosis, mildleft and moderate right neural foraminal narrowingL5-S1: No significant spinal canal stenosis or neural foraminal narrowingDiffuse edema is noted in the superficial subcutaneous soft tissuesIMPRESSIONMild spondylosis at L4-L5 results in moderate right neural foraminalnarrowingOtherwise, no significant degenerative changes, spinal canal stenosis orneural foraminal narrowing is present at any levelNoacute osseous abnormalityDiffuse inflammatory changes in the superficial soft tissues of thevisualized backUnHendrick Medical Center BrownwoodKEPPRA (LEVETIRACETAM)2020-02-18 04:48:00* Test Item Value Reference Range Interpretation Comme nts KEPPRA (test code = 0310055342) 11 ug/mL 12-46 L BRE (test code = BRE) Therapeutic range: 12-46 ?g/mL ? ?Toxic: Not well established.Test developed and characteristics determined by [facility] Laboratory Services. Lab Interpretation (test code = 77251-5) Abnormal [facility]. METABOLIC PANEL (70350)2020-02-18 04:46:00* Test Item Value Reference Range Interpretation Comme nts NA (test code = 4631568232) 143 mmol/L 135-145 K (test code = 9410178857) 3.9 mmol/L 3.5-5 CL (test code = 7534509092) 109 mmol/L 98-108 H CO2 TOTAL (test code = 0310246521) 24 mmol/L 23-31 AGAP (test code = 0753793112) 2-16 BUN (test code = 7356219725) 5 mg/dL 7-23 L GLUCOSE (test code = 7976783375) 98 mg/dL 70-110 CREATININE (test code = 2177845207) 0.66 mg/dL 0.5-1.04 TOTAL BILI (test code = 3206301427) 0.2 mg/dL 0.1-1.1 CALCIUM (test code = 2606905892) 8.0 mg/dL 8.6-10.6 L T PROTEIN (test code = 0755080085) 5.7 g/dL 6.3-8.2 L ALBUMIN (test code = 1601864433) 3.2 g/dL 3.5-5 L ALK PHOS (test code = 1020171237) 58 U/L 34-122 ALTv (test code = 1742-6) 14 U/L 5-35 AST(SGOT) (test code = 7115864275) 37 U/L 13-40 eGFR Calculation (Non-) (test code = 8008463173) mL/min/1.73m2 eGFR Calculation () (test code = 6177230066) mL/min/1.73m2 BRE (test code = BRE) Association of [...] or abnormalities in imaging tests). Lab Interpretation (test code = 00889-1) Abnormal [facility] CenterTROPONIN [id number] 04:02:00* Test Item Value Reference Range Interpretation Comme nts TROPONIN I (test code = 0352887447) 0.003 ng/mL See_Comment [Automated message] The system which generated this result transmitted reference range: <=0.034. The reference range was not used to interpret this result as normal/abnormal. BRE (test code = BRE) Equal or Less than 0.034 ng/ml---Normal ?Note: Cardiac troponin begins to [...] patient's use of biotin. ? Lab Interpretation (test code = 38479-3) Normal [facility] CenterCB WITH [id number] 03:22:00* Test Item Value Reference Range Interpretation Comme nts WBC (test code = 6690-2) See_Comment [Automated Pump [employer]] The system which generated this result transmitted reference range: 4.30 - 11.10 10*3/?L. The reference range was not used to interpret this result as normal/abnormal. RBC (test code = 789-8) See_Comment [Automated Pump [employer]] The system which generated this result transmitted reference range: 3.93 - 5.25 10*6/?L. The reference range was not used to interpret this result as normal/abnormal. HGB (test code = 718-7) 13.6 g/dL 11.6-15 HCT (test code = 4544-3) 41.7 % 35.7-45.2 MCV (test code = 787-2) 97.4 fL 80.6-95.5 H MCH (test code = 785-6) 31.8 pg 25.9-32.8 MCHC (test code = 786-4) 32.6 g/dL 31.6-35.1 RDW-SD (test code = 74903-4) 47.2 fL 39-49.9 RDW-CV (test code = 788-0) 13.2 % 12-15.5 PLT (test code = 777-3) See_Comment [Automated messa ge] The system which generated this result transmitted reference range: 166 - 358 10*3/?L. The reference range was not used to interpret this result as normal/abnormal. MPV (test code = 87029-7) 9.8 fL 9.5-12.9 NRBC/100 WBC (test code = 9631137270) See_Comment [Automated Runivermag ssage] The system which generated this result transmitted reference range: 0.0 - 10.0 /100 WBCs. The reference range was not used to interpret this result as normal/abnormal. NRBC x10^3 (test code = 9776666289) <0.01 See_Comment [Automated Pump Audioa ge] The system which generated this result transmitted reference range: 10*3/?L. The reference range was not used to interpret this result as normal/abnormal. GRAN MAT (NEUT) % (test code = 770-8) 52.0 % IMM GRAN % (test code = 3787956204) 0.50 % LYMPH % (test code = 736-9) 32.3 % MONO % (test code = 5905-5) 8.4 % EOS % (test code = 713-8) 6.5 % BASO % (test code = 706-2) 0.3 % GRAN MAT x10^3(ANC) (test code = 7024334622) 4.91 10*3/uL 1.88-7.09 IMM GRAN x10^3 (test code = 2187796862) 0.05 10*3/uL 0-0.06 LYMPH x10^3 (test code = 731-0) 3.06 10*3/uL 1.32-3.29 MONO x10^3 (test code = 742-7) 0.80 10*3/uL 0.33-0.92 EOS x10^3 (test code = 711-2) 0.62 10*3/uL 0.03-0.39 H BASO x10^3 (test code = 704-7) 0.03 10*3/uL 0.01-0.07 Lab Interpretation (test code = 13431-1) Abnormal [facility] CenterCT HEAD WO [id number] 04:07:57No acute intracranial hemorrhage or mass effect. CT [...] are unremarkable. Mild paranasal sinus mucosal thickening. [facility], Radiant Results Inft User - 02/16/2020 11:09 PM CDTCT HEAD WO CONTRASTHISTORY: seizure COMPARISON: None available. TECHNIQUE: Routine unenhanced brain CT. FINDINGS:No acute intracranial hemorrhage, extracerebral fluid collection, ormidline shift. No acute transcortical infarction. Ventricles are normal. Cerebral volume is age appropriate. 8 mm left temporal calcification possibly in a sulcus with no adjacentedema isnon specific. Diagnostic considerations include cavernoma, sequelaof chronic infection, and calcified embolus.Cerebellar tonsillar ectopia. No depressed calvarial fracture. Visualized orbits are unremarkable. Mild paranasal sinus mucosal thickening.IMPRESSIONNo acute intracranial hemorrhage or masseffect.[facility] CenterPHENYTOIN [id number] 02:54:00* Test Item Value Reference Range Interpretation Comme nts PHENY FREE (test code = 7477547287) <0.5 1-2 L BRE (test code = BRE) Toxic Range: ? Greater than 2.5 ug/mL Test developed and characteristics determined by [facility] Laboratory Services. Lab Interpretation (test code = 01499-2) Abnormal [facility] CenterCREATINE [id number] 01:38:00* Test Item Value Reference Range Interpretation Comme nts CK (test code = 8196889425) 259 U/L 33-194 H Lab Interpretation (test cod e = 76865-0) Abnormal [facility] CenterMAGNESIUM2020-09-18 00:55:00* Test Item Value Reference Range Interpretation Comme nts MAGNESIUM (test code = 9958958044) 1.7 mg/dL 1.7-2.4 Lab Interpretation (test cod e = 08277-1) Normal [facility] CenterElectroencephalogram (EEG) - Duration of test: 20-60 [id number] 00:00:00Date and Time of Procedure: 02/17/2020, 9:14:15- 9:36:48 REPORT TECHNICAL SUMMARY: The EEG was recorded digitally. Electrodes were applied using the International 10/20 System of electrode placement. Eye movements and rhythm strip ECG were monitored on separate channels of the ongoing EEG recording.The occipital dominant rhythm consists of moderate amplitude 9-10 Hz activity. More anteriorly, similar as well as faster frequencies are present, including low amplitude 18-22 Hz activities in the an terior leads. Drowsiness and sleep does not reveal any abnormalities. Photic stimulation does not elicit any abnormalities. IMPRESSION: This EEG is normal in wakefulness and drowsiness and sleep. An EMU (epilepsy monitoring unit) referral or long-term (24-96 hours) EEG might be beneficial in this case if clinically indicated, as they have significantly greater sensitivity than a 20-60 minute EEG,which has low sensitivity for detecting epileptiform abnormalities especially when sleep is not seen. The absence of epileptiform abnormalities in a 20-60 minute EEG does not necessarily rule out a diagnosis of epilepsy or the potential for epileptic seizures to occur. Bogdan Beltran MD I personally reviewed and discussed EEG on 02/17/[address] Purcell's note. ?I actively participated in the decision-making process. ?Please see the resident's note for additional details. Lian Canada MDDate of interpretation: 02/17/2020[facility] (NA, K, CL, CO2, GLUCOSE, BUN, CREATININE, CA) 2020-02-16 11:27:00* Test Item Value Reference Range Interpretation Comme nts NA (test code = 8746544984) 136 mmol/L 135-145 K (test code = 3583387421) 3.9 mmol/L 3.5-5 CL (test code = 7331072241) 107 mmol/L 98-108 CO2 TOTAL (test code = 1206968808) 21 mmol/L 23-31 L AGAP (test code = 4466119309) 2-16 BUN (test code = 0612444822) 9 mg/dL 7-23 GLUCOSE (test code = 1990255654) 115 mg/dL 70-110 H CREATININE (test code = 1633794617) 0.74 mg/dL 0.5-1.04 CALCIUM (test code = [id number]) 8.0 mg/dL 8.6-10.6 L eGFR Calculation (Non-) (test code = 1693112402) mL/min/1.73m2 eGFR Calculation () (test code = 9117160333) mL/min/1.73m2 BRE (test code = BRE) Association of [...] or abnormalities in imaging tests). Lab Interpretation (test code = 25638-5) Abnormal [facility] WITH [id number] 10:57:00* Test Item Value Reference Range Interpretation Comme nts WBC (test code = 6690-2) See_Comment H [Automated message] The system which generated this result transmitted reference range: 4.30 - 11.10 10*3/?L. The reference range was not used to interpret this result as normal/abnormal. RBC (test code = 789-8) See_Comment [Automated message] The system which generated this result transmitted reference range: 3.93 - 5.25 10*6/?L. The reference range was not used to interpret this result as normal/abnormal. HGB (test code = 718-7) 15.2 g/dL 11.6-15 H HCT (test code = 4544-3) 46.7 % 35.7-45.2 H MCV (test code = 787-2) 96.3 fL 80.6-95.5 H MCH (test code = 785-6) 31.3 pg 25.9-32.8 MCHC (test code = 786-4) 32.5 g/dL 31.6-35.1 RDW-SD (test code = 16492-8) 46.5 fL 39-49.9 RDW-CV (test code = 788-0) 13.1 % 12-15.5 PLT (test code = 777-3) See_Comment [Automated message] The system which generated this result transmitted reference range: 166 - 358 10*3/?L. The reference range was not used to interpret this result as normal/abnormal. MPV (test code = 41548-2) 9.4 fL 9.5-12.9 L NRBC/100 WBC (test code = 7314208592) See_Comment [Automated message] The system which generated this result transmitted reference range: 0.0 - 10.0 /100 WBCs. The reference range was not used to interpret this result as normal/abnormal. NRBC x10^3 (test code = 4882552008) <0.01 See_Comment [Automated message] The system which generated this result transmitted reference range: 10*3/?L. The reference range was not used to interpret this result as normal/abnormal. GRAN MAT (NEUT) % (test code = 770-8) 76.8 % IMM GRAN % (test code = 3319330991) 0.60 % LYMPH % (test code = 736-9) 9.7 % MONO % (test code = 5905-5) 7.7 % EOS % (test code = 713-8) 5.1 % BASO % (test code = 706-2) 0.1 % GRAN MAT x10^3(ANC) (test code = 3419739398) 11.03 10*3/uL 1.88-7.09 H IMM GRAN x10^3 (test code = 6057585835) 0.09 10*3/uL 0-0.06 H LYMPH x10^3 (test code = 731-0) 1.39 10*3/uL 1.32-3.29 MONO x10^3 (test code = 742-7) 1.10 10*3/uL 0.33-0.92 H EOS x10^3 (test code = 711-2) 0.73 10*3/uL 0.03-0.39 H BASO x10^3 (test code = 704-7) <0.03 0.01-0.07 Lab Interpretation (test code = 18091-6) [facility]2020-02-16 00:28:00* Test Item Value Reference Range Interpretation Comme nts SARS-CoV-2 Rapid ID NOW (test code = 82859-4) Not Detected Not Detected BRE (test code = BRE) ID NOW COVID-19 As say is an isothermal nucleic acid amplification test intended for the qualitative detection of nucleic acid from SARS-CoV-2 viral RNA in nasopharyngeal (ENGLISH DRAWER) specimens. It is used under Emergency Use [...] patient testing if clinically indicated. Lab Interpretation (test code = 88474-3) Normal [facility] (94396)2020-02-15 23:51:00* Test Item Value Reference Range Interpretation Comme nts NA (test code = 1862855280) 136 mmol/L 135-145 K (test code = 3585245186) 4.0 mmol/L 3.5-5 CL (test code = 0476099882) 104 mmol/L 98-108 CO2 TOTAL (test code = 3993759189) 20 mmol/L 23-31 L AGAP (test code = 6277473322) 2-16 BUN (test code = 6686730744) 9 mg/dL 7-23 GLUCOSE (test code = 8712304119) 90 mg/dL 70-110 CREATININE (test code = 4551089507) 0.57 mg/dL 0.5-1.04 TOTAL BILI (test code = 3502956003) 0.7 mg/dL 0.1-1.1 CALCIUM (test code = 0542506263) 8.5 mg/dL 8.6-10.6 L T PROTEIN (test code = 7864568049) 6.8 g/dL 6.3-8.2 ALBUMIN (test code = 8574311000) 4.0 g/dL 3.5-5 ALK PHOS (test code = 0177336856) 63 U/L 34-122 ALTv (test code = 1742-6) 15 U/L 5-35 AST(SGOT) (test code = 5587657806) 30 U/L 13-40 eGFR Calculation (Non-) (test code = 6047579723) mL/min/1.73m2 eGFR Calculation () (test code = 0212610576) mL/min/1.73m2 BRE (test code = BRE) Association of [...] or abnormalities in imaging tests). Lab Interpretation (test code = 92495-1) Abnormal [facility] [id number] 23:51:00* Test Item Value Reference Range Interpretation Comme nts CK (test code = 4139679394) 222 U/L 33-194 H Lab Interpretation (test cod e = 42491-6) [facility]normal [facility] WITH [id number] 23:38:00* Test Item Value Reference Range Interpretation Comme nts WBC (test code = 6690-2) See_Comment H [Automated [employer]] The system which generated this result transmitted reference range: 4.30 - 11.10 10*3/?L. The reference range was not used to interpret this result as normal/abnormal. RBC (test code = 789-8) See_Comment [Automated [employer] ge] The system which generated this result transmitted reference range: 3.93 - 5.25 10*6/?L. The reference range was not used to interpret this result as normal/abnormal. HGB (test code = 718-7) 15.5 g/dL 11.6-15 H HCT (test code = 4544-3) 47.2 % 35.7-45.2 H MCV (test code = 787-2) 95.0 fL 80.6-95.5 MCH (test code = 785-6) 31.2 pg 25.9-32.8 MCHC (test code = 786-4) 32.8 g/dL 31.6-35.1 RDW-SD (test code = 80637-2) 45.1 fL 39-49.9 RDW-CV (test code = 788-0) 13.0 % 12-15.5 PLT (test code = 777-3) See_Comment [Automated [employer] ge] The system which generated this result transmitted reference range: 166 - 358 10*3/?L. The reference range was not used to interpret this result as normal/abnormal. MPV (test code = 77685-6) 9.6 fL 9.5-12.9 NRBC/100 WBC (test code = 5941981793) See_Comment [Automated [employer] ssage] The system which generated this result transmitted reference range: 0.0 - 10.0 /100 WBCs. The reference range was not used to interpret this result as normal/abnormal. NRBC x10^3 (test code = 1495945146) <0.01 See_Comment [Automated [employer] ge] The system which generated this result transmitted reference range: 10*3/?L. The reference range was not used to interpret this result as normal/abnormal. GRAN MAT (NEUT) % (test code = 770-8) 65.2 % IMM GRAN % (test code = 3902991400) 0.80 % LYMPH % (test code = 736-9) 18.4 % MONO % (test code = 5905-5) 8.7 % EOS % (test code = 713-8) 6.6 % BASO % (test code = 706-2) 0.3 % GRAN MAT x10^3(ANC) (test code = 6436929820) 9.11 10*3/uL 1.88-7.09 H IMM GRAN x10^3 (test code = 4201857143) 0.11 10*3/uL 0-0.06 H LYMPH x10^3 (test code = 731-0) 2.58 10*3/uL 1.32-3.29 MONO x10^3 (test code = 742-7) 1.22 10*3/uL 0.33-0.92 H EOS x10^3 (test code = 711-2) 0.93 10*3/uL 0.03-0.39 H BASO x10^3 (test code = 704-7) 0.04 10*3/uL 0.01-0.07 Lab Interpretation (test code = 79304-0) Abnormal [facility] CenterLactic Acid Whole [id number] 23:35:00* Test Item Value Reference Range Interpretation Comme nts LACTIC ACID (test code = 7538134770) 1.97 mmol/L [facility]"
[2024-06-26] MEDS ORDERED: LORazepam 2 MG/ML VIAL ONE ×2 (16:01→17:37)
[2024-06-26] MEDS ORDERED: LEVETIRACETAM 500 MG/5 ML VIAL IV ONE ×2 (16:03→18:24)
[2024-06-26] MEDS ORDERED: NA CHLORIDE 0.9% 100 ML ONE ×2 (16:04→18:25)
[2024-06-26 16:23] LABS: Specific Gravity > 1.030 (1.005-1.030)
[2024-06-26 16:25] LABS: Sqamous Epithelial <5 /HPF (None Seen); Urine Bacteria None Seen /HPF (<20); Urine Bilirubin NEGATIVE (Negative); Urine Blood Negative (Negative); Urine Clarity Clear (Clear); Urine Color Light-Yellow (Yellow); Urine Culture Reflex Order NOT NEEDED; Urine Glucose NEGATIVE (Negative); Urine Ketones NEGATIVE (Negative); Urine Microscopic Reflex YN ORDER UMIC; Urine Mucus Slight /HPF (None Seen); Urine Nitrite NEGATIVE (Negative); Urine Protein NEGATIVE (Negative); Urine RBC <5 /HPF (None Seen); Urine Urobilinogen Normal (Normal); Urine WBC <5 /HPF (<5); Urine pH 5.5 (5.0-7.0)
[2024-06-26 16:31] LABS: Specific Gravity > 1.030 (1.005-1.030)
[2024-06-26 16:36] LABS: Absolute Basophils 0.1 K/uL (0-0.5); Absolute Eosinophils 0.3 K/uL (0-0.5); Absolute Lymphocytes (CBC) 3.8 K/uL (0.7-4.9); Absolute Monocytes 0.9 K/uL (0.1-1.3); Absolute Neutrophil 6.8 K/uL (1.8-8.0); Basophils % 0.7 % (0-1.3); Eosinophils % 2.5 % (0-4.4); Hematocrit 43.7 % (36.0-45.0); Hemoglobin 14.8 g/dL (12.0-15.0); Lymphocytes % 31.7 % (15.3-44.8); MCH 31.4 pg (27.0-35.0); MCHC 33.8 g/dL (32.0-36.0); MCV 92.8 fL (80-100); MPV 8.2 fL (7.6-11.3); Monocytes % 7.9 % (3.3-12.3); Neutrophils % 57.2 % (41.7-73.7); Platelets 318 thou/uL (152-406); Red Cell Distribution Width 13.4 % (12.1-15.2)
[2024-06-26 16:43] LABS: Anion Gap 14.8 mEq/L (5.0-15.0); Potassium 3.8 mEq/L (3.5-5.1)
[2024-06-26 16:58] LABS: PT Prothrombin Time 12.6 SECONDS (9.4-12.5); PTT, Activated Partial Thromb 29.8 SECONDS (24.3-36.9); Protime INR 1.2
--- NOTE | 2024-06-26 17:09 | RAD REPORT ---
EXAMINATION: CT HEAD WITHOUT CONTRAST CLINICAL INDICATION: Female, 48 years old.head injury last night, oracio, seizure today TECHNIQUE: Axial CT images from the skull base to the vertex without intravenous contrast. Coronal an d sagittal reformatted images were created from the data set. One or more of the following dose reduction techniques were used: Automated exposure control, adjustment of the mA and/or kV according to patient size, and/or iterative reconstruction. Unless otherwise specified, incidental findings do not require dedicated imaging follow-up. [id number]. COMPARISON: No prior exam. FINDINGS: INTRACRANIAL: No acute intracranial hemorrhage. No hydrocephalus. No mass effect or midline shift. No significant white matter disease. VASCULATURE: No visualized abnormalities in the arteries or dural venous sinuses. SCALP/SKULL: Soft tissue oracio in the high frontal scalp. No skull fracture. SINUSES: Partially imaged mucosal thickening in the maxillary sinuses. IMPRESSION: No acute intracranial abnormality.
--- NOTE | 2024-06-26 17:42 | ER ---
Nurse's Notes [facility] Name: Diana Vincent Age: 48 yrs Sex: Female : 1975 Arrival Date: 06/26/2024 Time: 15:46 Bed 16 Private MD: Diagnosis: Epilepsy, unspecified, not intractable, with status epilepticus Presentation: 06/26 15:53 Method Of Arrival: Wheelchair ko1 15:53 Acuity: ARGENIS 2 ko1 16:22 Chief complaint: Spouse and/or significant other states: seizure. Coronavirus screen: kj2 Client denies travel out of the [place] in the last 14 days. Ebola Screen: No symptoms or risks identified at this time. Initial Sepsis Screen: Does the patient meet any 2 criteria? No. Patient's initial sepsis screen is negative. Does the patient have a suspected source of infection? No. Patient's initial sepsis screen is negative. Risk Assessment: Do you want to hurt yourself or someone else? Patient reports no desire to harm self or others. Onset of symptoms was June 26, 2024. Triage Assessment: 19:00 General: Appears in no apparent distress. Behavior is calm, cooperative, appropriate rg5 for age. Neuro: Reports seizure. Cardiovascular: Patient's skin is warm and dry. 19:00 Respiratory: Airway is patent Trachea midline Respiratory effort is even, unlabored, rg5 Respiratory pattern is regular, symmetrical. Historical: - Allergies: 16:10 Latex; kj2 16:10 PENICILLINS; kj2 - Home Meds: 16:24 dilantin only when she doesn't feel right [Active]; kj2 - PMHx: 15:59 Asthma; Seizures; kj2 - PSHx: 16:24 section; section; Left hip; umbilical hernia repair; kj2 - Immunization history:: Adult Immunizations unknown. - Infectious Disease History:: Denies. - Social history:: Smoking status: unknown. - Family history:: not pertinent. - Hospitalizations: : No recent hospitalization is reported. Screenin:55 [facility] ED Fall Risk Assessment (Adult) History of falling in the last 3 months, kj2 including since admission Yes- single mechanical fall (1 pt) Confusion or Disorientation Yes (5 pts) Intoxicated or Sedated No (0 pts) Impaired Gait No (0 pts) Mobility Assist Device Used No (0 pt) Altered Elimination Yes (1 pt) Score/Fall Risk Level 3 or more points = High Risk. Abuse screen: Denies threats or abuse. Denies injuries from another. Nutritional screening: No deficits noted. Tuberculosis screening: No symptoms or risk factors identified. Assessment: 15:55 General: Appears lethargy. Behavior is listless. Pain: Denies pain. Neuro: Level of kj2 Consciousness is lethargic, post ictal. Cardiovascular: Patient's skin is warm and dry. Respiratory: Airway is patent. GI: No signs and/or symptoms were reported involving the gastrointestinal system. : No signs and/or symptoms were reported regarding the genitourinary system. 16:55 Reassessment: Patient appears in no apparent distress at this time. Patient and/or kj2 family updated on plan of care and expected duration. Pain level reassessed. Patient is alert, oriented x 3, equal unlabored respirations, skin warm/dry/pink. 17:38 Reassessment: patient began seizing. kj2 18:30 Reassessment: Patient appears in no apparent distress at this time. Patient and/or kj2 family updated on plan of care and expected duration. Pain level reassessed. Patient is alert, oriented x 3, equal unlabored respirations, skin warm/dry/pink. 19:09 Reassessment: report given to TAWANDA Headley. kj2 Vital Signs: 15:55 BP 127 / 90; Pulse 85; Resp 16; Pulse Ox 99% on R/A; kj2 17:00 BP 115 / 72; Pulse 68; Resp 20; Temp 98; Pulse Ox 100% ; kj2 17:58 Weight 70.31 kg; kj2 18:51 BP 124 / 94; Pulse 73; Resp 18; Pulse Ox 94% on R/A; kj2 Arianna Coma Score: 19:05 Eye Response: spontaneous(4). Motor Response: obeys commands(6). Verbal Response: rg5 oriented(5). Total: 15. ED Course: 15:47 Patient arrived in ED. im 15:53 Triage completed. ko1 15:55 Russ Tian MD is Attending Physician. rn 15:58 Jayda Turcios RN is Primary Nurse. kj2 16:18 CBC with Diff Sent. bc6 16:18 Basic Metabolic Panel Sent. bc6 16:18 Ptt, Activated Sent. bc6 16:18 Protime (+inr) Sent. bc6 16:18 Urinalysis w/ reflexes Sent. bc6 16:18 Test, Urine Sent. bc6 16:18 Inserted saline lock: 20 gauge in left wrist, using aseptic technique. Blood collected. bc6 Flushed with 10 mL NS. 16:19 Initial lab(s) drawn, by ct, sent to lab. Urine collected: straight cath specimen, bc6 clear. 16:22 Inserted saline lock: 20 gauge in left forearm, using aseptic technique. Flushed with kb4 10 mL NS. 16:23 Placed in gown. Bed in low position. Call light in reach. Side rails up X2. Adult w/ kj2 patient. Seizure precautions initiated. Provided Education on: call light. 16:23 Arm band placed on Patient placed in an exam room, on a stretcher. EKG completed in kj2 triage. Results shown to MD. 17:03 CT Head Brain wo Cont In Process Unspecified. EDMS 17:46 initiated a transfer with Eladia from the [facility]. eb 17:53 initiated a transfer with the [facility] transfer center. eb 18:04 per Shari from the [facility] transfer Center [facility] does not have continuous EEG eb capability and will have to decline the patient in transfer. 18:05 per [facility] they have no ICU bed availability at this time. eb 18:09 initiated a transfer with Roberto Swain from the [facility] Transfer Center. eb 18:15 connected the neuro salesperson terrazzo tiles for [facility] with Dr. Tian for patient transfer eb consultation. 18:19 administrative approval given by Roberto Swain/ patient has been accepted to [facility] neuro ICU Unit 8A 806/ Dr. Gray has accepted the patient transfer / report to be called to [phone]. 19:18 No provider procedures requiring assistance completed. Patient transferred, IV remains rg5 in place. intact, No redness/swelling at site. Administered Medications: 16:00 Drug: Ativan IVP 2 mg IVP once Route: IVP; Site: left wrist; kj2 19:10 Follow up: Response: No adverse reaction kj2 16:05 Drug: Keppra IV 1000 mg IV at calculated rate once Route: IV; Rate: calculated rate; kj2 Site: left wrist; 19:10 Follow up: Response: No adverse reaction kj2 19:15 Follow up: IV Status: Completed infusion; IV Intake: 500ml rg5 17:41 Drug: Ativan IVP 2 mg IVP once Route: IVP; Site: left forearm; kj2 17:55 Follow up: Response: No adverse reaction kj2 18:29 Drug: Keppra IV 20 mg/kg IV at calculated rate once; subtract 1g already given {Note: Give 500 mg now for total of [address] Tian.} Route: IV; Rate: calculated rate; Site: left forearm; 19:15 Follow up: IV Status: Completed infusion; IV Intake: 100ml rg5 Medication: 16:23 VIS not applicable for this client. kj2 Intake: 19:15 IV: 100ml; Total: 100ml. rg5 19:15 IV: 500ml; Total: 600ml. rg5 Outcome: 17:42 ER care complete, transfer ordered by . rn 19:18 Transferred by ground EMS to [facility] 19:18 Condition: stable 19:18 Instructed on the need for transfer, 19:20 Patient left the ED. rg5 Signatures: Dispatcher [employer] EDMS Russ Tian MD MD rn Baxter, Heather, RN RN Eladia Call Kathy, RN RN ko1 Fiorella Hilton 6 Virginia Sloan Rommel, RN RN rg5 Jayda Turcios RN RN kj2 Dahiana Lopez kb4 Corrections: (The following items were deleted from the chart) 16:25 16:18 QUANTITATIVE HCG+C.LAB.BRZ drawn and sent. [facility]
--- NOTE | 2024-06-26 17:42 | EDPHYS ---
Physician Documentation [facility] Name: Diana Vincent Age: 48 yrs Sex: Female : 1975 Arrival Date: 06/26/2024 Time: 15:46 Bed 16 Private MD: ED Physician Russ Tian HPI: 06/26 16:07 This 48 yrs old Black Female presents to ER via Wheelchair with complaints of Probable rn Seizure. 16:07 Patient had seizure prior to arrival in vehicle, was postictal upon my evaluation but rn not back to baseline, had another seizure in front of me, generalized, lasted about 1 minute, resolved with Ativan, Keppra ordered because significant other does not know what medication she is to take.. 16:52 The patient presents with a history of multiple seizures, a total of 2. Character of rn seizure(s): Loss of consciousness: the patient experienced loss of consciousness, Motor activity: generalized, Incontinence: none, Circulation: the patient did not experience evidence of pulse disturbance. Seizure onset: just prior to arrival. Associated injury: The patient did not suffer any apparent associated injury. Current symptoms: confusion, decreased level of consciousness. The patient has experienced similar episodes in the past. Significant other reports had seizure yesterday in [place], taken to ER, imaging obtained because she hit her head, required oracio but was ultimately discharged. No other acute injuries noted. Was driving back today when she had a seizure just outside of town and driven straight here. He states that she was noncompliant with her seizure medication and had not had a seizure in about a year.. Historical: - Allergies: 16:10 Latex; kj2 16:10 PENICILLINS; kj2 - Home Meds: 16:24 dilantin only when she doesn't feel right [Active]; kj2 - PMHx: 15:59 Asthma; Seizures; kj2 - PSHx: 16:24 section; section; Left hip; umbilical hernia repair; kj2 - Immunization history:: Adult Immunizations unknown. - Infectious Disease History:: Denies. - Social history:: Smoking status: unknown. - Family history:: not pertinent. - Hospitalizations: : No recent hospitalization is reported. ROS: 16:52 Unable to obtain ROS due to altered mental status, rn Exam: 16:52 Constitutional: This is a well developed, well nourished patient who is having an rn active seizure shortly after I walked into the room Head/Face: Normocephalic, atraumatic. No active bleeding ENT: Small tongue bite noted, very slow bleeding noted Neck: No midline cervical tenderness Chest/axilla: No rib tenderness or crepitus Cardiovascular: Regular rate and rhythm. No pulse deficits. Respiratory: No increased work of breathing, no retractions or nasal flaring. Abdomen/GI: Soft, nontender MS/ Extremity: Pulses equal, no cyanosis. Neurovascular intact. Full, normal range of motion. Equal circumference. Neuro: Active seizing. Generalized tonic-clonic seizure. Vital Signs: 15:55 BP 127 / 90; Pulse 85; Resp 16; Pulse Ox 99% on R/A; kj2 17:00 BP 115 / 72; Pulse 68; Resp 20; Temp 98; Pulse Ox 100% ; kj2 17:58 Weight 70.31 kg; kj2 18:51 BP 124 / 94; Pulse 73; Resp 18; Pulse Ox 94% on R/A; kj2 [place] Coma Score: 19:05 Eye Response: spontaneous(4). Motor Response: obeys commands(6). Verbal Response: rg5 oriented(5). Total: 15. MDM: 15:55 Medical Screening Exam initiated rn 17:27 Differential diagnosis: seizure. Data reviewed: vital signs, nurses notes, lab test rn result(s), radiologic studies. ED course: Patient resting comfortably, small tongue bite no longer bleeding, subcentimeter, no indication for closure. No further seizures after Ativan and Keppra administration. Will continue to observe and anticipate discharge home with prescription for Keppra.. 17:40 Counseling: I had a detailed discussion with the patient and/or guardian regarding the rn historical points, exam findings, and any diagnostic results supporting the discharge/admit diagnosis, lab results, radiology results, the need to transfer to another facility, for higher level of care, [facility] does not immediately have the required specialist. ED course: Patient has now had 3 seizures here, without complete return to baseline. We do not have ICU capability here, no EEG. Initiated transfer for status epilepticus.. 17:40 ED course: I personally spent 35 minutes engaged in work directly related to the rn individual patient's care. This does not include any time spent performing procedures. The patient has been deemed critically ill because due to status epilepticus requiring loading with antiepileptic medication and management of multiple seizures in the emergency room as well as organization of transfer. 18:24 ED course: [facility] without bed availability. Patient accepted for transfer rn to [facility] ICU. 18:30 ED course: Patient somnolent but awakens to tactile stimulation and voice, maintaining rn airway, hemodynamically stable for transfer. Getting last portion of Keppra load.. 06/26 16:02 Order name: CBC with Diff; Complete Time: 17:04 rn 06/26 16:02 Order name: Basic Metabolic Panel; Complete Time: 17:04 rn 06/26 16:02 Order name: Protime (+inr); Complete Time: 17:04 rn 06/26 16:02 Order name: Ptt, Activated; Complete Time: 17:04 rn 06/26 16:08 Order name: Urinalysis w/ reflexes; Complete Time: 17:04 rn 06/26 16:08 Order name: Test, Urine; Complete Time: 17:04 rn 06/26 16:25 Order name: HCG, Quantitative; Complete Time: 17:04 EDMS 06/26 16:02 Order name: CT Head Brain wo Cont; Complete Time: 17:16 rn 06/26 16:02 Order name: IV Start; Complete Time: 16:18 rn 06/26 16:02 Order name: Cardiac monitoring; Complete Time: 16:18 rn 06/26 16:02 Order name: O2 Sat Monitoring; Complete Time: 16:18 rn Administered Medications: 16:00 Drug: Ativan IVP 2 mg IVP once Route: IVP; Site: left wrist; kj2 19:10 Follow up: Response: No adverse reaction kj2 16:05 Drug: Keppra IV 1000 mg IV at calculated rate once Route: IV; Rate: calculated rate; kj2 Site: left wrist; 19:10 Follow up: Response: No adverse reaction kj2 19:15 Follow up: IV Status: Completed infusion; IV Intake: 500ml rg5 17:41 Drug: Ativan IVP 2 mg IVP once Route: IVP; Site: left forearm; kj2 17:55 Follow up: Response: No adverse reaction kj2 18:29 Drug: Keppra IV 20 mg/kg IV at calculated rate once; subtract 1g already given {Note: hb Give 500 mg now for total of [address] Tian.} Route: IV; Rate: calculated rate; Site: left forearm; 19:15 Follow up: IV Status: Completed infusion; IV Intake: 100ml rg5 Disposition Summary: 06/26/24 17:42 Transfer Ordered Notes: Reason: Higher level of care rn Condition: Stable rn Problem: an ongoing problem rn Symptoms: are unchanged newborn hearing screener Location: [facility](06/26/24 18:24) rn Accepting Physician: (06/26/24 19:20) rg5 Diagnosis - Epilepsy, unspecified, not intractable, with status epilepticus rn Forms: - Medication Reconciliation Form rn - SBAR form rn labor delivery time excluding procedures: 17:40 Critical care time: Bedside Care: 35 minutes. Total time: 35 minutes rn Signatures: Dispatcher [employer] Russ Loving MD MD rn Baxter, Heather, RN RN hb Gallardo, Rommel, RN RN rg5 Jayda Turcios RN RN kj2 Corrections: (The following items were deleted from the chart) 16:02 16:02 CBC+H.LAB.BRZ ordered. EDMS EDMS 16:02 16:02 BASIC METABOLIC PANEL+C.LAB.BRZ ordered. EDMS EDMS 16:02 16:02 PROTIME (+INR)+COAG.LAB.BRZ ordered. EDMS EDMS 16:02 16:02 PTT, ACTIVATED+COAG.LAB.BRZ ordered. EDMS EDMS 16:09 16:09 Urinalysis+U.LAB.BRZ ordered. EDMS EDMS 16: 16:09 Test, Urine+UC.LAB.BRZ ordered. EDMS EDMS 16:25 16:09 QUANTITATIVE HCG+C.LAB.BRZ ordered. EDMS EDMS 18:24 17:42 Dr. da silva rn 18:24 17:42 [facility] System rn rn 19:20 18:24 rn rg5
[2024-06-26 23:08] VITALS: TEMP 98
[2024-06-26 23:09] VITALS: BP 124/94; O2SAT 94
--- NOTE | 2024-06-29 12:39 | EKG ---
Test Date: 2024-06-26 Test Time: 15:55:38 [employer]ker: BERNARDINO MEASUREMENT RESULTS: Intervals: Rate: 76 NV: 150 QRSD: 74 QT: 368 QTc: 414 [place]: P: 53 NV: 150 QRS: 82 T: 48 INTERPRETIVE STATEMENTS: Normal sinus rhythm Normal ECG No previous ECG available for comparison Electronically Signed On 06-29-24 12:33:31 [employer] REPA[employer] by Raj Christine
== END 2024-06-26 19:20 | disposition short-term general hospital (02) ==
LOC: ER 15:46
DX: G40.901 Epilepsy, unspecified, not intractable, with status epilepticus (principal)
CPT/HCPCS: 93005; 85025; 81001; 80048; 36415; 81025; 85610; 85730; 84702; 70450; 99285; J1953 ×2

== ENCOUNTER 2024-06-28 12:51 | Emergency (ER) | payer BC ==
[2024-06-28 13:35] LABS: Absolute Basophils 0.1 K/uL (0-0.5); Absolute Eosinophils 0.3 K/uL (0-0.5); Absolute Lymphocytes (CBC) 2.3 K/uL (0.7-4.9); Absolute Monocytes 0.6 K/uL (0.1-1.3); Absolute Neutrophil 4.3 K/uL (1.8-8.0); Basophils % 0.7 % (0-1.3); Eosinophils % 4.5 % (0-4.4); Hematocrit 39.6 % (36.0-45.0); Hemoglobin 13.5 g/dL (12.0-15.0); Lymphocytes % 29.8 % (15.3-44.8); MCH 31.4 pg (27.0-35.0); MCHC 34.1 g/dL (32.0-36.0); MCV 92.1 fL (80-100); MPV 7.9 fL (7.6-11.3); Monocytes % 8.4 % (3.3-12.3); Neutrophils % 56.6 % (41.7-73.7); Platelets 288 thou/uL (152-406); RBC Red Blood Cell Count 4.29 M/uL (3.86-4.86); Red Cell Distribution Width 12.8 % (12.1-15.2)
[2024-06-28 13:54] LABS: Albumin 3.3 g/dL (3.4-5.0); Albumin/Globulin Ratio 0.9 (1.1-1.8); Anion Gap 10.8 mEq/L (5.0-15.0); Bilirubin Total 0.5 mg/dL (0.2-1.0); Globulin 3.8 g/dL (2.3-3.5); Phenytoin (Dilantin) Level 1.3 mcg/mL (10.0-20.0); Potassium 3.8 mEq/L (3.5-5.1); Protein, Total 7.1 g/dL (6.4-8.2)
[2024-06-28 13:54] LABS: Specific Gravity 1.029 (1.005-1.030); Sqamous Epithelial <5 /HPF (None Seen); Urine Bacteria 20-50 /HPF (<20); Urine Bilirubin NEGATIVE (Negative); Urine Blood 1+ (Negative); Urine Clarity Turbid (Clear); Urine Color Yellow (Yellow); Urine Culture Reflex Order NOT NEEDED; Urine Glucose NEGATIVE (Negative); Urine Ketones NEGATIVE (Negative); Urine Microscopic Reflex YN ORDER UMIC; Urine Mucus 3+ /HPF (None Seen); Urine Nitrite 2+ (Negative); Urine Protein NEGATIVE (Negative); Urine RBC <5 /HPF (None Seen); Urine Urobilinogen Normal (Normal); Urine WBC <5 /HPF (<5); Urine pH 5.5 (5.0-7.0)
[2024-06-28] MEDS ORDERED: levETIRAcetam 1,000 MG in NA CHLORIDE 0.9% 100 ML IV ONE (14:15)
--- NOTE | 2024-06-28 14:24 | RAD REPORT ---
EXAMINATION: CT HEAD WITHOUT CONTRAST CLINICAL INDICATION: Female, 48 years old.Headache;Seizure;Trauma TECHNIQUE: Axial CT images from the skull base to the vertex without intravenous contrast. Coronal an d sagittal reformatted images were created from the data set. One or more of the following dose reduction techniques were used: Automated exposure control, adjustment of the mA and/or kV according to patient size, and/or iterative reconstruction. Unless otherwise specified, incidental findings do not require dedicated imaging follow-up. [id number]. COMPARISON: 06/26/2024 FINDINGS: INTRACRANIAL: No acute intracranial hemorrhage. No hydrocephalus. No mass effect or midline shift. No significant white matter disease.Similar prominent midline cerebral falx dural calcifications. VASCULATURE: No visualized abnormalities in the arteries or dural venous sinuses. SCALP/SKULL: Chronic left maxillary sinus opacification. SINUSES: The visualized paranasal sinuses and mastoid air cells are predominantly clear. The frontal scalp soft tissue oracio. IMPRESSION: No acute intracranial abnormality.
--- NOTE | 2024-06-28 16:15 | ER ---
Nurse's Notes [facility] Name: iDana Vincent Age: 48 yrs Sex: Female : 1975 Arrival Date: 06/28/2024 Time: 12:51 Bed 5 Private MD: Diagnosis: Epileptic seizures related to external causes, not intractable Presentation: 06/28 13:07 Chief complaint: EMS states: Called to patient's home due to patient having a seizure. [facility] reports pt having 2 seizures en route. one lasting 1 minute and the other 30 seconds. Pt received a total of Lorazepam 2mg. Pt A\T\Ox4, complaining of headache. Coronavirus screen: Client denies travel out of the [place] in the last 14 days. Ebola Screen: Patient denies travel to an Ebola-affected area in the 21 days before illness onset. Initial Sepsis Screen: Does the patient meet any 2 criteria? No. Patient's initial sepsis screen is negative. Does the patient have a suspected source of infection? No. Patient's initial sepsis screen is negative. Risk Assessment: Do you want to hurt yourself or someone else? Patient reports no desire to harm self or others. Onset of symptoms was June 28, 2024. Care prior to arrival: Medication(s) given: Normal saline infusion, 250mL Ativan 2mg IV initiated. 20 GA, in the left hand. 13:07 Method Of Arrival: EMS: [place] [id number] 13:07 Acuity: ARGENIS 3 cm10 Triage Assessment: 13:14 General: Appears in no apparent distress. Behavior is calm, cooperative. Pain: cm10 Complains of pain in head Pain does not radiate. Pain currently is 9 out of 10 on a pain scale. Neuro: No deficits noted. Level of Consciousness is awake, alert, obeys commands, Oriented to person, place, time, situation, Appropriate for age. Neuro: Reports headache Seizure activity reported prior to arrival. Seizure lasted approximately 1 minutes. Respiratory: No deficits noted. Airway is patent Respiratory effort is even, unlabored, Respiratory pattern is regular, symmetrical. Historical: - Allergies: 13:14 Latex; cm10 13:14 PENICILLINS; cm10 - Home Meds: 13:14 dilantin only when she doesn't feel right [Active]; cm10 - PMHx: 13:14 Asthma; Seizures; cm10 - PSHx: 13:14 section; section; section; Left hip; umbilical hernia repair;cm10 - Immunization history:: Adult Immunizations unknown. - Infectious Disease History:: Denies. - Social history:: Smoking status: unknown. Screenin:15 [facility] ED Fall Risk Assessment (Adult) History of falling in the last 3 months, ld1 including since admission Yes- single mechanical fall (1 pt) Confusion or Disorientation No (0 pts) Intoxicated or Sedated No (0 pts) Impaired Gait No (0 pts) Mobility Assist Device Used No (0 pt) Altered Elimination No (0 pt) Score/Fall Risk Level 0 - 2 = Low Risk Oriented to surroundings, Maintained a safe environment, Educated pt \T\ family on fall prevention, incl call for assistance when getting out of bed, Assessed \T\ reinforced patient's understanding of fall precautions, Provided non-skid footwear, Hourly rounding (assess needs \T\ fall precautionary measures) done, Used ambulatory aids as needed (educated on \T\ assisted with), Used gait belt as appropriate. Abuse screen: Denies threats or abuse. Denies injuries from another. Nutritional screening: No deficits noted. Tuberculosis screening: No symptoms or risk factors identified. Assessment: 15:13 Reassessment: Patient appears in no apparent distress at this time. Patient and/or cm10 family updated on plan of care and expected duration. Pain level reassessed. Patient is alert, oriented x 3, equal unlabored respirations, skin warm/dry/pink. 16:31 Reassessment: Pt c/o headache. Notified provider - see [facility] for orders. Pt drowsy at ld1 this time, unable to remain alert. Pt resting in bed, will discharge when patient is alert. 17:15 Reassessment: Patient appears in no apparent distress at this time. No changes from ld1 previously documented assessment. Patient is alert, oriented x 3, equal unlabored respirations, skin warm/dry/pink. Vital Signs: 13:07 BP 101 / 78; Pulse 68; Resp 14; Temp 98.7(O); Pulse Ox 97% on R/A; Weight 67.13 kg; cm10 Height 4 ft. 10 in. ; Pain 9/10; 13:30 BP 112 / 62; Pulse 65; Resp 15; Pulse Ox 99% on R/A; cm10 14:30 BP 93 / 75; Pulse 55; Resp 15; Pulse Ox 94% ; cm10 15:07 BP 103 / 77; Pulse 56; Resp 18; Pulse Ox 97% on R/A; ld1 13:07 Body Mass Index 30.93 (67.13 kg, 147.32 cm) cm10 13:07 Pain Scale: Adult cm10 Arianna Coma Score: 13:14 Eye Response: spontaneous(4). Motor Response: obeys commands(6). Verbal Response: cm10 oriented(5). Total: 15. ED Course: 13:00 Patient arrived in ED. cm10 13:01 Janae Tenorio, TAWANDA is Primary Nurse. cm10 13:02 Teressa Mathews FNP-C is PHCP. kb 13:02 Javon Garnica DO is Attending Physician. kb 13:09 Triage completed. cm10 13:16 Arm band placed on right wrist. Patient placed in an exam room, on a stretcher, on cm10 pulse oximetry. 13:16 Patient has correct armband on for positive identification. Bed in low position. Call cm10 light in reach. Side rails up X2. Seizure precautions initiated. 13:18 Maintain EMS IV. Dressing intact. Good blood return noted. Site clean \T\ dry. Gauge \T\ cm 10 site: 20g left hand. Flushed with 10 mL NS. 13:27 Dilantin Sent. bc6 13:27 CMP Sent. bc6 13:27 CBC with Diff Sent. bc6 13:28 Initial lab(s) drawn, by nc, sent to lab. Inserted saline lock: 20 gauge in right bc6 wrist, using aseptic technique. Blood collected. Flushed with 10 mL NS. 14:15 CT Head Brain wo Cont In Process Unspecified. EDMS 17:15 Pulse ox on. NIBP on. Door closed. Noise minimized. ld1 17:15 No provider procedures requiring assistance completed. IV discontinued, intact, ld1 bleeding controlled, No redness/swelling at site. Administered Medications: 14:42 Drug: Keppra IV 1000 mg IV at calculated rate once Route: IV; Rate: calculated rate; cm10 Site: right forearm; 15:02 Follow up: Response: No adverse reaction; IV Status: Completed infusion; IV Intake: cm10 100ml 16:31 Drug: Acetaminophen PO 1000 mg PO once Route: PO; ld1 16:31 Follow up: Response: No adverse reaction ld1 Medication: 13:17 VIS not applicable for this client. cm10 Intake: 15:02 IV: 100ml; Total: 100ml. cm10 Outcome: 16:14 Discharge ordered by . gualberto 17:15 Discharged to home via wheelchair, with family, ld1 17:15 Condition: stable 17:15 Discharge instructions given to patient, family, Instructed on discharge instructions, follow up and referral plans. medication usage, Demonstrated understanding of instructions, follow-up care, medications, 17:16 Patient left the ED. ld1 Signatures: Dispatcher [employer] EDMS Teressa Mathews, CHUCHO WATERMANP-Nadine Bishop RN RN ld1 Fiorella Hilton6 Janae Tenorio RN RN cm10
--- NOTE | 2024-06-28 16:15 | EDPHYS ---
Physician Documentation [facility] Name: Diana Vincent Age: 48 yrs Sex: Female : 1975 Arrival Date: 06/28/2024 Time: 12:51 Bed 5 Private MD: ED Physician Javon Garnica HPI: 06/28 13:04 This 48 yrs old Black Female presents to ER via Unassigned with complaints of Seizure. kb 13:04 Pt is a 48 year old female with a history of seizures and thyroid disorder who presents kb for a seizure that occurred today. EMS reports called for seizure activity and pt had 2 witnessed seizures with them, getting 2mg total of Ativan in route. Pt states she is supposed to take dilantin and another unknown seizure medication. States she does not take her medication as prescribed. Reports last seizure was yesterday and they have been more frequent lately. . Historical: - Allergies: 13:14 Latex; cm10 13:14 PENICILLINS; cm10 - Home Meds: 13:14 dilantin only when she doesn't feel right [Active]; cm10 - PMHx: 13:14 Asthma; Seizures; cm10 - PSHx: 13:14 section; section; section; Left hip; umbilical hernia repair;cm10 - Immunization history:: Adult Immunizations unknown. - Infectious Disease History:: Denies. - Social history:: Smoking status: unknown. ROS: 13:06 Constitutional: As per HPI kb Exam: 13:06 Constitutional: This is a well developed, well nourished patient who is awake, alert, kb and in no acute distress. Head/Face: Normocephalic, atraumatic. Eyes: Pupils equal round and reactive to light, extra-ocular motions intact. Lids and lashes normal. Conjunctiva and sclera are non-icteric and not injected. Cornea within normal limits. Periorbital areas with no swelling, redness, or edema. ENT: Moist Mucous membranes Cardiovascular: Regular rate Respiratory: Respirations even and unlabored. No increased work of breathing. Talking in full sentences Skin: Warm, dry with normal turgor. Normal color. MS/ Extremity: Pulses equal, no cyanosis. Neurovascular intact. Full, normal range of motion. Neuro: Awake and alert, GCS 15, oriented to person, place, time, and situation. Vital Signs: 13:07 BP 101 / 78; Pulse 68; Resp 14; Temp 98.7(O); Pulse Ox 97% on R/A; Weight 67.13 kg; cm10 Height 4 ft. 10 in. ; Pain 9/10; 13:30 BP 112 / 62; Pulse 65; Resp 15; Pulse Ox 99% on R/A; cm10 14:30 BP 93 / 75; Pulse 55; Resp 15; Pulse Ox 94% ; cm10 15:07 BP 103 / 77; Pulse 56; Resp 18; Pulse Ox 97% on R/A; ld1 13:07 Body Mass Index 30.93 (67.13 kg, 147.32 cm) cm10 13:07 Pain Scale: Adult cm10 Arianna Coma Score: 13:14 Eye Response: spontaneous(4). Motor Response: obeys commands(6). Verbal Response: cm10 oriented(5). Total: 15. MDM: 13:03 Medical Screening Exam initiated 13:06 Data reviewed: vital signs, nurses notes. Historians other than the Patient: EMS: gualberto [facility]. 16:14 Differential diagnosis: cardiac arrhythmia, seizure. Counseling: I had a detailed discussion with the patient and/or guardian regarding the historical points, exam findings, and any diagnostic results supporting the discharge/admit diagnosis, lab results, radiology results, the need for outpatient follow up, a family practitioner, a neurologist, to return to the emergency department if symptoms worsen or persist or if there are any questions or concerns that arise at home. 16:15 ED course: Family reported pt fell on Thursday and has had several seizures since kb then.concerned about head injury. Pt was transferred after visit on Thursday, but family states pt signed herself out of facility. CT completed and negative for acute findings. Discussed findings with pt and family. Pt is awake, alert and oriented at this time. Pt states she is wide awake and ready to go home. Tolerating po intake. No seizure activity since arrival. . 06/28 13:03 Order name: CBC with Diff; Complete Time: 13:36 kb 06/28 13:03 Order name: CMP; Complete Time: 13:59 kb 06/28 13:03 Order name: Dilantin; Complete Time: 13:59 kb 06/28 13:03 Order name: Urinalysis w/ reflexes; Complete Time: 13:59 kb 06/28 14:04 Order name: CT Head Brain wo Cont; Complete Time: 14:26 kb 06/28 13:03 Order name: IV Start; Complete Time: 13:27 kb 06/28 14:58 Order name: PO challenge; Complete Time: 15:07 kb Administered Medications: 14:42 Drug: Keppra IV 1000 mg IV at calculated rate once Route: IV; Rate: calculated rate; cm10 Site: right forearm; 15:02 Follow up: Response: No adverse reaction; IV Status: Completed infusion; IV Intake: cm10 100ml 16:31 Drug: Acetaminophen PO 1000 mg PO once Route: PO; ld1 16:31 Follow up: Response: No adverse reaction ld1 Disposition: 17:56 I was immediately available on-site in the Emergency Department for consultation in the ms3 care of the patient. Disposition Summary: 06/28/24 16:14 Discharge Ordered Notes: Location: Home kb Condition: Stable kb Diagnosis - Epileptic seizures related to external causes, not intractable kb Followup: kb - With: Emergency Department - When: As needed - Reason: Worsening of condition Followup: kb - With: Private Physician - When: 2 - 3 days - Reason: Recheck today's complaints, Continuance of care, Re-evaluation by your physician Discharge Instructions: - Discharge Summary Sheet kb - Seizure, Adult, [id number] kb Forms: - Medication Reconciliation Form kb - Antibiotic Education kb - Prescription Opioid Use kb - Patient Portal Instructions kb - Leadership Thank You Letter kb Signatures: Dispatcher [employer] Teressa Anton, ASSISTANT WOMEN'S SOCCER COACH-C ASSISTANT WOMEN'S SOCCER COACH-Javon Bishop DO DO ms3 Nadine Garnica, RN RN ld1 Janae Tenorio, RN RN cm10
[2024-06-28] MEDS ORDERED: ACETAMINOPHEN 500 MG TAB ONE (16:19)
[2024-06-28 21:02] VITALS: TEMP 98.7
[2024-06-28 21:06] VITALS: BP 103/77; O2SAT 97
--- OUTSIDE RECORDS SUMMARY | 2024-06-29 02:24 | XMS REPORT | Continuity of Care Document ---
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 Discontinu ed, Routine [facility] nystatin / bacitracin- polymyxin b oint 1:1 POLY-MYCO (COMPOUNDED ) 02-15 12:40: 20 Yes Topical (Apply To Affected Areas), QDAILYPRN, Starting Marcia 02/16/20 at 0740, Until Discontinu ed, Routine, Burn Care [facility] fluticasone propion-robina meteroL (ADVAIR) 250-50 mcg/dose inhalation disk 1 Puff 02-15 12:30: 00 02-18 00:30 :55 No 1{puff} 1 Puff, Inhalation , [facility], First dose on Marcia 02/16/20 at 0730, Until Discontinu ed, Routine
Use approved by (Faculty and pager): ADC PROVIDER [facility] FENTanyl PF (SUBLIMAZE (PF)) injection 25 mcg 02-15 08:30: 00 02-15 04:00 :00 No 25ug 25 mcg, Slow IV Push, ONCE, 1 dose, Marcia 02/16/20 at 0330, Routine [facility] D5W 0.45% NaCl (1/2NS) 1 L + KCL 20 mEq 02-15 07:30: 00 02-18 02:25 :51 No IV Infusion, at 100 mL/hr, CONTINUOUS , Starting Marcia 02/16/20 at 0230, Until 02/18/20 at 2125, Routine [facility] diphenhydrA MINE (BENADRYL) capsule 50 mg 02-15 07:16: 56 Yes 50mg 50 mg, Oral, PRN, Starting Marcia 02/16/20 at 0216, Until Discontinu ed, Routine, 30 mins before Ancef [facility] LORazepam (ATIVAN) injection 2 mg 02-15 07:08: 53 Yes 2mg 2 mg, Slow IV Push, PRN, Starting Marcia 02/16/20 at 0208, Until Discontinu ed, Routine, Seizures [facility] levETIRAcet am (KEPPRA) in NACL (ISO-OS) 500 mg/100 mL RTU 02-15 06:07: 00 02-15 06:30 :00 No 500mg 500 mg, IV Infusion, ONCE, 1 dose, Marcia 02/16/20 at 0115, 100 mL [facility] acetaminoph en (TYLENOL) tablet 650 mg 02-15 05:00: 00 Yes 650mg 650 mg, Oral, Q6H, First dose on Thu02/16/20 at 0000, Until Discontinu ed, Routine [facility] phenytoin Extended (DILANTIN KAPSEAL) capsule 100 mg 02-15 05:00: 00 02-16 01:47 :06 No 100mg 100 mg, Oral, TID, First dose on Thu02/16/20 at 0000, Until Discontinu ed, Routine [facility] morpHINE injection 4 mg 02-15 04:40: 47 Yes 4mg 4 mg, Slow IV Push, Q4HPRN, Starting Thu02/15/20 at 2340, Until Discontinu ed, Routine, Pain (scale 7-10) [facility] HYDROcodone -acetaminop hen (NORCO 5) 5-325 mg tablet 1 tablet 02-15 04:40: 28 Yes 1{tbl} 1 tablet, Oral, Q6HPRN, Starting Thu02/15/20 at 2340, Until Discontinu ed, Routine, Pain (scale 4-6) [facility] morpHINE injection 4 mg 02-15 03:15: 00 02-15 02:08 :00 No 4mg 4 mg, Slow IV Push, ONCE, 1 dose, Thu02/15/20 at 2215, STAT [facility] morpHINE injection 4 mg 02-15 02:30: 00 02-15 01:18 :00 No 4mg 4 mg, Slow IV Push, ONCE, 1 dose, Thu02/15/20 at 2130, STAT [facility] NaCl 0.9% (NS) bolus infusion 1,000 mL 02-15 01:00: 00 02-15 01:20 :00 No 1000mL at 999 mL/hr, 1,000 mL, IV Infusion, ONCE, 1 dose, Thu02/15/20 at 2000, STAT [facility] vancomycin (VANCOCIN) 1,000 mg in NaCl 0.9% (NS) 250 mL VIAL-MATE IV piggyback 02-15 00:45: 00 02-15 00:38 :00 No 1000mg 1,000 mg, IV Piggyback, ONCE, 1 dose, Thu02/15/20 at 1945, 250 mL
Reas on for Anti-Infec tive: Empiric Therapy for Suspected Infection< br>Empiric Therapy Site: Skin / Soft tissue
Duration of therapy: 72 hours [facility] tetanus-dip htheria toxoids (TENIVAC) 5-2 Lf unit/0.5 mL injection 0.5 mL 02-15 00:45: 00 02-14 23:34 :00 No .5mL 0.5 mL, Intramuscu lar, ONCE, 1 dose, Thu02/15/20 at 1945, Routine [facility] ondansetron (ZOFRAN (PF)) injection 4 mg 02-15 00:30: 00 02-14 23:29 :00 No 4mg 4 mg, Slow IV Push, ONCE, 1 dose, Thu02/15/20 at 1930, REINALDO [facility] FENTanyl PF (SUBLIMAZE (PF)) injection 100 mcg 02-15 00:30: 00 02-14 23:28 :00 No 100ug 100 mcg, Slow IV Push, ONCE, 1 dose, Thu02/15/20 at 1930, STAT [facility] Levothyroxi ne (TIROSINT) 100 mcg Cap 11-15 00:00: 00 02-14 00:00 :00 No 100ug Take 100 mcg by mouth daily. [facility] DILANTIN EXTENDED 100 MG ORAL CAP 08-17 18:44: 55 Yes three times daily [facility] PROVENTIL HFA INHALE 08-17 18:44: 54 Yes prn [facility] METOPROLOL TARTRATE 50 MG ORAL TAB 08-17 00:00: 00 02-14 00:00 :00 No [id number] 1 by mouth two times a day [facility] Immunizations Ordered Immunization Name Filled Immunization Name Date Status Comments Source SARS-COV-2 COVID-19 PFIZER VACCINE 2020-10-20 00:00:00 Completed [facility] SARS-COV-2 COVID-19 PFIZER VACCINE 2020-10-20 00:00:00 Completed [facility] SARS-COV-2 COVID-19 PFIZER VACCINE 2020-10-20 00:00:00 Completed [facility] SARS-COV-2 COVID-19 PFIZER VACCINE 2020-10-20 00:00:00 Completed [facility] SARS-COV-2 COVID-19 PFIZER VACCINE 2020-10-20 00:00:00 Completed [facility] SARS-COV-2 COVID-19 PFIZER VACCINE 2020-10-20 00:00:00 Completed [facility] SARS-COV-2 COVID-19 PFIZER VACCINE 2020-10-20 00:00:00 Completed SARS-COV-2 COVID-19 PFIZER VACCINE 2020-09-22 00:00:00 Completed [facility] SARS-COV-2 COVID-19 PFIZER VACCINE 2020-09-22 00:00:00 Completed [facility] SARS-COV-2 COVID-19 PFIZER VACCINE 2020-09-22 00:00:00 Completed [facility] SARS-COV-2 COVID-19 PFIZER VACCINE 2020-09-22 00:00:00 Completed [facility] SARS-COV-2 COVID-19 PFIZER VACCINE 2020-09-22 00:00:00 Completed [facility] SARS-COV-2 COVID-19 PFIZER VACCINE 2020-09-22 00:00:00 Completed [facility] SARS-COV-2 COVID-19 PFIZER VACCINE 2020-09-22 00:00:00 Completed [facility] Td 2020-02-15 00:00:00 Completed [facility] Td 2020-02-15 00:00:00 Completed [facility] Td 2020-02-15 00:00:00 Completed [facility] Td 2020-02-15 00:00:00 Completed [facility] Td 2020-02-15 00:00:00 Completed [facility] Td 2020-02-15 00:00:00 Completed [facility] Td 2020-02-15 00:00:00 Completed [facility] Td 2020-02-15 00:00:00 Completed [facility] TD, NOS 2020-02-15 00:00:00 Completed [facility] Td 2020-02-15 00:00:00 Completed [facility] Vital Signs Vital Name Observation Time Observation Value Daniel jose Systolic blood pressure 2024-06-27 14:00:00 107 mm[Hg] [facility] Diastolic blood pressure 2024-06-27 14:00:00 79 mm[Hg] [facility] Heart rate 2024-06-27 14:00:00 79 /min [facility] Body temperature 2024-06-27 14:00:00 37.11 Judith [facility] Oxygen saturation in Arterial blood by Pulse oximetry 2024-06-27 14:00:00 97 /min [facility] Respiratory rate 2024-06-27 13:00:00 17 /min [facility] Body height 2024-06-27 05:00:00 149.9 cm [facility] Body weight 2024-06-27 05:00:00 67.132 kg [facility] BMI 2024-06-27 05:00:00 29.88 kg/m2 [facility] Systolic blood pressure 2021-06-05 22:08:00 116 mm[Hg] [facility] Diastolic blood pressure 2021-06-05 22:08:00 68 mm[Hg] [facility] Heart rate 2021-06-05 22:08:00 71 /min [facility] Body temperature 2021-06-05 22:08:00 36.56 Judith [facility] Respiratory rate 2021-06-05 22:08:00 16 /min [facility] Oxygen saturation in Arterial blood by Pulse oximetry 2021-06-05 22:08:00 96 /min [facility] Body height 2021-06-02 22:30:00 149.9 cm [facility] Body weight 2021-06-02 22:30:00 74.844 kg [facility] BMI 2021-06-02 22:30:00 33.33 kg/m2 [facility] Systolic blood pressure 2020-12-08 16:05:00 108 mm[Hg] [facility] Diastolic blood pressure 2020-12-08 16:05:00 64 mm[Hg] [facility] Heart rate 2020-12-08 16:05:00 70 /min [facility] Body temperature 2020-12-08 16:05:00 36.17 Judith [facility] Respiratory rate 2020-12-08 16:05:00 18 /min [facility] Oxygen saturation in Arterial blood by Pulse oximetry 2020-12-08 16:05:00 94 /min [facility] Body weight 2020-12-07 09:35:00 83.462 kg [facility] BMI 2020-12-07 09:35:00 37.16 kg/m2 [facility] Systolic blood pressure 2020-12-08 16:05:00 108 mm[Hg] [facility] Diastolic blood pressure 2020-12-08 16:05:00 64 mm[Hg] [facility] Heart rate 2020-12-08 16:05:00 70 /min [facility] Body temperature 2020-12-08 16:05:00 36.17 Judith [facility] Respiratory rate 2020-12-08 16:05:00 18 /min [facility] Oxygen saturation in Arterial blood by Pulse oximetry 2020-12-08 16:05:00 94 /min [facility] Body weight 2020-12-07 09:35:00 83.462 kg [facility] BMI 2020-12-07 09:35:00 37.16 kg/m2 [facility] Systolic blood pressure 2020-02-19 16:38:00 140 mm[Hg] [facility] Diastolic blood pressure 2020-02-19 16:38:00 71 mm[Hg] [facility] Heart rate 2020-02-19 16:38:00 85 /min [facility] Body temperature 2020-02-19 16:38:00 36.67 Judith [facility] Respiratory rate 2020-02-19 16:38:00 18 /min [facility] Oxygen saturation in Arterial blood by Pulse oximetry 2020-02-19 16:38:00 100 /min [facility] Body height 2020-02-16 08:30:00 149.9 cm [facility] Body weight 2020-02-16 08:30:00 77.1 kg [facility] BMI 2020-02-16 08:30:00 34.33 kg/m2 [facility] Systolic blood pressure 2020-02-19 16:38:00 140 mm[Hg] [facility] Diastolic blood pressure 2020-02-19 16:38:00 71 mm[Hg] [facility] Heart rate 2020-02-19 16:38:00 85 /min [facility] Body temperature 2020-02-19 16:38:00 36.67 Judith [facility] Respiratory rate 2020-02-19 16:38:00 18 /min [facility] Oxygen saturation in Arterial blood by Pulse oximetry 2020-02-19 16:38:00 100 /min [facility] Body height 2020-02-16 08:30:00 149.9 cm [facility] Body weight 2020-02-16 08:30:00 77.1 kg [facility] BMI 2020-02-16 08:30:00 34.33 kg/m2 [facility] Systolic blood pressure 2020-02-16 02:00:00 124 mm[Hg] [facility] Diastolic blood pressure 2020-02-16 02:00:00 86 mm[Hg] [facility] Heart rate 2020-02-16 02:00:00 78 /min [facility] 2020-02-16 02:00:00 16 /min [facility] Oxygen saturation in Arterial blood by Pulse oximetry 2020-02-16 02:00:00 99 /min [facility] Body temperature 2020-02-15 23:42:44 36.78 Judith [facility] Body height 2020-02-15 23:17:00 149.9 cm [facility] 2020-02-15 23:17:00 77.111 kg [facility] BMI 2020-02-15 23:17:00 34.34 kg/m2 [facility] Systolic blood pressure 2020-02-16 02:00:00 124 mm[Hg] [facility] Diastolic blood pressure 2020-02-16 02:00:00 86 mm[Hg] [facility] Heart rate 2020-02-16 02:00:00 78 /min [facility] Respiratory rate 2020-02-16 02:00:00 16 /min [facility] Oxygen saturation in Arterial blood by Pulse oximetry 2020-02-16 02:00:00 99 /min [facility] Body temperature 2020-02-15 23:42:44 36.78 Judith [facility] Body height 2020-02-15 23:17:00 149.9 cm [facility] Body weight 2020-02-15 23:17:00 77.111 kg [facility] BMI 2020-02-15 23:17:00 34.34 kg/m2 [facility] Procedures Procedure Date / Time Performed Performing Clinician Source URINALYSIS 2024-06-27 10:43:00 Joseline Rivera [facility] PHOSPHORUS 2024-06-27 09:06:00 Joseline Rivera [facility] MAGNESIUM 2024-06-27 09:06:00 Joseline Rivera [facility] BASIC METABOLIC PANEL (NA, K , CL, CO2, GLUCOSE, BUN, CREATININE, CA) 2024-06-27 09:06:00 Joseline Rivera [facility] CBC WITH DIFF 2024-06-27 09:06:00 Joseline Rivera [facility] AC PANEL 20 + LACTIC ACID 2024-06-27 08:55:00 Joseline Rivera [facility] XR CHEST 1 VW 2024-06-27 06:06:00 Joseline Rivera [facility] ACUTE CARE ARTERIAL BLOOD GAS 2024-06-27 04:09:00 Joseline Rivera [facility] MAGNESIUM 2024-06-27 04:08:00 [facility] 2024-06-27 04:08:00 [facility] HORMONE 2024-06-27 04:08:00 Joseline Rivera [facility] BASIC METABOLIC PANEL (NA, K , CL, CO2, GLUCOSE, BUN, CREATININE, CA) 2024-06-27 04:08:00 [facility] 2024-06-27 04:08:00 Joseline Rivera [facility] GLYCOSYLATED HEMOGLOBIN (A1C) 2024-06-27 04:08:00 Joseline Rivera [facility] MRSA / MSSA SCREEN BY PCRWENDY 2024-06-27 04:08:00 Joseline Rivera [facility] COVID-19 (ID NOW RAPID TESTING) 2021-06-04 23:29:00 Rohini Rowan [facility] US PELVIS COMPLETE WITH TRANSVAGINAL 2021-06-03 16:43:05 Mckenzie Fischer [facility] CBC WITH DIFF 2021-06-03 11:27:00 Rohini Rowan [facility] ADC CLC OR LCC ONLY - WET PREP 2021-06-02 19:17:00 Rohini Rowan [facility] BLOOD CULTURE SCREEN 2021-06-02 17:16:00 Mckenzie Fischer [facility] BLOOD CULTURE SCREEN 2021-06-02 17:01:00 Mckenzie Fischer [facility] BLOOD CULTURE WORKUP 2021-06-02 17:01:00 Mckenzie Fischer [facility] GRAM POSITIVE BLOOD PATHOGEN S DNA PROBE-AEROBIC 2021-06-02 17:01:00 Mckenzie Fischer [facility] CT ABDOMEN PELVIS W CONTRAST 2021-06-02 [facility]:10:[facility]-02 14:56[facility] COMP. METABOLIC PANEL ([id number]) 2021-06-02 14:07:00 [facility]FF 2021-06-02 14:07:00 [facility] / INR 2021-06-02 14:07:00 [facility] THRMPLAS MEENA 2021-06-02 14:07:00 [facility] URINALYSIS 2021-06-02 14:07:00 [facility] COVID-19 (ID NOW RAPID TESTING) 2021-06-02 14:07:00 [facility] LACTIC ACID WHOLE BLOOD 2021-06-02 14:06:00 [facility] POCT TEST 2021-06-02 14:05[facility]00 [facility] NOTICE OF PRIVACY PRACTICES 2021-06-02 13:45:03 Doctor Unassigned, [place] [facility] CONSENT/REFUSAL FOR DIAGNOSI S AND TREATMENT 2021-06-02 13:43:14 Doctor Unassigned, [place] [facility] CBC WITH DIFF 2020-12-08 09:54:00 Kleber Macedo [facility] ACUTE CARE ARTERIAL BLOOD GAS 2020-12-07 09:40:00 Judith [facility] COMP. METABOLIC PANEL ([id number]) 2020-12-07 07:01:00 Mercedez Richmond [facility] CBC WITH DIFF 2020-12-07 07:01:00 Mercedez Richmond [facility] CT HEAD WO CONTRAST 2020-12-07 02:33:06 Judith noemi [facility] PHOSPHORUS 2020-12-07 01:43:00 Judith noemi [facility] MAGNESIUM 2020-12-07 01:43:00 [facility] COMP. METABOLIC PANEL ([id number]) 2020-12-07 01:43:00 Judith [facility] PHENYTOIN 2020-12-07 01:43:00 Danny Wong [facility] PHENYTOIN FREE 2020-12-07 01:43:00 Danny Wong [facility] KEPPRA (LEVETIRACETAM) 2020-12-07 01:43:00 Dnany Wong [facility] AC PANEL 20 + LACTIC ACID 2020-12-07 01:38:00 Danny Wong [facility] XR CHEST 1 VW 2020-12-07 00:20:16 Kleber Macedo [facility] POCT GLUCOSE (AUTOMATED) 2020-12-06 21:04:00 Jose Whitehead [facility] CBC WITH DIFF 2020-12-06 11:16:00 Mercedez Richmond [facility] BASIC METABOLIC PANEL (NA, K , CL, CO2, GLUCOSE, BUN, CREATININE, CA) 2020-12-05 09:34:00 Jose Whitehead [facility] CBC WITH DIFF 2020-12-05 09:34:00 Jose Whitehead [facility] COVID-19 (ID NOW RAPID TESTING) 2020-12-04 21:10:00 Mckenzie Fischer [facility] LAB ONLY COVID INTERPRETATION 2020-12-04 21:10:00 Mckenzie Fischer [facility] CT ABDOMEN PELVIS W CONTRAST 2020-12-04 20:15:23 Mckenzie Fischer [facility] POCT TEST 2020-12-04 19:51:00 Mckenzie Fischer [facility] BLOOD CULTURE SCREEN 2020-12-04 19:49:00 Mckenzie Fischer [facility] HEPATIC FUNCTION PANEL ([id number]) (ALB,T.PRO,BILI T,BU/BC,ALT,AST,ALK PHOS) 2020-12-04 19:49:00 Mckenzie Fischer [facility] BASIC METABOLIC PANEL (NA, K , CL, CO2, GLUCOSE, BUN, CREATININE, CA) 2020-12-04 19:49:00 Mckenzie Fischer [facility] CBC WITH DIFF 2020-12-04 19:49:00 Mckenzie Fischer [facility] GLYCOSYLATED HEMOGLOBIN (A1C) 2020-12-04 19:49:00 Jose Whitehead [facility] URINALYSIS 2020-12-04 19:49:00 Mckenzie Fischer [facility] LACTIC ACID WHOLE BLOOD 2020-12-04 19:49:00 Mckenzie Fischer [facility] BLOOD CULTURE SCREEN 2020-12-04 19:35:00 Mckenzie Fischer [facility] CONSENT/REFUSAL FOR DIAGNOSI S AND TREATMENT 2020-12-04 17:10:47 Doctor Unassigned, [place] [facility] MR LUMBAR SPINE WO CONTRAST 2020-02-18 16:38:16 Steve Sauceda [facility] MR BRAIN W WO CONTRAST 2020-02-18 16:38:16 [facility] KEPPRA (LEVETIRACETAM) 2020-02-18 03:13:00 [facility] TROPONIN I 2020-02-18 03:04:00 [facility] COMP. METABOLIC PANEL ([id number]) 2020-02-18 03:04:00 [facility] CBC WITH DIFF 2020-02-18 03:04:[address] [facility] [address] HEAD WO CONTRAST 2020-02-17 02:30:10 Noam Hanson [facility] ELECTROENCEPHALOGRAM 2020-02-17 00:00:00 Noam Hanson [facility] PHENYTOIN FREE 2020-02-16 23:28:00 Moon Renner [facility] CREATINE KINASE 2020-02-16 10:40:00 Noam Hanson [facility] MAGNESIUM 2020-02-16 10:40:00 Noam Hanson [facility] BASIC METABOLIC PANEL (NA, K , CL, CO2, GLUCOSE, BUN, CREATININE, CA) 2020-02-16 10:40:00 [facility] 2020-02-16 10:40:00 Saundra Gaston [facility] COVID-19 (ID NOW RAPID TESTING) 2020-02-16 00:00:00 Tim Russell [facility] CREATINE KINASE 2020-02-15 23:30:00 Tim Russell [facility] COMP. METABOLIC PANEL ([id number]) 2020-02-15 23:30:00 Tim Russell [facility] CBC WITH DIFF 2020-02-15 23:30:00 Tim Russell [facility] LACTIC ACID WHOLE BLOOD 2020-02-15 23:30:00 Tim Russell [facility] NOTICE OF PRIVACY PRACTICES 2020-02-15 23:06:05 Doctor Unassigned, [place] [facility] CONSENT/REFUSAL FOR DIAGNOSI S AND TREATMENT 2020-02-15 23:05:40 Doctor Unassigned, [place] [facility] Encounters Start Date/Time End Date/Time Encounter Type Admission Type Attending Clinicians Care Facility Care Department Encounter ID Source 2024-06-26 20:37:00 2024-06-27 08:55:00 Hospital Encounter Seymour Godinez [facility] [place] ([facility]) [id number] [id number] [id number] [id number] [facility] 2021-07-21 00:00:00 2021-07-21 00:00:00 [facility] [id number] 350.1.13.10 4.2.7.2.686 [id number] [facility] 2021-06-06 00:00:00 2021-06-06 00:00:00 Transition of Care Mahogany Cortez 1.0.114 350.1.13.10 4.2.7.2.686 [id number] [facility] 2021-06-02 07:53:00 2021-06-05 18:21:00 Inpatient X ROHINI ROWAN [facility] [id number] [facility] 2021-06-02 07:53:00 2021-06-05 18:21:00 Hospital Encounter Mckenzie Fischer Rohini Ramo [facility] [id number] 350.1.13.10 4.2.7.2.686 [id number] [facility] 2020-12-11 00:00:00 2020-12-11 00:00:00 Transition of Care Mahogany Cortez [id number] 350.1.13.10 4.2.7.2.686 [id number] 2020-12-11 00:00:00 2020-12-11 00:00:00 Transition of Care Mahogany Cortez [id number] 350.1.13.10 4.2.7.2.686 [id number] [facility] 2020-12-04 12:23:00 2020-12-08 13:59:00 Hospital Encounter Mckenzie Fischer Yaman Morris, [facility] [id number] 350.1.13.10 4.2.7.2.686 [id number] 2020-12-04 12:23:00 2020-12-08 13:59:00 Hospital Encounter Mckenzie Fischer Yaman Morris, [facility] [id number] 350.1.13.10 4.2.7.2.686 [id number] [facility] 2020-12-04 12:11:00 2020-12-04 12:11:00 Emergency X [facility] E[facility] [id number] [facility] 2020-12-04 00:00:00 2020-12-04 00:00:00 Orders Only Doctor Unassigned, [place] [facility] [id number] 350.1.13.10 4.2.7.2.686 [id number] 2020-12-04 00:00:00 2020-12-04 00:00:00 Orders Only Doctor Unassigned, [place] [facility] [id number] 350.1.13.10 4.2.7.2.686 [id number] [facility] 2020-02-21 00:00:00 2020-02-21 00:00:00 Transition of Care Mahogany Cortez [id number] 350.1.13.10 4.2.7.2.686 [id number] 2020-02-21 00:00:00 2020-02-21 00:00:00 Transition of Care Mahogany Cortez [id number] 350.1.13.10 4.2.7.2.686 [id number] [facility] 2020-02-15 23:20:00 2020-02-19 14:53:00 Hospital Encounter [facility] [id number] 350.1.13.10 4.2.7.2.686 [id number] 2020-02-15 23:20:00 2020-02-19 14:53:00 Hospital Encounter [facility] 1.2.840.114 350.1.13.10 4.2.7.2.686 [id number] [facility] 2020-02-15 18:13:00 2020-02-15 21:26:00 [facility].2.[facility].114 350.1.13.10 4.2.7.2.686 [id number] 2020-02-15 18:13:00 2020-02-15 21:26:00 Emergency DrewTim villalpando [facility] 1.2.840.114 350.1.13.10 4.2.7.2.686 [id number] [facility] 2020-02-15 18:07:00 2020-02-15 18:07:00 Emergency X [facility] ERT [id number] [facility] 2020-02-15 00:00:00 2020-02-15 00:00:00 Orders Only Doctor Unassigned, [place] [facility] 1.2.840.114 350.1.13.10 4.2.7.2.686 [id number] [id number] 2020-02-15 00:00:00 2020-02-15 00:00:00 Orders Only Doctor Unassigned, [place] [facility] 1.2.840.114 350.1.13.10 4.2.7.2.686 [id number] [id number] [facility] Results Test Description Test Time Test Comments Results Resul t Comments Source Chest 1 VIEW 2024-06-02 7 10:17:56 Ordering physician: SEYMOUR GODINEZ Clinical indication: Follow-up Comparison: December 06, 2020 Technique: Chest, single view Technical quality: Adequate Findings: There are low lung volumes. The lungs are clear. No pleural effusions areevident. Heart size is normal. The superior mediastinal silhouette isunremarkable for age, projection, and degree of inspiration. No acute bonyabnormalities are evident. [facility] (NA, K, CL, CO2, GLUCOSE, BUN, CREATININE, CA)2024-06-27 10:00:50* Test Item Value Reference Range Interpretation Comme nts NA (test code = 8490743197) 138 mmol/L 135-145 K (test code = 1947634867) 3.7 mmol/L 3.5-5.0 CL (test code = 7930750491) 110 mmol/L 98-108 H CO2 TOTAL (test code = 4325222681) 24 mmol/L 23-31 AGAP (test code = 8167008836) 4 2-16 BUN (test code = 9403974165) 11 mg/dL 7-23 GLUCOSE (test code = 3453465665) 76 mg/dL 70-110 CREATININE (test code = 2160-0) 0.53 mg/dL 0.50-1.04 CALCIUM (test code = 6068751761) 8.2 mg/dL 8.6-10.6 L eGFR (test code = 59627-1) 113.5 mL/min/1.73m2 CKD-EPI eGFR (2020). Assuming creatinine has been stable day-to-day for at least three months, the eGFR indicates Category G1 (>= 90 mL/min/1.73 m2) Lab Interpretation (test code = 59298-9) [facility] 10:00:50* Test Item Value Reference Range Interpretation Comme nts PHOSPHORUS (test code = 7718866676) 3.7 mg/dL 2.5-5.0 Lab Interpretation (test cod e = 70384-6) Normal [facility] with [id number] 09:42:45* Test Item Value Reference Range Interpretation Comme nts WBC (test code = 6690-2) 10.61 4.30-11.10 RBC (test code = 789-8) 4.10 3.93-5.25 HGB (test code = 718-7) 12.6 g/dL 11.6-15.0 HCT (test code = 4544-3) 38.7 % 35.7-45.2 MCV (test code = 787-2) 94.4 fL 80.6-95.5 MCH (test code = 785-6) 30.7 pg 25.9-32.8 MCHC (test code = 786-4) 32.6 g/dL 31.6-35.1 RDW-SD (test code = 91313-6) 44.5 fL 39.0-49.9 RDW-CV (test code = 788-0) 12.8 % 12.0-15.5 PLT (test code = 777-3) 270 166-358 MPV (test code = 11439-5) 9.6 fL 9.5-12.9 NRBC/100 WBC (test code = 8793541546) 0.0 0.0-10.0 NRBC x10^3 (test code = 6051671834) See_Comment [Automated [employer]] The system which generated this result transmitted reference range: 10*3/?L. The reference range was not used to interpret this result as normal/abnormal. GRAN MAT (NEUT) % (test code = 770-8) 69.3 % IMM GRAN % (test code = 3693453861) 0.30 % LYMPH % (test code = 736-9) 20.9 % MONO % (test code = 5905-5) 6.2 % EOS % (test code = 713-8) 2.8 % BASO % (test code = 706-2) 0.5 % GRAN MAT x10^3(ANC) (test code = 4001793945) 7.35 10*3/uL 1.88-7.09 H IMM GRAN x10^3 (test code = 1056492552) 0.03 10*3/uL 0.00-0.06 LYMPH x10^3 (test code = 731-0) 2.22 10*3/uL 1.32-3.29 MONO x10^3 (test code = 742-7) 0.66 10*3/uL 0.33-0.92 EOS x10^3 (test code = 711-2) 0.30 10*3/uL 0.03-0.39 BASO x10^3 (test code = 704-7) 0.05 10*3/uL 0.01-0.07 Lab Interpretation (test code = 98518-7) [facility] + Lactic [id number] 09:18:50* Test Item Value Reference Range Interpretation Comme nts PH (test code = 2) 7.40 7.35-7.45 PCO2 (test code = 3360892704) 39 35-45 PO2 (test code = 7281733732) 141 80-100 H HCO3 (test code = 6363963789) 24 22-26 BE (test code = 0264177061) -1.4 -3.0-3.0 THB (test code = 4048566160) 16.5 g/dL 12.0-16.0 H %O2HB (test code = 9257837867) 98.7 % 94.0-99.0 %COHB ART (test code = 6313083100) 0.3 % 0.0-1.5 %METHB ART (test code = 4766555403) 0.1 % 0.4-1.5 L VOL%O2 ART (test code = 9472832129) 23.1 % 15.0-23.0 H NA (test code = 3316247450) 140 mmol/L 135-145 K+ (test code = 8952113880) 3.9 mmol/L 3.5-5.0 AC CA IONZ (test code = 7356523585) 5.00 mg/dL 4.50-5.30 GLUCOSE (test code = 3765087281) 77 mg/dL 70-110 LACTIC ACID (test code = 9869936614) 0.78 mmol/L 0.50-2.20 QUES Lab Interpretation (test cod e = 68540-9) Abnormal [facility] [id number] 05:25:38 * Test Item Value Reference Range Interpretation Comme nts TSH (test code = 3827679771) 1.30 0.45-4.70 Biotin has been reported to cause a negative bias, interpret results relative to patient's use of biotin. Lab Interpretation (test code = 88938-1) Normal [facility] Hemoglobin (A1C)2024-06-27 05:07:13* Test Item Value Reference Range Interpretation Comme nts HGB A1C (test code = 4548-4) 5.3 % 4.0-5.7 BRE (test code = BRE) Reference RangesNormal: <5.7%Prediabetes: 5.7 - 6.4%Diabetes: > 6.5% Lab Interpretation (test code = 53265-3) Normal [facility] HospitalTroponin C1974 05:06:53* Test Item Value Reference Range Interpretation Comme nts TROPONIN I (test code = 2544696673) 0.003 ng/mL <=0.034 BRE (test code = BRE) Reference (Normal) Range (defined by the 99th percentile reference limit): <= 0.034 ng/mL Note: Cardiac troponin begins to rise 3-4 hours after the onset of ischemia. Repeat in 4-6 hours if the sample was drawn within 3-4 hours of the onset of the symptom and found normal. Diagnosis of myocardial injury is made with acute changes in cTn concentrations with at least one serial sample above the 99th percentile upper reference limit (URL), taken together with the patient's clinical presentation. Biotin has been reported to cause a negative bias, interpret results relative to patient's use of biotin. Lab Interpretation (test code = 51492-7) Normal [facility]2025-01-27 04:55:16* Test Item Value Reference Range Interpretation Comme nts MAGNESIUM (test code = 5043697442) 1.6 mg/dL 1.7-2.4 L Lab Interpretation (test cod e = 95276-4) Abnormal [facility] Metabolic Panel (NA, K, CL, CO2, GLUCOSE, BUN, CREATININE, CA)2024-06-27 04:55:11* Test Item Value Reference Range Interpretation Comme nts NA (test code = 0235830490) 138 mmol/L 135-145 K (test code = 7742471997) 3.8 mmol/L 3.5-5.0 CL (test code = 1406757164) 110 mmol/L 98-108 H CO2 TOTAL (test code = 9317280382) 25 mmol/L 23-31 AGAP (test code = 8467853738) 3 2-16 BUN (test code = 2567559237) 12 mg/dL 7-23 GLUCOSE (test code = 8538448608) 72 mg/dL 70-110 CREATININE (test code = 2160-0) 0.55 mg/dL 0.50-1.04 CALCIUM (test code = 9464297232) 8.6 mg/dL 8.6-10.6 eGFR (test code = 18104-7) 112.5 mL/min/1.73m2 CKD-EPI eGFR (2020). Assuming creatinine has been stable day-to-day for at least three months, the eGFR indicates Category G1 (>= 90 mL/min/1.73 m2) Lab Interpretation (test code = 20208-0) Abnormal [facility] With [id number] 04:24:11* Test Item Value Reference Range Interpretation Comme nts WBC (test code = 6690-2) 8.63 4.30-11.10 RBC (test code = 789-8) 3.85 3.93-5.25 L HGB (test code = 718-7) 11.8 g/dL 11.6-15.0 HCT (test code = 4544-3) 36.4 % 35.7-45.2 MCV (test code = 787-2) 94.5 fL 80.6-95.5 MCH (test code = 785-6) 30.6 pg 25.9-32.8 MCHC (test code = 786-4) 32.4 g/dL 31.6-35.1 RDW-SD (test code = 01791-4) 44.3 fL 39.0-49.9 RDW-CV (test code = 788-0) 12.9 % 12.0-15.5 PLT (test code = 777-3) 245 166-358 MPV (test code = 09364-3) 9.5 fL 9.5-12.9 NRBC/100 WBC (test code = 7357034457) 0.0 0.0-10.0 NRBC x10^3 (test code = 5460593127) See_Comment [Automated messa ge] The system which generated this result transmitted reference range: 10*3/?L. The reference range was not used to interpret this result as normal/abnormal. GRAN MAT (NEUT) % (test code = 770-8) 58.2 % IMM GRAN % (test code = 9651854648) 0.20 % LYMPH % (test code = 736-9) 29.1 % MONO % (test code = 5905-5) 8.6 % EOS % (test code = 713-8) 3.4 % BASO % (test code = 706-2) 0.5 % GRAN MAT x10^3(ANC) (test code = 2239232305) 5.03 10*3/uL 1.88-7.09 IMM GRAN x10^3 (test code = 9187674131) 0.00-0.06 LYMPH x10^3 (test code = 731-0) 2.51 10*3/uL 1.32-3.29 MONO x10^3 (test code = 742-7) 0.74 10*3/uL 0.33-0.92 EOS x10^3 (test code = 711-2) 0.29 10*3/uL 0.03-0.39 BASO x10^3 (test code = 704-7) 0.04 10*3/uL 0.01-0.07 Lab Interpretation (test code = 88818-6) [facility]normal [facility] Arterial Blood Gas. [id number] 04:15:10* Test Item Value Reference Range Interpretation Comme nts PH (test code = 2) 7.39 7.35-7.45 PCO2 (test code = 0868080327) 40 35-45 PO2 (test code = 8310940483) 193 80-100 H QUES HCO3 (test code = 5316839624) 24 22-26 BE (test code = 6513066761) -1.3 -3.0-3.0 Lab Interpretation (test cod e = 45863-9) Abnormal [facility] HospitalGRAM POSITIVE BLOOD PATHOGENS DNA AUPRK-[id number] 20:35:34* Test Item Value Reference Range Interpretation Comme nts Gram Positive Blood Pathogens DNA Probe-Aerobic (test code = 93317-3) No organisms included in the Blood DNA Probe test panel were detected. Further identification workup to be performed by culture testing methods. BRE (test code = BRE) See blood culture result for additional information. Testing included eleven identification and three resistancemarker targets. [facility] WITH [id number] 12:24:57* Test Item Value Reference Range Interpretation Comme nts WBC (test code = 6690-2) See_Comment [Automated [employer]] The system which generated this result transmitted reference range: 4.30 - 11.10 10*3/?L. The reference range was not used to interpret this result as normal/abnormal. RBC (test code = 789-8) See_Comment [Automated [employer]] The system which generated this result transmitted [...] 32.2 g/dL 31.6-35.1 RDW-SD (test code = 14845-4) 46.5 fL 39.0-49.9 RDW-CV (test code = 788-0) 13.1 % 12.0-15.5 PLT (test code = 777-3) See_Comment [Automated [employer] ge] The system which generated this result transmitted reference range: 166 - 358 10*3/?L. The reference range was not used to interpret this result as normal/abnormal. MPV (test code = 26705-4) 9.9 fL 9.5-12.9 NRBC/100 WBC (test code = 4536128478) See_Comment [Automated [employer]] The system which generated this result transmitted reference range: 0.0 - 10.0 /100 WBCs. The reference range was not used to interpret this result as normal/abnormal. NRBC x10^3 (test code = 1558594805) <0.01 See_Comment [Automated [employer]] The system which generated this result transmitted reference range: 10*3/?L. The reference range was not used to interpret this result as normal/abnormal. GRAN MAT (NEUT) % (test code = 770-8) 59.8 % IMM GRAN % (test code = 9112735495) 0.70 % LYMPH % (test code = 736-9) 22.3 % MONO % (test code = 5905-5) 10.7 % EOS % (test code = 713-8) 6.0 % BASO % (test code = 706-2) 0.5 % GRAN MAT x10^3(ANC) (test code = 7644318908) 6.18 10*3/uL 1.88-7.09 IMM GRAN x10^3 (test code = 5589758462) 0.07 10*3/uL 0.00-0.06 H LYMPH x10^3 (test code = 731-0) 2.31 10*3/uL 1.32-3.29 MONO x10^3 (test code = 742-7) 1.11 10*3/uL 0.33-0.92 H EOS x10^3 (test code = 711-2) 0.62 10*3/uL 0.03-0.39 H BASO x10^3 (test code = 704-7) 0.05 10*3/uL 0.01-0.07 Lab Interpretation (test code = 29102-5) Abnormal [facility]. METABOLIC PANEL (36523)2021-06-02 14:33:18* Test Item Value Reference Range Interpretation Comme nts NA (test code = 8105974489) 137 mmol/L 135-145 K (test code = 2795031341) 3.7 mmol/L 3.5-5.0 CL (test code = 8612141280) 105 mmol/L 98-108 CO2 TOTAL (test code = 3872748116) 24 mmol/L 23-31 AGAP (test code = 0576801219) 2-16 BUN (test code = 9976075719) 9 mg/dL 7-23 GLUCOSE (test code = 7240137163) 104 mg/dL 70-110 CREATININE (test code = 7066000994) 0.63 mg/dL 0.50-1.04 TOTAL BILI (test code = 5783991770) 0.6 mg/dL 0.1-1.1 CALCIUM (test code = 5367726967) 9.0 mg/dL 8.6-10.6 T PROTEIN (test code = 3745623967) 7.3 g/dL 6.3-8.2 ALBUMIN (test code = 6480126962) 4.0 g/dL 3.5-5.0 ALK PHOS (test code = 0030695133) 81 U/L 34-122 ALTv (test code = 1742-6) 14 U/L 5-35 AST(SGOT) (test code = 6972534672) 21 U/L 13-40 eGFR (test code = 4631808377) mL/min/1.73m2 BRE (test code = BRE) Association [...] or urine or abnormalities in imaging tests). [facility] THRMPLAS [id number] 14:30:17* Test Item Value Reference Range Interpretation Comme [facility] AP[facility] Patient (test code = 3173-2) See_Comment [Automated message] The system which generated this result transmitted reference range: 23 - 38 Seconds. The reference range was not used to interpret this result as normal/abnormal. BRE (test code = BRE) The [facility] patient population mean normal value for aPTT is 30 seconds. Lab Interpretation (test code = 06676-5) Normal [facility] HospitalPROTHROMBIN TIME / [id number] 14:28:17* Test Item Value Reference Range Interpretation Comme [facility] PROTIME PATIENT (test code = 5964-2) See_Comment [Automated messa ge] The system which generated this result transmitted reference range: 12.0 - 14.7 Seconds. The reference range was not used to interpret this result as normal/abnormal. INR (test code = 6301-6) Normal INR <1.1; Warfarin Therapeutic range 2.0 to 3.0 or 2.5 to 3.5, depending upon the indications. Lab Interpretation (test code = 56572-2) Normal [facility] Hospital[facility] WITH [id number] 14:20:21* Test Item Value Reference Range Interpretation Comme [facility] WBC (test code = 6690-2) See_Comment H [...] 33.0 g/dL 31.6-35.1 RDW-SD (test code = 36208-2) 44.9 fL 39.0-49.9 RDW-CV (test code = 788-0) 13.0 % 12.0-15.5 PLT (test code = 777-3) See_Comment [Automated messa ge] The system which generated this result transmitted reference range: 166 - 358 10*3/?L. The reference range was not used to interpret this result as normal/abnormal. MPV (test code = 96161-5) 9.5 fL 9.5-12.9 NRBC/100 WBC (test code = 5212079558) See_Comment [Automated [employer]] The system which generated this result transmitted reference range: 0.0 - 10.0 /100 WBCs. The reference range was not used to interpret this result as normal/abnormal. NRBC x10^3 (test code = 8157664268) <0.01 See_Comment [Automated messa ge] The system which generated this result transmitted reference range: 10*3/?L. The reference range was not used to interpret this result as normal/abnormal. GRAN MAT (NEUT) % (test code = 770-8) 69.4 % IMM GRAN % (test code = 9116589843) 0.70 % LYMPH % (test code = 736-9) 16.9 % MONO % (test code = 5905-5) 8.6 % EOS % (test code = 713-8) 3.9 % BASO % (test code = 706-2) 0.5 % GRAN MAT x10^3(ANC) (test code = 0829751308) 9.74 10*3/uL 1.88-7.09 H IMM GRAN x10^3 (test code = 2651998472) 0.10 10*3/uL 0.00-0.06 H LYMPH x10^3 (test code = 731-0) 2.37 10*3/uL 1.32-3.29 MONO x10^3 (test code = 742-7) 1.20 10*3/uL 0.33-0.92 H EOS x10^3 (test code = 711-2) 0.54 10*3/uL 0.03-0.39 H BASO x10^3 (test code = 704-7) 0.07 10*3/uL 0.01-0.07 Lab Interpretation (test code = 82034-2) Abnormal [facility] HospitalPOCT [id number] 14:05:00* Test Item Value Reference Range Interpretation Comme nts POCT PREG (test code = 1605) negative On board controls acceptable with C Line (test code = 3574) present POCT PREG LOT # (test code = 3575) [id number] POCT PREG TEST DATE ( test code = 3576) 07/29/2022 Lab Interpretation (test cod e = 55690-9) Normal [facility] WITH [id number] 11:14:56* Test Item Value Reference Range Interpretation [...] g/dL 31.6-35.1 L RDW-SD (test code = 06707-2) 47.7 fL 39.0-49.9 RDW-CV (test code = 788-0) 13.5 % 12.0-15.5 PLT (test code = 777-3) See_Comment [Automated messa ge] The system which generated this result transmitted reference range: 166 - 358 10*3/?L. The reference range was not used to interpret this result as normal/abnormal. MPV (test code = 78590-2) 9.8 fL 9.5-12.9 NRBC/100 WBC (test code = 6889913297) See_Comment [Automated Well [employer]] The system which generated this result transmitted reference range: 0.0 - 10.0 /100 WBCs. The reference range was not used to interpret this result as normal/abnormal. NRBC x10^3 (test code = 2456750783) <0.01 See_Comment [Automated messa ge] The system which generated this result transmitted reference range: 10*3/?L. The reference range was not used to interpret this result as normal/abnormal. GRAN MAT (NEUT) % (test code = 770-8) 49.8 % IMM GRAN % (test code = 2678482463) 1.50 % LYMPH % (test code = 736-9) 31.9 % MONO % (test code = 5905-5) 7.4 % EOS % (test code = 713-8) 9.0 % BASO % (test code = 706-2) 0.4 % GRAN MAT x10^3(ANC) (test code = 8007267994) 5.52 10*3/uL 1.88-7.09 IMM GRAN x10^3 (test code = 3282708215) 0.17 10*3/uL 0.00-0.06 H LYMPH x10^3 (test code = 731-0) 3.54 10*3/uL 1.32-3.29 H MONO x10^3 (test code = 742-7) 0.82 10*3/uL 0.33-0.92 EOS x10^3 (test code = 711-2) 1.00 10*3/uL 0.03-0.39 H BASO x10^3 (test code = 704-7) 0.04 10*3/uL 0.01-0.07 Lab Interpretation (test code = 68514-3) Abnormal [facility] Arterial Blood Gas.2020-12-07 09:48:11* Test Item Value Reference Range Interpretation Comme nts PH (test code = 2) 7.35-7.45 PCO2 (test code = 1071465315) See_Comment H [Automated messa ge] The system which generated this result transmitted reference range: 35 - 45 mmHg. The reference range was not used to interpret this result as normal/abnormal. PO2 (test code = 5759212543) See_Comment H [Automated messa ge] The system which generated this result transmitted reference range: 80 - 100 mmHg. The reference range was not used to interpret this result as normal/abnormal. HCO3 (test code = 4539847671) See_Comment H [Automated messa ge] The system which generated this result transmitted reference range: 22 - 26 mEq/L. The reference range was not used to interpret this result as normal/abnormal. BE (test code = 1982026520) See_Comment [Automated messa ge] The system which generated this result transmitted reference range: -3.0 - 3.0 mEq/L. The reference range was not used to interpret this result as normal/abnormal. Lab Interpretation (test code = 19813-3) Abnormal [facility]. METABOLIC PANEL (84726)2020-12-07 08:13:32* Test Item Value Reference Range Interpretation Comme nts NA (test code = 2507698490) 136 mmol/L 135-145 K (test code = 8288296940) 4.5 mmol/L 3.5-5.0 CL (test code = 8748450068) 106 mmol/L 98-108 CO2 TOTAL (test code = 6578919914) 27 mmol/L 23-31 AGAP (test code = 9457420039) 2-16 BUN (test code = 9218072210) 8 mg/dL 7-23 GLUCOSE (test code = 0243374738) 81 mg/dL 70-110 CREATININE (test code = 9056759976) 0.57 mg/dL 0.50-1.04 TOTAL BILI (test code = 1861946579) 0.4 mg/dL 0.1-1.1 CALCIUM (test code = 6084095860) 9.4 mg/dL 8.6-10.6 T PROTEIN (test code = 6507520785) 6.4 g/dL 6.3-8.2 ALBUMIN (test code = 6063609335) 3.7 g/dL 3.5-5.0 ALK PHOS (test code = 7410746278) 66 U/L 34-122 ALTv (test code = 1742-6) 19 U/L 5-35 AST(SGOT) (test code = 6616076734) 26 U/L 13-40 eGFR (test code = 4210335185) mL/min/1.73m2 BRE (test code = BRE) Association [...] or urine or abnormalities in imaging tests). [facility] WITH [id number] 07:35:30* Test Item Value Reference Range Interpretation Comme nts WBC (test code = 6690-2) See_Comment [Automated [employer]] The system which generated this result transmitted reference range: 4.30 - 11.10 10*3/?L. The reference range was not used to interpret this result as normal/abnormal. RBC (test code = 789-8) See_Comment [Automated [employer]] The system which generated this result [...] 31.8 g/dL 31.6-35.1 RDW-SD (test code = 39087-8) 48.6 fL 39.0-49.9 RDW-CV (test code = 788-0) 13.6 % 12.0-15.5 PLT (test code = 777-3) See_Comment [Automated [employer]] The system which generated this result transmitted reference range: 166 - 358 10*3/?L. The reference range was not used to interpret this result as normal/abnormal. MPV (test code = 69790-6) 9.6 fL 9.5-12.9 NRBC/100 WBC (test code = 8613004683) See_Comment [Automated Well [employer]age] The system which generated this result transmitted reference range: 0.0 - 10.0 /100 WBCs. The reference range was not used to interpret this result as normal/abnormal. NRBC x10^3 (test code = 5000203095) <0.01 See_Comment [Automated messa ge] The system which generated this result transmitted reference range: 10*3/?L. The reference range was not used to interpret this result as normal/abnormal. GRAN MAT (NEUT) % (test code = 770-8) 55.9 % IMM GRAN % (test code = 3689669459) 1.50 % LYMPH % (test code = 736-9) 27.1 % MONO % (test code = 5905-5) 7.0 % EOS % (test code = 713-8) 8.1 % BASO % (test code = 706-2) 0.4 % GRAN MAT x10^3(ANC) (test code = 6844245996) 6.09 10*3/uL 1.88-7.09 IMM GRAN x10^3 (test code = 3396788061) 0.16 10*3/uL 0.00-0.06 H LYMPH x10^3 (test code = 731-0) 2.95 10*3/uL 1.32-3.29 MONO x10^3 (test code = 742-7) 0.76 10*3/uL 0.33-0.92 EOS x10^3 (test code = 711-2) 0.88 10*3/uL 0.03-0.39 H BASO x10^3 (test code = 704-7) 0.04 10*3/uL 0.01-0.07 Lab Interpretation (test code = 15152-0) Abnormal [facility]PHENYTOIN [id number] 06:33:41* Test Item Value Reference Range Interpretation Comme nts PHENY FREE (test code = 3086713878) 0.5 ug/mL 1.0-2.0 L BRE (test code = BRE) Toxic Range: ? Greater than 2.5 ug/mL Test developed and characteristics determined by [facility] Laboratory Services. Lab Interpretation (test code = 88906-4) Abnormal [facility] HospitalKEPPRA (LEVETIRACETAM)2020-12-07 05:49:38* Test Item Value Reference Range Interpretation Comme nts KEPPRA (test code = 6492020704) 17 ug/mL 12-46 BRE (test code = BRE) Therapeutic range: 12-46 ?g/mL ? ?Toxic: Not well established.Test developed and characteristics determined by [facility] Laboratory Services. Lab Interpretation (test code = 59827-3) Normal [facility]PHENYTOIN2021-07-09 04:18:37* Test Item Value Reference Range Interpretation Comme nts PHENYTOIN (test code = 8146244105) 5.3 ug/mL 10.0-20.0 L BRE (test code = BRE) Toxic Range: ? 0-3 Months ? Greater than 14 ug/mL ? ? 3 Months - 150 Years ? ? Greater than 20 ug/mL Lab Interpretation (test code = 37445-1) Abnormal [facility]MAGNESIUM2021-07-09 03:13:49* Test Item Value Reference Range Interpretation Comme nts MAGNESIUM (test code = 9204228192) 1.9 mg/dL 1.7-2.4 Lab Interpretation (test cod e = 72145-6) [facility] (24468)2020-12-07 03:13:34* Test Item Value Reference Range Interpretation Comme nts NA (test code = 2886430267) 134 mmol/L 135-145 L K (test code = 3412189533) 4.8 mmol/L 3.5-5.0 CL (test code = 3836895956) 105 mmol/L 98-108 CO2 TOTAL (test code = 9057121556) 26 mmol/L 23-31 AGAP (test code = 9530710096) 2-16 BUN (test code = 4615330957) 9 mg/dL 7-23 GLUCOSE (test code = 2196341771) 87 mg/dL 70-110 CREATININE (test code = 3588233019) 0.66 mg/dL 0.50-1.04 TOTAL BILI (test code = 7560084674) 0.3 mg/dL 0.1-1.1 CALCIUM (test code = 7663626660) 9.7 mg/dL 8.6-10.6 T PROTEIN (test code = 9897309974) 6.6 g/dL 6.3-8.2 ALBUMIN (test code = 7958857948) 3.9 g/dL 3.5-5.0 ALK PHOS (test code = 8508695653) 73 U/L 34-122 ALTv (test code = 1742-6) 19 U/L 5-35 AST(SGOT) (test code = 1988380010) 27 U/L 13-40 eGFR (test code = 9916938558) mL/min/1.73m2 BRE (test code = BRE) Association [...] imaging tests). Lab Interpretation (test code = 84504-7) [facility]:13:[facility]* Test Item Value Reference Range Interpretation Comme nts PHOSPHORUS (test code = 4946582473) 4.8 mg/dL 2.5-5.0 Lab Interpretation (test cod e = 67484-2) [facility] [id number] 02:42:36 Impression: 1. ?No CT evidence for [...] ?The calvarium and skull base are intact. [facility], Radiant Results Inft User - 12/06/2020 9:43 [...] [id number] signed by Veronica Wu 12/06/2020 9:42 PMMay[facility] HospitalAC PANEL 20 + LACTIC [id number] 01:42:21* Test Item Value Reference Range Interpretation Comme nts PH (test code = 2) 7.35-7.45 L PCO2 (test code = 7673251496) See_Comment H [Automated messa ge] The system which generated this result transmitted reference range: 35 - 45 mmHg. The reference range was not used to interpret this result as normal/abnormal. PO2 (test code = 5004950064) See_Comment H [Automated messa ge] The system which generated this result transmitted reference range: 80 - 100 mmHg. The reference range was not used to interpret this result as normal/abnormal. HCO3 (test code = 7506483587) See_Comment [Automated messa ge] The system which generated this result transmitted reference range: 22 - 26 mEq/L. The reference range was not used to interpret this result as normal/abnormal. BE (test code = 8310141177) See_Comment [Automated messa ge] The system which generated this result transmitted reference range: -3.0 - 3.0 mEq/L. The reference range was not used to interpret this result as normal/abnormal. THB (test code = 6139212347) 13.8 g/dL 12.0-16.0 %O2HB (test code = 2495125980) 97.8 % 94.0-99.0 %COHB ART (test code = 4528605426) 0.3 % 0.0-1.5 %METHB ART (test code = 2129564051) 0.5 % 0.4-1.5 VOL%O2 ART (test code = 3134519611) 19.2 % 15.0-23.0 NA (test code = 1027214368) 136 mmol/L 135-145 K+ (test code = 4718301766) 4.4 mmol/L 3.5-5.0 AC CA IONZ (test code = 2872873547) 4.90 mg/dL 4.50-5.30 GLUCOSE (test code = 3041569616) 90 mg/dL 70-110 LACTIC ACID (test code = 5582229682) 0.70 mmol/L 0.50-2.20 Lab Interpretation (test code = 64540-3) [facility] 1 [id number] 00:34:08Impression: 1. ?No acute cardiopulmonary process is [...] No acute cardiopulmonary process is identified.RL: [id number] [facility]2020-12-06 21:08:59 * Test Item Value Reference Range Interpretation Comme nts POCT GLU (test code = 8121815549) 117 mg/dL 70-110 H Notified Provide r Lab Interpretation (test code = 83869-0) [facility]normal [facility]CBC WITH [id number] 15:07:49* Test Item Value Reference Range Interpretation [...] 32.0 g/dL 31.6-35.1 RDW-SD (test code = 37761-7) 47.5 fL 39.0-49.9 RDW-CV (test code = 788-0) 13.6 % 12.0-15.5 PLT (test code = 777-3) See_Comment [Automated messa ge] The system which generated this result transmitted reference range: 166 - 358 10*3/?L. The reference range was not used to interpret this result as normal/abnormal. MPV (test code = 97885-8) 9.6 fL 9.5-12.9 NRBC/100 WBC (test code = 2966743666) See_Comment [Automated Well ssage] The system which generated this result transmitted reference range: 0.0 - 10.0 /100 WBCs. The reference range was not used to interpret this result as normal/abnormal. NRBC x10^3 (test code = 0404142252) <0.01 See_Comment [Automated messa ge] The system which generated this result transmitted reference range: 10*3/?L. The reference range was not used to interpret this result as normal/abnormal. GRAN MAT (NEUT) % (test code = 770-8) 47.8 % IMM GRAN % (test code = 0708800813) 2.10 % LYMPH % (test code = 736-9) 32.4 % MONO % (test code = 5905-5) 7.6 % EOS % (test code = 713-8) 9.7 % BASO % (test code = 706-2) 0.4 % GRAN MAT x10^3(ANC) (test code = 2501998505) 4.89 10*3/uL 1.88-7.09 IMM GRAN x10^3 (test code = 2915849411) 0.22 10*3/uL 0.00-0.06 H LYMPH x10^3 (test code = 731-0) 3.32 10*3/uL 1.32-3.29 H MONO x10^3 (test code = 742-7) 0.78 10*3/uL 0.33-0.92 EOS x10^3 (test code = 711-2) 0.99 10*3/uL 0.03-0.39 H BASO x10^3 (test code = 704-7) 0.04 10*3/uL 0.01-0.07 BANDS (test code = 2914352396) Increased A LG GRAN LYMPHS (test code = 7224133479) Rare Rare REACT LYMPHS (test code = 3804166512) Rare Lab Interpretation (test code = 21295-6) [facility]normal [facility] ONLY COVID [id number] 15:26:05COVID DMT InterpretationInterpretation/Recommendations:Molecular NAAT Tests for Active [...] COVID-19 testing the patient has had at [facility], including molecular NAAT testing (more commonly known as PCR testing and Rapid ID Now testing) and antibody testing. It does not take into account any testing that a patient has had outside of the [facility] medical record. [facility] LABORATORY SERVICESCOVID UlcdtctMDMI-TjS-6 Rapid ID NOW (no units) ? ? Date ? Value ? 12/04/2020 ? Not Detected ? ? ? 02/15/2020 ? Not Detected ? [facility] (NA, K, CL, CO2, GLUCOSE, BUN, CREATININE, CA) 2020-12-05 10:16:08* Test Item Value Reference Range Interpretation Comme nts NA (test code = 7554142755) 135 mmol/L 135-145 K (test code = 3149798886) 3.8 mmol/L 3.5-5.0 CL (test code = 9893864754) 106 mmol/L 98-108 CO2 TOTAL (test code = 6145227205) 23 mmol/L 23-31 AGAP (test code = 7433513520) 2-16 BUN (test code = 5861304095) 7 mg/dL 7-23 GLUCOSE (test code = 2014394891) 131 mg/dL 70-110 H CREATININE (test code = 3522372232) 0.66 mg/dL 0.50-1.04 CALCIUM (test code = 0299016951) 8.5 mg/dL 8.6-10.6 L eGFR (test code = 8901760366) mL/min/1.73m2 BRE (test code = BRE) Association [...] imaging tests). Lab Interpretation (test code = 80063-9) Abnormal [facility] with Tlswnhihovau6389-81-05 09:47:43* Test Item Value Reference Range Interpretation Comme nts WBC (test code = 6690-2) See_Comment H [Automated Kick[employer]andy] The system which generated this result transmitted reference range: 4.30 - 11.10 10*3/?L. The reference range was not used to interpret this result as normal/abnormal. RBC (test code = 789-8) See_Comment [Automated Kick[employer]andy] The system which generated this result transmitted [...] 32.5 g/dL 31.6-35.1 RDW-SD (test code = 34386-4) 47.2 fL 39.0-49.9 RDW-CV (test code = 788-0) 13.6 % 12.0-15.5 PLT (test code = 777-3) See_Comment [Automated messa ge] The system which generated this result transmitted reference range: 166 - 358 10*3/?L. The reference range was not used to interpret this result as normal/abnormal. MPV (test code = 26781-3) 9.4 fL 9.5-12.9 L NRBC/100 WBC (test code = 0818400789) See_Comment [Automated Well ssage] The system which generated this result transmitted reference range: 0.0 - 10.0 /100 WBCs. The reference range was not used to interpret this result as normal/abnormal. NRBC x10^3 (test code = 8311683945) <0.01 See_Comment [Automated [employer]a ge] The system which generated this result transmitted reference range: 10*3/?L. The reference range was not used to interpret this result as normal/abnormal. GRAN MAT (NEUT) % (test code = 770-8) 57.5 % IMM GRAN % (test code = 0568575704) 2.00 % LYMPH % (test code = 736-9) 25.9 % MONO % (test code = 5905-5) 7.2 % EOS % (test code = 713-8) 7.2 % BASO % (test code = 706-2) 0.2 % GRAN MAT x10^3(ANC) (test code = 8662929670) 7.29 10*3/uL 1.88-7.09 H IMM GRAN x10^3 (test code = 3502605821) 0.25 10*3/uL 0.00-0.06 H LYMPH x10^3 (test code = 731-0) 3.29 10*3/uL 1.32-3.29 MONO x10^3 (test code = 742-7) 0.91 10*3/uL 0.33-0.92 EOS x10^3 (test code = 711-2) 0.92 10*3/uL 0.03-0.39 H BASO x10^3 (test code = 704-7) 0.03 10*3/uL 0.01-0.07 Lab Interpretation (test code = 08981-4) Abnormal [facility] HospitalGLYCOSYLATED HEMOGLOBIN (A1C)2020-12-05 00:18:48* Test Item Value Reference Range Interpretation Comme nts HGB A1C (test code = 4548-4) 5.5 % 4.0-5.7 BRE (test code = BRE) Reference RangesNormal: <5.7%Prediabetes: 5.7 - 6.4%Diabetes: > 6.5% Lab Interpretation (test code = 65407-3) Normal [facility] HospitalCOVID-19 (ID NOW RAPID TESTING)2020-12-04 21:49:20* Test Item Value Reference Range Interpretation Comme nts SARS-CoV-2 Rapid ID NOW (test code = 36699-7) Not Detected Not Detected BRE (test code = BRE) ID NOW COVID-19 As say is an isothermal nucleic acid amplification test intended for the qualitative detection of nucleic acid from SARS-CoV-2 viral RNA in nasopharyngeal (SAMPLER OVENS) specimens. It is used under Emergency Use [...] clinically indicated. Lab Interpretation (test code = 87416-3) Normal [facility] HospitalCT ABDOMEN PELVIS W JIFTTTIQ9383-07-02 20:53:50Mild subcutaneous edema in the the mons pubis. No evidence of soft tissueemphysema or a drainable fluid collection. Correlate with exam. Several mildly enlarged bilateral iliac chain, pelvic sidewall, andinguinal lymph nodes, likely reactive. Sigmoid diverticulosis. Significant subchondral cystic changes in the left femoral head may berelated to arthropathic changes or an osteochondral lesion. [id number] End of report Ordering physician:MCKENZIE FISCHER CLINICAL [...] or an osteochondral lesion.RL 5045End of report [facility] CenterUrinalysis2021-07-06 20:39:43* Test Item Value Reference Range Interpretation Comme nts APPEARANCE (test code = 4941976777) Clear Clear COLOR (test code = 2503614013) Yellow Yellow PH (test code = 3991701870) 4.8-8.0 SP GRAVITY (test code = 6984396001) 1.003-1.030 GLU U QUAL (test code = 5013069129) Normal Normal BLOOD (test code = 1237740578) Negative Negative KETONES (test code = 2648114996) Negative Negative PROTEIN (test code = 2887-8) Negative Negative UROBILIN (test code = 1458386555) 4.0 mg/dL Normal A BILIRUBIN (test code = 3085205987) Negative Negative NITRITE (test code = 4032482625) Negative Negative LEUK KANDICE (test code = 5184041625) Negative Negative RBC/HPF (test code = 2808542738) See_Comment [Automated messa ge] The system which generated this result transmitted reference range: 0 - 3 HPF. The reference range was not used to interpret this result as normal/abnormal. WBC/HPF (test code = 0396029812) See_Comment [Automated messa ge] The system which generated this result transmitted reference range: 0 - 5 HPF. The reference range was not used to interpret this result as normal/abnormal. BACTERIA (test code = 5648698999) Negative Negative MUCOUS (test code = 9853833795) Slight Negative LPF A SQ EPITH (test code = 1181088569) HPF Lab Interpretation (test code = 23879-3) Abnormal [facility] HospitalHepatic Function Panel (ALB, T.PRO, BILI T, BU/BC, ALT, AST, ALK PHOS)2020-12-04 20:26:41* Test Item Value Reference Range Interpretation Comme nts TOTAL BILI (test code = 6318024757) 0.4 mg/dL 0.1-1.1 BILI UNCON (test code = 0491348408) 0.2 mg/dL 0.1-1.1 BILI CONJ (test code = 1456404826) 0.0 mg/dL 0.0-0.3 T PROTEIN (test code = 3491290507) 7.5 g/dL 6.3-8.2 ALBUMIN (test code = 7573260731) 4.3 g/dL 3.5-5.0 ALK PHOS (test code = 1759527158) 94 U/L 34-122 ALTv (test code = 1742-6) 20 U/L 5-35 AST(SGOT) (test code = 8241002593) 21 U/L 13-40 Lab Interpretation (test cod e = 26848-4) Normal [facility] HospitalBasic Metabolic Panel (NA, K, CL, CO2, GLUCOSE, BUN, CREATININE, CA)2020-12-04 20:26:21* Test Item Value Reference Range Interpretation Comme nts NA (test code = 2055605202) 136 mmol/L 135-145 K (test code = 4850373668) 3.8 mmol/L 3.5-5.0 CL (test code = 6363016937) 104 mmol/L 98-108 CO2 TOTAL (test code = 5026226850) 23 mmol/L 23-31 AGAP (test code = 1099321520) 2-16 BUN (test code = 5020352101) 9 mg/dL 7-23 GLUCOSE (test code = 1595321135) 91 mg/dL 70-110 CREATININE (test code = 2479934088) 0.71 mg/dL 0.50-1.04 CALCIUM (test code = 0025199063) 9.3 mg/dL 8.6-10.6 eGFR (test code = 6132077816) mL/min/1.73m2 BRE (test code = BRE) Association [...] or urine or abnormalities in imaging tests). [facility] with Iymfycejcdse9026-68-96 20:22:41* Test Item Value Reference Range Interpretation [...] 32.3 g/dL 31.6-35.1 RDW-SD (test code = 22710-2) 45.5 fL 39.0-49.9 RDW-CV (test code = 788-0) 13.4 % 12.0-15.5 PLT (test code = 777-3) See_Comment [Automated messa ge] The system which generated this result transmitted reference range: 166 - 358 10*3/?L. The reference range was not used to interpret this result as normal/abnormal. MPV (test code = 52217-3) 9.5 fL 9.5-12.9 NRBC/100 WBC (test code = 4618347919) See_Comment [Automated Well ssage] The system which generated this result transmitted reference range: 0.0 - 10.0 /100 WBCs. The reference range was not used to interpret this result as normal/abnormal. NRBC x10^3 (test code = 8268154001) <0.01 See_Comment [Automated messa ge] The system which generated this result transmitted reference range: 10*3/?L. The reference range was not used to interpret this result as normal/abnormal. GRAN MAT (NEUT) % (test code = 770-8) 70.7 % IMM GRAN % (test code = 2457319459) 1.30 % LYMPH % (test code = 736-9) 15.6 % MONO % (test code = 5905-5) 5.9 % EOS % (test code = 713-8) 6.3 % BASO % (test code = 706-2) 0.2 % GRAN MAT x10^3(ANC) (test code = 7323722121) 9.53 10*3/uL 1.88-7.09 H IMM GRAN x10^3 (test code = 1083350468) 0.17 10*3/uL 0.00-0.06 H LYMPH x10^3 (test code = 731-0) 2.10 10*3/uL 1.32-3.29 MONO x10^3 (test code = 742-7) 0.79 10*3/uL 0.33-0.92 EOS x10^3 (test code = 711-2) 0.85 10*3/uL 0.03-0.39 H BASO x10^3 (test code = 704-7) 0.03 10*3/uL 0.01-0.07 Lab Interpretation (test code = 46960-9) Abnormal [facility] HospitalLavaic Acid Whole Twtpz6041-60-30 20:01:06* Test Item Value Reference Range Interpretation Comme nts LACTIC ACID (test code = 4322599449) 1.42 mmol/L 0.50-2.20 Lab Interpretation (test cod e = 53355-9) Normal [facility] HospitalPOCT Hezz8081-61-86 19:51:00* Test Item Value Reference Range Interpretation Comme nts POCT PREG (test code = 1605) negative On board controls acceptable with C Line (test code = 3574) yes POCT PREG LOT # (test code = 3575) [id number] POCT PREG TEST DATE ( test code = 3576) 05/31/2022 Lab Interpretation (test cod e = 94070-7) Normal [facility] HospitalMR BRAIN W WO KMXICVOW3081-39-57 18:45:40No acute intracranial abnormality Gradient blooming in [...] noted on the accompanying CT. No surrounding edema.[facility] LUMBAR SPINE WO [id number] 18:26:15Mild spondylosis at L4-L5 results in moderate [...] in the superficial soft tissues of thevisualized backUnCitizens Medical CenterKEPPRA (LEVETIRACETAM)2020-02-18 04:48:00* Test Item Value Reference Range Interpretation Comme nts KEPPRA (test code = 6417757233) 11 ug/mL 12-46 L BRE (test code = BRE) Therapeutic range: 12-46 ?g/mL ? ?Toxic: Not well established.Test developed and characteristics determined by [facility] Laboratory Services. Lab Interpretation (test code = 69958-3) Abnormal [facility]. METABOLIC PANEL (12840)2020-02-18 04:46:00* Test Item Value Reference Range Interpretation Comme nts NA (test code = 4960808397) 143 mmol/L 135-145 K (test code = 7183940262) 3.9 mmol/L 3.5-5 CL (test code = 9206732341) 109 mmol/L 98-108 H CO2 TOTAL (test code = 5990185423) 24 mmol/L 23-31 AGAP (test code = 8577900241) 2-16 BUN (test code = 0374316723) 5 mg/dL 7-23 L GLUCOSE (test code = 9621675000) 98 mg/dL 70-110 CREATININE (test code = 5810979481) 0.66 mg/dL 0.5-1.04 TOTAL BILI (test code = 2042722601) 0.2 mg/dL 0.1-1.1 CALCIUM (test code = 4185466576) 8.0 mg/dL 8.6-10.6 L T PROTEIN (test code = 0114045187) 5.7 g/dL 6.3-8.2 L ALBUMIN (test code = 8806481737) 3.2 g/dL 3.5-5 L ALK PHOS (test code = 9489503148) 58 U/L 34-122 ALTv (test code = 1742-6) 14 U/L 5-35 AST(SGOT) (test code = 0479468062) 37 U/L 13-40 eGFR Calculation (Non-) (test code = 8193722707) mL/min/1.73m2 eGFR Calculation () (test code = 7202126743) mL/min/1.73m2 BRE (test code = BRE) Association [...] imaging tests). Lab Interpretation (test code = 32798-7) Abnormal [facility] HospitalTROPONIN [id number] 04:02:00* Test Item Value Reference Range Interpretation Comme nts TROPONIN I (test code = 6367455175) 0.003 ng/mL See_Comment [Automated message] The system [...] biotin. ? Lab Interpretation (test code = 92915-4) Normal [facility] WITH [id number] 03:22:00* Test Item Value Reference Range Interpretation Comme nts WBC (test code = 6690-2) See_Comment [Automated [employer]] The system which generated this result transmitted reference range: 4.30 - 11.10 10*3/?L. The reference range was not used to interpret this result as normal/abnormal. RBC (test code = 789-8) See_Comment [Automated [employer]] The system which generated this result transmitted [...] 32.6 g/dL 31.6-35.1 RDW-SD (test code = 11183-2) 47.2 fL 39-49.9 RDW-CV (test code = 788-0) 13.2 % 12-15.5 PLT (test code = 777-3) See_Comment [Automated messa ge] The system which generated this result transmitted reference range: 166 - 358 10*3/?L. The reference range was not used to interpret this result as normal/abnormal. MPV (test code = 97039-7) 9.8 fL 9.5-12.9 NRBC/100 WBC (test code = 3839077996) See_Comment [Automated Well ssage] The system which generated this result transmitted reference range: 0.0 - 10.0 /100 WBCs. The reference range was not used to interpret this result as normal/abnormal. NRBC x10^3 (test code = 8104645270) <0.01 See_Comment [Automated messa ge] The system which generated this result transmitted reference range: 10*3/?L. The reference range was not used to interpret this result as normal/abnormal. GRAN MAT (NEUT) % (test code = 770-8) 52.0 % IMM GRAN % (test code = 4412714591) 0.50 % LYMPH % (test code = 736-9) 32.3 % MONO % (test code = 5905-5) 8.4 % EOS % (test code = 713-8) 6.5 % BASO % (test code = 706-2) 0.3 % GRAN MAT x10^3(ANC) (test code = 8452802092) 4.91 10*3/uL 1.88-7.09 IMM GRAN x10^3 (test code = 0126176598) 0.05 10*3/uL 0-0.06 LYMPH x10^3 (test code = 731-0) 3.06 10*3/uL 1.32-3.29 MONO x10^3 (test code = 742-7) 0.80 10*3/uL 0.33-0.92 EOS x10^3 (test code = 711-2) 0.62 10*3/uL 0.03-0.39 H BASO x10^3 (test code = 704-7) 0.03 10*3/uL 0.01-0.07 Lab Interpretation (test code = 35670-0) Abnormal [facility] HospitalCT HEAD WO [id number] 04:07:57No acute intracranial hemorrhage or mass effect. [...] are unremarkable. Mild paranasal sinus mucosal thickening. [facility], Radiant Results Inft User - 02/16/2020 11:09 [...] sinus mucosal thickening.IMPRESSIONNo acute intracranial hemorrhage or masseffect.[facility] HospitalPHENYTOIN [id number] 02:54:00* Test Item Value Reference Range Interpretation Comme nts PHENY FREE (test code = 9717796212) <0.5 1-2 L BRE (test code = BRE) Toxic Range: ? Greater than 2.5 ug/mL Test developed and characteristics determined by [facility] Laboratory Services. Lab Interpretation (test code = 79022-3) Abnormal [facility] HospitalCREATINE NIMSNE9949-45-33 01:38:00* Test Item Value Reference Range Interpretation Comme nts CK (test code = 1120563443) 259 U/L 33-194 H Lab Interpretation (test cod e = 84716-8) Abnormal [facility] HospitalMAGNESIUM2020-09-18 00:55:00* Test Item Value Reference Range Interpretation Comme nts MAGNESIUM (test code = 5312482467) 1.7 mg/dL 1.7-2.4 Lab Interpretation (test cod e = 14198-6) Normal [facility] HospitalElectroencephalogram (EEG) - Duration of test: 20-60 vxou8121-78-95 00:00:00Date and Time of Procedure: 02/17/2020, 9:14:15- [...] additional details. Lian Canada MDDate of interpretation: 02/17/2020UnCit[facility] Medical CenterBASI METABOLIC PANEL (NA, K, CL, CO2, GLUCOSE, BUN, CREATININE, CA) 2020-02-16 11:27:00* Test Item Value Reference Range Interpretation Comme nts NA (test code = 5503936651) 136 mmol/L 135-145 K (test code = 8744452611) 3.9 mmol/L 3.5-5 CL (test code = 9309284233) 107 mmol/L 98-108 CO2 TOTAL (test code = 4730271992) 21 mmol/L 23-31 L AGAP (test code = 3902601789) 2-16 BUN (test code = 6746069012) 9 mg/dL 7-23 GLUCOSE (test code = 0338879304) 115 mg/dL 70-110 H CREATININE (test code = 5586966100) 0.74 mg/dL 0.5-1.04 CALCIUM (test code = 5522947183) 8.0 mg/dL 8.6-10.6 L eGFR Calculation (Non-) (test code = 8821814471) mL/min/1.73m2 eGFR Calculation () (test code = 9483025966) mL/min/1.73m2 BRE (test code = BRE) Association [...] imaging tests). Lab Interpretation (test code = 56999-7) Abnormal [facility] WITH [id number] 10:57:00* Test Item Value Reference Range Interpretation [...] 32.5 g/dL 31.6-35.1 RDW-SD (test code = 64874-9) 46.5 fL 39-49.9 RDW-CV (test code = 788-0) 13.1 % 12-15.5 PLT (test code = 777-3) See_Comment [Automated message] The system which generated this result transmitted reference range: 166 - 358 10*3/?L. The reference range was not used to interpret this result as normal/abnormal. MPV (test code = 22783-4) 9.4 fL 9.5-12.9 L NRBC/100 WBC (test code = 1614596280) See_Comment [Automated message] The system which generated this result transmitted reference range: 0.0 - 10.0 /100 WBCs. The reference range was not used to interpret this result as normal/abnormal. NRBC x10^3 (test code = 5225973076) <0.01 See_Comment [Automated message] The system which generated this result transmitted reference range: 10*3/?L. The reference range was not used to interpret this result as normal/abnormal. GRAN MAT (NEUT) % (test code = 770-8) 76.8 % IMM GRAN % (test code = 8091340882) 0.60 % LYMPH % (test code = 736-9) 9.7 % MONO % (test code = 5905-5) 7.7 % EOS % (test code = 713-8) 5.1 % BASO % (test code = 706-2) 0.1 % GRAN MAT x10^3(ANC) (test code = 8071572801) 11.03 10*3/uL 1.88-7.09 H IMM GRAN x10^3 (test code = 3286039698) 0.09 10*3/uL 0-0.06 H LYMPH x10^3 (test code = 731-0) 1.39 10*3/uL 1.32-3.29 MONO x10^3 (test code = 742-7) 1.10 10*3/uL 0.33-0.92 H EOS x10^3 (test code = 711-2) 0.73 10*3/uL 0.03-0.39 H BASO x10^3 (test code = 704-7) <0.03 0.01-0.07 Lab Interpretation (test code = 37931-9) Abnormal [facility] HospitalCOVID-[facility] (ID NOW RAPID TESTING)2020-02-16 00:28:00* Test Item Value Reference Range Interpretation Comme nts SARS-CoV-2 Rapid ID NOW (test code = 15688-6) Not Detected Not Detected BRE (test code = BER) ID NOW COVID-19 As say is an isothermal nucleic acid amplification test intended for the qualitative detection of nucleic acid from SARS-CoV-2 viral RNA in nasopharyngeal (SAMPLER OVENS) specimens. It is used under Emergency Use [...] clinically indicated. Lab Interpretation (test code = 81794-7) Normal [facility] HospitalCOMP. METABOLIC PANEL (79920)2020-02-15 23:51:00* Test Item Value Reference Range Interpretation Comme nts NA (test code = 7842576560) 136 mmol/L 135-145 K (test code = 6471140713) 4.0 mmol/L 3.5-5 CL (test code = 7071685801) 104 mmol/L 98-108 CO2 TOTAL (test code = 7114727217) 20 mmol/L 23-31 L AGAP (test code = 3477452439) 2-16 BUN (test code = 4359139899) 9 mg/dL 7-23 GLUCOSE (test code = 7766008449) 90 mg/dL 70-110 CREATININE (test code = 9214560714) 0.57 mg/dL 0.5-1.04 TOTAL BILI (test code = 0980842790) 0.7 mg/dL 0.1-1.1 CALCIUM (test code = 4660406105) 8.5 mg/dL 8.6-10.6 L T PROTEIN (test code = 5561090328) 6.8 g/dL 6.3-8.2 ALBUMIN (test code = 4179290582) 4.0 g/dL 3.5-5 ALK PHOS (test code = 1623870423) 63 U/L 34-122 ALTv (test code = 1742-6) 15 U/L 5-35 AST(SGOT) (test code = 9540701571) 30 U/L 13-40 eGFR Calculation (Non-) (test code = 6873210637) mL/min/1.73m2 eGFR Calculation () (test code = 1307970336) mL/min/1.73m2 BRE (test code = BRE) Association [...] imaging tests). Lab Interpretation (test code = 29372-4) Abnormal [facility] HospitalCREATINE [id number] 23:51:00* Test Item Value Reference Range Interpretation Comme nts CK (test code = 2063165300) 222 U/L 33-194 H Lab Interpretation (test cod e = 26368-5) Abnormal [facility] HospitalCBC WITH [id number] 23:38:00* Test Item Value Reference Range Interpretation Comme nts WBC (test code = 6690-2) See_Comment H [Automated [employer]] The system which generated this result transmitted reference range: 4.30 - 11.10 10*3/?L. The reference range was not used to interpret this result as normal/abnormal. RBC (test code = 789-8) See_Comment [Automated [employer]] The system which generated this result transmitted [...] 32.8 g/dL 31.6-35.1 RDW-SD (test code = 53566-8) 45.1 fL 39-49.9 RDW-CV (test code = 788-0) 13.0 % 12-15.5 PLT (test code = 777-3) See_Comment [Automated messa ge] The system which generated this result transmitted reference range: 166 - 358 10*3/?L. The reference range was not used to interpret this result as normal/abnormal. MPV (test code = 23113-9) 9.6 fL 9.5-12.9 NRBC/100 WBC (test code = 9517256371) See_Comment [Automated [employer]] The system which generated this result transmitted reference range: 0.0 - 10.0 /100 WBCs. The reference range was not used to interpret this result as normal/abnormal. NRBC x10^3 (test code = 8409599851) <0.01 See_Comment [Automated [employer]] The system which generated this result transmitted reference range: 10*3/?L. The reference range was not used to interpret this result as normal/abnormal. GRAN MAT (NEUT) % (test code = 770-8) 65.2 % IMM GRAN % (test code = 8772213156) 0.80 % LYMPH % (test code = 736-9) 18.4 % MONO % (test code = 5905-5) 8.7 % EOS % (test code = 713-8) 6.6 % BASO % (test code = 706-2) 0.3 % GRAN MAT x10^3(ANC) (test code = 8928465547) 9.11 10*3/uL 1.88-7.09 H IMM GRAN x10^3 (test code = 2271782555) 0.11 10*3/uL 0-0.06 H LYMPH x10^3 (test code = 731-0) 2.58 10*3/uL 1.32-3.29 MONO x10^3 (test code = 742-7) 1.22 10*3/uL 0.33-0.92 H EOS x10^3 (test code = 711-2) 0.93 10*3/uL 0.03-0.39 H BASO x10^3 (test code = 704-7) 0.04 10*3/uL 0.01-0.07 Lab Interpretation (test code = 65793-0) [id number] 23:35:00* Test Item Value Reference Range Interpretation Comme nts LACTIC ACID (test code = 9418270127) 1.97 mmol/L [facility]"
== END 2024-06-28 17:16 | disposition home or self-care (01) ==
LOC: ER 12:51
DX: G40.509 Epileptic seizures related to external causes, not intractable, without status epilepticus (principal)
CPT/HCPCS: 96365; 85025; 81001; 36415; 80185; 80053; 70450; 99284; J1953

== ENCOUNTER 2024-07-05 15:15 | Emergency (ER) | payer BC ==
--- OUTSIDE RECORDS SUMMARY | 2024-07-05 15:21 | XMS REPORT | Continuity of Care Document ---
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 dose on Thu02/16/20 at 0900, Until Discontinu ed, Routine [facility] nystatin / bacitracin- polymyxin b oint 1:1 POLY-MYCO (COMPOUNDED ) 02-15 12:40: 20 Yes Topical (Apply To Affected Areas), QDAILYPRN, Starting Marcia 02/16/20 at 0740, Until Discontinu ed, Routine, [facility] fluticasone propion-robina meteroL (ADVAIR) 250-50 mcg/dose inhalation disk 1 Puff 02-15 12:30: 00 02-18 00:30 :55 No 1{puff} 1 Puff, Inhalation , [facility]-0730, First dose on Marcia 02/16/20 at 0730, Until Discontinu ed, Routine
Use approved by (Faculty and pager): ADC PROVIDER [facility] FENTanyl PF (SUBLIMAZE (PF)) injection 25 mcg 02-15 08:30: 00 02-15 04:00 :00 No 25ug 25 mcg, Slow IV Push, ONCE, 1 dose, Marcia 02/16/20 at 0330, Routine [facility] D5W 0.45% NaCl (1/2NS) 1 L + KCL 20 mEq 02-15 07:30: 00 02-18 02:25 :51 No IV Infusion, at 100 mL/hr, CONTINUOUS , Starting Marcia 02/16/20 at 0230, Until 02/18/20 at 2125, Routine [facility] diphenhydrA MINE (BENADRYL) capsule 50 mg 02-15 07:16: 56 Yes 50mg 50 mg, Oral, PRN, Starting Marcia 02/16/20 at 0216, Until Discontinu ed, Routine, 30 mins before Ancef [facility] LORazepam (ATIVAN) injection 2 mg 02-15 07:08: 53 Yes 2mg 2 mg, Slow IV Push, PRN, Starting Marcia 02/16/20 at 0208, Until Discontinu ed, Routine, Seizures [facility] levETIRAcet am (KEPPRA) in NACL (ISO-OS) 500 mg/100 mL RTU 02-15 06:07: 00 02-15 06:30 :00 No 500mg 500 mg, IV Infusion, ONCE, 1 dose, Marcia 02/16/20 at 0115, 100 mL [facility] acetaminoph en (TYLENOL) tablet 650 mg 02-15 05:00: 00 Yes 650mg 650 mg, Oral, Q6H, First dose on Thu02/16/20 at 0000, Until Discontinu ed, Routine [facility] phenytoin Extended (DILANTIN KAPSEAL) capsule 100 mg 02-15 05:00: 00 02-16 01:47 :06 No 100mg 100 mg, Oral, TID, First dose on Thu02/16/20 at 0000, Until Discontinu ed, Routine [facility] morpHINE injection 4 mg 02-15 04:40: 47 Yes 4mg 4 mg, Slow IV Push, Q4HPRN, Starting Thu02/15/20 at 2340, Until Discontinu ed, Routine, Pain (scale 7-10) [facility] HYDROcodone -acetaminop hen (NORCO 5) 5-325 mg tablet 1 tablet 02-15 04:40: 28 Yes 1{tbl} 1 tablet, Oral, Q6HPRN, Starting Thu02/15/20 at 2340, Until Discontinu ed, Routine, Pain (scale 4-6) [facility] morpHINE injection 4 mg 02-15 03:15: 00 02-15 02:08 :00 No 4mg 4 mg, Slow IV Push, ONCE, 1 dose, Thu02/15/20 at 2215, STAT [facility] morpHINE injection 4 mg 02-15 02:30: 00 02-15 01:18 :00 No 4mg 4 mg, Slow IV Push, ONCE, 1 dose, Thu02/15/20 at 2130, STAT [facility] NaCl 0.9% (NS) bolus infusion 1,000 mL 02-15 01:00: 00 02-15 01:20 :00 No 1000mL at 999 mL/hr, 1,000 mL, IV Infusion, ONCE, 1 dose, Thu02/15/20 at 2000, STAT [facility] vancomycin (VANCOCIN) 1,000 mg in NaCl 0.9% (NS) 250 mL VIAL-MATE IV piggyback 02-15 00:45: 00 02-15 00:38 :00 No 1000mg 1,000 mg, IV Piggyback, ONCE, 1 dose, Thu02/15/20 at 1945, 250 mL
Reas on for Anti-Infec tive: Empiric Therapy for Suspected Infection< br>Empiric Therapy Site: Skin / Soft tissue
Duration of therapy: 72 hours [facility] tetanus-dip htheria toxoids (TENIVAC) 5-2 Lf unit/0.5 mL injection 0.5 mL 02-15 00:45: 00 02-14 23:34 :00 No .5mL 0.5 mL, Intramuscu lar, ONCE, 1 dose, Thu02/15/20 at 1945, Routine [facility] ondansetron (ZOFRAN (PF)) injection 4 mg 02-15 00:30: 00 02-14 23:29 :00 No 4mg 4 mg, Slow IV Push, ONCE, 1 dose, Thu02/15/20 at 1930, REINALDO [facility] FENTanyl PF (SUBLIMAZE (PF)) injection 100 mcg 02-15 00:30: 00 02-14 23:28 :00 No 100ug 100 mcg, Slow IV Push, ONCE, 1 dose, Thu02/15/20 at 1930, STAT [facility] Levothyroxi ne (TIROSINT) 100 mcg Cap 11-15 00:00: 00 02-14 00:00 :00 No 100ug Take 100 mcg by mouth daily. [facility] DILANTIN EXTENDED 100 MG ORAL CAP 08-17 18:44: 55 Yes three times daily [facility] PROVENTIL HFA INHALE 08-17 18:44: 54 Yes prn [facility] METOPROLOL TARTRATE 50 MG ORAL TAB 08-17 00:00: 00 02-14 00:00 :00 No [id number] 1 by mouth two times a day [facility] Immunizations Ordered Immunization Name Filled Immunization Name Date Status Comments Source SARS-COV-2 COVID-19 PFIZER VACCINE 2020-10-20 00:00:00 Completed [facility] SARS-COV-2 COVID-19 PFIZER VACCINE 2020-10-20 00:00:00 Completed [facility] SARS-COV-2 COVID-19 PFIZER VACCINE 2020-10-20 00:00:00 Completed [facility] SARS-COV-2 COVID-19 PFIZER VACCINE 2020-10-20 00:00:00 Completed [facility] SARS-COV-2 COVID-19 PFIZER VACCINE 2020-10-20 00:00:00 Completed [facility] SARS-COV-2 COVID-19 PFIZER VACCINE 2020-10-20 00:00:00 Completed [facility] SARS-COV-2 COVID-19 PFIZER VACCINE 2020-10-20 00:00:00 Completed SARS-COV-2 COVID-19 PFIZER VACCINE 2020-09-22 00:00:00 Completed [facility] SARS-COV-2 COVID-19 PFIZER VACCINE 2020-09-22 00:00:00 Completed [facility] SARS-COV-2 COVID-19 PFIZER VACCINE 2020-09-22 00:00:00 Completed [facility] SARS-COV-2 COVID-19 PFIZER VACCINE 2020-09-22 00:00:00 Completed [facility] SARS-COV-2 COVID-19 PFIZER VACCINE 2020-09-22 00:00:00 Completed [facility] SARS-COV-2 COVID-19 PFIZER VACCINE 2020-09-22 00:00:00 Completed [facility] SARS-COV-2 COVID-19 PFIZER VACCINE 2020-09-22 00:00:00 Completed [facility] Td 2020-02-15 00:00:00 Completed [facility] Td 2020-02-15 00:00:00 Completed [facility] Td 2020-02-15 00:00:00 Completed [facility] Td 2020-02-15 00:00:00 Completed [facility] Td 2020-02-15 00:00:00 Completed [facility] Td 2020-02-15 00:00:00 Completed [facility] Td 2020-02-15 00:00:00 Completed [facility] Td 2020-02-15 00:00:00 Completed [facility] TD, NOS 2020-02-15 00:00:00 Completed [facility] Td 2020-02-15 00:00:00 Completed [facility] Vital Signs Vital Name Observation Time Observation Value Daniel jose Systolic blood pressure 2024-06-27 14:00:00 107 mm[Hg] [facility] Diastolic blood pressure 2024-06-27 14:00:00 79 mm[Hg] [facility] Heart rate 2024-06-27 14:00:00 79 /min [facility] Body temperature 2024-06-27 14:00:00 37.11 Judith [facility] Oxygen saturation in Arterial blood by Pulse oximetry 2024-06-27 14:00:00 97 /min [facility] Respiratory rate 2024-06-27 13:00:00 17 /min [facility] Body height 2024-06-27 05:00:00 149.9 cm [facility] Body weight 2024-06-27 05:00:00 67.132 kg [facility] BMI 2024-06-27 05:00:00 29.88 kg/m2 [facility] Systolic blood pressure 2021-06-05 22:08:00 116 mm[Hg] [facility] Diastolic blood pressure 2021-06-05 22:08:00 68 mm[Hg] [facility] Heart rate 2021-06-05 22:08:00 71 /min [facility] Body temperature 2021-06-05 22:08:00 36.56 Judith [facility] Respiratory rate 2021-06-05 22:08:00 16 /min [facility] Oxygen saturation in Arterial blood by Pulse oximetry 2021-06-05 22:08:00 96 /min [facility] Body height 2021-06-02 22:30:00 149.9 cm [facility] Body weight 2021-06-02 22:30:00 74.844 kg [facility] BMI 2021-06-02 22:30:00 33.33 kg/m2 [facility] Systolic blood pressure 2020-12-08 16:05:00 108 mm[Hg] [facility] Diastolic blood pressure 2020-12-08 16:05:00 64 mm[Hg] [facility] Heart rate 2020-12-08 16:05:00 70 /min [facility] Body temperature 2020-12-08 16:05:00 36.17 Judith [facility] Respiratory rate 2020-12-08 16:05:00 18 /min [facility] Oxygen saturation in Arterial blood by Pulse oximetry 2020-12-08 16:05:00 94 /min [facility] Body weight 2020-12-07 09:35:00 83.462 kg [facility] BMI 2020-12-07 09:35:00 37.16 kg/m2 [facility] Systolic blood pressure 2020-12-08 16:05:00 108 mm[Hg] [facility] Diastolic blood pressure 2020-12-08 16:05:00 64 mm[Hg] [facility] Heart rate 2020-12-08 16:05:00 70 /min [facility] Body temperature 2020-12-08 16:05:00 36.17 Judith [facility] Respiratory rate 2020-12-08 16:05:00 18 /min [facility] Oxygen saturation in Arterial blood by Pulse oximetry 2020-12-08 16:05:00 94 /min [facility] Body weight 2020-12-07 09:35:00 83.462 kg [facility] BMI 2020-12-07 09:35:00 37.16 kg/m2 [facility] Systolic blood pressure 2020-02-19 16:38:00 140 mm[Hg] [facility] Diastolic blood pressure 2020-02-19 16:38:00 71 mm[Hg] [facility] Heart rate 2020-02-19 16:38:00 85 /min [facility] Body temperature 2020-02-19 16:38:00 36.67 Judith [facility] Respiratory rate 2020-02-19 16:38:00 18 /min [facility] Oxygen saturation in Arterial blood by Pulse oximetry 2020-02-19 16:38:00 100 /min [facility] Body height 2020-02-16 08:30:00 149.9 cm [facility] Body weight 2020-02-16 08:30:00 77.1 kg [facility] BMI 2020-02-16 08:30:00 34.33 kg/m2 [facility] Systolic blood pressure 2020-02-19 16:38:00 140 mm[Hg] [facility] Diastolic blood pressure 2020-02-19 16:38:00 71 mm[Hg] [facility] Heart rate 2020-02-19 16:38:00 85 /min [facility] Body temperature 2020-02-19 16:38:00 36.67 Judith [facility] Respiratory rate 2020-02-19 16:38:00 18 /min [facility] Oxygen saturation in Arterial blood by Pulse oximetry 2020-02-19 16:38:00 100 /min [facility] Body height 2020-02-16 08:30:00 149.9 cm [facility] Body weight 2020-02-16 08:30:00 77.1 kg [facility] BMI 2020-02-16 08:30:00 34.33 kg/m2 [facility] Systolic blood pressure 2020-02-16 02:00:00 124 mm[Hg] [facility] Diastolic blood pressure 2020-02-16 02:00:00 86 mm[Hg] [facility] Heart rate 2020-02-16 02:00:00 78 /min [facility] 2020-02-16 02:00:00 16 /min [facility] Oxygen saturation in Arterial blood by Pulse oximetry 2020-02-16 02:00:00 99 /min [facility] Body temperature 2020-02-15 23:42:44 36.78 Judith [facility] Body height 2020-02-15 23:17:00 149.9 [facility] Body weight 2020-02-15 23:17:00 77.111 kg [facility] BMI 2020-02-15 23:17:00 34.34 kg/m2 [facility] Systolic blood pressure 2020-02-16 02:00:00 124 mm[Hg] [facility] Diastolic blood pressure 2020-02-16 02:00:00 86 mm[Hg] [facility] Heart rate 2020-02-16 02:00:00 78 /min [facility] Respiratory rate 2020-02-16 02:00:00 16 /min [facility] Oxygen saturation in Arterial blood by Pulse oximetry 2020-02-16 02:00:00 99 /min [facility] Body temperature 2020-02-15 23:42:44 36.78 Judith [facility] Body height 2020-02-15 23:17:00 149.9 cm [facility] Body weight 2020-02-15 23:17:00 77.111 kg [facility] BMI 2020-02-15 23:17:00 34.34 kg/m2 [facility] Procedures Procedure Date / Time Performed Performing Clinician Source URINALYSIS 2024-06-27 10:43:00 Joseline Rivera [facility] PHOSPHORUS 2024-06-27 09:06:00 Joseline Rivera [facility] MAGNESIUM 2024-06-27 09:06:00 Joseline Rivera [facility] BASIC METABOLIC PANEL (NA, K , CL, CO2, GLUCOSE, BUN, CREATININE, CA) 2024-06-27 09:06:00 Joseline Rivera [facility] CBC WITH DIFF 2024-06-27 09:06:00 Joseline Rivera [facility] AC PANEL 20 + LACTIC ACID 2024-06-27 08:55:00 Joseline Rivera [facility] XR CHEST 1 VW 2024-06-27 06:06:00 Joseline Rivera [facility] ACUTE CARE ARTERIAL BLOOD GAS 2024-06-27 04:09:00 Joseline Rivera [facility] MAGNESIUM 2024-06-27 04:08:00 [facility] TROPON[facility] 2024-06-27 04:08:00 [facility] THYROID STIMULATING HORMONE 2024-06-27 04:08:00 Joseline [facility] BASIC METABOLIC PANEL (NA, K , CL, CO2, GLUCOSE, BUN, CREATININE, CA) 2024-06-27 04:08:00 [facility] CBC WITH DIFF 2024-06-27 04:08:00 Joseline Rivera [facility] GLYCOSYLATED HEMOGLOBIN (A1C) 2024-06-27 04:08:00 Joseline [facility] MRSA / MSSA SCREEN BY PCRWENDY 2024-06-27 04:08:00 Joseline Rivera [facility] COVID-19 (ID NOW RAPID TESTING) 2021-06-04 23:29:00 Rohini Rowan [facility] US PELVIS COMPLETE WITH TRANSVAGINAL 2021-06-03 16:43:05 Mckenzie Fischer [facility] CBC WITH DIFF 2021-06-03 11:27:00 Rohini Rowan [facility] ADC CLC OR LCC ONLY - WET PREP 2021-06-02 19:17:00 Rohini Rowan [facility] BLOOD CULTURE SCREEN 2021-06-02 17:16:00 Mckenzie Fischer [facility] BLOOD CULTURE SCREEN 2021-06-02 17:01:00 Mckenzie Fischer [facility] BLOOD CULTURE WORKUP 2021-06-02 17:01:00 Mckenzie Fischer [facility] GRAM POSITIVE BLOOD PATHOGEN S DNA PROBE-AEROBIC 2021-06-02 17:01:00 Mckenzie Fischer [facility] CT ABDOMEN PELVIS W CONTRAST 2021-06-02 16:10:20 [facility] 14:56[facility] COMP. METABOLIC PANEL ([id number]) 2021-06-02 14:07:00 [facility]FF 2021-06-02 14:07[facility]00 [facility] / INR 2021-06-02 14:07[facility]00 [facility] ACT[facility] PARTIAL THRMPLAS MEENA 2021-06-02 14:07:00 Amado [facility] URINALYSIS 2021-06-02 14:07:00 Amado [facility] COVID-19 (ID NOW RAPID TESTING) 2021-06-02 14:07:00 Amado [facility] LACTIC ACID WHOLE BLOOD 2021-06-02 14:06:00 Amado [facility] POCT TEST 2021-06-02 14:05[facility]00 [facility] NOTICE OF PRIVACY PRACTICES 2021-06-02 13:45:03 Doctor Unassigned, Venus [facility] CONSENT/REFUSAL FOR DIAGNOSI S AND TREATMENT 2021-06-02 13:43:14 Doctor Unassigned, Venus [facility] CBC WITH DIFF 2020-12-08 09:54:00 Kleber Macedo [facility] ACUTE CARE ARTERIAL BLOOD GAS 2020-12-07 09:40:00 Judith [facility] COMP. METABOLIC PANEL ([id number]) 2020-12-07 07:01:00 Mercedez Richmond [facility] CBC WITH DIFF 2020-12-07 07:01:00 Mercedez Richmond [facility] CT HEAD WO CONTRAST 2020-12-07 02:33:06 Judith noemi [facility] PHOSPHORUS 2020-12-07 01:43:00 Judith noemi [facility] MAGNESIUM 2020-12-07 01:43:00 Judith [facility] COMP. METABOLIC PANEL ([id number]) 2020-12-07 01:43:00 Judith [facility] PHENYTOIN 2020-12-07 01:43:00 Danny Wong [facility] PHENYTOIN FREE 2020-12-07 01:43:00 Danny Wong [facility] KEPPRA (LEVETIRACETAM) 2020-12-07 01:43:00 Danny Wong [facility] AC PANEL 20 + LACTIC ACID 2020-12-07 01:38:00 Danny Wong [facility] XR CHEST 1 VW 2020-12-07 00:20:16 Kleber Macedo [facility] POCT GLUCOSE (AUTOMATED) 2020-12-06 21:04:00 Jose Whitehead [facility] CBC WITH DIFF 2020-12-06 11:16:00 Mercedez Richmond [facility] BASIC METABOLIC PANEL (NA, K , CL, CO2, GLUCOSE, BUN, CREATININE, CA) 2020-12-05 09:34:00 Jose Whitehead [facility] CBC WITH DIFF 2020-12-05 09:34:00 Jose Whitehead [facility] COVID-19 (ID NOW RAPID TESTING) 2020-12-04 21:10:00 Mckenzie Fischer [facility] LAB ONLY COVID INTERPRETATION 2020-12-04 21:10:00 Mckenzie Fischer [facility] CT ABDOMEN PELVIS W CONTRAST 2020-12-04 20:15:23 Mckenzie Fischer [facility] POCT TEST 2020-12-04 19:51:00 Mckenzie Fischer [facility] BLOOD CULTURE SCREEN 2020-12-04 19:49:00 Mckenzie Fischer [facility] HEPATIC FUNCTION PANEL ([id number]) (ALB,T.PRO,BILI T,BU/BC,ALT,AST,ALK PHOS) 2020-12-04 19:49:00 Mckenzie Fischer [facility] BASIC METABOLIC PANEL (NA, K , CL, CO2, GLUCOSE, BUN, CREATININE, CA) 2020-12-04 19:49:00 Mckenzie Fischer [facility] CBC WITH DIFF 2020-12-04 19:49:00 Mckenzie Fischer [facility] GLYCOSYLATED HEMOGLOBIN (A1C) 2020-12-04 19:49:00 Jose Whitehead [facility] URINALYSIS 2020-12-04 19:49:00 Mckenzie Fischer [facility] LACTIC ACID WHOLE BLOOD 2020-12-04 19:49:00 Mckenzie Fischer [facility] BLOOD CULTURE SCREEN 2020-12-04 19:35:00 Mckenzie Fischer [facility] CONSENT/REFUSAL FOR DIAGNOSI S AND TREATMENT 2020-12-04 17:10:47 Doctor Unassigned, Venus [facility] MR LUMBAR SPINE WO CONTRAST 2020-02-18 16:38:16 Steve Sauceda [facility] MR BRAIN W WO CONTRAST 2020-02-18 16:38:16 Frank [facility] KEPPRA (LEVETIRACETAM) 2020-02-18 03:13:00 Frank [facility] TROPONIN I 2020-02-18 03:04:00 Frank [facility] COMP. METABOLIC PANEL ([id number]) 2020-02-18 03:04:00 Frank [facility] CBC WITH DIFF 2020-02-18 03:04:[address] [facility] [address] HEAD WO CONTRAST 2020-02-17 02:30:10 Noam Hanson [facility] ELECTROENCEPHALOGRAM 2020-02-17 00:00:00 Noam Hanson [facility] PHENYTOIN FREE 2020-02-16 23:28:00 Moon Renner [facility] CREATINE KINASE 2020-02-16 10:40:00 Noam Hanson [facility] MAGNESIUM 2020-02-16 10:40:00 Noam Hanson [facility] BASIC METABOLIC PANEL (NA, K , CL, CO2, GLUCOSE, BUN, CREATININE, CA) 2020-02-16 10:40:00 [facility] 2020-02-16 10:40:[address] [facility] COVID-19 (ID NOW RAPID TESTING) 2020-02-16 00:00:00 Tim Russell [facility] CREATINE KINASE 2020-02-15 23:30:00 Tim Russell [facility] COMP. METABOLIC PANEL ([id number]) 2020-02-15 23:30:00 Tim Russell [facility] CBC WITH DIFF 2020-02-15 23:30:00 Tim Russell [facility] LACTIC ACID WHOLE BLOOD 2020-02-15 23:30:00 Tim Russell [facility] NOTICE OF PRIVACY PRACTICES 2020-02-15 23:06:05 Doctor Unassigned, Venus [facility] CONSENT/REFUSAL FOR DIAGNOSI S AND TREATMENT 2020-02-15 23:05:40 Doctor Unassigned, Venus [facility] Encounters Start Date/Time End Date/Time Encounter Type Admission Type Attending Clinicians Care Facility Care Department Encounter ID Source 2024-06-26 20:37:00 2024-06-27 08:55:00 Hospital Encounter Seymour Godinez [facility] [id number] [id number] [facility] 2021-07-21 00:00:00 2021-07-21 00:00:00 [facility] [id number] [id number] [id number] [id number] [facility] 2021-06-06 00:00:00 2021-06-06 00:00:00 Transition of Care Mahogany Cortez 1.0.114 [id number] 4.2.7.2.686 [id number] [facility] 2021-06-02 07:53:00 2021-06-05 18:21:00 Inpatient X ROHINI ROWAN [facility] [id number] [facility] 2021-06-02 07:53:00 2021-06-05 18:21:00 Hospital Encounter Mckenzie Fischer Rohini Ramo [facility] [id number] [id number] 4.2.7.2.686 [id number] [facility] 2020-12-11 00:00:00 2020-12-11 00:00:00 Transition of Care Mahogany Cortez [id number] [id number] 4.2.7.2.686 [id number] 2020-12-11 00:00:00 2020-12-11 00:00:00 Transition of Care Mahogany Cortez [id number] [id number] [id number] [id number] [facility] 2020-12-04 12:23:00 2020-12-08 13:59:00 Hospital Encounter Mckenzie Fischer Yaman Morris, [facility] [id number] [id number] [id number] [id number] 2020-12-04 12:23:00 2020-12-08 13:59:00 Hospital Encounter Mckenzie Fischer Yaman Morris, [facility] [id number] [id number] [id number] [id number] [facility] 2020-12-04 12:11:00 2020-12-04 12:11:00 Emergency X [facility] ERT [id number] [facility] 2020-12-04 00:00:00 2020-12-04 00:00:00 Orders Only Doctor Unassigned, Venus [facility] 1.2.840.114 350.1.13.10 4.2.7.2.686 [id number] 009 [id number] 2020-12-04 00:00:00 2020-12-04 00:00:00 Orders Only Doctor Unassigned, Venus [facility] 1.2.840.114 350.1.13.10 4.2.7.2.686 [id number] 009 [id number] [facility] 2020-02-21 00:00:00 2020-02-21 00:00:00 Transition of Care Mahogany Cortez 1.2.840.114 350.1.13.10 4.2.7.2.686 [id number] 2020-02-21 00:00:00 2020-02-21 00:00:00 Transition of Care Mahogany Cortez 1.2.840.114 350.1.13.10 4.2.7.2.686 [id number] [facility] 2020-02-15 23:20:00 2020-02-19 14:53:00 Hospital Encounter [facility] 1.2.840.114 350.1.13.10 4.2.7.2.686 [id number] 2020-02-15 23:20:00 2020-02-19 14:53:00 Hospital Encounter [facility] 1.2.840.114 350.1.13.10 4.2.7.2.686 [id number] [facility] 2020-02-15 18:13:00 2020-02-15 21:26:00 [facility] 1.2.840.114 350.1.13.10 4.2.7.2.686 [id number] 2020-02-15 18:13:00 2020-02-15 21:26:00 Emergency DrewTim villalp[facility] 1.2.840.114 350.1.13.10 4.2.7.2.686 [id number] [facility] 2020-02-15 18:07:00 2020-02-15 18:07:00 Emergency X [facility] ERT [id number] [facility] 2020-02-15 00:00:00 2020-02-15 00:00:00 Orders Only Doctor Unassigned, Venus [facility] 1.2.840.114 350.1.13.10 4.2.7.2.686 [id number] [id number] 2020-02-15 00:00:00 2020-02-15 00:00:00 Orders Only Doctor Unassigned, Venus [facility] 1.2.840.114 350.1.13.10 4.2.7.2.686 [id number] 009 [id number] [facility] Results Test Description Test Time Test [...] of inspiration. No acute bonyabnormalities are evident. [facility] (NA, K, CL, CO2, GLUCOSE, BUN, CREATININE, CA)2024-06-27 10:00:50* Test Item Value Reference Range Interpretation Comme nts NA (test code = 6463681379) 138 mmol/L 135-145 K (test code = 8927171812) 3.7 mmol/L 3.5-5.0 CL (test code = 1968617534) 110 mmol/L 98-108 H CO2 TOTAL (test code = 3508302850) 24 mmol/L 23-31 AGAP (test code = 8457362967) 4 2-16 BUN (test code = 1414046087) 11 mg/dL 7-23 GLUCOSE (test code = 7078704273) 76 mg/dL 70-110 CREATININE (test code = 2160-0) 0.53 mg/dL 0.50-1.04 CALCIUM (test code = 4135031261) 8.2 mg/dL 8.6-10.6 L eGFR (test code = 95366-8) 113.5 mL/min/1.73m2 CKD-EPI eGFR (2020). Assuming creatinine has been stable day-to-day for at least three months, the eGFR indicates Category G1 (>= 90 mL/min/1.73 m2) Lab Interpretation (test code = 40866-5) [facility] 10:00:50* Test Item Value Reference Range Interpretation Comme nts PHOSPHORUS (test code = 9436452111) 3.7 mg/dL 2.5-5.0 Lab Interpretation (test cod e = 28355-8) Normal [facility] with [id number] 09:42:45* Test Item Value Reference Range Interpretation [...] 32.6 g/dL 31.6-35.1 RDW-SD (test code = 24874-5) 44.5 fL 39.0-49.9 RDW-CV (test code = 788-0) 12.8 % 12.0-15.5 PLT (test code = 777-3) 270 166-358 MPV (test code = 34871-1) 9.6 fL 9.5-12.9 NRBC/100 WBC (test code = 3039412689) 0.0 0.0-10.0 NRBC x10^3 (test code = 9298727643) See_Comment [Automated [employer]] The system which generated this result transmitted reference range: 10*3/?L. The reference range was not used to interpret this result as normal/abnormal. GRAN MAT (NEUT) % (test code = 770-8) 69.3 % IMM GRAN % (test code = 5150927342) 0.30 % LYMPH % (test code = 736-9) 20.9 % MONO % (test code = 5905-5) 6.2 % EOS % (test code = 713-8) 2.8 % BASO % (test code = 706-2) 0.5 % GRAN MAT x10^3(ANC) (test code = 0702125104) 7.35 10*3/uL 1.88-7.09 H IMM GRAN x10^3 (test code = 2918376777) 0.03 10*3/uL 0.00-0.06 LYMPH x10^3 (test code = 731-0) 2.22 10*3/uL 1.32-3.29 MONO x10^3 (test code = 742-7) 0.66 10*3/uL 0.33-0.92 EOS x10^3 (test code = 711-2) 0.30 10*3/uL 0.03-0.39 BASO x10^3 (test code = 704-7) 0.05 10*3/uL 0.01-0.07 Lab Interpretation (test code = 83636-1) [facility] 20 + Lactic [id number] 09:18:50* Test Item Value Reference Range Interpretation Comme nts PH (test code = 2) 7.40 7.35-7.45 PCO2 (test code = 8666552587) 39 35-45 PO2 (test code = 6466407688) 141 80-100 H HCO3 (test code = 2616397105) 24 22-26 BE (test code = 4700859413) -1.4 -3.0-3.0 THB (test code = 1781639231) 16.5 g/dL 12.0-16.0 H %O2HB (test code = 6068524324) 98.7 % 94.0-99.0 %COHB ART (test code = 5519284230) 0.3 % 0.0-1.5 %METHB ART (test code = 0043661056) 0.1 % 0.4-1.5 L VOL%O2 ART (test code = 2933255424) 23.1 % 15.0-23.0 H NA (test code = 6960100744) 140 mmol/L 135-145 K+ (test code = 3717801394) 3.9 mmol/L 3.5-5.0 AC CA IONZ (test code = 1452904396) 5.00 mg/dL 4.50-5.30 GLUCOSE (test code = 7943186435) 77 mg/dL 70-110 LACTIC ACID (test code = 0804957670) 0.78 mmol/L 0.50-2.20 QUES Lab Interpretation (test cod e = 48384-4) Abnormal [facility] CenterTHYROID STIMULATING [id number] 05:25:38 * Test Item Value Reference Range Interpretation Comme nts TSH (test code = 4739917911) 1.30 0.45-4.70 Biotin has been reported to cause a negative bias, interpret results relative to patient's use of biotin. Lab Interpretation (test code = 85350-2) Normal [facility] CenterGlycosylated Hemoglobin (A1C)2024-06-27 05:07:13* Test Item Value Reference Range Interpretation Comme nts HGB A1C (test code = 4548-4) 5.3 % 4.0-5.7 BRE (test code = BRE) Reference RangesNormal: <5.7%Prediabetes: 5.7 - 6.4%Diabetes: > 6.5% Lab Interpretation (test code = 66874-2) Normal [facility] CenterTroponin [id number] 05:06:53* Test Item Value Reference Range Interpretation Comme nts TROPONIN I (test code = 1601194744) 0.003 ng/mL <=0.034 BRE (test code = [...] of biotin. Lab Interpretation (test code = 76243-5) Normal [facility] CenterMagnesium2025-01-27 04:55:16* Test Item Value Reference Range Interpretation Comme nts MAGNESIUM (test code = 8384058129) 1.6 mg/dL 1.7-2.4 L Lab Interpretation (test cod e = 19394-7) Abnormal [facility] Metabolic Panel (NA, K, CL, CO2, GLUCOSE, BUN, CREATININE, CA)2024-06-27 04:55:11* Test Item Value Reference Range Interpretation Comme nts NA (test code = 1787859144) 138 mmol/L 135-145 K (test code = 5226952223) 3.8 mmol/L 3.5-5.0 CL (test code = 2971344398) 110 mmol/L 98-108 H CO2 TOTAL (test code = 0050630374) 25 mmol/L 23-31 AGAP (test code = 5805000839) 3 2-16 BUN (test code = 7059521340) 12 mg/dL 7-23 GLUCOSE (test code = 8976601472) 72 mg/dL 70-110 CREATININE (test code = 2160-0) 0.55 mg/dL 0.50-1.04 CALCIUM (test code = 1077419981) 8.6 mg/dL 8.6-10.6 eGFR (test code = 65055-9) 112.5 mL/min/1.73m2 CKD-EPI eGFR (2020). Assuming creatinine has been stable day-to-day for at least three months, the eGFR indicates Category G1 (>= 90 mL/min/1.73 m2) Lab Interpretation (test code = 99147-5) Abnormal [facility] With [id number] 04:24:11* Test Item Value Reference Range Interpretation [...] 32.4 g/dL 31.6-35.1 RDW-SD (test code = 07280-8) 44.3 fL 39.0-49.9 RDW-CV (test code = 788-0) 12.9 % 12.0-15.5 PLT (test code = 777-3) 245 166-358 MPV (test code = 22544-7) 9.5 fL 9.5-12.9 NRBC/100 WBC (test code = 1473873372) 0.0 0.0-10.0 NRBC x10^3 (test code = 2597202902) See_Comment [Automated messa ge] The system which generated this result transmitted reference range: 10*3/?L. The reference range was not used to interpret this result as normal/abnormal. GRAN MAT (NEUT) % (test code = 770-8) 58.2 % IMM GRAN % (test code = 3945138760) 0.20 % LYMPH % (test code = 736-9) 29.1 % MONO % (test code = 5905-5) 8.6 % EOS % (test code = 713-8) 3.4 % BASO % (test code = 706-2) 0.5 % GRAN MAT x10^3(ANC) (test code = 4173253681) 5.03 10*3/uL 1.88-7.09 IMM GRAN x10^3 (test code = 2339184305) 0.00-0.06 LYMPH x10^3 (test code = 731-0) 2.51 10*3/uL 1.32-3.29 MONO x10^3 (test code = 742-7) 0.74 10*3/uL 0.33-0.92 EOS x10^3 (test code = 711-2) 0.29 10*3/uL 0.03-0.39 BASO x10^3 (test code = 704-7) 0.04 10*3/uL 0.01-0.07 Lab Interpretation (test code = 55807-9) Abnormal [facility] Arterial Blood Gas. [id number] 04:15:10* Test Item Value Reference Range Interpretation Comme nts PH (test code = 2) 7.39 7.35-7.45 PCO2 (test code = 2488323607) 40 35-45 PO2 (test code = 4434881247) 193 80-100 H QUES HCO3 (test code = 6185239662) 24 22-26 BE (test code = 7050283508) -1.3 -3.0-3.0 Lab Interpretation (test cod e = 51979-5) Abnormal [facility] CenterGRAM POSITIVE BLOOD PATHOGENS DNA [id number]-[id number] 20:35:34* Test Item Value Reference Range Interpretation Comme nts Gram Positive Blood Pathogens DNA Probe-Aerobic (test code = 57165-3) No organisms included in the Blood DNA Probe test panel were detected. Further identification workup to be performed by culture testing methods. BRE (test code = BRE) See blood culture result for additional information. Testing included eleven identification and three resistancemarker [address] [facility] WITH [id number] 12:24:57* Test Item Value Reference Range Interpretation Comme nts WBC (test code = 6690-2) See_Comment [Automated [employer]] The system which generated this result transmitted reference range: 4.30 - 11.10 10*3/?L. The reference range was not used to interpret this result as normal/abnormal. RBC (test code = 789-8) See_Comment [Automated [employer]] The system which generated this result transmitted [...] 32.2 g/dL 31.6-35.1 RDW-SD (test code = 76867-6) 46.5 fL 39.0-49.9 RDW-CV (test code = 788-0) 13.1 % 12.0-15.5 PLT (test code = 777-3) See_Comment [Automated [employer]] The system which generated this result transmitted reference range: 166 - 358 10*3/?L. The reference range was not used to interpret this result as normal/abnormal. MPV (test code = 20520-0) 9.9 fL 9.5-12.9 NRBC/100 WBC (test code = 8830543889) See_Comment [Automated [employer] ssage] The system which generated this result transmitted reference range: 0.0 - 10.0 /100 WBCs. The reference range was not used to interpret this result as normal/abnormal. NRBC x10^3 (test code = 0070166289) <0.01 See_Comment [Automated [employer]] The system which generated this result transmitted reference range: 10*3/?L. The reference range was not used to interpret this result as normal/abnormal. GRAN MAT (NEUT) % (test code = 770-8) 59.8 % IMM GRAN % (test code = 8202112008) 0.70 % LYMPH % (test code = 736-9) 22.3 % MONO % (test code = 5905-5) 10.7 % EOS % (test code = 713-8) 6.0 % BASO % (test code = 706-2) 0.5 % GRAN MAT x10^3(ANC) (test code = 4482276463) 6.18 10*3/uL 1.88-7.09 IMM GRAN x10^3 (test code = 3340828711) 0.07 10*3/uL 0.00-0.06 H LYMPH x10^3 (test code = 731-0) 2.31 10*3/uL 1.32-3.29 MONO x10^3 (test code = 742-7) 1.11 10*3/uL 0.33-0.92 H EOS x10^3 (test code = 711-2) 0.62 10*3/uL 0.03-0.39 H BASO x10^3 (test code = 704-7) 0.05 10*3/uL 0.01-0.07 Lab Interpretation (test code = 08415-6) Abnormal [facility]. METABOLIC PANEL (09741)2021-06-02 14:33:18* Test Item Value Reference Range Interpretation Comme nts NA (test code = 2421314727) 137 mmol/L 135-145 K (test code = 5118806205) 3.7 mmol/L 3.5-5.0 CL (test code = 5059402442) 105 mmol/L 98-108 CO2 TOTAL (test code = 2204290870) 24 mmol/L 23-31 AGAP (test code = 4509352936) 2-16 BUN (test code = 9748585243) 9 mg/dL 7-23 GLUCOSE (test code = 4077554337) 104 mg/dL 70-110 CREATININE (test code = 7926680606) 0.63 mg/dL 0.50-1.04 TOTAL BILI (test code = 0397153101) 0.6 mg/dL 0.1-1.1 CALCIUM (test code = 5070554207) 9.0 mg/dL 8.6-10.6 T PROTEIN (test code = 3860344454) 7.3 g/dL 6.3-8.2 ALBUMIN (test code = 7557369496) 4.0 g/dL 3.5-5.0 ALK PHOS (test code = 7604682123) 81 U/L 34-122 ALTv (test code = 1742-6) 14 U/L 5-35 AST(SGOT) (test code = 6693651936) 21 U/L 13-40 eGFR (test code = 4795267485) mL/min/1.73m2 BRE (test code = BRE) Association [...] or urine or abnormalities in imaging tests). [facility] CenterACTIVATED PARTIAL THRMPLAS [id number] 14:30:17* Test Item Value Reference Range Interpretation Comme [facility] APTT Patient (test code = 3173-2) See_Comment [Automated message] The system which generated this result transmitted reference range: 23 - 38 Seconds. The reference range was not used to interpret this result as normal/abnormal. BRE (test code = BRE) The [facility] patient population mean normal value for aPTT is 30 seconds. Lab Interpretation (test code = 57459-9) Normal [facility] CenterPROTHROMBIN TIME / [id number] 14:28:17* Test Item Value Reference Range Interpretation [...] the indications. Lab Interpretation (test code = 13309-0) Normal [facility] CenterCBC WITH [id number] 14:20:21* Test Item Value Reference Range Interpretation Comme [facility] WBC (test code = 6690-2) See_Comment H [...] 33.0 g/dL 31.6-35.1 RDW-SD (test code = 24392-5) 44.9 fL 39.0-49.9 RDW-CV (test code = 788-0) 13.0 % 12.0-15.5 PLT (test code = 777-3) See_Comment [Automated messa ge] The system which generated this result transmitted reference range: 166 - 358 10*3/?L. The reference range was not used to interpret this result as normal/abnormal. MPV (test code = 24666-3) 9.5 fL 9.5-12.9 NRBC/100 WBC (test code = 8030950432) See_Comment [Automated [employer] ssage] The system which generated this result transmitted reference range: 0.0 - 10.0 /100 WBCs. The reference range was not used to interpret this result as normal/abnormal. NRBC x10^3 (test code = 9202584892) <0.01 See_Comment [Automated messa ge] The system which generated this result transmitted reference range: 10*3/?L. The reference range was not used to interpret this result as normal/abnormal. GRAN MAT (NEUT) % (test code = 770-8) 69.4 % IMM GRAN % (test code = 9551839300) 0.70 % LYMPH % (test code = 736-9) 16.9 % MONO % (test code = 5905-5) 8.6 % EOS % (test code = 713-8) 3.9 % BASO % (test code = 706-2) 0.5 % GRAN MAT x10^3(ANC) (test code = 3382741047) 9.74 10*3/uL 1.88-7.09 H IMM GRAN x10^3 (test code = 3396101028) 0.10 10*3/uL 0.00-0.06 H LYMPH x10^3 (test code = 731-0) 2.37 10*3/uL 1.32-3.29 MONO x10^3 (test code = 742-7) 1.20 10*3/uL 0.33-0.92 H EOS x10^3 (test code = 711-2) 0.54 10*3/uL 0.03-0.39 H BASO x10^3 (test code = 704-7) 0.07 10*3/uL 0.01-0.07 Lab Interpretation (test code = 46914-5) Abnormal [facility] CenterPOCT [id number] 14:05:00* Test Item Value Reference Range Interpretation Comme nts POCT PREG (test code = 1605) negative On board controls acceptable with C Line (test code = 3574) present POCT PREG LOT # (test code = 3575) [id number] POCT PREG TEST DATE ( test code = 3576) 07/29/2022 Lab Interpretation (test cod e = 19831-8) Normal [facility] Center[facility] WITH [id number] 11:14:56* Test Item Value Reference Range Interpretation [...] g/dL 31.6-35.1 L RDW-SD (test code = 73299-6) 47.7 fL 39.0-49.9 RDW-CV (test code = 788-0) 13.5 % 12.0-15.5 PLT (test code = 777-3) See_Comment [Automated messa ge] The system which generated this result transmitted reference range: 166 - 358 10*3/?L. The reference range was not used to interpret this result as normal/abnormal. MPV (test code = 37527-8) 9.8 fL 9.5-12.9 NRBC/100 WBC (test code = 2339315666) See_Comment [Automated [employer] ssage] The system which generated this result transmitted reference range: 0.0 - 10.0 /100 WBCs. The reference range was not used to interpret this result as normal/abnormal. NRBC x10^3 (test code = 0867228613) <0.01 See_Comment [Automated messa ge] The system which generated this result transmitted reference range: 10*3/?L. The reference range was not used to interpret this result as normal/abnormal. GRAN MAT (NEUT) % (test code = 770-8) 49.8 % IMM GRAN % (test code = 3392728492) 1.50 % LYMPH % (test code = 736-9) 31.9 % MONO % (test code = 5905-5) 7.4 % EOS % (test code = 713-8) 9.0 % BASO % (test code = 706-2) 0.4 % GRAN MAT x10^3(ANC) (test code = 2126114274) 5.52 10*3/uL 1.88-7.09 IMM GRAN x10^3 (test code = 0513454867) 0.17 10*3/uL 0.00-0.06 H LYMPH x10^3 (test code = 731-0) 3.54 10*3/uL 1.32-3.29 H MONO x10^3 (test code = 742-7) 0.82 10*3/uL 0.33-0.92 EOS x10^3 (test code = 711-2) 1.00 10*3/uL 0.03-0.39 H BASO x10^3 (test code = 704-7) 0.04 10*3/uL 0.01-0.07 Lab Interpretation (test code = 03332-9) Abnormal [facility] Arterial Blood Gas.2020-12-07 09:48:11* Test Item Value Reference Range Interpretation Comme nts PH (test code = 2) 7.35-7.45 PCO2 (test code = 5659600442) See_Comment H [Automated messa ge] The system which generated this result transmitted reference range: 35 - 45 mmHg. The reference range was not used to interpret this result as normal/abnormal. PO2 (test code = 6545264607) See_Comment H [Automated messa ge] The system which generated this result transmitted reference range: 80 - 100 mmHg. The reference range was not used to interpret this result as normal/abnormal. HCO3 (test code = 7053893175) See_Comment H [Automated messa ge] The system which generated this result transmitted reference range: 22 - 26 mEq/L. The reference range was not used to interpret this result as normal/abnormal. BE (test code = 0263451260) See_Comment [Automated messa ge] The system which generated this result transmitted reference range: -3.0 - 3.0 mEq/L. The reference range was not used to interpret this result as normal/abnormal. Lab Interpretation (test code = 08422-4) Abnormal [facility] Center[facility]. METABOLIC PANEL (99033)2020-12-07 08:13:32* Test Item Value Reference Range Interpretation Comme nts NA (test code = 7376236643) 136 mmol/L 135-145 K (test code = 9501823295) 4.5 mmol/L 3.5-5.0 CL (test code = 8468702205) 106 mmol/L 98-108 CO2 TOTAL (test code = 2881676476) 27 mmol/L 23-31 AGAP (test code = 4512757830) 2-16 BUN (test code = 1230304899) 8 mg/dL 7-23 GLUCOSE (test code = 6893657814) 81 mg/dL 70-110 CREATININE (test code = 7913318439) 0.57 mg/dL 0.50-1.04 TOTAL BILI (test code = 0604065478) 0.4 mg/dL 0.1-1.1 CALCIUM (test code = 8343685238) 9.4 mg/dL 8.6-10.6 T PROTEIN (test code = 8095496368) 6.4 g/dL 6.3-8.2 ALBUMIN (test code = 6013527843) 3.7 g/dL 3.5-5.0 ALK PHOS (test code = 9741818162) 66 U/L 34-122 ALTv (test code = 1742-6) 19 U/L 5-35 AST(SGOT) (test code = 9627699993) 26 U/L 13-40 eGFR (test code = 5809694345) mL/min/1.73m2 BRE (test code = BRE) Association [...] or urine or abnormalities in imaging tests). [facility] WITH [id number] 07:35:30* Test Item Value Reference Range Interpretation Comme nts WBC (test code = 6690-2) See_Comment [Automated [employer]] The system which generated this result transmitted reference range: 4.30 - 11.10 10*3/?L. The reference range was not used to interpret this result as normal/abnormal. RBC (test code = 789-8) See_Comment [Automated [employer]] The system which generated this result [...] 31.8 g/dL 31.6-35.1 RDW-SD (test code = 02671-3) 48.6 fL 39.0-49.9 RDW-CV (test code = 788-0) 13.6 % 12.0-15.5 PLT (test code = 777-3) See_Comment [Automated [employer]] The system which generated this result transmitted reference range: 166 - 358 10*3/?L. The reference range was not used to interpret this result as normal/abnormal. MPV (test code = 65982-2) 9.6 fL 9.5-12.9 NRBC/100 WBC (test code = 4677144969) See_Comment [Automated [employer]] The system which generated this result transmitted reference range: 0.0 - 10.0 /100 WBCs. The reference range was not used to interpret this result as normal/abnormal. NRBC x10^3 (test code = 9109141015) <0.01 See_Comment [Automated messa ge] The system which generated this result transmitted reference range: 10*3/?L. The reference range was not used to interpret this result as normal/abnormal. GRAN MAT (NEUT) % (test code = 770-8) 55.9 % IMM GRAN % (test code = 2297357099) 1.50 % LYMPH % (test code = 736-9) 27.1 % MONO % (test code = 5905-5) 7.0 % EOS % (test code = 713-8) 8.1 % BASO % (test code = 706-2) 0.4 % GRAN MAT x10^3(ANC) (test code = 0593774549) 6.09 10*3/uL 1.88-7.09 IMM GRAN x10^3 (test code = 2603188373) 0.16 10*3/uL 0.00-0.06 H LYMPH x10^3 (test code = 731-0) 2.95 10*3/uL 1.32-3.29 MONO x10^3 (test code = 742-7) 0.76 10*3/uL 0.33-0.92 EOS x10^3 (test code = 711-2) 0.88 10*3/uL 0.03-0.39 H BASO x10^3 (test code = 704-7) 0.04 10*3/uL 0.01-0.07 Lab Interpretation (test code = 72728-4) Abnormal [facility] CenterPHENYTOIN [id number] 06:33:41* Test Item Value Reference Range Interpretation Comme nts PHENY FREE (test code = 0755086422) 0.5 ug/mL 1.0-2.0 L BRE (test code = BRE) Toxic Range: ? Greater than 2.5 ug/mL Test developed and characteristics determined by [facility] Laboratory Services. Lab Interpretation (test code = 82119-8) Abnormal [facility] CenterKEPPRA (LEVETIRACETAM)2020-12-07 05:49:38* Test Item Value Reference Range Interpretation Comme nts KEPPRA (test code = 4101456180) 17 ug/mL 12-46 BRE (test code = BRE) Therapeutic range: 12-46 ?g/mL ? ?Toxic: Not well established.Test developed and characteristics determined by [facility] Laboratory Services. Lab Interpretation (test code = 67228-0) Normal [facility] CenterPHENYTOIN2021-07-09 04:18:37* Test Item Value Reference Range Interpretation Comme nts PHENYTOIN (test code = 3580634370) 5.3 ug/mL 10.0-20.0 L BRE (test code = BRE) Toxic Range: ? 0-3 Months ? Greater than 14 ug/mL ? ? 3 Months - 150 Years ? ? Greater than 20 ug/mL Lab Interpretation (test code = 97991-5) Abnormal [facility] CenterMAGNESIUM2021-07-09 03:13:49* Test Item Value Reference Range Interpretation Comme nts MAGNESIUM (test code = 0928814040) 1.9 mg/dL 1.7-2.4 Lab Interpretation (test cod e = 69234-2) Normal [facility] Center[facility]. METABOLIC PANEL (05001)2020-12-07 03:13:34* Test Item Value Reference Range Interpretation Comme nts NA (test code = 8729046301) 134 mmol/L 135-145 L K (test code = 1558974155) 4.8 mmol/L 3.5-5.0 CL (test code = 6260578365) 105 mmol/L 98-108 CO2 TOTAL (test code = 2145911827) 26 mmol/L 23-31 AGAP (test code = 3239297999) 2-16 BUN (test code = 9830574886) 9 mg/dL 7-23 GLUCOSE (test code = 4677280049) 87 mg/dL 70-110 CREATININE (test code = 2887428109) 0.66 mg/dL 0.50-1.04 TOTAL BILI (test code = 2061263611) 0.3 mg/dL 0.1-1.1 CALCIUM (test code = 7529157611) 9.7 mg/dL 8.6-10.6 T PROTEIN (test code = 0073041089) 6.6 g/dL 6.3-8.2 ALBUMIN (test code = 4790282112) 3.9 g/dL 3.5-5.0 ALK PHOS (test code = 4274276228) 73 U/L 34-122 ALTv (test code = 1742-6) 19 U/L 5-35 AST(SGOT) (test code = 3080861744) 27 U/L 13-40 eGFR (test code = 3919991266) mL/min/1.73m2 BRE (test code = BRE) Association [...] imaging tests). Lab Interpretation (test code = 65133-5) [facility]* Test Item Value Reference Range Interpretation Comme nts PHOSPHORUS (test code = 3320450512) 4.8 mg/dL 2.5-5.0 Lab Interpretation (test cod e = 21571-2) [facility] [id number] 02:42:36 Impression: 1. ?No CT evidence for [...] ?The calvarium and skull base are intact. [facility], Radiant Results Inft User - 12/06/2020 [...] [id number] signed by Veronica Wu 12/06/2020 9:42 [facility]ML[facility] CenterAC PANEL 20 + LACTIC [id number] 01:42:21* Test Item Value Reference Range Interpretation Comme nts PH (test code = 2) 7.35-7.45 L PCO2 (test code = 0516536587) See_Comment H [Automated messa ge] The system which generated this result transmitted reference range: 35 - 45 mmHg. The reference range was not used to interpret this result as normal/abnormal. PO2 (test code = 5234191536) See_Comment H [Automated messa ge] The system which generated this result transmitted reference range: 80 - 100 mmHg. The reference range was not used to interpret this result as normal/abnormal. HCO3 (test code = 4683768924) See_Comment [Automated messa ge] The system which generated this result transmitted reference range: 22 - 26 mEq/L. The reference range was not used to interpret this result as normal/abnormal. BE (test code = 5782934891) See_Comment [Automated messa ge] The system which generated this result transmitted reference range: -3.0 - 3.0 mEq/L. The reference range was not used to interpret this result as normal/abnormal. THB (test code = 7318810156) 13.8 g/dL 12.0-16.0 %O2HB (test code = 1339129971) 97.8 % 94.0-99.0 %COHB ART (test code = 2515517874) 0.3 % 0.0-1.5 %METHB ART (test code = 2570869241) 0.5 % 0.4-1.5 VOL%O2 ART (test code = 0393055958) 19.2 % 15.0-23.0 NA (test code = 9094188742) 136 mmol/L 135-145 K+ (test code = 6675261379) 4.4 mmol/L 3.5-5.0 AC CA IONZ (test code = 5760189845) 4.90 mg/dL 4.50-5.30 GLUCOSE (test code = 3622538933) 90 mg/dL 70-110 LACTIC ACID (test code = 9611365292) 0.70 mmol/L 0.50-2.20 Lab Interpretation (test code = 41759-0) [facility] [id number] 00:34:08Impression: 1. ?No acute cardiopulmonary process is [...] No acute cardiopulmonary process is identified.RL: [id number] [facility]2020-12-06 21:08:59 * Test Item Value Reference Range Interpretation Comme nts POCT GLU (test code = 1095617411) 117 mg/dL 70-110 H Notified Provide r Lab Interpretation (test code = 58346-4) [facility]normal [facility] WITH [id number] 15:07:49* Test Item Value Reference Range Interpretation [...] 32.0 g/dL 31.6-35.1 RDW-SD (test code = 82659-8) 47.5 fL 39.0-49.9 RDW-CV (test code = 788-0) 13.6 % 12.0-15.5 PLT (test code = 777-3) See_Comment [Automated messa ge] The system which generated this result transmitted reference range: 166 - 358 10*3/?L. The reference range was not used to interpret this result as normal/abnormal. MPV (test code = 28052-1) 9.6 fL 9.5-12.9 NRBC/100 WBC (test code = 5679060866) See_Comment [Automated [employer] ssage] The system which generated this result transmitted reference range: 0.0 - 10.0 /100 WBCs. The reference range was not used to interpret this result as normal/abnormal. NRBC x10^3 (test code = 2016661698) <0.01 See_Comment [Automated messa ge] The system which generated this result transmitted reference range: 10*3/?L. The reference range was not used to interpret this result as normal/abnormal. GRAN MAT (NEUT) % (test code = 770-8) 47.8 % IMM GRAN % (test code = 6463849436) 2.10 % LYMPH % (test code = 736-9) 32.4 % MONO % (test code = 5905-5) 7.6 % EOS % (test code = 713-8) 9.7 % BASO % (test code = 706-2) 0.4 % GRAN MAT x10^3(ANC) (test code = 4876877819) 4.89 10*3/uL 1.88-7.09 IMM GRAN x10^3 (test code = 8286756242) 0.22 10*3/uL 0.00-0.06 H LYMPH x10^3 (test code = 731-0) 3.32 10*3/uL 1.32-3.29 H MONO x10^3 (test code = 742-7) 0.78 10*3/uL 0.33-0.92 EOS x10^3 (test code = 711-2) 0.99 10*3/uL 0.03-0.39 H BASO x10^3 (test code = 704-7) 0.04 10*3/uL 0.01-0.07 BANDS (test code = 7657586529) Increased A LG GRAN LYMPHS (test code = 9932242783) Rare Rare REACT LYMPHS (test code = 1140730442) Rare Lab Interpretation (test code = 50017-2) [facility]normal [facility] ONLY COVID [id number] 15:26:05COVID DMT InterpretationInterpretation/Recommendations:Molecular NAAT Tests for Active [...] COVID-19 testing the patient has had at [facility], including molecular NAAT testing (more commonly known as PCR testing and Rapid ID Now testing) and antibody testing. It does not take into account any testing that a patient has had outside of the [facility] medical record. [facility] LABORATORY SERVICESCOVID VjqmblxLKTP-BbJ-2 Rapid ID NOW (no units) ? ? Date ? Value ? 12/04/2020 ? Not Detected ? ? ? 02/15/2020 ? Not Detected ? [facility] SERVICESUn[facility] Metabolic Panel (NA, K, CL, CO2, GLUCOSE, BUN, CREATININE, CA) 2020-12-05 10:16:08* Test Item Value Reference Range Interpretation Comme nts NA (test code = 7303919025) 135 mmol/L 135-145 K (test code = 9908381550) 3.8 mmol/L 3.5-5.0 CL (test code = 2954747347) 106 mmol/L 98-108 CO2 TOTAL (test code = 7798416549) 23 mmol/L 23-31 AGAP (test code = 7447378986) 2-16 BUN (test code = 5555489982) 7 mg/dL 7-23 GLUCOSE (test code = 9692950737) 131 mg/dL 70-110 H CREATININE (test code = 8796515585) 0.66 mg/dL 0.50-1.04 CALCIUM (test code = 2341901819) 8.5 mg/dL 8.6-10.6 L eGFR (test code = 9096900018) mL/min/1.73m2 BRE (test code = BRE) Association [...] imaging tests). Lab Interpretation (test code = 55894-4) Abnormal [facility] with Xrohmifhubjt4550-78-85 09:47:43* Test Item Value Reference Range Interpretation Comme nts WBC (test code = 6690-2) See_Comment H [Automated [employer]] The system which generated this result transmitted reference range: 4.30 - 11.10 10*3/?L. The reference range was not used to interpret this result as normal/abnormal. RBC (test code = 789-8) See_Comment [Automated [employer]] The system which generated this result transmitted [...] 32.5 g/dL 31.6-35.1 RDW-SD (test code = 71302-6) 47.2 fL 39.0-49.9 RDW-CV (test code = 788-0) 13.6 % 12.0-15.5 PLT (test code = 777-3) See_Comment [Automated messa ge] The system which generated this result transmitted reference range: 166 - 358 10*3/?L. The reference range was not used to interpret this result as normal/abnormal. MPV (test code = 55495-9) 9.4 fL 9.5-12.9 L NRBC/100 WBC (test code = 6133817626) See_Comment [Automated [employer] ssage] The system which generated this result transmitted reference range: 0.0 - 10.0 /100 WBCs. The reference range was not used to interpret this result as normal/abnormal. NRBC x10^3 (test code = 3433503051) <0.01 See_Comment [Automated [employer] Pharm[employer]sa ge] The system which generated this result transmitted reference range: 10*3/?L. The reference range was not used to interpret this result as normal/abnormal. GRAN MAT (NEUT) % (test code = 770-8) 57.5 % IMM GRAN % (test code = 1493855331) 2.00 % LYMPH % (test code = 736-9) 25.9 % MONO % (test code = 5905-5) 7.2 % EOS % (test code = 713-8) 7.2 % BASO % (test code = 706-2) 0.2 % GRAN MAT x10^3(ANC) (test code = 0041852592) 7.29 10*3/uL 1.88-7.09 H IMM GRAN x10^3 (test code = 3047648828) 0.25 10*3/uL 0.00-0.06 H LYMPH x10^3 (test code = 731-0) 3.29 10*3/uL 1.32-3.29 MONO x10^3 (test code = 742-7) 0.91 10*3/uL 0.33-0.92 EOS x10^3 (test code = 711-2) 0.92 10*3/uL 0.03-0.39 H BASO x10^3 (test code = 704-7) 0.03 10*3/uL 0.01-0.07 Lab Interpretation (test code = 03584-4) Abnormal [facility] CenterGLYCOSYLATED HEMOGLOBIN (A1C)2020-12-05 00:18:48* Test Item Value Reference Range Interpretation Comme nts HGB A1C (test code = 4548-4) 5.5 % 4.0-5.7 BRE (test code = BRE) Reference RangesNormal: <5.7%Prediabetes: 5.7 - 6.4%Diabetes: > 6.5% Lab Interpretation (test code = 47730-5) Normal [facility] CenterCOVID-[facility] (ID NOW RAPID TESTING)2020-12-04 21:49:20* Test Item Value Reference Range Interpretation Comme nts SARS-CoV-2 Rapid ID NOW (test code = 32929-3) Not Detected Not Detected BRE (test code = BRE) ID NOW COVID-19 As say is an isothermal nucleic acid amplification test intended for the qualitative detection of nucleic acid from SARS-CoV-2 viral RNA in nasopharyngeal (AIRFRAME AND POWERPLANT TECHNICIAN) specimens. It is used under Emergency Use [...] clinically indicated. Lab Interpretation (test code = 18005-4) Normal [facility] CenterCT ABDOMEN PELVIS W [id number] 20:53:50Mild subcutaneous edema in the the mons pubis. No evidence of soft tissueemphysema or a drainable fluid collection. Correlate with exam. Several mildly enlarged bilateral iliac chain, pelvic sidewall, andinguinal lymph nodes, likely reactive. Sigmoid diverticulosis. Significant subchondral cystic changes in the left femoral head may berelated to arthropathic changes or an osteochondral lesion. [id number] End of report Ordering physician:MCKENZIE FISCHER CLINICAL [...] or an osteochondral lesion.RL 5045End of report [facility] HospitalUrinalysis2021-07-06 20:39:43* Test Item Value Reference Range Interpretation Comme nts APPEARANCE (test code = 8464672961) Clear Clear COLOR (test code = 0304705715) Yellow Yellow PH (test code = 6393262377) 4.8-8.0 SP GRAVITY (test code = 4281496079) 1.003-1.030 GLU U QUAL (test code = 8390360218) Normal Normal BLOOD (test code = 4172826336) Negative Negative KETONES (test code = 1070671333) Negative Negative PROTEIN (test code = 2887-8) Negative Negative UROBILIN (test code = 5464291126) 4.0 mg/dL Normal A BILIRUBIN (test code = 1311793918) Negative Negative NITRITE (test code = 7082461500) Negative Negative LEUK KANDICE (test code = 7671186660) Negative Negative RBC/HPF (test code = 8334069359) See_Comment [Automated messa ge] The system which generated this result transmitted reference range: 0 - 3 HPF. The reference range was not used to interpret this result as normal/abnormal. WBC/HPF (test code = 4240560911) See_Comment [Automated messa ge] The system which generated this result transmitted reference range: 0 - 5 HPF. The reference range was not used to interpret this result as normal/abnormal. BACTERIA (test code = 4765015602) Negative Negative MUCOUS (test code = 0783976981) Slight Negative LPF A SQ EPITH (test code = 0477844754) HPF Lab Interpretation (test code = 76704-1) Abnormal [facility] CenterHepatic Function Panel (ALB, T.PRO, BILI T, BU/BC, ALT, AST, ALK PHOS)2020-12-04 20:26:41* Test Item Value Reference Range Interpretation Comme nts TOTAL BILI (test code = 6919048296) 0.4 mg/dL 0.1-1.1 BILI UNCON (test code = 3409890597) 0.2 mg/dL 0.1-1.1 BILI CONJ (test code = 5681237683) 0.0 mg/dL 0.0-0.3 T PROTEIN (test code = 2787750704) 7.5 g/dL 6.3-8.2 ALBUMIN (test code = 9115935680) 4.3 g/dL 3.5-5.0 ALK PHOS (test code = 0418011969) 94 U/L 34-122 ALTv (test code = 1742-6) 20 U/L 5-35 AST(SGOT) (test code = 7376005951) 21 U/L 13-40 Lab Interpretation (test cod e = 77180-0) Normal [facility] CenterBasic Metabolic Panel (NA, K, CL, CO2, GLUCOSE, BUN, CREATININE, CA)2020-12-04 20:26:21* Test Item Value Reference Range Interpretation Comme nts NA (test code = 6572349039) 136 mmol/L 135-145 K (test code = 9601637627) 3.8 mmol/L 3.5-5.0 CL (test code = 1599832090) 104 mmol/L 98-108 CO2 TOTAL (test code = 9291511324) 23 mmol/L 23-31 AGAP (test code = 5070832015) 2-16 BUN (test code = 7703005876) 9 mg/dL 7-23 GLUCOSE (test code = 0876255652) 91 mg/dL 70-110 CREATININE (test code = 0295534940) 0.71 mg/dL 0.50-1.04 CALCIUM (test code = 1113388471) 9.3 mg/dL 8.6-10.6 eGFR (test code = 9178199731) mL/min/1.73m2 BRE (test code = BRE) Association [...] or urine or abnormalities in imaging tests). [facility] with Tyufqzlsgaci2992-65-72 20:22:41* Test Item Value Reference Range Interpretation [...] 32.3 g/dL 31.6-35.1 RDW-SD (test code = 51711-6) 45.5 fL 39.0-49.9 RDW-CV (test code = 788-0) 13.4 % 12.0-15.5 PLT (test code = 777-3) See_Comment [Automated messa ge] The system which generated this result transmitted reference range: 166 - 358 10*3/?L. The reference range was not used to interpret this result as normal/abnormal. MPV (test code = 13066-6) 9.5 fL 9.5-12.9 NRBC/100 WBC (test code = 0436119744) See_Comment [Automated [employer] ssage] The system which generated this result transmitted reference range: 0.0 - 10.0 /100 WBCs. The reference range was not used to interpret this result as normal/abnormal. NRBC x10^3 (test code = 7521786887) <0.01 See_Comment [Automated messa ge] The system which generated this result transmitted reference range: 10*3/?L. The reference range was not used to interpret this result as normal/abnormal. GRAN MAT (NEUT) % (test code = 770-8) 70.7 % IMM GRAN % (test code = 2032982087) 1.30 % LYMPH % (test code = 736-9) 15.6 % MONO % (test code = 5905-5) 5.9 % EOS % (test code = 713-8) 6.3 % BASO % (test code = 706-2) 0.2 % GRAN MAT x10^3(ANC) (test code = 1212751847) 9.53 10*3/uL 1.88-7.09 H IMM GRAN x10^3 (test code = 0836585382) 0.17 10*3/uL 0.00-0.06 H LYMPH x10^3 (test code = 731-0) 2.10 10*3/uL 1.32-3.29 MONO x10^3 (test code = 742-7) 0.79 10*3/uL 0.33-0.92 EOS x10^3 (test code = 711-2) 0.85 10*3/uL 0.03-0.39 H BASO x10^3 (test code = 704-7) 0.03 10*3/uL 0.01-0.07 Lab Interpretation (test code = 70140-7) Abnormal [facility] CenterLavaic Acid Whole Ifjfr8911-58-91 20:01:06* Test Item Value Reference Range Interpretation Comme nts LACTIC ACID (test code = 4794357492) 1.42 mmol/L 0.50-2.20 Lab Interpretation (test cod e = 23498-4) Normal [facility] CenterPOCT Jqhn8275-72-16 19:51:00* Test Item Value Reference Range Interpretation Comme nts POCT PREG (test code = 1605) negative On board controls acceptable with C Line (test code = 3574) yes POCT PREG LOT # (test code = 3575) [id number] POCT PREG TEST DATE ( test code = 3576) 05/31/2022 Lab Interpretation (test cod e = 90380-5) Normal [facility] CenterMR BRAIN W WO [id number] 18:45:40No acute intracranial abnormality Gradient blooming in [...] noted on the accompanying CT. No surrounding edema.[facility] LUMBAR SPINE WO WLKSPSMP2508-23-06 18:26:15Mild spondylosis at L4-L5 results in moderate [...] in the superficial soft tissues of thevisualized backUnEl Paso Children's HospitalKEPPRA (LEVETIRACETAM)2020-02-18 04:48:00* Test Item Value Reference Range Interpretation Comme nts KEPPRA (test code = 7871017093) 11 ug/mL 12-46 L BRE (test code = BRE) Therapeutic range: 12-46 ?g/mL ? ?Toxic: Not well established.Test developed and characteristics determined by [facility] Laboratory Services. Lab Interpretation (test code = 57884-9) Abnormal [facility]. METABOLIC PANEL (56329)2020-02-18 04:46:00* Test Item Value Reference Range Interpretation Comme nts NA (test code = 4325507107) 143 mmol/L 135-145 K (test code = 5045029956) 3.9 mmol/L 3.5-5 CL (test code = 1092496871) 109 mmol/L 98-108 H CO2 TOTAL (test code = 5555426699) 24 mmol/L 23-31 AGAP (test code = 7792963053) 2-16 BUN (test code = 7688032712) 5 mg/dL 7-23 L GLUCOSE (test code = 2973611682) 98 mg/dL 70-110 CREATININE (test code = 6329064994) 0.66 mg/dL 0.5-1.04 TOTAL BILI (test code = 6096321731) 0.2 mg/dL 0.1-1.1 CALCIUM (test code = 1327798395) 8.0 mg/dL 8.6-10.6 L T PROTEIN (test code = 4639262628) 5.7 g/dL 6.3-8.2 L ALBUMIN (test code = 3440095307) 3.2 g/dL 3.5-5 L ALK PHOS (test code = 5997657213) 58 U/L 34-122 ALTv (test code = 1742-6) 14 U/L 5-35 AST(SGOT) (test code = 7866889670) 37 U/L 13-40 eGFR Calculation (Non-) (test code = 3504311245) mL/min/1.73m2 eGFR Calculation () (test code = 2350118072) mL/min/1.73m2 BRE (test code = BRE) Association [...] imaging tests). Lab Interpretation (test code = 76041-1) Abnormal [facility] CenterTROPONIN O3844-03-30 04:02:00* Test Item Value Reference Range Interpretation Comme nts TROPONIN I (test code = 4251434680) 0.003 ng/mL See_Comment [Automated message] The system [...] biotin. ? Lab Interpretation (test code = 11740-0) Normal [facility] WITH [id number] 03:22:00* Test Item Value Reference Range Interpretation Comme nts WBC (test code = 6690-2) See_Comment [Automated [employer]] The system which generated this result transmitted reference range: 4.30 - 11.10 10*3/?L. The reference range was not used to interpret this result as normal/abnormal. RBC (test code = 789-8) See_Comment [Automated [employer]] The system which generated this result transmitted [...] 32.6 g/dL 31.6-35.1 RDW-SD (test code = 87899-4) 47.2 fL 39-49.9 RDW-CV (test code = 788-0) 13.2 % 12-15.5 PLT (test code = 777-3) See_Comment [Automated messa ge] The system which generated this result transmitted reference range: 166 - 358 10*3/?L. The reference range was not used to interpret this result as normal/abnormal. MPV (test code = 47254-6) 9.8 fL 9.5-12.9 NRBC/100 WBC (test code = 1368250290) See_Comment [Automated [employer] ssage] The system which generated this result transmitted reference range: 0.0 - 10.0 /100 WBCs. The reference range was not used to interpret this result as normal/abnormal. NRBC x10^3 (test code = 9292817801) <0.01 See_Comment [Automated messa ge] The system which generated this result transmitted reference range: 10*3/?L. The reference range was not used to interpret this result as normal/abnormal. GRAN MAT (NEUT) % (test code = 770-8) 52.0 % IMM GRAN % (test code = 9252064868) 0.50 % LYMPH % (test code = 736-9) 32.3 % MONO % (test code = 5905-5) 8.4 % EOS % (test code = 713-8) 6.5 % BASO % (test code = 706-2) 0.3 % GRAN MAT x10^3(ANC) (test code = 0337825848) 4.91 10*3/uL 1.88-7.09 IMM GRAN x10^3 (test code = 8399404017) 0.05 10*3/uL 0-0.06 LYMPH x10^3 (test code = 731-0) 3.06 10*3/uL 1.32-3.29 MONO x10^3 (test code = 742-7) 0.80 10*3/uL 0.33-0.92 EOS x10^3 (test code = 711-2) 0.62 10*3/uL 0.03-0.39 H BASO x10^3 (test code = 704-7) 0.03 10*3/uL 0.01-0.07 Lab Interpretation (test code = 12841-5) Abnormal [facility] CenterCT HEAD WO [id number] 04:07:57No acute intracranial hemorrhage or mass effect. [...] are unremarkable. Mild paranasal sinus mucosal thickening. [facility], Radiant Results Inft User - 02/16/2020 [...] sinus mucosal thickening.IMPRESSIONNo acute intracranial hemorrhage or masseffect.[facility] CenterPHENYTOIN [id number] 02:54:00* Test Item Value Reference Range Interpretation Comme nts PHENY FREE (test code = 3487133584) <0.5 1-2 L BRE (test code = BRE) Toxic Range: ? Greater than 2.5 ug/mL Test developed and characteristics determined by [facility] Laboratory Services. Lab Interpretation (test code = 52631-3) Abnormal [facility] CenterCREATINE [id number] 01:38:00* Test Item Value Reference Range Interpretation Comme nts CK (test code = 6096455839) 259 U/L 33-194 H Lab Interpretation (test cod e = 53987-1) Abnormal [facility] CenterMAGNESIUM2020-09-18 00:55:00* Test Item Value Reference Range Interpretation Comme nts MAGNESIUM (test code = 3167324367) 1.7 mg/dL 1.7-2.4 Lab Interpretation (test cod e = 38379-4) Normal [facility] CenterElectroencephalogram (EEG) - Duration of test: 20-60 pxaz6543-32-86 00:00:00Date and Time of Procedure: 02/17/2020, 9:14:15- [...] additional details. Lian Canada MDDate of interpretation: 02/17/2020UnEl Paso Children's HospitalBASI METABOLIC PANEL (NA, K, CL, CO2, GLUCOSE, BUN, CREATININE, CA) 2020-02-16 11:27:00* Test Item Value Reference Range Interpretation Comme nts NA (test code = 5211631866) 136 mmol/L 135-145 K (test code = 2306697120) 3.9 mmol/L 3.5-5 CL (test code = 9939175317) 107 mmol/L 98-108 CO2 TOTAL (test code = 9456052994) 21 mmol/L 23-31 L AGAP (test code = 9078691426) 2-16 BUN (test code = 1910329436) 9 mg/dL 7-23 GLUCOSE (test code = 6710655094) 115 mg/dL 70-110 H CREATININE (test code = 5711290053) 0.74 mg/dL 0.5-1.04 CALCIUM (test code = 1095653037) 8.0 mg/dL 8.6-10.6 L eGFR Calculation (Non-) (test code = 5105002783) mL/min/1.73m2 eGFR Calculation () (test code = 3207642882) mL/min/1.73m2 BRE (test code = BRE) Association [...] imaging tests). Lab Interpretation (test code = 53499-3) Abnormal [facility] WITH [id number] 10:57:00* Test Item Value Reference Range Interpretation [...] 32.5 g/dL 31.6-35.1 RDW-SD (test code = 52312-2) 46.5 fL 39-49.9 RDW-CV (test code = 788-0) 13.1 % 12-15.5 PLT (test code = 777-3) See_Comment [Automated message] The system which generated this result transmitted reference range: 166 - 358 10*3/?L. The reference range was not used to interpret this result as normal/abnormal. MPV (test code = 63847-2) 9.4 fL 9.5-12.9 L NRBC/100 WBC (test code = 1326971967) See_Comment [Automated message] The system which generated this result transmitted reference range: 0.0 - 10.0 /100 WBCs. The reference range was not used to interpret this result as normal/abnormal. NRBC x10^3 (test code = 6391638298) <0.01 See_Comment [Automated message] The system which generated this result transmitted reference range: 10*3/?L. The reference range was not used to interpret this result as normal/abnormal. GRAN MAT (NEUT) % (test code = 770-8) 76.8 % IMM GRAN % (test code = 6404093083) 0.60 % LYMPH % (test code = 736-9) 9.7 % MONO % (test code = 5905-5) 7.7 % EOS % (test code = 713-8) 5.1 % BASO % (test code = 706-2) 0.1 % GRAN MAT x10^3(ANC) (test code = 5643014115) 11.03 10*3/uL 1.88-7.09 H IMM GRAN x10^3 (test code = 7540925058) 0.09 10*3/uL 0-0.06 H LYMPH x10^3 (test code = 731-0) 1.39 10*3/uL 1.32-3.29 MONO x10^3 (test code = 742-7) 1.10 10*3/uL 0.33-0.92 H EOS x10^3 (test code = 711-2) 0.73 10*3/uL 0.03-0.39 H BASO x10^3 (test code = 704-7) <0.03 0.01-0.07 Lab Interpretation (test code = 20919-1) [facility]normal [facility] CenterCOVID[facility] (ID NOW RAPID TESTING)2020-02-16 00:28:00* Test Item Value Reference Range Interpretation Comme nts SARS-CoV-2 Rapid ID NOW (test code = 49032-1) Not Detected Not Detected BRE (test code = BRE) ID NOW COVID-19 As say is an isothermal nucleic acid amplification test intended for the qualitative detection of nucleic acid from SARS-CoV-2 viral RNA in nasopharyngeal (AIRFRAME AND POWERPLANT TECHNICIAN) specimens. It is used under Emergency Use [...] clinically indicated. Lab Interpretation (test code = 45617-8) Normal [facility] CenterCOMP. METABOLIC PANEL (73650)2020-02-15 23:51:00* Test Item Value Reference Range Interpretation Comme nts NA (test code = 8525322672) 136 mmol/L 135-145 K (test code = 4308906975) 4.0 mmol/L 3.5-5 CL (test code = 6615397577) 104 mmol/L 98-108 CO2 TOTAL (test code = 7201688165) 20 mmol/L 23-31 L AGAP (test code = 1506099763) 2-16 BUN (test code = 9433919507) 9 mg/dL 7-23 GLUCOSE (test code = 5385922158) 90 mg/dL 70-110 CREATININE (test code = 5897213175) 0.57 mg/dL 0.5-1.04 TOTAL BILI (test code = 5484738285) 0.7 mg/dL 0.1-1.1 CALCIUM (test code = 0311314574) 8.5 mg/dL 8.6-10.6 L T PROTEIN (test code = 3898763373) 6.8 g/dL 6.3-8.2 ALBUMIN (test code = 2274228689) 4.0 g/dL 3.5-5 ALK PHOS (test code = 7115964787) 63 U/L 34-122 ALTv (test code = 1742-6) 15 U/L 5-35 AST(SGOT) (test code = 0944001562) 30 U/L 13-40 eGFR Calculation (Non-) (test code = 3378234961) mL/min/1.73m2 eGFR Calculation () (test code = 5336930657) mL/min/1.73m2 BRE (test code = BRE) Association [...] imaging tests). Lab Interpretation (test code = 85809-8) Abnormal [facility] CenterCREATINE [id number] 23:51:00* Test Item Value Reference Range Interpretation Comme nts CK (test code = 4347675053) 222 U/L 33-194 H Lab Interpretation (test cod e = 97004-2) Abnormal [facility] CenterCBC WITH AFUV3077-14-06 23:38:00* Test Item Value Reference Range Interpretation Comme nts WBC (test code = 6690-2) See_Comment H [Automated [employer]] The system which generated this result transmitted reference range: 4.30 - 11.10 10*3/?L. The reference range was not used to interpret this result as normal/abnormal. RBC (test code = 789-8) See_Comment [Automated [employer]] The system which generated this result transmitted [...] 32.8 g/dL 31.6-35.1 RDW-SD (test code = 31432-4) 45.1 fL 39-49.9 RDW-CV (test code = 788-0) 13.0 % 12-15.5 PLT (test code = 777-3) See_Comment [Automated messa ge] The system which generated this result transmitted reference range: 166 - 358 10*3/?L. The reference range was not used to interpret this result as normal/abnormal. MPV (test code = 78490-7) 9.6 fL 9.5-12.9 NRBC/100 WBC (test code = [id number]) See_Comment [Automated [employer]] The system which generated this result transmitted reference range: 0.0 - 10.0 /100 WBCs. The reference range was not used to interpret this result as normal/abnormal. NRBC x10^3 (test code = 3330123171) <0.01 See_Comment [Automated [employer]] The system which generated this result transmitted reference range: 10*3/?L. The reference range was not used to interpret this result as normal/abnormal. GRAN MAT (NEUT) % (test code = 770-8) 65.2 % IMM GRAN % (test code = 5224529587) 0.80 % LYMPH % (test code = 736-9) 18.4 % MONO % (test code = 5905-5) 8.7 % EOS % (test code = 713-8) 6.6 % BASO % (test code = 706-2) 0.3 % GRAN MAT x10^3(ANC) (test code = 3734935454) 9.11 10*3/uL 1.88-7.09 H IMM GRAN x10^3 (test code = 3716239537) 0.11 10*3/uL 0-0.06 H LYMPH x10^3 (test code = 731-0) 2.58 10*3/uL 1.32-3.29 MONO x10^3 (test code = 742-7) 1.22 10*3/uL 0.33-0.92 H EOS x10^3 (test code = 711-2) 0.93 10*3/uL 0.03-0.39 H BASO x10^3 (test code = 704-7) 0.04 10*3/uL 0.01-0.07 Lab Interpretation (test code = 31100-0) [id number] 23:35:00* Test Item Value Reference Range Interpretation Comme nts LACTIC ACID (test code = 7698524948) 1.97 mmol/L [facility]"
--- NOTE | 2024-07-05 15:57 | ER ---
Nurse's Notes [facility] Name: Diana Vincent Age: 48 yrs Sex: Female : 1975 Arrival Date: 07/05/2024 Time: 15:15 Bed 10 Private MD: Diagnosis: Encounter for staple removal Presentation: 07/05 15:31 Chief complaint: Patient states: needs oracio removed from top of head. Coronavirus ko1 screen: At this time, the client does not indicate any symptoms associated with coronavirus-19. Ebola Screen: No symptoms or risks identified at this time. Initial Sepsis Screen: Does the patient meet any 2 criteria? No. Patient's initial sepsis screen is negative. Does the patient have a suspected source of infection? No. Patient's initial sepsis screen is negative. Risk Assessment: Do you want to hurt yourself or someone else?. Onset of symptoms is unknown. 15:31 Method Of Arrival: Ambulatory ko1 15:31 Acuity: ARGENIS 5 ko1 Triage Assessment: 15:32 General: Appears in no apparent distress. Behavior is calm, cooperative, appropriate ko1 for age. Pain: Denies pain. Historical: - Allergies: 15:32 Latex; ko1 15:32 PENICILLINS; ko1 - PMHx: 15:32 Asthma; Seizures; ko1 - PSHx: 15:32 section; Left hip; umbilical hernia repair; ko1 - Immunization history:: Adult Immunizations up to date. - Infectious Disease History:: Denies. - Social history:: Smoking status: Patient denies any tobacco usage or history of. - Family history:: not pertinent. Screenin:40 [facility] ED Fall Risk Assessment (Adult) History of falling in the last 3 months, jl7 including since admission No falls in past 3 months (0 pts) Confusion or Disorientation No (0 pts) Intoxicated or Sedated No (0 pts) Impaired Gait No (0 pts) Mobility Assist Device Used No (0 pt) Altered Elimination No (0 pt) Score/Fall Risk Level 0 - 2 = Low Risk Oriented to surroundings, Maintained a safe environment, Hourly rounding (assess needs \T\ fall precautionary measures) done. Abuse screen: Denies threats or abuse. Denies injuries from another. Nutritional screening: No deficits noted. Tuberculosis screening: No symptoms or risk factors identified. Assessment: 16:00 General: Appears in no apparent distress. Behavior is calm, cooperative. Pain: Denies ph pain. Neuro: Level of Consciousness is awake, alert, obeys commands, Oriented to person, place, time, situation. Vital Signs: 16:23 BP 118 / 72; Pulse 75; Resp 18; Temp 97.5; Pulse Ox 98% on R/A; ph ED Course: 15:17 Patient arrived in ED. al6 15:19 Florencio Luo MD is Attending Physician. rt 15:32 Triage completed. ko1 15:32 Arm band placed on right wrist. Patient placed in an exam room, Patient notified of ko1 wait time. 15:39 Jose Cunha RN is Primary Nurse. dillon 15:41 Charleen Mixon RN is Primary Nurse. ph 16:22 No provider procedures requiring assistance completed. Patient did not have IV access ph during this emergency room visit. 16:23 Patient has correct armband on for positive identification. ph Administered Medications: No medications were administered Medication: 16:23 VIS not applicable for this client. ph Outcome: 15:57 Discharge ordered by . rt 16:23 Discharged to home ambulatory, ph 16:23 Condition: good 16:23 Discharge instructions given to patient, Instructed on discharge instructions, follow up and referral plans. Demonstrated understanding of instructions, follow-up care, 16:23 Patient left the ED. ph Signatures: Charleen Mixon, RN RN ph Jose Cunha RN RN jl7 Deborah Restrepo RN RN ko1 Florencio Luo MD MD rt Rosmery Lawton al6
--- NOTE | 2024-07-05 15:57 | EDPHYS ---
Physician Documentation [facility] Name: Diana Vincent Age: 48 yrs Sex: Female : 1975 Arrival Date: 07/05/2024 Time: 15:15 Bed 10 Private MD: ED Physician Florencio Luo HPI: 07/05 17:33 This 48 yrs old Black Female presents to ER via Ambulatory with complaints of Staple rt Removal. 17:33 Patient had oracio placed about 10 days ago on the top of her head, denies any rt complications associated with them, is requesting removal. Denies other acute complaints at this time, symptoms are mild in severity, no other aggravating or alleviating factors.. Historical: - Allergies: 15:32 Latex; ko1 15:32 PENICILLINS; ko1 - PMHx: 15:32 Asthma; Seizures; ko1 - PSHx: 15:32 section; Left hip; umbilical hernia repair; ko1 - Immunization history:: Adult Immunizations up to date. - Infectious Disease History:: Denies. - Social history:: Smoking status: Patient denies any tobacco usage or history of. - Family history:: not pertinent. ROS: 17:33 Constitutional: Negative for fever, chills, and weight loss, rt 17:33 Skin: Positive for Repaired laceration, Exam: 18:23 Constitutional: This is a well developed, well nourished patient who is awake, alert, rt and in no acute distress. Skin: Warm, dry with normal turgor. Normal color with no rashes, no lesions, and no evidence of cellulitis. MS/ Extremity: Pulses equal, no cyanosis. Neurovascular intact. Full, normal range of motion. Neuro: Awake and alert, GCS 15, oriented to person, place, time, and situation. Cranial nerves II-XII grossly intact. Motor strength 5/5 in all extremities. Sensory grossly intact. Cerebellar exam normal. Normal gait. 18:23 Head/face: Well-healed wound on scalp, 3 oracio identified. Vital Signs: 16:23 BP 118 / 72; Pulse 75; Resp 18; Temp 97.5; Pulse Ox 98% on R/A; ph Procedures: 18:23 Suture/Staple removal: Removed 3 oracio, from scalp, site appears well healed, Patient rt tolerated well. MDM: 15:51 Medical Screening Exam initiated rt 18:23 Data reviewed: vital signs, nurses notes. Counseling: I had a detailed discussion with rt the patient and/or guardian regarding the historical points, exam findings, and any diagnostic results supporting the discharge/admit diagnosis, the need for outpatient follow up. Response to treatment: the patient's symptoms have resolved after treatment. Administered Medications: No medications were administered Disposition Summary: 07/05/24 15:57 Discharge Ordered Notes: Location: Home rt Problem: an ongoing problem rt Symptoms: have improved rt Condition: Stable rt Diagnosis - Encounter for staple removal rt Followup: rt - With: Private Physician - When: As needed - Reason: Discharge Instructions: - Discharge Summary Sheet rt - Suture Removal, Care After rt Forms: - Medication Reconciliation Form rt - Antibiotic Education rt - Prescription Opioid Use rt - Patient Portal Instructions rt - Leadership Thank You Letter rt Signatures: Deborah Restrepo RN RN ko1 Florencio Luo MD MD rt
[2024-07-05 16:31] VITALS: BP 118/72; TEMP 97.5; O2SAT 98
== END 2024-07-05 16:23 | disposition home or self-care (01) ==
LOC: ER 15:15
DX: Z48.02 Encounter for removal of sutures (principal)

== ENCOUNTER 2024-08-19 01:25 | Emergency (ER) | payer BC ==
--- OUTSIDE RECORDS SUMMARY | 2024-08-19 01:32 | XMS REPORT | Continuity of Care Document ---
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 02-18 00:30 :55 No 10mg 10 mg, Oral, DAILY, First dose on Thu02/16/20 at 0900, Until Discontinu ed, Routine [facility] nystatin / bacitracin- polymyxin b oint 1:1 POLY-MYCO (COMPOUNDED ) 02-15 12:40: 20 Yes Topical (Apply To Affected Areas), QDAILYPRN, Starting Marcia 02/16/20 at 0740, Until Discontinu ed, Routine, Burn Care [facility] fluticasone propion-robina meteroL (ADVAIR) 250-50 mcg/dose inhalation disk 1 Puff 02-15 12:30: 00 02-18 00:30 :55 No 1{puff} 1 Puff, Inhalation , [facility]-0730, First dose on Marcia 02/16/20 at 0730, Until Discontinu ed, Routine
Use approved by (Faculty and pager): ADC PROVIDER [facility] FENTanyl PF (SUBLIMAZE (PF)) injection 25 mcg 02-15 08:30: 00 02-15 04:00 :00 No 25ug 25 mcg, Slow IV Push, ONCE, 1 dose, Marcia 02/16/20 at 0330, Routine [facility] D5W 0.45% NaCl (1/2NS) 1 L + KCL 20 mEq 02-15 07:30: 00 02-18 02:25 :51 No IV Infusion, at 100 mL/hr, CONTINUOUS , Starting Marcia 02/16/20 at 0230, Until 02/18/20 at 2125, Routine [facility] diphenhydrA MINE (BENADRYL) capsule 50 mg 02-15 07:16: 56 Yes 50mg 50 mg, Oral, PRN, Starting Marcia 02/16/20 at 0216, Until Discontinu ed, Routine, 30 mins before Ancef [facility] LORazepam (ATIVAN) injection 2 mg 02-15 07:08: 53 Yes 2mg 2 mg, Slow IV Push, PRN, Starting Marcia 02/16/20 at 0208, Until Discontinu ed, Routine, Seizures [facility] levETIRAcet am (KEPPRA) in NACL (ISO-OS) 500 mg/100 mL RTU 02-15 06:07: 00 02-15 06:30 :00 No 500mg 500 mg, IV Infusion, ONCE, 1 dose, Marcia 02/16/20 at 0115, 100 mL [facility] acetaminoph en (TYLENOL) tablet 650 mg 02-15 05:00: 00 Yes 650mg 650 mg, Oral, Q6H, First dose on Thu02/16/20 at 0000, Until Discontinu ed, Routine [facility] phenytoin Extended (DILANTIN KAPSEAL) capsule 100 mg 02-15 05:00: 00 02-16 01:47 :06 No 100mg 100 mg, Oral, TID, First dose on Thu02/16/20 at 0000, Until Discontinu ed, Routine [facility] morpHINE injection 4 mg 02-15 04:40: 47 Yes 4mg 4 mg, Slow IV Push, Q4HPRN, Starting Thu02/15/20 at 2340, Until Discontinu ed, Routine, Pain (scale 7-10) [facility] HYDROcodone -acetaminop hen (NORCO 5) 5-325 mg tablet 1 tablet 02-15 04:40: 28 Yes 1{tbl} 1 tablet, Oral, Q6HPRN, Starting Thu02/15/20 at 2340, Until Discontinu ed, Routine, Pain (scale 4-6) [facility] morpHINE injection 4 mg 02-15 03:15: 00 02-15 02:08 :00 No 4mg 4 mg, Slow IV Push, ONCE, 1 dose, Thu02/15/20 at 2215, STAT [facility] morpHINE injection 4 mg 02-15 02:30: 00 02-15 01:18 :00 No 4mg 4 mg, Slow IV Push, ONCE, 1 dose, Thu02/15/20 at 2130, STAT [facility] NaCl 0.9% (NS) bolus infusion 1,000 mL 02-15 01:00: 00 02-15 01:20 :00 No 1000mL at 999 mL/hr, 1,000 mL, IV Infusion, ONCE, 1 dose, Thu02/15/20 at 2000, STAT [facility] vancomycin (VANCOCIN) 1,000 mg in NaCl 0.9% (NS) 250 mL VIAL-MATE IV piggyback 02-15 00:45: 00 02-15 00:38 :00 No 1000mg 1,000 mg, IV Piggyback, ONCE, 1 dose, Thu02/15/20 at 1945, 250 mL
Reas on for Anti-Infec tive: Empiric Therapy for Suspected Infection< br>Empiric Therapy Site: Skin / Soft tissue
Duration of therapy: 72 hours [facility] tetanus-dip htheria toxoids (TENIVAC) 5-2 Lf unit/0.5 mL injection 0.5 mL 02-15 00:45: 00 02-14 23:34 :00 No .5mL 0.5 mL, Intramuscu lar, ONCE, 1 dose, Thu02/15/20 at 1945, Routine [facility] ondansetron (ZOFRAN (PF)) injection 4 mg 02-15 00:30: 00 02-14 23:29 :00 No 4mg 4 mg, Slow IV Push, ONCE, 1 dose, Thu02/15/20 at 1930, REINALDO [facility] FENTanyl PF (SUBLIMAZE (PF)) injection 100 mcg 02-15 00:30: 00 02-14 23:28 :00 No 100ug 100 mcg, Slow IV Push, ONCE, 1 dose, Thu02/15/20 at 1930, STAT [facility] Levothyroxi ne (TIROSINT) 100 mcg Cap 11-15 00:00: 00 02-14 00:00 :00 No 100ug Take 100 mcg by mouth daily. [facility] DILANTIN EXTENDED 100 MG ORAL CAP 08-17 18:44: 55 Yes three times daily [facility] PROVENTIL HFA INHALE 08-17 18:44: 54 Yes prn [facility] METOPROLOL TARTRATE 50 MG ORAL TAB 08-17 00:00: 00 02-14 00:00 :00 No [id number] 1 by mouth two times a day [facility] Immunizations Ordered Immunization Name Filled Immunization Name Date Status Comments Source SARS-COV-2 COVID-19 PFIZER VACCINE 2020-10-20 00:00:00 Completed [facility] SARS-COV-2 COVID-19 PFIZER VACCINE 2020-10-20 00:00:00 Completed [facility] SARS-COV-2 COVID-19 PFIZER VACCINE 2020-10-20 00:00:00 Completed [facility] SARS-COV-2 COVID-19 PFIZER VACCINE 2020-10-20 00:00:00 Completed [facility] SARS-COV-2 COVID-19 PFIZER VACCINE 2020-10-20 00:00:00 Completed [facility] SARS-COV-2 COVID-19 PFIZER VACCINE 2020-10-20 00:00:00 Completed [facility] SARS-COV-2 COVID-19 PFIZER VACCINE 2020-10-20 00:00:00 Completed SARS-COV-2 COVID-19 PFIZER VACCINE 2020-09-22 00:00:00 Completed [facility] SARS-COV-2 COVID-19 PFIZER VACCINE 2020-09-22 00:00:00 Completed [facility] SARS-COV-2 COVID-19 PFIZER VACCINE 2020-09-22 00:00:00 Completed [facility] SARS-COV-2 COVID-19 PFIZER VACCINE 2020-09-22 00:00:00 Completed [facility] SARS-COV-2 COVID-19 PFIZER VACCINE 2020-09-22 00:00:00 Completed [facility] SARS-COV-2 COVID-19 PFIZER VACCINE 2020-09-22 00:00:00 Completed [facility] SARS-COV-2 COVID-19 PFIZER VACCINE 2020-09-22 00:00:00 Completed [facility] Td 2020-02-15 00:00:00 Completed [facility] Td 2020-02-15 00:00:00 Completed [facility] Td 2020-02-15 00:00:00 Completed [facility] Td 2020-02-15 00:00:00 Completed [facility] Td 2020-02-15 00:00:00 Completed [facility] Td 2020-02-15 00:00:00 Completed [facility] Td 2020-02-15 00:00:00 Completed [facility] Td 2020-02-15 00:00:00 Completed [facility] TD, NOS 2020-02-15 00:00:00 Completed [facility] Td 2020-02-15 00:00:00 Completed [facility] Vital Signs Vital Name Observation Time Observation Value Comments Iva jose Systolic blood pressure 2024-06-27 14:00:00 107 mm[Hg] [facility] Diastolic blood pressure 2024-06-27 14:00:00 79 mm[Hg] [facility] Heart rate 2024-06-27 14:00:00 79 /[facility] 2024-06-27 14:00:00 37.11 Judith [facility] Oxygen saturation in Arterial blood by Pulse oximetry 2024-06-27 14:00:00 97 /min [facility] Respiratory rate 2024-06-27 13:00:00 17 /min [facility] Body height 2024-06-27 05:00:00 149.9 cm [facility] Body weight 2024-06-27 05:00:00 67.132 kg [facility] BMI 2024-06-27 05:00:00 29.88 kg/m2 [facility] Systolic blood pressure 2021-06-05 22:08:00 116 mm[Hg] [facility] Diastolic blood pressure 2021-06-05 22:08:00 68 mm[Hg] [facility] Heart rate 2021-06-05 22:08:00 71 /min [facility] Body temperature 2021-06-05 22:08:00 36.56 Judith [facility] Respiratory rate 2021-06-05 22:08:00 16 /min [facility] Oxygen saturation in Arterial blood by Pulse oximetry 2021-06-05 22:08:00 96 /min [facility] Body height 2021-06-02 22:30:00 149.9 cm [facility] Body weight 2021-06-02 22:30:00 74.844 kg [facility] BMI 2021-06-02 22:30:00 33.33 kg/m2 [facility] Systolic blood pressure 2020-12-08 16:05:00 108 mm[Hg] [facility] Diastolic blood pressure 2020-12-08 16:05:00 64 mm[Hg] [facility] Heart rate 2020-12-08 16:05:00 70 /min [facility] Body temperature 2020-12-08 16:05:00 36.17 Judith [facility] Respiratory rate 2020-12-08 16:05:00 18 /min [facility] Oxygen saturation in Arterial blood by Pulse oximetry 2020-12-08 16:05:00 94 /min [facility] Body weight 2020-12-07 09:35:00 83.462 kg [facility] BMI 2020-12-07 09:35:00 37.16 kg/m2 [facility] Systolic blood pressure 2020-12-08 16:05:00 108 mm[Hg] [facility] Diastolic blood pressure 2020-12-08 16:05:00 64 mm[Hg] [facility] Heart rate 2020-12-08 16:05:00 70 /min [facility] Body temperature 2020-12-08 16:05:00 36.17 Judith [facility] Respiratory rate 2020-12-08 16:05:00 18 /min [facility] Oxygen saturation in Arterial blood by Pulse oximetry 2020-12-08 16:05:00 94 /min [facility] Body weight 2020-12-07 09:35:00 83.462 kg [facility] BMI 2020-12-07 09:35:00 37.16 kg/m2 [facility] Systolic blood pressure 2020-02-19 16:38:00 140 mm[Hg] [facility] Diastolic blood pressure 2020-02-19 16:38:00 71 mm[Hg] [facility] Heart rate 2020-02-19 16:38:00 85 /min [facility] Body temperature 2020-02-19 16:38:00 36.67 Judith [facility] Respiratory rate 2020-02-19 16:38:00 18 /min [facility] Oxygen saturation in Arterial blood by Pulse oximetry 2020-02-19 16:38:00 100 /min [facility] Body height 2020-02-16 08:30:00 149.9 cm [facility] Body weight 2020-02-16 08:30:00 77.1 kg [facility] BMI 2020-02-16 08:30:00 34.33 kg/m2 [facility] Systolic blood pressure 2020-02-19 16:38:00 140 mm[Hg] [facility] Diastolic blood pressure 2020-02-19 16:38:00 71 mm[Hg] [facility] Heart rate 2020-02-19 16:38:00 85 /min [facility] Body temperature 2020-02-19 16:38:00 36.67 Judith [facility] Respiratory rate 2020-02-19 16:38:00 18 /min [facility] Oxygen saturation in Arterial blood by Pulse oximetry 2020-02-19 16:38:00 100 /min [facility] Body height 2020-02-16 08:30:00 149.9 cm [facility] Body weight 2020-02-16 08:30:00 77.1 kg [facility] BMI 2020-02-16 08:30:00 34.33 kg/m2 [facility] Systolic blood pressure 2020-02-16 02:00:00 124 mm[Hg] [facility] Diastolic blood pressure 2020-02-16 02:00:00 86 mm[Hg] [facility] Heart rate 2020-02-16 02:00:00 78 /min [facility] 2020-02-16 02:00:00 16 /min [facility] Oxygen saturation in Arterial blood by Pulse oximetry 2020-02-16 02:00:00 99 /min [facility] Body temperature 2020-02-15 23:42:44 36.78 Judith [facility] Body height 2020-02-15 23:17:00 149.9 cm [facility] Body weight 2020-02-15 23:17:00 77.111 kg [facility] BMI 2020-02-15 23:17:00 34.34 kg/m2 [facility] Systolic blood pressure 2020-02-16 02:00:00 124 mm[Hg] [facility] Diastolic blood pressure 2020-02-16 02:00:00 86 mm[Hg] [facility] Heart rate 2020-02-16 02:00:00 78 /min [facility] Respiratory rate 2020-02-16 02:00:00 16 /min [facility] Oxygen saturation in Arterial blood by Pulse oximetry 2020-02-16 02:00:00 99 /min [facility] Body temperature 2020-02-15 23:42:44 36.78 Judith [facility] Body height 2020-02-15 23:17:00 149.9 cm [facility] Body weight 2020-02-15 23:17:00 77.111 kg [facility] BMI 2020-02-15 23:17:00 34.34 kg/m2 [facility] Procedures Procedure Date / Time Performed Performing Clinician Source URINALYSIS 2024-06-27 10:43:00 [facility] 2024-06-27 09:06:00 Joseline Rivera [facility] MAGNESIUM 2024-06-27 09:06:00 Joseline Rivera [facility] BASIC METABOLIC PANEL (NA, K , CL, CO2, GLUCOSE, BUN, CREATININE, CA) 2024-06-27 09:06:00 Joseline Rivera [facility] CBC WITH DIFF 2024-06-27 09:06:00 Joseline Rivera [facility] AC PANEL 20 + LACTIC ACID 2024-06-27 08:55:00 Joseline Rivera [facility] XR CHEST 1 VW 2024-06-27 06:06:00 Joseline Rivera [facility] ACUTE CARE ARTERIAL BLOOD GAS 2024-06-27 04:09:00 Joseline Rivera [facility] MAGNESIUM 2024-06-27 04:08:00 [facility] TROPONIN I 2024-06-27 04:08:00 [facility] THYROID STIMULATING HORMONE 2024-06-27 04:08:00 Joseline Rivera [facility] BASIC METABOLIC PANEL (NA, K , CL, CO2, GLUCOSE, BUN, CREATININE, CA) 2024-06-27 04:08:00 [facility] CBC WITH DIFF 2024-06-27 04:08:00 Joseline Rivera [facility] GLYCOSYLATED HEMOGLOBIN (A1C) 2024-06-27 04:08:00 Joseline Rivera [facility] MRSA / MSSA SCREEN BY PCRWENDY 2024-06-27 04:08:00 Joseline Rivera [facility] COVID-19 (ID NOW RAPID TESTING) 2021-06-04 23:29:00 Rohini Rowan [facility] US PELVIS COMPLETE WITH TRANSVAGINAL 2021-06-03 16:43:05 Mckenzie Fischer [facility] CBC WITH DIFF 2021-06-03 11:27:00 Rohini Rowan [facility] ADC CLC OR LCC ONLY - WET PREP 2021-06-02 19:17:00 Rohini Rowan [facility] BLOOD CULTURE SCREEN 2021-06-02 17:16:00 Mckenzie Fischer [facility] BLOOD CULTURE SCREEN 2021-06-02 17:01:00 Mckenzie Fischer [facility] BLOOD CULTURE WORKUP 2021-06-02 17:01:00 Mckenzie Fischer [facility] GRAM POSITIVE BLOOD PATHOGEN S DNA PROBE-AEROBIC 2021-06-02 17:01:00 Mckenzie Fischer [facility] CT ABDOMEN PELVIS W CONTRAST 2021-06-02 16:10:20 Mckenzie Fischer [facility] URINE CULTURE 2021-06-02 14:56:[address] [facility] COMP. METABOLIC PANEL ([id number]) 2021-06-02 14:07:[address] [facility] CBC WITH DIFF 2021-06-02 14:07:[address] [facility] PROT[facility] / INR 2021-06-02 14:07:[address] [facility] ACTIVATED PARTIAL THRMPLAS MEENA 2021-06-02 14:07:00 Amado [facility] URINALYSIS 2021-06-02 14:07:00 Amado [facility] COVID-19 (ID NOW RAPID TESTING) 2021-06-02 14:07:00 Amado [facility] LACTIC ACID WHOLE BLOOD 2021-06-02 14:06:00 Amado [facility] POCT TEST 2021-06-02 14:05:[address] [facility] NOTICE OF PRIVACY PRACTICES 2021-06-02 13:45:03 Doctor Unassigned, Parmele [facility] CONSENT/REFUSAL FOR DIAGNOSI S AND TREATMENT 2021-06-02 13:43:14 Doctor Unassigned, Parmele [facility] CBC WITH DIFF 2020-12-08 09:54:00 Kleber Macedo [facility] ACUTE CARE ARTERIAL BLOOD GAS 2020-12-07 09:40:00 Judith [facility] COMP. METABOLIC PANEL ([id number]) 2020-12-07 07:01:00 Mercedez Richmond [facility] CBC WITH DIFF 2020-12-07 07:01:00 Mercedez Richmond [facility] CT HEAD WO CONTRAST 2020-12-07 02:33:06 Danny Wong [facility] PHOSPHORUS 2020-12-07 01:43:00 Judith noemi [facility] MAGNESIUM 2020-12-07 01:43:00 Judith [facility] COMP. METABOLIC PANEL ([id number]) 2020-12-07 01:43:00 Judith [facility] PHENYTOIN 2020-12-07 01:43:00 Judith noemi [facility] PHENYTOIN FREE 2020-12-07 01:43:00 Judith [facility] KEPPRA (LEVETIRACETAM) 2020-12-07 01:43:00 Judith [facility] AC PANEL 20 + LACTIC ACID 2020-12-07 01:38:00 Judith noemi [facility] XR CHEST 1 VW 2020-12-07 00:20:16 Kleber Macedo [facility] POCT GLUCOSE (AUTOMATED) 2020-12-06 21:04:00 Jose Whitehead [facility] CBC WITH DIFF 2020-12-06 11:16:00 Mercedez Richmond [facility] BASIC METABOLIC PANEL (NA, K , CL, CO2, GLUCOSE, BUN, CREATININE, CA) 2020-12-05 09:34:00 Jose Whitehead [facility] CBC WITH DIFF 2020-12-05 09:34:00 Jose Whitehead [facility] COVID-19 (ID NOW RAPID TESTING) 2020-12-04 21:10:00 Amado Mckenzie [facility] LAB ONLY COVID INTERPRETATION 2020-12-04 21:10:00 Mckenzie Fischer [facility] CT ABDOMEN PELVIS W CONTRAST 2020-12-04 20:15:23 Mckenzie Fischer [facility] POCT TEST 2020-12-04 19:51:00 Mckenzie Fischer [facility] BLOOD CULTURE SCREEN 2020-12-04 19:49:00 Mckenzie Fischer [facility] HEPATIC FUNCTION PANEL ([id number]) (ALB,T.PRO,BILI T,BU/BC,ALT,AST,ALK PHOS) 2020-12-04 19:49:00 Mckenzie Fischer [facility] BASIC METABOLIC PANEL (NA, K , CL, CO2, GLUCOSE, BUN, CREATININE, CA) 2020-12-04 19:49:00 Mckenzie Fischer [facility] CBC WITH DIFF 2020-12-04 19:49:00 Mckenzie Fischer [facility] GLYCOSYLATED HEMOGLOBIN (A1C) 2020-12-04 19:49:00 Jose Whitehead [facility] URINALYSIS 2020-12-04 19:49:00 Mckenzie Fischer [facility] LACTIC ACID WHOLE BLOOD 2020-12-04 19:49:00 Mckenzie Fischer [facility] BLOOD CULTURE SCREEN 2020-12-04 19:35:00 Mckenzie Fischer [facility] CONSENT/REFUSAL FOR DIAGNOSI S AND TREATMENT 2020-12-04 17:10:47 Doctor Unassigned, Parmele [facility] MR LUMBAR SPINE WO CONTRAST 2020-02-18 16:38:16 Steve Sauceda [facility] MR BRAIN W WO CONTRAST 2020-02-18 16:38:16 Frank [facility] KEPPRA (LEVETIRACETAM) 2020-02-18 03:13:00 Frank [facility] TROPONIN I 2020-02-18 03:04:00 Frank [facility] COMP. METABOLIC PANEL ([id number]) 2020-02-18 03:04:00 Frank [facility] CBC WITH DIFF 2020-02-18 03:04:00 Frank [facility] CT HEAD WO CONTRAST 2020-02-17 02:30:10 Noam Hanson [facility] ELECTROENCEPHALOGRAM 2020-02-17 00:00:00 Noam Hanson [facility] PHENYTOIN FREE 2020-02-16 23:28:00 Moon Renner [facility] CREATINE KINASE 2020-02-16 10:40:00 Noam Hanson [facility] MAGNESIUM 2020-02-16 10:40:00 Noam Hanson [facility] BASIC METABOLIC PANEL (NA, K , CL, CO2, GLUCOSE, BUN, CREATININE, CA) 2020-02-16 10:40:00 Saundra Gaston [facility] CBC WITH DIFF 2020-02-16 10:40:00 Saundra Gaston [facility] COVID-19 (ID NOW RAPID TESTING) 2020-02-16 00:00:00 Tim Russell [facility] CREATINE KINASE 2020-02-15 23:30:00 Tim Russell [facility] COMP. METABOLIC PANEL ([id number]) 2020-02-15 23:30:00 [facility] [facility] CBC WITH DIFF 2020-02-15 23:30:00 Tim Russell [facility] LACTIC ACID WHOLE BLOOD 2020-02-15 23:30:00 Tim Russell [facility] NOTICE OF PRIVACY PRACTICES 2020-02-15 23:06:05 Doctor Unassigned, [place] [facility] CONSENT/REFUSAL FOR DIAGNOSI S AND TREATMENT 2020-02-15 23:05:40 Doctor Unassigned, [place] [facility] Encounters Start Date/Time End Date/Time Encounter Type Admission Type Attending Clinicians Care Facility Care Department Encounter ID Source 2024-06-26 20:37:00 2024-06-27 08:55:00 Hospital Encounter Seymour Godinez [facility] 1.840.114 350.1.13.10 4.2.7.2.686 [id number] [facility] 2021-07-21 00:00:00 2021-07-21 00:00:00 [facility] 1.2840.114 350.1.13.10 4.2.7.2.686 [id number] [facility] 2021-06-06 00:00:00 2021-06-06 00:00:00 Transition of Care Mahogany Cortez 1.0.114 350.1.13.10 4.2.7.2.686 [id number] [facility] 2021-06-02 07:53:00 2021-06-05 18:21:00 Inpatient X ROHINI ROWAN [facility] [id number] [facility] 2021-06-02 07:53:2021-06-05 18:21:00 Hospital Encounter Mckenzie Fischer Rohini Ramo [facility] 1.2.840.114 350.1.13.10 4.2.7.2.686 [id number] [facility] 2020-12-11 00:00:00 2020-12-11 00:00:00 Transition of Care Mahogany Cortez 1.2.840.114 350.1.13.10 4.2.7.2.686 [id number] 2020-12-11 00:00:00 2020-12-11 00:00:00 Transition of Care Mahogany Cortez 1.2.840.114 350.1.13.10 4.2.7.2.686 [id number] [facility] 2020-12-04 12:23:00 2020-12-08 13:59:00 Hospital Encounter Mckenzie Fischer Yaman Morris, [facility] 1.2.840.114 350.1.13.10 4.2.7.2.686 [id number] 2020-12-04 12:23:00 2020-12-08 13:59:00 Hospital Encounter Mckenzie Fischer Yaman Morris [facility] 1.2.840.114 350.1.13.10 4.2.7.2.686 [id number] [facility] 2020-12-04 12:11:00 2020-12-04 12:11:00 Emergency X [facility] ERT [id number] [facility] 2020-12-04 00:00:00 2020-12-04 00:00:00 Orders Only Doctor Unassigned, [place] [facility] 1.2.840.114 350.1.13.10 4.2.7.2.686 [id number] 2020-12-04 00:00:00 2020-12-04 00:00:00 Orders Only Doctor Unassigned, [place] [facility] 1.2.840.114 350.1.13.10 4.2.7.2.686 [id number] [facility] 2020-02-21 00:00:00 2020-02-21 00:00:00 Transition of Care Mahogany Cortez 1.2.840.114 350.1.13.10 4.2.7.2.686 [id number] 2020-02-21 00:00:00 2020-02-21 00:00:00 Transition of Care Mahogany Cortez 1.2.840.114 350.1.13.10 4.2.7.2.686 [id number] [facility] 2020-02-15 23:20:00 2020-02-19 14:53:00 Hospital Encounter [facility] 1.2.840.114 350.1.13.10 4.2.7.2.686 [id number] 2020-02-15 23:20:00 2020-02-19 14:53:00 Hospital Encounter [facility] 1.2.840.114 350.1.13.10 4.2.7.2.686 [id number] [facility] 2020-02-15 18:13:00 2020-02-15 21:26:00 [facility].114 350.1.13.10 4.2.7.2.686 [id number] 2020-02-15 18:13:00 2020-02-15 21:26:00 Emergency DrewTim villalpando [facility] 1.2.840.114 350.1.13.10 4.2.7.2.686 [id number] [facility] 2020-02-15 18:07:00 2020-02-15 18:07:00 Emergency X [facility] ERT [id number] [facility] 2020-02-15 00:00:00 2020-02-15 00:00:00 Orders Only Doctor Unassigned, [place] [facility] 1.2.840.114 350.1.13.10 4.2.7.2.686 [id number] 2020-02-15 00:00:00 2020-02-15 00:00:00 Orders Only Doctor Unassigned, [place] [facility] 1.2.840.114 350.1.13.10 4.2.7.2.686 [id number] [facility] Results Test Description Test Time Test [...] of inspiration. No acute bonyabnormalities are evident. [facility] (NA, K, CL, CO2, GLUCOSE, BUN, CREATININE, CA)2024-06-27 10:00:50* Test Item Value Reference Range Interpretation Comme nts NA (test code = 0880389859) 138 mmol/L 135-145 K (test code = 9202308221) 3.7 mmol/L 3.5-5.0 CL (test code = 8273889103) 110 mmol/L 98-108 H CO2 TOTAL (test code = 5327383874) 24 mmol/L 23-31 AGAP (test code = 5980705238) 4 2-16 BUN (test code = 7851024888) 11 mg/dL 7-23 GLUCOSE (test code = 8026681230) 76 mg/dL 70-110 CREATININE (test code = 2160-0) 0.53 mg/dL 0.50-1.04 CALCIUM (test code = 8878858377) 8.2 mg/dL 8.6-10.6 L eGFR (test code = 10885-0) 113.5 mL/min/1.73m2 CKD-EPI eGFR (2020). Assuming creatinine has been stable day-to-day for at least three months, the eGFR indicates Category G1 (>= 90 mL/min/1.73 m2) Lab Interpretation (test code = 10220-0) [facility] 10:00:50* Test Item Value Reference Range Interpretation Comme nts PHOSPHORUS (test code = 0063546197) 3.7 mg/dL 2.5-5.0 Lab Interpretation (test cod e = 85786-0) Normal [facility] with [id number] 09:42:45* Test Item Value Reference Range Interpretation [...] 32.6 g/dL 31.6-35.1 RDW-SD (test code = 47503-4) 44.5 fL 39.0-49.9 RDW-CV (test code = 788-0) 12.8 % 12.0-15.5 PLT (test code = 777-3) 270 166-358 MPV (test code = 21973-6) 9.6 fL 9.5-12.9 NRBC/100 WBC (test code = 3314458805) 0.0 0.0-10.0 NRBC x10^3 (test code = 3372702295) See_Comment [Automated [employer] ge] The system which generated this result transmitted reference range: 10*3/?L. The reference range was not used to interpret this result as normal/abnormal. GRAN MAT (NEUT) % (test code = 770-8) 69.3 % IMM GRAN % (test code = 1630776734) 0.30 % LYMPH % (test code = 736-9) 20.9 % MONO % (test code = 5905-5) 6.2 % EOS % (test code = 713-8) 2.8 % BASO % (test code = 706-2) 0.5 % GRAN MAT x10^3(ANC) (test code = 2020389522) 7.35 10*3/uL 1.88-7.09 H IMM GRAN x10^3 (test code = 8557214468) 0.03 10*3/uL 0.00-0.06 LYMPH x10^3 (test code = 731-0) 2.22 10*3/uL 1.32-3.29 MONO x10^3 (test code = 742-7) 0.66 10*3/uL 0.33-0.92 EOS x10^3 (test code = 711-2) 0.30 10*3/uL 0.03-0.39 BASO x10^3 (test code = 704-7) 0.05 10*3/uL 0.01-0.07 Lab Interpretation (test code = 60749-5) [facility]normal [facility] + Lactic [id number] 09:18:50* Test Item Value Reference Range Interpretation Comme nts PH (test code = 2) 7.40 7.35-7.45 PCO2 (test code = 3106792929) 39 35-45 PO2 (test code = 1832350644) 141 80-100 H HCO3 (test code = 7318953508) 24 22-26 BE (test code = 3091849949) -1.4 -3.0-3.0 THB (test code = 9344751730) 16.5 g/dL 12.0-16.0 H %O2HB (test code = 9038333266) 98.7 % 94.0-99.0 %COHB ART (test code = 3569136836) 0.3 % 0.0-1.5 %METHB ART (test code = 7968316849) 0.1 % 0.4-1.5 L VOL%O2 ART (test code = 5157660034) 23.1 % 15.0-23.0 H NA (test code = 8055038109) 140 mmol/L 135-145 K+ (test code = 5839723768) 3.9 mmol/L 3.5-5.0 AC CA IONZ (test code = 2313768220) 5.00 mg/dL 4.50-5.30 GLUCOSE (test code = 6987134382) 77 mg/dL 70-110 LACTIC ACID (test code = 9496769647) 0.78 mmol/L 0.50-2.20 QUES Lab Interpretation (test cod e = 33314-8) [facility] [id number] 05:25:38 * Test Item Value Reference Range Interpretation Comme nts TSH (test code = 2445539008) 1.30 0.45-4.70 Biotin has been reported to cause a negative bias, interpret results relative to patient's use of biotin. Lab Interpretation (test code = 23919-1) Normal [facility] Hemoglobin (A1C)2024-06-27 05:07:13* Test Item Value Reference Range Interpretation Comme [facility] HGB A1C (test code = 4548-4) 5.3 % 4.0-5.7 BRE (test code = BRE) Reference RangesNormal: <5.7%Prediabetes: 5.7 - 6.4%Diabetes: > 6.5% Lab Interpretation (test code = 32996-7) Normal [facility] [id number] 05:06:53* Test Item Value Reference Range Interpretation Comme nts TROPONIN I (test code = 0750488967) 0.003 ng/mL <=0.034 BRE (test code = [...] of biotin. Lab Interpretation (test code = 21005-2) Normal [facility]2025-01-27 04:55:16* Test Item Value Reference Range Interpretation Comme nts MAGNESIUM (test code = 3086803299) 1.6 mg/dL 1.7-2.4 L Lab Interpretation (test cod e = 28047-5) Abnormal [facility] Metabolic Panel (NA, K, CL, CO2, GLUCOSE, BUN, CREATININE, CA)2024-06-27 04:55:11* Test Item Value Reference Range Interpretation Comme nts NA (test code = 3698831210) 138 mmol/L 135-145 K (test code = 4306733211) 3.8 mmol/L 3.5-5.0 CL (test code = 6524675187) 110 mmol/L 98-108 H CO2 TOTAL (test code = 3348557230) 25 mmol/L 23-31 AGAP (test code = 3193093395) 3 2-16 BUN (test code = 7531688798) 12 mg/dL 7-23 GLUCOSE (test code = 8265609582) 72 mg/dL 70-110 CREATININE (test code = 2160-0) 0.55 mg/dL 0.50-1.04 CALCIUM (test code = 3258697656) 8.6 mg/dL 8.6-10.6 eGFR (test code = 73052-6) 112.5 mL/min/1.73m2 CKD-EPI eGFR (2020). Assuming creatinine has been stable day-to-day for at least three months, the eGFR indicates Category G1 (>= 90 mL/min/1.73 m2) Lab Interpretation (test code = 52231-8) Abnormal [facility] With [id number] 04:24:11* Test Item Value Reference Range Interpretation [...] 32.4 g/dL 31.6-35.1 RDW-SD (test code = 95395-9) 44.3 fL 39.0-49.9 RDW-CV (test code = 788-0) 12.9 % 12.0-15.5 PLT (test code = 777-3) 245 166-358 MPV (test code = 38693-8) 9.5 fL 9.5-12.9 NRBC/100 WBC (test code = 1067142449) 0.0 0.0-10.0 NRBC x10^3 (test code = 6543783695) See_Comment [Automated messa ge] The system which generated this result transmitted reference range: 10*3/?L. The reference range was not used to interpret this result as normal/abnormal. GRAN MAT (NEUT) % (test code = 770-8) 58.2 % IMM GRAN % (test code = 3351151494) 0.20 % LYMPH % (test code = 736-9) 29.1 % MONO % (test code = 5905-5) 8.6 % EOS % (test code = 713-8) 3.4 % BASO % (test code = 706-2) 0.5 % GRAN MAT x10^3(ANC) (test code = 1809651726) 5.03 10*3/uL 1.88-7.09 IMM GRAN x10^3 (test code = 7115543351) 0.00-0.06 LYMPH x10^3 (test code = 731-0) 2.51 10*3/uL 1.32-3.29 MONO x10^3 (test code = 742-7) 0.74 10*3/uL 0.33-0.92 EOS x10^3 (test code = 711-2) 0.29 10*3/uL 0.03-0.39 BASO x10^3 (test code = 704-7) 0.04 10*3/uL 0.01-0.07 Lab Interpretation (test code = 01847-9) [facility]normal [facility] Ar[facility]ial Blood Gas. [id number] 04:15:10* Test Item Value Reference Range Interpretation Comme nts PH (test code = 2) 7.39 7.35-7.45 PCO2 (test code = 2149504697) 40 35-45 PO2 (test code = 7049369214) 193 80-100 H QUES HCO3 (test code = 2041862386) 24 22-26 BE (test code = 5376650257) -1.3 -3.0-3.0 Lab Interpretation (test cod e = 81197-4) Abnormal [facility] POS[facility]IVE BLOOD PATHOGENS DNA ALVXS-[id number] 20:35:34* Test Item Value Reference Range Interpretation Comme nts Gram Positive Blood Pathogens DNA Probe-Aerobic (test code = 63051-3) No organisms included in the Blood DNA Probe test panel were detected. Further identification workup to be performed by culture testing methods. BRE (test code = BRE) See blood culture result for additional information. Testing included eleven identification and three resistancemarker [address] [facility] WITH [id number] 12:24:57* Test Item Value Reference Range Interpretation Comme nts WBC (test code = 6690-2) See_Comment [Automated [employer]] The system which generated this result transmitted reference range: 4.30 - 11.10 10*3/?L. The reference range was not used to interpret this result as normal/abnormal. RBC (test code = 789-8) See_Comment [Automated [employer]] The system which generated this result transmitted [...] 32.2 g/dL 31.6-35.1 RDW-SD (test code = 37785-2) 46.5 fL 39.0-49.9 RDW-CV (test code = 788-0) 13.1 % 12.0-15.5 PLT (test code = 777-3) See_Comment [Automated messa ge] The system which generated this result transmitted reference range: 166 - 358 10*3/?L. The reference range was not used to interpret this result as normal/abnormal. MPV (test code = 98161-1) 9.9 fL 9.5-12.9 NRBC/100 WBC (test code = 7144243001) See_Comment [Automated [employer] ssage] The system which generated this result transmitted reference range: 0.0 - 10.0 /100 WBCs. The reference range was not used to interpret this result as normal/abnormal. NRBC x10^3 (test code = 1449183896) <0.01 See_Comment [Automated [employer] ge] The system which generated this result transmitted reference range: 10*3/?L. The reference range was not used to interpret this result as normal/abnormal. GRAN MAT (NEUT) % (test code = 770-8) 59.8 % IMM GRAN % (test code = 7705119875) 0.70 % LYMPH % (test code = 736-9) 22.3 % MONO % (test code = 5905-5) 10.7 % EOS % (test code = 713-8) 6.0 % BASO % (test code = 706-2) 0.5 % GRAN MAT x10^3(ANC) (test code = 8331062483) 6.18 10*3/uL 1.88-7.09 IMM GRAN x10^3 (test code = 5941995124) 0.07 10*3/uL 0.00-0.06 H LYMPH x10^3 (test code = 731-0) 2.31 10*3/uL 1.32-3.29 MONO x10^3 (test code = 742-7) 1.11 10*3/uL 0.33-0.92 H EOS x10^3 (test code = 711-2) 0.62 10*3/uL 0.03-0.39 H BASO x10^3 (test code = 704-7) 0.05 10*3/uL 0.01-0.07 Lab Interpretation (test code = 68417-5) Abnormal [facility]. METABOLIC PANEL (31959)2021-06-02 14:33:18* Test Item Value Reference Range Interpretation Comme nts NA (test code = 6779018421) 137 mmol/L 135-145 K (test code = 6425064575) 3.7 mmol/L 3.5-5.0 CL (test code = 1707498890) 105 mmol/L 98-108 CO2 TOTAL (test code = 4730075053) 24 mmol/L 23-31 AGAP (test code = 9195355455) 2-16 BUN (test code = 4867260045) 9 mg/dL 7-23 GLUCOSE (test code = 4269098392) 104 mg/dL 70-110 CREATININE (test code = 0093868649) 0.63 mg/dL 0.50-1.04 TOTAL BILI (test code = 5947285781) 0.6 mg/dL 0.1-1.1 CALCIUM (test code = 1721554198) 9.0 mg/dL 8.6-10.6 T PROTEIN (test code = 4231933666) 7.3 g/dL 6.3-8.2 ALBUMIN (test code = 8067418518) 4.0 g/dL 3.5-5.0 ALK PHOS (test code = 2042081977) 81 U/L 34-122 ALTv (test code = 1742-6) 14 U/L 5-35 AST(SGOT) (test code = 4889637943) 21 U/L 13-40 eGFR (test code = 9154527747) mL/min/1.73m2 BRE (test code = BRE) Association [...] or urine or abnormalities in imaging tests). [facility]IV[facility] PARTIAL THRMPLAS [id number] 14:30:17* Test Item Value Reference Range Interpretation Comme [facility] APTT Patient (test code = 3173-2) See_Comment [Automated message] The system which generated this result transmitted reference range: 23 - 38 Seconds. The reference range was not used to interpret this result as normal/abnormal. BRE (test code = BRE) The [facility] patient population mean normal value for aPTT is 30 seconds. Lab Interpretation (test code = 55612-7) Normal [facility]lake[facility] / [id number] 14:28:17* Test Item Value Reference Range Interpretation Comme [facility] PROTIME PATIENT (test code = 5964-2) See_Comment [Automated [employer] ge] The system which generated this result transmitted reference range: 12.0 - 14.7 Seconds. The reference range was not used to interpret this result as normal/abnormal. INR (test code = 6301-6) Normal INR <1.1; Warfarin Therapeutic range 2.0 to 3.0 or 2.5 to 3.5, depending upon the indications. Lab Interpretation (test code = 83198-3) Normal [facility] WITH [id number] 14:20:21* Test Item Value Reference Range Interpretation Comme [facility] WBC (test code = 6690-2) See_Comment H [...] 33.0 g/dL 31.6-35.1 RDW-SD (test code = 06848-6) 44.9 fL 39.0-49.9 RDW-CV (test code = 788-0) 13.0 % 12.0-15.5 PLT (test code = 777-3) See_Comment [Automated messa ge] The system which generated this result transmitted reference range: 166 - 358 10*3/?L. The reference range was not used to interpret this result as normal/abnormal. MPV (test code = 53748-9) 9.5 fL 9.5-12.9 NRBC/100 WBC (test code = 5248255093) See_Comment [Automated [employer] ssage] The system which generated this result transmitted reference range: 0.0 - 10.0 /100 WBCs. The reference range was not used to interpret this result as normal/abnormal. NRBC x10^3 (test code = 0438990231) <0.01 See_Comment [Automated messa ge] The system which generated this result transmitted reference range: 10*3/?L. The reference range was not used to interpret this result as normal/abnormal. GRAN MAT (NEUT) % (test code = 770-8) 69.4 % IMM GRAN % (test code = 2331532805) 0.70 % LYMPH % (test code = 736-9) 16.9 % MONO % (test code = 5905-5) 8.6 % EOS % (test code = 713-8) 3.9 % BASO % (test code = 706-2) 0.5 % GRAN MAT x10^3(ANC) (test code = 1758179289) 9.74 10*3/uL 1.88-7.09 H IMM GRAN x10^3 (test code = 2518194961) 0.10 10*3/uL 0.00-0.06 H LYMPH x10^3 (test code = 731-0) 2.37 10*3/uL 1.32-3.29 MONO x10^3 (test code = 742-7) 1.20 10*3/uL 0.33-0.92 H EOS x10^3 (test code = 711-2) 0.54 10*3/uL 0.03-0.39 H BASO x10^3 (test code = 704-7) 0.07 10*3/uL 0.01-0.07 Lab Interpretation (test code = 10802-5) Abnormal [facility] [id number] 14:05:00* Test Item Value Reference Range Interpretation Comme nts POCT PREG (test code = 1605) negative On board controls acceptable with C Line (test code = 3574) present POCT PREG LOT # (test code = 3575) [id number] POCT PREG TEST DATE ( test code = 3576) 07/29/2022 Lab Interpretation (test cod e = 00020-5) Normal [facility] [id number] 11:14:56* Test Item Value Reference Range Interpretation [...] g/dL 31.6-35.1 L RDW-SD (test code = 51521-0) 47.7 fL 39.0-49.9 RDW-CV (test code = 788-0) 13.5 % 12.0-15.5 PLT (test code = 777-3) See_Comment [Automated messa ge] The system which generated this result transmitted reference range: 166 - 358 10*3/?L. The reference range was not used to interpret this result as normal/abnormal. MPV (test code = 91004-7) 9.8 fL 9.5-12.9 NRBC/100 WBC (test code = 6719885161) See_Comment [Automated [employer] ssage] The system which generated this result transmitted reference range: 0.0 - 10.0 /100 WBCs. The reference range was not used to interpret this result as normal/abnormal. NRBC x10^3 (test code = 0802346624) <0.01 See_Comment [Automated messa ge] The system which generated this result transmitted reference range: 10*3/?L. The reference range was not used to interpret this result as normal/abnormal. GRAN MAT (NEUT) % (test code = 770-8) 49.8 % IMM GRAN % (test code = 6961045628) 1.50 % LYMPH % (test code = 736-9) 31.9 % MONO % (test code = 5905-5) 7.4 % EOS % (test code = 713-8) 9.0 % BASO % (test code = 706-2) 0.4 % GRAN MAT x10^3(ANC) (test code = 5407108052) 5.52 10*3/uL 1.88-7.09 IMM GRAN x10^3 (test code = 3466602090) 0.17 10*3/uL 0.00-0.06 H LYMPH x10^3 (test code = 731-0) 3.54 10*3/uL 1.32-3.29 H MONO x10^3 (test code = 742-7) 0.82 10*3/uL 0.33-0.92 EOS x10^3 (test code = 711-2) 1.00 10*3/uL 0.03-0.39 H BASO x10^3 (test code = 704-7) 0.04 10*3/uL 0.01-0.07 Lab Interpretation (test code = 64736-3) Abnormal [facility] Arterial Blood Gas.2020-12-07 09:48:11* Test Item Value Reference Range Interpretation Comme nts PH (test code = 2) 7.35-7.45 PCO2 (test code = 2561559510) See_Comment H [Automated messa ge] The system which generated this result transmitted reference range: 35 - 45 mmHg. The reference range was not used to interpret this result as normal/abnormal. PO2 (test code = 3034959431) See_Comment H [Automated messa ge] The system which generated this result transmitted reference range: 80 - 100 mmHg. The reference range was not used to interpret this result as normal/abnormal. HCO3 (test code = 4292573518) See_Comment H [Automated messa ge] The system which generated this result transmitted reference range: 22 - 26 mEq/L. The reference range was not used to interpret this result as normal/abnormal. BE (test code = 6620081962) See_Comment [Automated messa ge] The system which generated this result transmitted reference range: -3.0 - 3.0 mEq/L. The reference range was not used to interpret this result as normal/abnormal. Lab Interpretation (test code = 13531-0) Abnormal [facility]. METABOLIC PANEL (18860)2020-12-07 08:13:32* Test Item Value Reference Range Interpretation Comme nts NA (test code = 6638110379) 136 mmol/L 135-145 K (test code = 1483035754) 4.5 mmol/L 3.5-5.0 CL (test code = 3843512073) 106 mmol/L 98-108 CO2 TOTAL (test code = 2857876367) 27 mmol/L 23-31 AGAP (test code = 8378738572) 2-16 BUN (test code = 7833638448) 8 mg/dL 7-23 GLUCOSE (test code = 1559463770) 81 mg/dL 70-110 CREATININE (test code = 4613249583) 0.57 mg/dL 0.50-1.04 TOTAL BILI (test code = 0353109698) 0.4 mg/dL 0.1-1.1 CALCIUM (test code = 4083961844) 9.4 mg/dL 8.6-10.6 T PROTEIN (test code = 6398602513) 6.4 g/dL 6.3-8.2 ALBUMIN (test code = 5884769547) 3.7 g/dL 3.5-5.0 ALK PHOS (test code = 6493742779) 66 U/L 34-122 ALTv (test code = 1742-6) 19 U/L 5-35 AST(SGOT) (test code = 4246727047) 26 U/L 13-40 eGFR (test code = 1259428269) mL/min/1.73m2 BRE (test code = BRE) Association [...] urine or abnormalities in imaging tests). [facility] WITH [id number] 07:35:30* Test Item Value Reference Range Interpretation Comme nts WBC (test code = 6690-2) See_Comment [Automated [employer] ge] The system which generated this result transmitted reference range: 4.30 - 11.10 10*3/?L. The reference range was not used to interpret this result as normal/abnormal. RBC (test code = 789-8) See_Comment [Automated [employer] ge] The system which generated this result [...] 31.8 g/dL 31.6-35.1 RDW-SD (test code = 09669-9) 48.6 fL 39.0-49.9 RDW-CV (test code = 788-0) 13.6 % 12.0-15.5 PLT (test code = 777-3) See_Comment [Automated [employer] ge] The system which generated this result transmitted reference range: 166 - 358 10*3/?L. The reference range was not used to interpret this result as normal/abnormal. MPV (test code = 90280-1) 9.6 fL 9.5-12.9 NRBC/100 WBC (test code = 7465645316) See_Comment [Automated [employer] ssage] The system which generated this result transmitted reference range: 0.0 - 10.0 /100 WBCs. The reference range was not used to interpret this result as normal/abnormal. NRBC x10^3 (test code = 3095235298) <0.01 See_Comment [Automated messa ge] The system which generated this result transmitted reference range: 10*3/?L. The reference range was not used to interpret this result as normal/abnormal. GRAN MAT (NEUT) % (test code = 770-8) 55.9 % IMM GRAN % (test code = 9979087551) 1.50 % LYMPH % (test code = 736-9) 27.1 % MONO % (test code = 5905-5) 7.0 % EOS % (test code = 713-8) 8.1 % BASO % (test code = 706-2) 0.4 % GRAN MAT x10^3(ANC) (test code = 0276949482) 6.09 10*3/uL 1.88-7.09 IMM GRAN x10^3 (test code = 5978976461) 0.16 10*3/uL 0.00-0.06 H LYMPH x10^3 (test code = 731-0) 2.95 10*3/uL 1.32-3.29 MONO x10^3 (test code = 742-7) 0.76 10*3/uL 0.33-0.92 EOS x10^3 (test code = 711-2) 0.88 10*3/uL 0.03-0.39 H BASO x10^3 (test code = 704-7) 0.04 10*3/uL 0.01-0.07 Lab Interpretation (test code = 58765-4) [facility]:41* Test Item Value Reference Range Interpretation Comme nts PHENY FREE (test code = 4482012234) 0.5 ug/mL 1.0-2.0 L BRE (test code = BRE) Toxic Range: ? Greater than 2.5 ug/mL Test developed and characteristics determined by [facility]. Lab Interpretation (test code = 33995-8) [facility]normal [facility]2020-12-07 05:49:38* Test Item Value Reference Range Interpretation Comme nts KEPPRA (test code = 8664485455) 17 ug/mL 12-46 BRE (test code = BRE) Therapeutic range: 12-46 ?g/mL ? ?Toxic: Not well established.Test developed and characteristics determined by [facility] Laboratory Services. Lab Interpretation (test code = 62328-5) [facility] 04:18:37* Test Item Value Reference Range Interpretation Comme nts PHENYTOIN (test code = 0896380234) 5.3 ug/mL 10.0-20.0 L BRE (test code = BRE) Toxic Range: ? 0-3 Months ? Greater than 14 ug/mL ? ? 3 Months - 150 Years ? ? Greater than 20 ug/mL Lab Interpretation (test code = 46636-3) [facility]normal [facility]2021[facility] 03:13:49* Test Item Value Reference Range Interpretation Comme nts MAGNESIUM (test code = 7197642005) 1.9 mg/dL 1.7-2.4 Lab Interpretation (test cod e = 85360-7) Normal [facility] METABOLIC PANEL (59641)2020-12-07 03:13:34* Test Item Value Reference Range Interpretation Comme nts NA (test code = 9121925604) 134 mmol/L 135-145 L K (test code = 8047248776) 4.8 mmol/L 3.5-5.0 CL (test code = 9492396910) 105 mmol/L 98-108 CO2 TOTAL (test code = 5932828960) 26 mmol/L 23-31 AGAP (test code = 9866299272) 2-16 BUN (test code = 7954143512) 9 mg/dL 7-23 GLUCOSE (test code = 6452878321) 87 mg/dL 70-110 CREATININE (test code = 2881035971) 0.66 mg/dL 0.50-1.04 TOTAL BILI (test code = 8545124434) 0.3 mg/dL 0.1-1.1 CALCIUM (test code = 9537215988) 9.7 mg/dL 8.6-10.6 T PROTEIN (test code = 0464216934) 6.6 g/dL 6.3-8.2 ALBUMIN (test code = 5231206302) 3.9 g/dL 3.5-5.0 ALK PHOS (test code = 9353488919) 73 U/L 34-122 ALTv (test code = 1742-6) 19 U/L 5-35 AST(SGOT) (test code = 6676016253) 27 U/L 13-40 eGFR (test code = 7977468384) mL/min/1.73m2 BRE (test code = BRE) Association [...] imaging tests). Lab Interpretation (test code = 07919-6) Abnormal [facility]2021-07-09 03:13:34* Test Item Value Reference Range Interpretation Comme nts PHOSPHORUS (test code = 3763182136) 4.8 mg/dL 2.5-5.0 Lab Interpretation (test cod e = 57132-7) Normal [facility] HEAD WO [id number] 02:42:36 Impression: 1. ?No CT evidence for [...] ?The calvarium and skull base are intact. Rust, Radiant Results Inft User - 12/06/2020 9:43 [...] 2831Electronically signed by Veronica Wu 12/06/2020 9:42 PM[facility]lakeAC PANEL 20 + LACTIC ISEH5265-06-42 01:42:21* Test Item Value Reference Range Interpretation Comme nts PH (test code = 2) 7.35-7.45 L PCO2 (test code = 4566995517) See_Comment H [Automated messa ge] The system which generated this result transmitted reference range: 35 - 45 mmHg. The reference range was not used to interpret this result as normal/abnormal. PO2 (test code = 0875346807) See_Comment H [Automated messa ge] The system which generated this result transmitted reference range: 80 - 100 mmHg. The reference range was not used to interpret this result as normal/abnormal. HCO3 (test code = 5099472930) See_Comment [Automated messa ge] The system which generated this result transmitted reference range: 22 - 26 mEq/L. The reference range was not used to interpret this result as normal/abnormal. BE (test code = 4106847165) See_Comment [Automated messa ge] The system which generated this result transmitted reference range: -3.0 - 3.0 mEq/L. The reference range was not used to interpret this result as normal/abnormal. THB (test code = 2697021195) 13.8 g/dL 12.0-16.0 %O2HB (test code = 4399748829) 97.8 % 94.0-99.0 %COHB ART (test code = 9128212148) 0.3 % 0.0-1.5 %METHB ART (test code = 8761890066) 0.5 % 0.4-1.5 VOL%O2 ART (test code = 1189512495) 19.2 % 15.0-23.0 NA (test code = 7998191022) 136 mmol/L 135-145 K+ (test code = 1640007556) 4.4 mmol/L 3.5-5.0 AC CA IONZ (test code = 3499357074) 4.90 mg/dL 4.50-5.30 GLUCOSE (test code = 5295331635) 90 mg/dL 70-110 LACTIC ACID (test code = 5243517969) 0.70 mmol/L 0.50-2.20 Lab Interpretation (test code = 03490-4) Abnormal [facility]lakeXR CHEST 1 [id number] 00:34:08Impression: 1. ?No acute cardiopulmonary process is [...] No acute cardiopulmonary process is identified.RL: 2831 [facility] ([facility]ATED)2020-12-06 21:08:59 * Test Item Value Reference Range Interpretation Comme nts POCT GLU (test code = 4474026463) 117 mg/dL 70-110 H Notified Provide r Lab Interpretation (test code = 75556-7) Abnormal [facility]lakeCBC WITH [id number] 15:07:49* Test Item Value Reference Range Interpretation [...] 32.0 g/dL 31.6-35.1 RDW-SD (test code = 16752-6) 47.5 fL 39.0-49.9 RDW-CV (test code = 788-0) 13.6 % 12.0-15.5 PLT (test code = 777-3) See_Comment [Automated [employer] ge] The system which generated this result transmitted reference range: 166 - 358 10*3/?L. The reference range was not used to interpret this result as normal/abnormal. MPV (test code = 96118-0) 9.6 fL 9.5-12.9 NRBC/100 WBC (test code = 1632729746) See_Comment [Automated [employer] ssage] The system which generated this result transmitted reference range: 0.0 - 10.0 /100 WBCs. The reference range was not used to interpret this result as normal/abnormal. NRBC x10^3 (test code = 4069286105) <0.01 See_Comment [Automated [employer] ge] The system which generated this result transmitted reference range: 10*3/?L. The reference range was not used to interpret this result as normal/abnormal. GRAN MAT (NEUT) % (test code = 770-8) 47.8 % IMM GRAN % (test code = 4613734684) 2.10 % LYMPH % (test code = 736-9) 32.4 % MONO % (test code = 5905-5) 7.6 % EOS % (test code = 713-8) 9.7 % BASO % (test code = 706-2) 0.4 % GRAN MAT x10^3(ANC) (test code = 3006062990) 4.89 10*3/uL 1.88-7.09 IMM GRAN x10^3 (test code = 0671131584) 0.22 10*3/uL 0.00-0.06 H LYMPH x10^3 (test code = 731-0) 3.32 10*3/uL 1.32-3.29 H MONO x10^3 (test code = 742-7) 0.78 10*3/uL 0.33-0.92 EOS x10^3 (test code = 711-2) 0.99 10*3/uL 0.03-0.39 H BASO x10^3 (test code = 704-7) 0.04 10*3/uL 0.01-0.07 BANDS (test code = 9439273147) Increased A LG GRAN LYMPHS (test code = 1181044312) Rare Rare REACT LYMPHS (test code = 1340706975) Rare Lab Interpretation (test code = 40393-4) Abnormal [facility]lake[facility] ONLY COVID JRPRFYMBEEZVMA9941-36-05 15:26:05COVID DMT InterpretationInterpretation/Recommendations:Molecular NAAT Tests for Active [...] COVID-19 testing the patient has had at [facility], including molecular NAAT testing (more commonly known as PCR testing and Rapid ID Now testing) and antibody testing. It does not take into account any testing that a patient has had outside of the [facility] medical record. [facility] LABORATORY SERVICESCOVID XasxxxxUWSG-MvU-7 Rapid ID NOW (no units) ? ? Date ? Value ? 12/04/2020 ? Not Detected ? ? ? 02/15/2020 ? Not Detected ? [facility] LABORATORY SERVICESUnMethodist [facility]San HospitalBacommon[facility] Metabolic Panel (NA, K, CL, CO2, GLUCOSE, BUN, CREATININE, CA) 2020-12-05 10:16:08* Test Item Value Reference Range Interpretation Comme nts NA (test code = 1116711813) 135 mmol/L 135-145 K (test code = 9927522140) 3.8 mmol/L 3.5-5.0 CL (test code = 3373690392) 106 mmol/L 98-108 CO2 TOTAL (test code = 3653194006) 23 mmol/L 23-31 AGAP (test code = 0581808287) 2-16 BUN (test code = 0949104712) 7 mg/dL 7-23 GLUCOSE (test code = 6315867595) 131 mg/dL 70-110 H CREATININE (test code = 0324119957) 0.66 mg/dL 0.50-1.04 CALCIUM (test code = 9576834379) 8.5 mg/dL 8.6-10.6 L eGFR (test code = 8903274941) mL/min/1.73m2 BRE (test code = BRE) Association [...] imaging tests). Lab Interpretation (test code = 74810-5) Abnormal [facility] with Gljbkukigrwv8873-82-46 09:47:43* Test Item Value Reference Range Interpretation Comme nts WBC (test code = 6690-2) See_Comment H [Automated [employer]] The system which generated this result transmitted reference range: 4.30 - 11.10 10*3/?L. The reference range was not used to interpret this result as normal/abnormal. RBC (test code = 789-8) See_Comment [Automated [employer]] The system which generated this result transmitted [...] 32.5 g/dL 31.6-35.1 RDW-SD (test code = 47896-3) 47.2 fL 39.0-49.9 RDW-CV (test code = 788-0) 13.6 % 12.0-15.5 PLT (test code = 777-3) See_Comment [Automated messa ge] The system which generated this result transmitted reference range: 166 - 358 10*3/?L. The reference range was not used to interpret this result as normal/abnormal. MPV (test code = 01156-1) 9.4 fL 9.5-12.9 L NRBC/100 WBC (test code = 3447808624) See_Comment [Automated [employer] ssage] The system which generated this result transmitted reference range: 0.0 - 10.0 /100 WBCs. The reference range was not used to interpret this result as normal/abnormal. NRBC x10^3 (test code = 2957179551) <0.01 See_Comment [Automated [employer] ge] The system which generated this result transmitted reference range: 10*3/?L. The reference range was not used to interpret this result as normal/abnormal. GRAN MAT (NEUT) % (test code = 770-8) 57.5 % IMM GRAN % (test code = 9925859902) 2.00 % LYMPH % (test code = 736-9) 25.9 % MONO % (test code = 5905-5) 7.2 % EOS % (test code = 713-8) 7.2 % BASO % (test code = 706-2) 0.2 % GRAN MAT x10^3(ANC) (test code = 8427450832) 7.29 10*3/uL 1.88-7.09 H IMM GRAN x10^3 (test code = 2693542875) 0.25 10*3/uL 0.00-0.06 H LYMPH x10^3 (test code = 731-0) 3.29 10*3/uL 1.32-3.29 MONO x10^3 (test code = 742-7) 0.91 10*3/uL 0.33-0.92 EOS x10^3 (test code = 711-2) 0.92 10*3/uL 0.03-0.39 H BASO x10^3 (test code = 704-7) 0.03 10*3/uL 0.01-0.07 Lab Interpretation (test code = 38313-1) Abnormal [facility]lakeGLYCOSYLATED HEMOGLOBIN (A1C)2020-12-05 00:18:48* Test Item Value Reference Range Interpretation Comme nts HGB A1C (test code = 4548-4) 5.5 % 4.0-5.7 BRE (test code = BRE) Reference RangesNormal: <5.7%Prediabetes: 5.7 - 6.4%Diabetes: > 6.5% Lab Interpretation (test code = 51054-9) Normal [facility] (ID NOW RAPID TESTING)2020-12-04 21:49:20* Test Item Value Reference Range Interpretation Comme nts SARS-CoV-2 Rapid ID NOW (test code = 90567-4) Not Detected Not Detected BRE (test code = BRE) ID NOW COVID-19 As say is an isothermal nucleic acid amplification test intended for the qualitative detection of nucleic acid from SARS-CoV-2 viral RNA in nasopharyngeal ([employer]) specimens. It is used under Emergency Use [...] clinically indicated. Lab Interpretation (test code = 68963-0) Normal [facility]lakeCT ABDOMEN PELVIS W [id number] 20:53:50Mild subcutaneous edema in the the mons pubis. No evidence of soft tissueemphysema or a drainable fluid collection. Correlate with exam. Several mildly enlarged bilateral iliac chain, pelvic sidewall, andinguinal lymph nodes, likely reactive. Sigmoid diverticulosis. Significant subchondral cystic changes in the left femoral head may berelated to arthropathic changes or an osteochondral lesion. [id number] End of report Ordering physician:MCKENZIE FISCHER CLINICAL [...] or an osteochondral lesion.RL 5045End of report [facility] HospitalUrinalysis2021-07-06 20:39:43* Test Item Value Reference Range Interpretation Comme nts APPEARANCE (test code = 1808286289) Clear Clear COLOR (test code = 4014363349) Yellow Yellow PH (test code = 0431738677) 4.8-8.0 SP GRAVITY (test code = 8012896193) 1.003-1.030 GLU U QUAL (test code = 9718603251) Normal Normal BLOOD (test code = 5325898201) Negative Negative KETONES (test code = 2787670063) Negative Negative PROTEIN (test code = 2887-8) Negative Negative UROBILIN (test code = 8221237366) 4.0 mg/dL Normal A BILIRUBIN (test code = 7032989537) Negative Negative NITRITE (test code = 2935848250) Negative Negative LEUK KANDICE (test code = 6552483802) Negative Negative RBC/HPF (test code = 4815400094) See_Comment [Automated [employer] ge] The system which generated this result transmitted reference range: 0 - 3 HPF. The reference range was not used to interpret this result as normal/abnormal. WBC/HPF (test code = 7864503054) See_Comment [Automated messa ge] The system which generated this result transmitted reference range: 0 - 5 HPF. The reference range was not used to interpret this result as normal/abnormal. BACTERIA (test code = 0346363654) Negative Negative MUCOUS (test code = 7886085775) Slight Negative LPF A SQ EPITH (test code = 5147670435) HPF Lab Interpretation (test code = 82075-5) Abnormal [facility]lake[facility]atic Function Panel (ALB, T.PRO, BILI T, BU/BC, ALT, AST, ALK PHOS)2020-12-04 20:26:41* Test Item Value Reference Range Interpretation Comme nts TOTAL BILI (test code = 4742339076) 0.4 mg/dL 0.1-1.1 BILI UNCON (test code = 1847548043) 0.2 mg/dL 0.1-1.1 BILI CONJ (test code = 3162330543) 0.0 mg/dL 0.0-0.3 T PROTEIN (test code = 2345335730) 7.5 g/dL 6.3-8.2 ALBUMIN (test code = 9118726519) 4.3 g/dL 3.5-5.0 ALK PHOS (test code = 3323969937) 94 U/L 34-122 ALTv (test code = 1742-6) 20 U/L 5-35 AST(SGOT) (test code = 9349939941) 21 U/L 13-40 Lab Interpretation (test cod e = 41139-1) Normal [facility] Metabolic Panel (NA, K, CL, CO2, GLUCOSE, BUN, CREATININE, CA)2020-12-04 20:26:21* Test Item Value Reference Range Interpretation Comme nts NA (test code = 3652443597) 136 mmol/L 135-145 K (test code = 2849647524) 3.8 mmol/L 3.5-5.0 CL (test code = 4345744186) 104 mmol/L 98-108 CO2 TOTAL (test code = 7727858723) 23 mmol/L 23-31 AGAP (test code = 5607523999) 2-16 BUN (test code = 3533625316) 9 mg/dL 7-23 GLUCOSE (test code = 3098546425) 91 mg/dL 70-110 CREATININE (test code = 7851347718) 0.71 mg/dL 0.50-1.04 CALCIUM (test code = 0125469890) 9.3 mg/dL 8.6-10.6 eGFR (test code = 4781685824) mL/min/1.73m2 BRE (test code = BRE) Association [...] urine or abnormalities in imaging tests). [facility] with Nisxffqfntnb8277-57-00 20:22:41* Test Item Value Reference Range Interpretation [...] 32.3 g/dL 31.6-35.1 RDW-SD (test code = 94180-8) 45.5 fL 39.0-49.9 RDW-CV (test code = 788-0) 13.4 % 12.0-15.5 PLT (test code = 777-3) See_Comment [Automated messa ge] The system which generated this result transmitted reference range: 166 - 358 10*3/?L. The reference range was not used to interpret this result as normal/abnormal. MPV (test code = 04638-0) 9.5 fL 9.5-12.9 NRBC/100 WBC (test code = 7844247786) See_Comment [Automated [employer] ssage] The system which generated this result transmitted reference range: 0.0 - 10.0 /100 WBCs. The reference range was not used to interpret this result as normal/abnormal. NRBC x10^3 (test code = 3620484260) <0.01 See_Comment [Automated messa ge] The system which generated this result transmitted reference range: 10*3/?L. The reference range was not used to interpret this result as normal/abnormal. GRAN MAT (NEUT) % (test code = 770-8) 70.7 % IMM GRAN % (test code = 3306128632) 1.30 % LYMPH % (test code = 736-9) 15.6 % MONO % (test code = 5905-5) 5.9 % EOS % (test code = 713-8) 6.3 % BASO % (test code = 706-2) 0.2 % GRAN MAT x10^3(ANC) (test code = 8449234462) 9.53 10*3/uL 1.88-7.09 H IMM GRAN x10^3 (test code = 2755264638) 0.17 10*3/uL 0.00-0.06 H LYMPH x10^3 (test code = 731-0) 2.10 10*3/uL 1.32-3.29 MONO x10^3 (test code = 742-7) 0.79 10*3/uL 0.33-0.92 EOS x10^3 (test code = 711-2) 0.85 10*3/uL 0.03-0.39 H BASO x10^3 (test code = 704-7) 0.03 10*3/uL 0.01-0.07 Lab Interpretation (test code = 04123-6) Abnormal [facility] SouthlakeLawaic Acid Whole Psuxm9339-21-91 20:01:06* Test Item Value Reference Range Interpretation Comme nts LACTIC ACID (test code = 3445336730) 1.42 mmol/L 0.50-2.20 Lab Interpretation (test cod e = 14398-5) Normal [facility]lakePOCT Ozgq9343-47-08 19:51:00* Test Item Value Reference Range Interpretation Comme nts POCT PREG (test code = 1605) negative On board controls acceptable with C Line (test code = 3574) yes POCT PREG LOT # (test code = 3575) [id number] POCT PREG TEST DATE ( test code = 3576) 05/31/2022 Lab Interpretation (test cod e = 75724-0) Normal [facility]lakeMR BRAIN W WO DXUUTIAX7831-33-88 18:45:40No acute intracranial abnormality Gradient blooming in [...] noted on the accompanying CT. No surrounding edema.[facility] LUMBAR SPINE WO ASAATHZG5997-70-09 18:26:15Mild spondylosis at L4-L5 results in moderate [...] in the superficial soft tissues of thevisualized backUnMethodist TexSan HospitalKEPPRA (LEVETIRACETAM)2020-02-18 04:48:00* Test Item Value Reference Range Interpretation Comme nts KEPPRA (test code = 4453142332) 11 ug/mL 12-46 L BRE (test code = BRE) Therapeutic range: 12-46 ?g/mL ? ?Toxic: Not well established.Test developed and characteristics determined by [facility] Laboratory Services. Lab Interpretation (test code = 97553-6) Abnormal [facility]. METABOLIC PANEL (28763)2020-02-18 04:46:00* Test Item Value Reference Range Interpretation Comme nts NA (test code = 9819774746) 143 mmol/L 135-145 K (test code = 7872361823) 3.9 mmol/L 3.5-5 CL (test code = 9253492591) 109 mmol/L 98-108 H CO2 TOTAL (test code = 7353057894) 24 mmol/L 23-31 AGAP (test code = 8062976821) 2-16 BUN (test code = 9766814567) 5 mg/dL 7-23 L GLUCOSE (test code = 3072053429) 98 mg/dL 70-110 CREATININE (test code = 7459351557) 0.66 mg/dL 0.5-1.04 TOTAL BILI (test code = 9521077377) 0.2 mg/dL 0.1-1.1 CALCIUM (test code = 6205981522) 8.0 mg/dL 8.6-10.6 L T PROTEIN (test code = 7677729235) 5.7 g/dL 6.3-8.2 L ALBUMIN (test code = 5494053421) 3.2 g/dL 3.5-5 L ALK PHOS (test code = 2129880864) 58 U/L 34-122 ALTv (test code = 1742-6) 14 U/L 5-35 AST(SGOT) (test code = 6203553837) 37 U/L 13-40 eGFR Calculation (Non-) (test code = 6707101213) mL/min/1.73m2 eGFR Calculation () (test code = 4671415614) mL/min/1.73m2 BRE (test code = BRE) Association [...] imaging tests). Lab Interpretation (test code = 08103-8) Abnormal [facility]lakeTROPONIN [id number] 04:02:00* Test Item Value Reference Range Interpretation Comme nts TROPONIN I (test code = 1355170240) 0.003 ng/mL See_Comment [Automated message] The system [...] biotin. ? Lab Interpretation (test code = 03724-5) Normal [facility] WITH [id number] 03:22:00* Test Item Value Reference Range Interpretation Comme nts WBC (test code = 6690-2) See_Comment [Automated [employer]] The system which generated this result transmitted reference range: 4.30 - 11.10 10*3/?L. The reference range was not used to interpret this result as normal/abnormal. RBC (test code = 789-8) See_Comment [Automated [employer]] The system which generated this result transmitted [...] 32.6 g/dL 31.6-35.1 RDW-SD (test code = 69472-5) 47.2 fL 39-49.9 RDW-CV (test code = 788-0) 13.2 % 12-15.5 PLT (test code = 777-3) See_Comment [Automated messa ge] The system which generated this result transmitted reference range: 166 - 358 10*3/?L. The reference range was not used to interpret this result as normal/abnormal. MPV (test code = 81381-8) 9.8 fL 9.5-12.9 NRBC/100 WBC (test code = 7195785583) See_Comment [Automated [employer] ssage] The system which generated this result transmitted reference range: 0.0 - 10.0 /100 WBCs. The reference range was not used to interpret this result as normal/abnormal. NRBC x10^3 (test code = 6692563487) <0.01 See_Comment [Automated messa ge] The system which generated this result transmitted reference range: 10*3/?L. The reference range was not used to interpret this result as normal/abnormal. GRAN MAT (NEUT) % (test code = 770-8) 52.0 % IMM GRAN % (test code = 1687546516) 0.50 % LYMPH % (test code = 736-9) 32.3 % MONO % (test code = 5905-5) 8.4 % EOS % (test code = 713-8) 6.5 % BASO % (test code = 706-2) 0.3 % GRAN MAT x10^3(ANC) (test code = 0735589019) 4.91 10*3/uL 1.88-7.09 IMM GRAN x10^3 (test code = 5540689327) 0.05 10*3/uL 0-0.06 LYMPH x10^3 (test code = 731-0) 3.06 10*3/uL 1.32-3.29 MONO x10^3 (test code = 742-7) 0.80 10*3/uL 0.33-0.92 EOS x10^3 (test code = 711-2) 0.62 10*3/uL 0.03-0.39 H BASO x10^3 (test code = 704-7) 0.03 10*3/uL 0.01-0.07 Lab Interpretation (test code = 30383-7) Abnormal [facility]lake[facility] HEAD WO HARQRBSS1248-25-35 04:07:57No acute intracranial hemorrhage or mass effect. [...] are unremarkable. Mild paranasal sinus mucosal thickening. Rust, Radiant Results Inft User - 02/16/2020 11:09 [...] sinus mucosal thickening.IMPRESSIONNo acute intracranial hemorrhage or masseffect.[facility]lakePHENYTOIN NQIR2200-17-79 02:54:00* Test Item Value Reference Range Interpretation Comme nts PHENY FREE (test code = 4762921664) <0.5 1-2 L BRE (test code = BRE) Toxic Range: ? Greater than 2.5 ug/mL Test developed and characteristics determined by [facility] Laboratory Services. Lab Interpretation (test code = 28374-5) Abnormal [facility] SouthlakeCREATINE FAJHOO9365-98-80 01:38:00* Test Item Value Reference Range Interpretation Comme nts CK (test code = 8739245304) 259 U/L 33-194 H Lab Interpretation (test cod e = 31568-5) Abnormal [facility] SouthlakeMAGNESIUM2020-09-18 00:55:00* Test Item Value Reference Range Interpretation Comme nts MAGNESIUM (test code = 9554296243) 1.7 mg/dL 1.7-2.4 Lab Interpretation (test cod e = 80860-5) Normal [facility]lakeElectroencephalogram (EEG) - Duration of test: 20-60 hiwt7409-46-67 00:00:00Date and Time of Procedure: 02/17/2020, 9:14:15- [...] additional details. Lian Canada MDDate of interpretation: 02/17/2020Un[facility] HospitalBASI METABOLIC PANEL (NA, K, CL, CO2, GLUCOSE, BUN, CREATININE, CA) 2020-02-16 11:27:00* Test Item Value Reference Range Interpretation Comme nts NA (test code = 7980745154) 136 mmol/L 135-145 K (test code = 5787526832) 3.9 mmol/L 3.5-5 CL (test code = 1028233921) 107 mmol/L 98-108 CO2 TOTAL (test code = 5166765741) 21 mmol/L 23-31 L AGAP (test code = 1692301713) 2-16 BUN (test code = 9024585651) 9 mg/dL 7-23 GLUCOSE (test code = 1878754947) 115 mg/dL 70-110 H CREATININE (test code = 5213361204) 0.74 mg/dL 0.5-1.04 CALCIUM (test code = 4137157488) 8.0 mg/dL 8.6-10.6 L eGFR Calculation (Non-) (test code = 7335347907) mL/min/1.73m2 eGFR Calculation () (test code = 5549512475) mL/min/1.73m2 BRE (test code = BRE) Association [...] imaging tests). Lab Interpretation (test code = 85441-2) Abnormal [facility] WITH RAPC4473-52-43 10:57:00* Test Item Value Reference Range Interpretation [...] 32.5 g/dL 31.6-35.1 RDW-SD (test code = 14948-9) 46.5 fL 39-49.9 RDW-CV (test code = 788-0) 13.1 % 12-15.5 PLT (test code = 777-3) See_Comment [Automated message] The system which generated this result transmitted reference range: 166 - 358 10*3/?L. The reference range was not used to interpret this result as normal/abnormal. MPV (test code = 81053-0) 9.4 fL 9.5-12.9 L NRBC/100 WBC (test code = 7496620311) See_Comment [Automated message] The system which generated this result transmitted reference range: 0.0 - 10.0 /100 WBCs. The reference range was not used to interpret this result as normal/abnormal. NRBC x10^3 (test code = 3450394630) <0.01 See_Comment [Automated message] The system which generated this result transmitted reference range: 10*3/?L. The reference range was not used to interpret this result as normal/abnormal. GRAN MAT (NEUT) % (test code = 770-8) 76.8 % IMM GRAN % (test code = [id number]) 0.60 % LYMPH % (test code = 736-9) 9.7 % MONO % (test code = 5905-5) 7.7 % EOS % (test code = 713-8) 5.1 % BASO % (test code = 706-2) 0.1 % GRAN MAT x10^3(ANC) (test code = [id number]) 11.03 10*3/uL 1.88-7.09 H IMM GRAN x10^3 (test code = [id number]) 0.09 10*3/uL 0-0.06 H LYMPH x10^3 (test code = 731-0) 1.39 10*3/uL 1.32-3.29 MONO x10^3 (test code = 742-7) 1.10 10*3/uL 0.33-0.92 H EOS x10^3 (test code = 711-2) 0.73 10*3/uL 0.03-0.39 H BASO x10^3 (test code = 704-7) <0.03 0.01-0.07 Lab Interpretation (test code = 11865-1) [facility]ID [facility]2020-02-16 00:28:00* Test Item Value Reference Range Interpretation Comme nts SARS-CoV-2 Rapid ID NOW (test code = 80763-7) Not Detected Not Detected BRE (test code = BRE) ID NOW COVID-19 As say is an isothermal nucleic acid amplification test intended for the qualitative detection of nucleic acid from SARS-CoV-2 viral RNA in nasopharyngeal (ADVERTISING ASSOCIATE) specimens. It is used under Emergency Use [...] clinically indicated. Lab Interpretation (test code = 27689-1) Normal [facility]. METABOLIC PANEL (35793)2020-02-15 23:51:00* Test Item Value Reference Range Interpretation Comme nts NA (test code = 2458023358) 136 mmol/L 135-145 K (test code = 0998201897) 4.0 mmol/L 3.5-5 CL (test code = 6495011633) 104 mmol/L 98-108 CO2 TOTAL (test code = 7756442279) 20 mmol/L 23-31 L AGAP (test code = 1724178468) 2-16 BUN (test code = 9115385444) 9 mg/dL 7-23 GLUCOSE (test code = 5393813446) 90 mg/dL 70-110 CREATININE (test code = 0280992243) 0.57 mg/dL 0.5-1.04 TOTAL BILI (test code = 3271469832) 0.7 mg/dL 0.1-1.1 CALCIUM (test code = 8766720402) 8.5 mg/dL 8.6-10.6 L T PROTEIN (test code = 2116144531) 6.8 g/dL 6.3-8.2 ALBUMIN (test code = 3704843595) 4.0 g/dL 3.5-5 ALK PHOS (test code = 2361388253) 63 U/L 34-122 ALTv (test code = 1742-6) 15 U/L 5-35 AST(SGOT) (test code = 2533953648) 30 U/L 13-40 eGFR Calculation (Non-) (test code = 5034949562) mL/min/1.73m2 eGFR Calculation () (test code = 4297116248) mL/min/1.73m2 BRE (test code = BRE) Association [...] imaging tests). Lab Interpretation (test code = 07966-2) [facility]normal [facility] [id number] 23:51:00* Test Item Value Reference Range Interpretation Comme nts CK (test code = 6867886268) 222 U/L 33-194 H Lab Interpretation (test cod e = 80264-9) [facility]normal [facility] WITH [id number] 23:38:00* Test Item Value Reference Range Interpretation Comme nts WBC (test code = 6690-2) See_Comment H [Automated [employer]] The system which generated this result transmitted reference range: 4.30 - 11.10 10*3/?L. The reference range was not used to interpret this result as normal/abnormal. RBC (test code = 789-8) See_Comment [Automated [employer]] The system which generated this result transmitted [...] 32.8 g/dL 31.6-35.1 RDW-SD (test code = 36395-4) 45.1 fL 39-49.9 RDW-CV (test code = 788-0) 13.0 % 12-15.5 PLT (test code = 777-3) See_Comment [Automated messa ge] The system which generated this result transmitted reference range: 166 - 358 10*3/?L. The reference range was not used to interpret this result as normal/abnormal. MPV (test code = 20155-1) 9.6 fL 9.5-12.9 NRBC/100 WBC (test code = 3440785347) See_Comment [Automated [employer] ssage] The system which generated this result transmitted reference range: 0.0 - 10.0 /100 WBCs. The reference range was not used to interpret this result as normal/abnormal. NRBC x10^3 (test code = 1691275151) <0.01 See_Comment [Automated messa ge] The system which generated this result transmitted reference range: 10*3/?L. The reference range was not used to interpret this result as normal/abnormal. GRAN MAT (NEUT) % (test code = 770-8) 65.2 % IMM GRAN % (test code = 1625457418) 0.80 % LYMPH % (test code = 736-9) 18.4 % MONO % (test code = 5905-5) 8.7 % EOS % (test code = 713-8) 6.6 % BASO % (test code = 706-2) 0.3 % GRAN MAT x10^3(ANC) (test code = 0205771730) 9.11 10*3/uL 1.88-7.09 H IMM GRAN x10^3 (test code = 8645651561) 0.11 10*3/uL 0-0.06 H LYMPH x10^3 (test code = 731-0) 2.58 10*3/uL 1.32-3.29 MONO x10^3 (test code = 742-7) 1.22 10*3/uL 0.33-0.92 H EOS x10^3 (test code = 711-2) 0.93 10*3/uL 0.03-0.39 H BASO x10^3 (test code = 704-7) 0.04 10*3/uL 0.01-0.07 Lab Interpretation (test code = 35232-5) Abnormal [facility] Whole [id number] 23:35:00* Test Item Value Reference Range Interpretation Comme nts LACTIC ACID (test code = 2843007991) 1.97 mmol/L [facility] Notes Date/Time Note Provider Source 2024-06-27 06:19:58 Problem: Falls, Risk of Goal: Absence of falls Outcome: Progressing as expected Problem: Pain Goal: Control of pain at or below patient's documented comfort goal Outcome: Progressing as expected Goal: Reduction in pain sensation Outcome: Progressing as expected Problem: Mental Status - Impaired, Risk of Goal: Absence of physical injury Outcome: Progressing as expected Problem: Nutrition Deficit Goal: Adequate nutritional intake Outcome: Progressing as expected Problem: Respiratory Function - Impaired Goal: Adequate oxygenation Outcome: Progressing as expected Goal: Adequate work of breathing Outcome: Progressing as expected Goal: Patent airway Outcome: Progressing as expected Problem: Tissue Perfusion - Altered, Risk of Goal: Hemodynamically stable Outcome: Progressing as expected ELDA Jerome RN [facility]"
[2024-08-19] MEDS ORDERED: CEPHALEXIN 250 MG CAP ONE (02:36)
[2024-08-19] MEDS ORDERED: ONDANSETRON 4 MG/2 ML VIAL ONE (02:36)
[2024-08-19] MEDS ORDERED: SMZ./TMP. 800/160 MG TABLET ONE (02:36)
[2024-08-19] MEDS ORDERED: KETOROLAC 30 MG/ML INJ ONE (02:37)
[2024-08-19] MEDS ORDERED: MORPHINE 2 MG/ML SYR ONE (02:37)
[2024-08-19] MEDS ORDERED: MORPHINE 4 MG/ML SYR ONE (02:37)
[2024-08-19] MEDS ORDERED: NA CHLORIDE 0.9% 1,000 ML ONE (02:38)
[2024-08-19] MEDS ORDERED: SILVER SULFADIAZINE 1% 25 GM TOP ONE (02:38)
--- NOTE | 2024-08-19 04:03 | ER ---
Nurse's Notes [facility] Name: Diana Vincent Age: 48 yrs Sex: Female : 1975 Arrival Date: 08/19/2024 Time: 01:25 Bed 8 Private MD: Diagnosis: Second-degree burn right lower back, second-degree burn left lower back Presentation: 08/19 01:42 Chief complaint: Patient states: I HAVE A NEW TENS UNIT THAT SHOCK ME TOO HARD AND MADE ha1 SOME RECIO ON MY BACK. 01:42 Coronavirus screen: Client denies travel out of the [place] in the last 14 days. Ebola ha1 Screen: No symptoms or risks identified at this time. Initial Sepsis Screen: Does the patient meet any 2 criteria? No. Patient's initial sepsis screen is negative. Does the patient have a suspected source of infection? No. Patient's initial sepsis screen is negative. Risk Assessment: Do you want to hurt yourself or someone else? Patient reports no desire to harm self or others. Onset of symptoms was August 19, 2024. 01:42 Method Of Arrival: Wheelchair ha1 01:42 Acuity: ARGENIS 3 ha1 Triage Assessment: 01:42 General: Appears uncomfortable, Behavior is cooperative. Pain: Complains of pain in ha1 back Pain currently is 10 out of 10 on a pain scale. Quality of pain is described as burning. Neuro: Level of Consciousness is awake, alert, obeys commands, Oriented to person, place, time, situation. Cardiovascular: Patient's skin is warm and dry. Respiratory: Airway is patent Respiratory effort is even, unlabored, Respiratory pattern is regular, symmetrical. Historical: - Allergies: 01:42 Latex; ha1 01:42 PENICILLINS; ha1 - PMHx: 01:42 Asthma; Seizures; ha1 - PSHx: 01:42 section; Left hip; umbilical hernia repair; ha1 - Immunization history:: Adult Immunizations up to date. - Infectious Disease History:: Denies. - Social history:: Smoking status: unknown. - Family history:: not pertinent. Screenin:45 [facility] ED Fall Risk Assessment (Adult) History of falling in the last 3 months, br2 including since admission No falls in past 3 months (0 pts) Confusion or Disorientation No (0 pts) Intoxicated or Sedated No (0 pts) Impaired Gait No (0 pts) Mobility Assist Device Used No (0 pt) Altered Elimination No (0 pt) Score/Fall Risk Level 0 - 2 = Low Risk Oriented to surroundings. Abuse screen: Denies threats or abuse. Denies injuries from another. Nutritional screening: No deficits noted. Tuberculosis screening: No symptoms or risk factors identified. Assessment: 01:45 Reassessment: Patient and/or family updated on plan of care and expected duration. Pain br2 level reassessed. General: Appears uncomfortable, Behavior is cooperative, anxious. Pain: Complains of pain in left low back, left mid back, right mid back and right low back Pain currently is 10 out of 10 on a pain scale. Neuro: Level of Consciousness is awake, alert, obeys commands, Oriented to person, place, time, situation. Cardiovascular: Capillary refill < 3 seconds. Respiratory: Airway is patent Respiratory effort is even, unlabored, Respiratory pattern is regular, symmetrical. GI: No signs and/or symptoms were reported involving the gastrointestinal system. : No signs and/or symptoms were reported regarding the genitourinary system. Derm: Skin is moist, BLISTERS THAT HAVE POPPED ARE DRAINING. Reports burning, pain that is 10 out of 10 on a pain scale. Musculoskeletal: No signs and/or symptoms reported regarding the musculoskeletal system. Injury Description: Patient sustained second-degree burn(s) to left low back, left mid back, right mid back and right low back. 03:38 Reassessment: Patient and/or family updated on plan of care and expected duration. Pain br2 level reassessed. Patient is alert, oriented x 3, equal unlabored respirations, skin warm/dry/pink. Patient states feeling better. Patient states symptoms have improved. Vital Signs: 01:42 BP 132 / 98; Pulse 87; Resp 19 S; Temp 98.3(T); Pulse Ox 98% on R/A; Weight 65.77 kg; ha1 Height 5 ft. 4 in. ; Pain 10/10; 02:45 BP 132 / 90; Pulse 66; Resp 18 S; Pulse Ox 94% on R/A; Pain 10/10; br2 03:37 BP 104 / 70; Pulse 63; Resp 16; Pulse Ox 98% ; Pain 4/10; br2 04:20 BP 105 / 86; Pulse 73; Resp 18; Pulse Ox 99% on R/A; Pain 3/10; br2 01:42 Body Mass Index 24.89 (65.77 kg, 162.56 cm) ha1 01:42 Pain Scale: Adult ha1 02:45 Pain Scale: Adult br2 03:37 Pain Scale: Adult br2 04:20 Pain Scale: Adult br2 [place]anna Coma Score: 16:15 Eye Response: spontaneous(4). Motor Response: obeys commands(6). Verbal Response: sp4 oriented(5). Total: 15. ED Course: 01:32 Patient arrived in ED. gm2 01:36 Isaac Ellison MD is Attending Physician. sp4 01:45 Fall risk band placed. Placed in gown. Bed in low position. Call light in reach. Side br2 rails up X 1. Provided Education on: PLAN OF CARE. 01:45 Arm band placed on left wrist. br2 01:45 Inserted saline lock: 20 gauge in right antecubital area, using aseptic technique. br2 Blood collected. Flushed with 10 mL NS. 01:54 Triage completed. ha1 02:19 Gladys Julian, RN is Primary Nurse. br2 03:52 Wound care: to BURN/BLISTERS (POPPED) located on left low back, left mid back, right br2 mid back and right low back was cleaned with with NORMAL SALINE, dressed with ABD pads, APPLIED SILVERDINE CREAM, ABD PADS WITH PAPER TAPE, Patient tolerated well. 04:30 IV discontinued, intact, bleeding controlled, No redness/swelling at site. Pressure br2 dressing applied. 04:30 No provider procedures requiring assistance completed. br2 Administered Medications: 02:50 Drug: Trimethoprim-Sulfamethoxazole PO (160 mg-800 mg (DS) 1 tablet PO once Route: PO; br2 03:30 Follow up: Response: No adverse reaction br2 02:50 Drug: Cephalexin PO 500 mg PO once Route: PO; br2 03:30 Follow up: Response: No adverse reaction br2 02:51 Drug: morphine IVP or IV 6 mg IVP once over 4 mins Route: IVP; Infused Over: 4 mins; br2 Site: right antecubital; 03:30 Follow up: Response: No adverse reaction br2 02:51 Drug: NS 0.9% IV 1000 ml IV at 1 bolus Per protocol; to be given as a bolus over 60 br2 minutes Route: IV; Rate: 1 bolus; Site: right antecubital; 04:28 Follow up: IV Status: Completed infusion; IV Intake: 1000ml br2 02:51 Drug: Ketorolac IVP 30 mg IVP once Route: IVP; Site: right antecubital; br2 03:30 Follow up: Response: No adverse reaction br2 02:51 Drug: Ondansetron IVP 4 mg IVP once; over 2 minutes Route: IVP; Site: right antecubital;br2 03:30 Follow up: Response: No adverse reaction br2 03:52 Drug: Silver SulfADIAZINE Topical Cream 1 % 1 application Topical once Route: Topical; br2 Site: affected area; 04:29 Follow up: Response: No adverse reaction br2 Intake: 04:28 IV: 1000ml; Total: 1000ml. br2 Outcome: 04:03 Discharge ordered by . scott 04:30 Discharged to home ambulatory, br2 04:30 Condition: improved 04:30 Discharge instructions given to patient, Instructed on discharge instructions, follow up and referral plans. Demonstrated understanding of instructions, follow-up care, medications, Prescriptions given X 5 04:31 Patient left the ED. br2 Signatures: Judy Huang RN RN ha1 Isaac Ellison MD MD sp4 Denice Melendez gm2 Gladys Julian RN RN br2
--- NOTE | 2024-08-19 04:03 | EDPHYS ---
[facility] Name: Diana Vincent Age: 48 yrs Sex: Female : 1975 Arrival Date: 08/19/2024 Time: 01:25 Bed 8 Private MD: ED Physician Isaac Ellison HPI: 08/19 01:36 This 48 yrs old Black Female presents to ER via Unassigned with complaints of BURN ON sp4 BACK. 16:13 Presents with bilateral lower back blistering israel. sp4 16:14 Patient reports she had Transcutaneous electrical nerve stimulation (TENS) for chronic sp4 back pain applied in the last 4 days. Patient reported that this created blistering israel to her lower back. Historical: - Allergies: 01:42 Latex; ha1 01:42 PENICILLINS; ha1 - PMHx: 01:42 Asthma; Seizures; ha1 - PSHx: 01:42 section; Left hip; umbilical hernia repair; ha1 - Immunization history:: Adult Immunizations up to date. - Infectious Disease History:: Denies. - Social history:: Smoking status: unknown. - Family history:: not pertinent. ROS: 16:15 Constitutional: Negative for fever, chills, and weight loss, for bilateral lower back sp4 blistering israel 16:15 All other systems are negative, Exam: 16:15 Constitutional: This is a well developed, well nourished patient who is awake, alert, sp4 and in no acute distress. Head/Face: Normocephalic, atraumatic. Eyes: Pupils equal round and reactive to light, extra-ocular motions intact. Lids and lashes normal. Conjunctiva and sclera are not injected. Cornea within normal limits. Periorbital areas with no swelling, redness, or edema. ENT: Nares patent. No nasal discharge, no septal abnormalities noted. Tympanic membranes are normal and external auditory canals are clear. Oropharynx with no redness, swelling, or masses, exudates, or evidence of obstruction, uvula midline. Mucous membranes moist. Neck: Trachea midline, no thyromegaly or masses palpated, and no cervical lymphadenopathy. Supple, full range of motion without nuchal rigidity, or vertebral point tenderness. Chest/axilla: Normal chest wall appearance and motion. Nontender with no deformity. No lesions are appreciated. Cardiovascular: Regular rate and rhythm with a normal S1 and S2. No gallops, murmurs, or rubs. Normal PMI, no JVD. No pulse deficits. Respiratory: Lungs have equal breath sounds bilaterally, clear to auscultation and percussion. No rales, rhonchi or wheezes noted. No increased work of breathing, no retractions or nasal flaring. Abdomen/GI: Soft, with normal bowel sounds. No distension or tympany. No guarding or rebound. No evidence of tenderness throughout. Back: No spinal tenderness. No costovertebral tenderness. Areas of blistering israel to the right and left lower back running to the location of TENS electrodes. No sign of third-degree israel. Exam consistent with bilateral lower back moderate size second-degree israel Skin: Warm, dry with normal turgor. Normal color with no rashes, no lesions, lateral lower back second-degree israle as above MS/ Extremity: Pulses equal, no cyanosis. Neurovascular intact. Full, normal range of motion. Neuro: Awake and alert, GCS 15, oriented to person, place, time, and situation. Cranial nerves II-XII grossly intact. Motor strength 5/5 in all extremities. Sensory grossly intact. Psych: Awake, alert, with orientation to person, place and time. Behavior, mood, and affect are within normal limits Vital Signs: 01:42 BP 132 / 98; Pulse 87; Resp 19 S; Temp 98.3(T); Pulse Ox 98% on R/A; Weight 65.77 kg; ha1 Height 5 ft. 4 in. ; Pain 10/10; 02:45 BP 132 / 90; Pulse 66; Resp 18 S; Pulse Ox 94% on R/A; Pain 10/10; br2 03:37 BP 104 / 70; Pulse 63; Resp 16; Pulse Ox 98% ; Pain 4/10; br2 04:20 BP 105 / 86; Pulse 73; Resp 18; Pulse Ox 99% on R/A; Pain 3/10; br2 01:42 Body Mass Index 24.89 (65.77 kg, 162.56 cm) ha1 01:42 Pain Scale: Adult ha1 02:45 Pain Scale: Adult br2 03:37 Pain Scale: Adult br2 04:20 Pain Scale: Adult br2 [place] Coma Score: 16:15 Eye Response: spontaneous(4). Motor Response: obeys commands(6). Verbal Response: sp4 oriented(5). Total: 15. Procedures: 16:15 Performed Burn care with Silvadene application.. sp4 MDM: 04:03 Medical Screening Exam initiated sp4 16:17 Differential diagnosis: 1st degree israel, 2nd degree israel, 3rd degree israel. Data sp4 reviewed: vital signs, nurses notes, old medical records. ED course: And feels much better after burn care and pain control. Stable for discharge home. Will prescribe [place] 10 every 6 hours as needed pain for the total of 20 tablets. 08/19 02:26 Order name: Wound Care: apply ointment to israel; Complete Time: 03:52 sp4 Administered Medications: 02:50 Drug: Trimethoprim-Sulfamethoxazole PO (160 mg-800 mg (DS) 1 tablet PO once Route: PO; br2 03:30 Follow up: Response: No adverse reaction br2 02:50 Drug: Cephalexin PO 500 mg PO once Route: PO; br2 03:30 Follow up: Response: No adverse reaction br2 02:51 Drug: morphine IVP or IV 6 mg IVP once over 4 mins Route: IVP; Infused Over: 4 mins; br2 Site: right antecubital; 03:30 Follow up: Response: No adverse reaction br2 02:51 Drug: NS 0.9% IV 1000 ml IV at 1 bolus Per protocol; to be given as a bolus over 60 br2 minutes Route: IV; Rate: 1 bolus; Site: right antecubital; 04:28 Follow up: IV Status: Completed infusion; IV Intake: 1000ml br2 02:51 Drug: Ketorolac IVP 30 mg IVP once Route: IVP; Site: right antecubital; br2 03:30 Follow up: Response: No adverse reaction br2 02:51 Drug: Ondansetron IVP 4 mg IVP once; over 2 minutes Route: IVP; Site: right antecubital;br2 03:30 Follow up: Response: No adverse reaction br2 03:52 Drug: Silver SulfADIAZINE Topical Cream 1 % 1 application Topical once Route: Topical; br2 Site: affected area; 04:29 Follow up: Response: No adverse reaction br2 Disposition: 16:18 Chart complete. sp4 Disposition Summary: 08/19/24 04:03 Discharge Ordered Notes: Location: Home sp4 Problem: new sp4 Symptoms: have improved sp4 Condition: Stable sp4 Diagnosis - Second-degree burn right lower back, second-degree burn left lower back sp4 Followup: sp4 - With: Private Physician - When: 7 - 10 days - Reason: Recheck today's complaints Discharge Instructions: - Discharge Summary Sheet sp4 - Burn Care, Adult, [id number] sp4 Forms: - Patient Portal Instructions sp4 Prescriptions: - Ibuprofen 800 mg Oral Tablet - take 1 tablet ORAL route every 8 hours As needed take with food; 30 tablet; sp4 Refills: 0, Product Selection Permitted - Silvadene 1 % Topical cream - Apply to affected area 1 application TOPICAL route every 12 hours for 10 days; sp4 400 gram; Refills: 0, Product Selection Permitted - Bactrim DS 800-160 mg Oral Tablet - take 1 tablet ORAL route every 12 hours for 10 days; 20 tablet; Refills: 0, sp4 Product Selection Permitted - promethazine 25 mg Oral tablet - take 1 tablet ORAL route every 8 hours As needed PRN nausea; 30 tablet; sp4 Refills: 0, Product Selection Permitted Signatures: Judy Huang RN RN ha1 Isaac Ellison MD MD sp4 Gldays Julian RN RN br2
[2024-08-19 04:54] VITALS: TEMP 98.3
[2024-08-19 04:57] VITALS: BP 104/70; O2SAT 98
== END 2024-08-19 04:31 | disposition home or self-care (01) ==
LOC: ER 01:25
DX: T21.24XA Burn of second degree of lower back, initial encounter (principal)
CPT/HCPCS: 96361; 96375; 96374; 99284; J2270; J2405; J7030